=== PATIENT | female | born 1945 | race Caucasian/White ===

== ENCOUNTER 2017-01-18 19:49 | Emergency (ER) | payer MEDICARE ==
[2017-01-18] MEDS ORDERED: HYDROcodone/ACETAMIN 5-325 MG* 1 TAB PO ONE ×3 (21:11→22:13)
[2017-01-18] MEDS ORDERED: Cyclobenzaprine TAB* 10 MG PO ONE ×2 (21:11→22:14)
--- NOTE | 2017-01-18 21:44 | RAD ---
INDICATION: "Unable to walk x2 weeks" due to back pain COMPARISON: Lumbar radiograph November 19, 2015 TECHNIQUE: Contiguous axial sections were obtained beginning lower thoracic vertebra and continuing through the sacrum. Images were reconstructed in the sagittal and coronal planes. FINDINGS: Relative to the November 19, 2015 radiograph there has been interval compression deformity of the L3 vertebral body. The remaining vertebral bodies are cortically intact and properly aligned. Incidentally noted is a hemangioma occupying the left lateral aspect of the L5 vertebral body extending into the left pedicle. There is broad-based disc protrusion at L3/L4 combining with facet arthropathy and thickening of the ligamentum flavum to cause a mild degree of central canal stenosis. The visualized solid organs are grossly normal. There is coarse atherosclerotic calcification of the lower abdominal aorta. IMPRESSION: Compression deformity of the L3 vertebral body new since the November 19, 2015 radiograph of the lumbar spine with degenerative changes at L3/L4. Superior characterization of the neural and surrounding soft tissues as well as determination of acuity of the L3 vertebral body compression deformity, can be made with MRI of the lumbar spine.
--- NOTE | 2017-01-18 22:28 | ED ---
Back Pain - HPI Summary HPI Summary: Patient presents to ED with low back pain x 2 weeks. She normally ambulates at home, but has been in a wheelchair x 2 weeks d/t pain. Her son has been helping her. She states she can only go to the restroom if someone helps her and she has pain medications. She was seen at [facility] yesterday and given Tramadol but states it hasn't helped her symptoms. She was seen by her chiropractor 2 weeks ago and states the pain started at that time. She feels stiffness and pain which radiates down bilateral legs but worse through the right leg. Denies other symptoms. Denies bladder or bowel dysfunction. - History of Current Complaint Chief Complaint: EDBackInjuryPain Stated Complaint: BACK PAIN Time Seen by Provider: 01/18/17 20:41 Hx Obtained From: Patient Onset/Duration: Sudden Onset Onset/Duration: Started Weeks Ago Timing: Constant Back Pain Location: Is Discrete @ - low back Severity Initially: Moderate Severity Currently: Moderate Pain Intensity: 3 Pain Scale Used: 0-10 Numeric Character: Aching Aggravating Symptom(s): Movement Alleviating Symptom(s): Rest, Position Associated Signs And Symptoms: Positive: Weakness, Numbness, Tingling - Risk Factors AAA Risk Factors: Negative TAD Risk Factors: Negative Cauda Equina Risk Factors: Negative Epidural Abscess Risk Factors: Negative - Allergies/Home Medications Allergies/Adverse Reactions: Allergies Allergy/AdvReac Type Severity Reaction Status Date / Time No Known Allergies Allergy Verified 01/18/17 20:30 PMH/Surg Hx/FS Hx/Imm Hx Previously Healthy: No - see below Endocrine/Hematology History: Reports: Hx Thyroid Disease - hypothyroid Cardiovascular History: Reports: Hx Atrial Fibrillation, Hx Congestive Heart Failure, Hx Hypercholesterolemia, Hx Hypertension, Hx Pacemaker/ICD, Other Cardiovascular Problems/Disorders - Artificial valve, A Fib Sensory History: Reports: Hx Contacts or Glasses Opthamlomology History: Reports: Hx Contacts or Glasses - Surgical History Surgery Procedure, Year, and Place: CARDIAC VALVE REPLACEMENT, PACE MAKER, HERNIA REPAIR Infectious Disease History: No Infectious Disease History: Denies: Traveled Outside the [place] in Last 30 Days - Family History Known Family History: Positive: Unknown - Social History Occupation: Unemployed Lives: With Family Alcohol Use: Rare Hx Substance Use: No Substance Use Type: Reports: None Hx Tobacco Use: No Smoking Status (MU): Former Smoker Review of Systems Constitutional: Negative Eyes: Negative Cardiovascular: Negative Respiratory: Negative Positive: no symptoms reported, see HPI Positive: Arthralgia, Myalgia Skin: Negative Neurological: Negative All Other Systems Reviewed And Are Negative: Yes Physical Exam Triage Information Reviewed: Yes Vital Signs On Initial Exam: Initial Vitals Temp Pulse Resp BP Pulse Ox 96.8 F 110 16 140/91 92 01/18/17 20:30 01/18/17 20:30 01/18/17 20:30 01/18/17 20:30 01/18/17 20:30 Vital Signs Reviewed: Yes Appearance: Positive: Well-Appearing, Well-Nourished Skin: Positive: Warm, Skin Color Reflects Adequate Perfusion Head/Face: Positive: Normal Head/Face Inspection Eyes: Positive: EOMI, ANAIS, Conjunctiva Clear Neck: Positive: Supple, No Lymphadenopathy Respiratory/Lung Sounds: Positive: Clear to Auscultation, Breath Sounds Present Cardiovascular: Positive: Normal, RRR, Pulses are Symmetrical in both Upper and Lower Extremities Musculoskeletal: Positive: Pain @ - lower spine over L2-L5 Neurological: Positive: Sensory/Motor Intact, Alert, Oriented to Person Place, Time, Speech Normal Psychiatric: Positive: Normal AVPU Assessment: Alert - Cait[place] Coma Scale Best Eye Response: 4 - Spontaneous Best Motor Response: 6 - Obeys Commands Best Verbal Response: 5 - Oriented Diagnostics - Vital Signs Vital Signs Temp Pulse Resp BP Pulse Ox 01/18/17 20:50 98.7 F 51 17 136/85 90 01/18/17 20:30 96.8 F 110 16 140/91 92 - Laboratory Lab Statement: Any lab studies that have been ordered have been reviewed, and results considered in the medical decision making process. Back Pain Course/Dx - Course Course Of Treatment: IMPRESSION: Compression deformity of the L3 vertebral body new since the November 19, 2015. radiograph of the lumbar spine with degenerative changes at L3/L4. Superior. characterization of the neural and surrounding soft tissues as well as determination of. acuity of the L3 vertebral body compression deformity, can be made with MRI of the lumbar. spine. Physical exam limited d/t pain. Patient is given Dr. Mon's referral. Educated patient regarding back injuries and healing time and the possible need for further imaging. Given pain management and muscle relaxers for relief of pain. Patient OK with discharge and will follow up as directed. - Diagnoses Differential Diagnosis/HQI/PQRI: Positive: Herniated Disc, Strain, Sprain Provider Diagnoses: Compression fracture Discharge - Discharge Plan Condition: Stable Disposition: HOME Prescriptions: Cyclobenzaprine TAB* [Flexeril 10 MG TAB*] 10 mg PO TID PRN #30 tab MDD 3 PRN Reason: Pain Lidocaine PATCH 5%* [Lidoderm 5% Patch*] 1 patch TRANSDERM DAILY #15 patch oxyCODONE/Acetamin 5/325 MG* [Percocet 5/325 TAB*] 1 tab PO Q4H PRN #60 tab MDD 6 PRN Reason: Pain Patient Education Materials: Vertebral Compression Fracture (ED) Referrals: Gerardo Mon MD [Medical Doctor] - Dimitrios Lim MD [Primary Care Provider] - Additional Instructions: Dx. Compression Fracture Oxycodone-Acetaminophen - This medication may make you drowsy and do not drive or operate machinery with this medication. Only take this medication for breakthrough pain which is not well controlled with over the counter ibuprofen or tylenol. Lidocaine patch 5% - Place over the lower back for 12 hours per day. Do not place moist heat over the patch. Flexeril: This medication is a muscle relaxant and can help relieve muscle spasms, muscle strain, or pain sensations. Flexeril can cause side effects that may impair your thinking or reactions. Be careful if you drive or do anything that requires you to be awake and alert. Avoid drinking alcohol, which can increase some of the side effects of Flexeril. Ibuprofen 600mg three times daily with meals for discomfort. Return to ED if symptoms worsen or fail to improve, notice worsening swelling, warmth or redness around the joint, develop fever, or pain is uncontrolled with OTC medications. Moist heat to the area for comfort. Warm showers or baths may improve symptoms. It is important to remain mobile as tolerated to prevent stiffening of the joints and delay healing. Follow up with your PCP. If symptoms remain for > 6 weeks, please seek special medical attention from an orthopedic physician.
[2017-01-18 23:11] VITALS: BP 133/88
== END 2017-01-18 22:50 | disposition home or self-care (01) ==
LOC: ED 19:49
DX: S32.030A Wedge compression fracture of third lumbar vertebra, initial encounter for closed fracture (principal); S32.040A Wedge compression fracture of fourth lumbar vertebra, initial encounter for closed fracture; X58.XXXA Exposure to other specified factors, initial encounter; Y93.9 Activity, unspecified; Y92.9 Unspecified place or not applicable; R53.1 Weakness; E03.9 Hypothyroidism, unspecified; I48.91 Unspecified atrial fibrillation; I50.9 Heart failure, unspecified; E78.00 Pure hypercholesterolemia, unspecified; I10 Essential (primary) hypertension; Z95.0 Presence of cardiac pacemaker; Z95.2 Presence of prosthetic heart valve
CPT/HCPCS: 72131; 99283; A9270-GY

== ENCOUNTER → 2017-04-21 17:05 | Emergency (ER) | payer MEDICARE ==
--- NOTE | 2017-04-21 20:00 | ED ---
Back Pain - HPI Summary HPI Summary: Patient presents to the ED with CC of acute on chronic back pain since 2 days ago. She states the pain has been worsening and has been unable to sleep d/t pain. She has had extra Tramdol at home for pain control and is now out. She was here 3 months ago and was found to have a compression fracture. She followed up with Dr. Mon and was given oxycodone. However, not a surgical candidate. She states the back pain improved but recently worsened again. Notes to 1010 pain from home, but currently is having no pain. She walks with a walker at baseline. Lives alone. Son is at bedside. Denies urinary symptoms including B/B dysfunction. Denies any other symptoms including fevers, sweats and chills. She is willing to try the tramadol again, but does not want to have oxycodone at this time. She continues to use heat for pain control. Is unable to take ibuprofen. - History of Current Complaint Hx Obtained From: Patient Onset/Duration: Gradual Onset Onset/Duration: Started Days Ago Timing: Intermittent Back Pain Location: Is Discrete @ - L4-S1 Severity Initially: Severe Severity Currently: Moderate Pain Intensity: 7 Pain Scale Used: 0-10 Numeric Character: Aching Aggravating Symptom(s): Movement, Walking Alleviating Symptom(s): Rest, Position Associated Signs And Symptoms: Negative: Weakness, Numbness, Bladder Incontinence, Bowel Incontinence, Weight Loss, Pain with Weight Bearing - Risk Factors AAA Risk Factors: Negative TAD Risk Factors: Negative Epidural Abscess Risk Factors: Negative <Gabrielle Spangler - Last Filed: 04/21/17 19:55> <Marisa Lance - Last Filed: 04/23/17 00:48> - History of Current Complaint Chief Complaint: EDBackInjuryPain Stated Complaint: BACK PAIN Time Seen by Provider: 04/21/17 19:28 - Allergies/Home Medications Allergies/Adverse Reactions: Allergies Allergy/AdvReac Type Severity Reaction Status Date / Time No Known Allergies Allergy Verified 04/21/17 18:42 PMH/Surg Hx/FS Hx/Imm Hx Previously Healthy: Yes Endocrine/Hematology History: Reports: Hx Thyroid Disease - hypothyroid Cardiovascular History: Reports: Hx Atrial Fibrillation, Hx Congestive Heart Failure, Hx Hypercholesterolemia, Hx Hypertension, Hx Pacemaker/ICD, Other Cardiovascular Problems/Disorders - Artificial valve, A Fib Sensory History: Reports: Hx Contacts or Glasses Opthamlomology History: Reports: Hx Contacts or Glasses - Surgical History Surgery Procedure, Year, and Place: CARDIAC VALVE REPLACEMENT, PACE MAKER, HERNIA REPAIR - Immunization History Hx Pertussis Vaccination: No Immunizations Up to Date: Unable to Obtain/Confirm Infectious Disease History: No Infectious Disease History: Denies: Traveled Outside the [place] in Last 30 Days - Family History Known Family History: Positive: Unknown - Social History Occupation: Retired Lives: Alone Alcohol Use: Rare Hx Substance Use: No Substance Use Type: Reports: None Hx Tobacco Use: No Smoking Status (MU): Former Smoker <AníbalGabrielle Flynn - Last Filed: 04/21/17 19:55> Review of Systems Constitutional: Negative Eyes: Negative Cardiovascular: Negative Respiratory: Negative Genitourinary: Negative Positive: no symptoms reported, see HPI Positive: Arthralgia - low back pain Skin: Negative Neurological: Negative Psychological: Normal All Other Systems Reviewed And Are Negative: Yes <Gabrielle Spangler - Last Filed: 04/21/17 19:55> Physical Exam Triage Information Reviewed: Yes Vital Signs On Initial Exam: Initial Vitals Temp Pulse Resp BP Pulse Ox 96.6 F 83 16 107/70 95 04/21/17 17:17 04/21/17 17:17 04/21/17 17:17 04/21/17 17:17 04/21/17 17:17 Vital Signs Reviewed: Yes Appearance: Positive: Well-Appearing, Well-Nourished, Pain Distress Skin: Positive: Warm, Skin Color Reflects Adequate Perfusion Head/Face: Positive: Normal Head/Face Inspection Eyes: Positive: EOMI, ANAIS, Conjunctiva Clear Neck: Positive: Supple, No Lymphadenopathy Respiratory/Lung Sounds: Positive: Clear to Auscultation, Breath Sounds Present Cardiovascular: Positive: Normal, RRR Musculoskeletal: Positive: Pain @ - L4-S1 - acute on chronic back pain Neurological: Positive: Speech Normal Psychiatric: Positive: Normal - [place] Coma Scale Coma Scale Total: 15 <Aníbal,Gabrielle Flynn - Last Filed: 04/21/17 19:55> Vital Signs On Initial Exam: Initial Vitals Temp Pulse Resp BP Pulse Ox 96.6 F 83 16 107/70 95 04/21/17 17:17 04/21/17 17:17 04/21/17 17:17 04/21/17 17:17 04/21/17 17:17 <Marisa Lance - Last Filed: 04/23/17 00:48> Diagnostics - Vital Signs Vital Signs Temp Pulse Resp BP Pulse Ox 04/21/17 19:00 100 98/55 90 04/21/17 18:46 103 93 04/21/17 18:45 167/113 04/21/17 17:17 96.6 F 83 16 107/70 95 <Gabrielle Spangler - Last Filed: 04/21/17 19:55> - Vital Signs Vital Signs Temp Pulse Resp BP Pulse Ox 04/21/17 20:30 101 105/58 90 04/21/17 20:00 101 114/72 91 04/21/17 19:30 103 99/62 89 04/21/17 19:00 100 98/55 90 04/21/17 18:46 103 93 04/21/17 18:45 167/113 04/21/17 17:17 96.6 F 83 16 107/70 95 <Marisa Lance - Last Filed: 04/23/17 00:48> Back Pain Course/Dx - Course Course Of Treatment: Patient evaluated for acute low back pain which is acute on chronic. Found to have a compression fracture and is followed by Dr. Mon. Thorough physical exam was performed, focusing on thoracic and lumbar special tests and ROM. Due to patient pain around injury, physical exam was limited. Limited ROM. Flip Test negative. Straight leg raise positive. Kernig test positive. Negative Babinksi. Hip flexion and extension, knee extension, dorsiflexion, great toe extension and plantar flexion intact. Rotating at hips limited d/t pain. Nerve roots L4-S2 reflexes intact. L1-S2 nerve root sensory intact. No saddle anesthesia. Gait normal. Agreed to provide Tramadol 50mg TID only as needed for breakthrough pain and will follow up with her PCP early next week. - Diagnoses Differential Diagnosis/HQI/PQRI: Positive: Herniated Disc, Strain, Sprain <Gabrielle Spangler - Last Filed: 04/21/17 19:55> <Marisa Lance - Last Filed: 04/23/17 00:48> - Diagnoses Provider Diagnoses: Compression fracture Discharge <Gabrielle Spangler - Last Filed: 04/21/17 19:55> <Marcelo Lancea - Last Filed: 04/23/17 00:48> - Discharge Plan Condition: Stable Disposition: HOME Prescriptions: traMADol TAB* [Ultram*] 50 mg PO Q8H PRN #15 tab MDD 3 PRN Reason: Pain Patient Education Materials: Chronic Back Pain (ED) Referrals: Dimitrios Lim MD [Primary Care Provider] - Additional Instructions: Moist heat to the area for comfort. Warm showers or baths may improve symptoms. It is important to remain mobile as tolerated to prevent stiffening of the joints and delay healing. Follow up with your PCP. If symptoms remain for > 6 weeks, please seek special medical attention from an orthopedic physician. Tramadol - 3 x daily as needed for pain Follow up with your PCP next week
[2017-04-21 20:50] VITALS: BP 105/58
== END | disposition home or self-care (01) ==
LOC: ED 17:05
DX: S32.9XXA Fracture of unspecified parts of lumbosacral spine and pelvis, initial encounter for closed fracture (principal); X58.XXXA Exposure to other specified factors, initial encounter; Y93.9 Activity, unspecified; Y92.9 Unspecified place or not applicable; E03.9 Hypothyroidism, unspecified; I48.91 Unspecified atrial fibrillation; I50.9 Heart failure, unspecified; I10 Essential (primary) hypertension; E78.00 Pure hypercholesterolemia, unspecified; Z95.0 Presence of cardiac pacemaker; Z95.2 Presence of prosthetic heart valve; Z87.891 Personal history of nicotine dependence
CPT/HCPCS: 99282

== ENCOUNTER 2017-04-23 18:52 | Inpatient (IN) | payer MEDICARE ==
[2017-04-23] MEDS ORDERED: NS 0.9% 1000 ML* 1,000 ML IV SCH ×2 (19:45→22:30)
--- NOTE | 2017-04-23 20:09 | RAD ---
INDICATION: Chest pain. COMPARISON: Comparison is made with a prior study from July 05, 2014. TECHNIQUE: A portable view of the chest was obtained. FINDINGS: The patient is status poststernotomy and cardiac valve surgery. The heart is mildly enlarged and unchanged from the prior exam. There is a dual-chamber transvenous pacemaker present. The lungs are underinflated. There are linear densities above the left lung base most consistent with atelectasis. The lungs are otherwise clear. IMPRESSION: LOW LUNG VOLUMES, LINEAR INFILTRATES AT THE LEFT LUNG BASE MOST CONSISTENT WITH ATELECTASIS.
[2017-04-23] MEDS ORDERED: Sotalol TAB* 80 MG PO ONE (20:17)
[2017-04-23] MEDS ORDERED: Metoprolol Tartrate IV* 1 MG/ML 5 ML VIAL IV ONE (20:20)
[2017-04-23 20:44] LABS: Hematocrit 50 % (35-47); Hemoglobin 16.4 g/dl (12.0-16.0); Mean Corpuscular HGB Conc 33 g/dl (31-36); Mean Corpuscular Hemoglobin 32 pg (27-31); Mean Corpuscular Volume 97 fL (80-97); Mean Platelet Volume 9 um3 (7.4-10.4); Red Blood Count 5.17 10^6/ul (4.0-5.4); Red Cell Distribution Width 15 % (10.5-15); White Blood Count 14.4 10^3/ul (3.5-10.8)
[2017-04-23 20:47] LABS: Add Diff/Slide Review? Slide Review Added; Comments Flag Yes
[2017-04-23 21:01] LABS: ALT 13 U/L (7-52); AST 17 U/L (13-39); Albumin 3.6 g/dL (3.2-5.2); Alkaline Phosphatase 78 U/L (34-104); Anion Gap 9 mmol/L (2-11); BUN/Creatinine Ratio 19.1 (8-20); Blood Urea Nitrogen 27 mg/dL (6-24); C Reactive Protein 394.82 mg/L (< 5.00); CO2 Carbon Dioxide 29 mmol/L (22-32); Calcium 10.2 mg/dL (8.6-10.3); Chloride 102 mmol/L (101-111); Creatine Kinase 93 U/L (10-223); EGFR Non-African American 36.6 (>60); Globulin 3.6 g/dL (2-4); Glucose 169 mg/dL (70-100); Lipase < 10 U/L (11.0-82.0); Magnesium 2.6 mg/dL (1.9-2.7); Potassium 4.5 mmol/L (3.5-5.0); Sodium 140 mmol/L (133-145); Total Protein 7.2 g/dL (6.4-8.9)
[2017-04-23 21:03] LABS: Troponin I 0.15 ng/mL (<0.04)
[2017-04-23 21:15] LABS: TSH (Thyroid Stimulating Horm) 2.51 mcIU/mL (0.34-5.60)
[2017-04-23] MEDS ORDERED: Digoxin IV* 0.5 MG/2 ML AMP (0.25 MG/ML) IV SLOW PU ONE (22:14)
[2017-04-23] MEDS ORDERED: Morphine INJ* 2 MG/ML 1 ML SYRINGE (TWO MG - NEW SYRINGE VERSION) IV PRN (22:28)
[2017-04-23] MEDS ORDERED: Cyclobenzaprine TAB* 10 MG PO PRN (22:31)
[2017-04-23] MEDS ORDERED: oxyCODONE/Acetamin 5/325 MG* TAB PO PRN (22:31)
[2017-04-23 22:36] LABS: Urine Bacteria 3+ (Absent); Urine Bilirubin 1+ (Negative); Urine Glucose 1+(50 mg/dL) (Negative); Urine Nitrite Negative (Negative)
[2017-04-23] MEDS ORDERED: Vancomycin per Pharmacy* NOTE FOLLOW UP PRN (22:47)
[2017-04-23] MEDS ORDERED: cefTRIAXone VIAL(*) 1,000 MG in NS 0.9% 50 ML* 50 ML IVPB ONE (23:00)
[2017-04-23] MEDS: Diltiazem DRIP* 100 MG/100 ML ADDV.BAG IVPB SCH (23:26)
[2017-04-23] MEDS: cefTRIAXone VIAL(*) 1,000 MG in NS 0.9% 50 ML* 50 ML IVPB SCH (23:41)
[2017-04-24] MEDS ORDERED: Vancomycin(*) 1,250 MG in NS 0.9% 250 ML* 250 ML IVPB ONE ×2
--- NOTE | 2017-04-24 01:54 | HP ---
CC: Dr. Newman; Dr. Huber * HISTORY AND PHYSICAL: DATE OF ADMISSION: 04/23/17 PRIMARY CARE PROVIDER: Dr. Newman. CHIEF COMPLAINT: Chest pain. HISTORY OF PRESENT ILLNESS: Cira Adams is a 72-year-old female with history of status post aortic valve replacement with mechanical valve as well as paroxysmal atrial fibrillation and pacemaker placement who is on Coumadin and sotalol. The patient presented to the hospital in atrial fibrillation with rapid ventricular response complaining of chest pain. The patient does not know specific about her chest pain. She stated that it is a sharp ache and whenever she has it, it occurs for seconds and then she has to have a bowel movement. She stated that had been going on for several days now. The patient has had problems with vertebral compression fracture for past several months. In fact, a CT in January 2017 showed compression deformity of the L3 vertebral body. I believe that was diagnosed at that point. The patient had followed with [facility] at that point and had worn brace occasionally. She states that for the past 4 days the pain had gotten worse. She also had problems with some bowel incontinence in the past, but now it has gotten more severe. She stated that whenever she would have the sharp chest pain, then she would have to have a bowel movement. She complains of loose bowel movements up to 5 times a day for the past 4 days. She was on antibiotics approximately 2 weeks ago for UTI. Apart from the bowel incontinence that had gotten worse since the patient stated that she did have bowel incontinence in the past and had been "spotting" for the past 5 years. The patient denies any other issues with focal weakness. Currently, she is chest pain free and her heart rate is in the 130s despite administration of additional dose of 80 mg of sotalol in the emergency department and metoprolol 5 mg. The patient received 0.5 mg of digoxin intravenously and her heart rate during this dictation went down to one teens. She is going to be placed on Cardizem drip in the intensive care unit for further titration. She missed SIRS criteria and it appears that her urine sample is cloudy and tea colored. I suspect she also has a UTI. I also suspect that she may be furthermore septic and she is going to be placed at this point on broad spectrum antibiotics with ceftriaxone and vancomycin. PAST MEDICAL HISTORY: 1. History of atrial fibrillation, paroxysmal, on Coumadin. 2. History of tachy-robby syndrome, status post pacemaker in 2005. 3. History of nonsustained V-tach in the past. 4. History of aortic stenosis, status post aortic valve replacement with mechanical valve in 2000 at [facility]. 5. Hypertension. 6. Hyperlipidemia. 7. Obesity. 8. Hypothyroidism. 9. History of congestive heart failure. 10. Depression. 11. History of hernia repair. 12. History of appendectomy. 13. Status post ORIF of the right ankle in August 2015. 14. Diabetes type 2. MEDICATIONS: Currently include: 1. Tramadol 50 mg every 8 hours p.r.n. 2. Oxycodone/acetaminophen 5/325 mg 1 to 2 tablets every 4 hours p.r.n. 3. Metformin 500 mg daily. 4. Clonidine 1 tablet b.i.d. at 0.1 mg. 5. Amlodipine 2.5 mg daily. 6. Coumadin 4 mg daily. 7. Aldactone 25 mg b.i.d. 8. Sotalol 120 mg daily. 9. Probiotic 1 tablet daily. 10. Osteo Bi-Flex 1 tablet daily. 11. Magnesium 400 mg daily. 12. Lisinopril hydrochlorothiazide 20/12.5, 1 tablet daily. 13. Lidocaine patch 5% 1 transdermally daily. 14. Levothyroxine 112 mcg daily. 15. Glucosamine and chondroitin 1 tablet daily. 16. Fish oil 1 capsule daily. 17. Cyclobenzaprine 10 mg t.i.d. p.r.n. 18. Acetaminophen on a p.r.n. basis. ALLERGIES: No known drug allergies. FAMILY HISTORY: The patient has a history of heart disease in mother and maternal uncle. SOCIAL HISTORY: The patient is originally from [place] and has lived in the [facility] for over 40 years. She is and lives alone. Her son lives in [place] and he will be the surrogate. She denies any alcohol, tobacco, or drug use. 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 She walks with a roller walker. REVIEW OF SYSTEMS: Please see history of present illness. The patient's son noted that she has been experiencing episodes of confusion and they thought it was due to the Ultram that she started taking in the past week. The patient complained of shortness of breath on arrival and she was found to be hypoxic with oxygen saturation of 89% on room air. The patient denies any cough. She denies any fevers. She states that she has loose bowel movements up to 5 times a day for the past 4 days and she has mild abdominal pain. She has had no major problems with ambulation for the past several days, although her back pain had been more severe. Currently, she denies any back pain. All of the other 12 systems reviewed with the patient and were otherwise negative. PHYSICAL EXAMINATION GENERAL: Patient is a pleasant 72-year-old female who is mildly obese, in no acute distress. Alert and awake and oriented x3, although a rather poor historian and sometimes forgetful. VITAL SIGNS: Blood pressure of 106/109, heart rate of 118 and irregular, respiratory rate 18, oxygen saturation 92% on 3 L of oxygen nasal cannula, temperature of 96.6. HEENT: Head: Atraumatic, normocephalic. Eyes: Pupils are equal, reactive to light and accommodation. Oropharynx clear. Mucosa moist. NECK: Supple. No JVD. No bruits bilaterally. RESPIRATORY: Faint crackles at bilateral bases. CARDIOVASCULAR: Irregular rate and rhythm. No tachycardia. No murmur. ABDOMEN: Obese, mildly diffusely tender with no rebound, no guarding. Bowel sounds present in all 4 quadrants. EXTREMITIES: There is +1 nonpitting pedal edema bilaterally. Pulses +2 bilaterally. There is no clubbing or cyanosis. SKIN: On evaluation of the skin, the patient has mottled skin in her lower extremities, especially around her knees. Her skin is cool and clammy. She has erythema on her right lower extremity that appears to be related to old scarring. There is no evidence of cellulitis. BACK: On evaluation of patient's back, on palpation of her entire vertebral column, there was no tenderness on evaluation. NEURO: Speech clear. Cranial nerves II through XII grossly intact. Motor strength is 5/5 bilaterally. DIAGNOSTIC STUDIES/LAB DATA: White blood cell count 14.4, hemoglobin 16.4, hematocrit of 50, platelets of 146,000. INR of 2.19, D-dimer of 371. Sodium is 140, potassium 4.5, chloride 102, carbon dioxide 29, BUN 27, creatinine 1.41. Glucose of 169, lactic acid of 3.4. Troponin of 0.15. Total bilirubin 1.2, magnesium of 2.6. Liver function is otherwise unremarkable. C- reactive protein of 394. Brain natriuretic peptide was 2483. Lipase below 10, TSH of 2.5. Urinalysis is pending at the time of dictation. Portable chest x-ray is read by the radiologist as low lung volumes and lingular infiltrates in the left lung base most consistent with atelectasis. The patient's EKG showed atrial fibrillation with rapid ventricular response with heart rate of [address] depressions in lateral leads and inferior leads that was different from previous EKGs when usually patient has paced rhythm. ASSESSMENT AND PLAN: 1. The patient meets systemic inflammatory response syndrome criteria, so far I do not have a source of infection, but the differential includes upper respiratory infection and subsequent sepsis. Possibility of vertebral infection or paravertebral abscess has to be also considered in this patient with a recent compression fracture and worsening of back pain in the past 4 days. At this point, the patient is going to be treated with broad spectrum antibiotics with ceftriaxone and vancomycin. The patient's blood cultures were already obtained and urinalysis is pending. Due to her elevated brain natriuretic peptide and crackles at bilateral bases and history of congestive heart failure, I am not going to resuscitate her with a lot of volume and I will place her on normal saline at 75 mL an hour. 2. Her acute renal failure is most likely due to sepsis but also exacerbated by atrial fibrillation with rapid ventricular response. At this point, patient is going to be placed on gentle fluids. I will also rule out hydronephrosis by obtaining a CT of the abdomen and pelvis. 3. The patient's diarrhea appears very mild. The patient complains of loose stools 5 times a day. Nevertheless, he has a history of being on antibiotics 2 weeks ago and I will obtain stool C. diff. I will also check CT of the abdomen and pelvis without contrast to evaluate bowels further. 3. For her atrial fibrillation with rapid ventricular response, the patient received 1 dose of digoxin 0.5 mg daily. We will continue sotalol and place the patient on Cardizem. I will obtain transthoracic echocardiogram in the morning. 4. The patient's elevated troponin is most likely due to demand ischemia and atrial fibrillation with rapid ventricular response. Nevertheless, the patient has had a complaint of chest pain in the past 5 days and was sharp, substernal and lasted seconds and she had a bowel movement. It appears to be GI related. Nevertheless, we will continue trending patient's troponins. The patient is fully anticoagulated on Coumadin and will not require heparin drip if she were to have more troponin elevation. 5. For DVT prophylaxis, the patient's Coumadin is going to be continued. 6. In regards to patient's hypertension, all her diuretics are going to be held due to acute renal failure. 7. The patient's code status is full and her surrogate is her son. TIME SPENT: Approximately 75 minutes was spent in the care of the patient in the emergency department, about half of the time was spent [id number] with the patient. [id number]/[facility] #: [id number] ALISE
[2017-04-24 02:28] LABS: Urine Bacteria Absent (Absent); Urine Bilirubin Negative (Negative); Urine Glucose 1+(50 mg/dL) (Negative); Urine Nitrite Negative (Negative)
[2017-04-24] MEDS: Levothyroxine TAB* 112 MCG TAB PO SCH (05:15)
[2017-04-24] MEDS: Diltiazem DRIP* 100 MG/100 ML ADDV.BAG IVPB SCH ×3 (05:33→18:28)
[2017-04-24 05:52] LABS: Hematocrit 47 % (35-47); Hemoglobin 15.4 g/dl (12.0-16.0); Mean Corpuscular HGB Conc 33 g/dl (31-36); Mean Corpuscular Hemoglobin 32 pg (27-31); Mean Corpuscular Volume 97 fL (80-97); Mean Platelet Volume 9 um3 (7.4-10.4); Red Blood Count 4.83 10^6/ul (4.0-5.4); Red Cell Distribution Width 15 % (10.5-15); White Blood Count 11.5 10^3/ul (3.5-10.8)
[2017-04-24 05:55] LABS: Comments Flag Yes
[2017-04-24 06:04] LABS: BUN/Creatinine Ratio 21.5 (8-20); Calcium 9.5 mg/dL (8.6-10.3); EGFR African American 56.1 (>60); EGFR Non-African American 43.6 (>60); Potassium 4.5 mmol/L (3.5-5.0)
--- NOTE | 2017-04-24 06:04 | ED ---
Lynn Velez Rebecca, scribed for Mazin De Leon MD on 04/23/17 at 1951 . HPI Chest Pain - HPI Summary HPI Summary: Pt is a 72 y/o F who presents to ED c/o CP. Pain began last night and has been intermittent since onset, with an episode of pain last night and another this morning upon waking up at 0530. Sx lasted approximately 5-10 minutes and resolved spontaneously. When present, pain was midsternal and severe, ranked 9/ 10. Sx aggravated by nothing, alleviated by spontaneous resolution. When CP was present, she additionally experienced diaphoresis, N/V/D, and SOB. Son states that she has been experiencing N/V and SOB for the last 3 days. Denies abdominal pain, fever, chills, palpitations, blood in stool and melena. PSHx CABG in 2000 with her last stress test being prior to surgery. Family reports that the pt experienced N/V/D last time she took Tramadol a few months ago and she was started on Tramadol a few days ago for chronic back pain. PMHx A Fib - is on blood thinners. - History of Current Complaint Chief Complaint: EDAbdPain Time Seen by Provider: 04/23/17 19:14 Hx Obtained From: Patient, Family/[employer] Helper Onset/Duration: Resolved Timing: Intermittent, Lasting Minutes - 5-10 minutes Initial Severity: Severe - 9/10 Current Severity: None Pain Intensity: 0 Pain Scale Used: 0-10 Numeric Chest Pain Location: Mid Sternal Aggravating Factor(s): Nothing Alleviating Factor(s): Spontaneous Resolution Associated Signs and Symptoms: Positive: Shortness of Breath, Diaphoresis, Nausea, Vomiting. Negative: Fever, Chills, Palpitations, Abdominal Pain - Additional Pertinent History Primary Care Physician: MORIS - Allergy/Home Medications Allergies/Adverse Reactions: Allergies Allergy/AdvReac Type Severity Reaction Status Date / Time No Known Allergies Allergy Verified 04/23/17 21:42 PMH/Surg Hx/FS Hx/Imm Hx Endocrine/Hematology History: Reports: Hx Thyroid Disease - hypothyroid Cardiovascular History: Reports: Hx Atrial Fibrillation, Hx Congestive Heart Failure, Hx Hypercholesterolemia, Hx Hypertension, Hx Pacemaker/ICD, Other Cardiovascular Problems/Disorders - Artificial valve, A Fib Sensory History: Reports: Hx Contacts or Glasses Opthamlomology History: Reports: Hx Contacts or Glasses - Surgical History Surgery Procedure, Year, and Place: CARDIAC VALVE REPLACEMENT, PACE MAKER, HERNIA REPAIR - Family History Known Family History: Positive: Cardiac Disease - with MIs, Other - CVAs Negative: Diabetes - Social History Alcohol Use: Rare Hx Substance Use: No Substance Use Type: Reports: None Hx Tobacco Use: No Smoking Status (MU): Former Smoker Review of Systems Positive: Skin Diaphoresis. Negative: Fever, Chills Positive: Chest Pain - resolved. Negative: Palpitations Positive: Shortness Of Breath Positive: Vomiting, Diarrhea, Nausea. Negative: Abdominal Pain Positive: other - NEGATIVE: Blood in stool and melena All Other Systems Reviewed And Are Negative: Yes Physical Exam - Summary Physical Exam Summary: General: well-appearing, no pain distress Skin: warm, color reflects adequate perfusion, dry Head: normal Eyes: EOMI, ANAIS ENT: normal Neck: supple, nontender Respiratory: CTA, breath sounds present Cardiovascular: Tachycardic, IRR Abdomen: soft, nontender Bowel: present Musculoskeletal: strength/ROM intact, mild bilateral pedal edema, back was tender along the lumbar spine Neurological: normal, sensory/motor intact, A&O x3, no neurological deficits Psychological: affect/mood appropriate Triage Information Reviewed: Yes Vital Signs On Initial Exam: Initial Vitals BP 170/140 04/23/17 19:18 Vital Signs Reviewed: Yes - [place] Coma Scale Coma Scale Total: 15 Diagnostics - Vital Signs Vital Signs Pulse Resp BP Pulse Ox 04/23/17 22:00 69/24 04/23/17 21:40 125 20 149/102 92 04/23/17 21:30 125 149/102 92 04/23/17 21:00 129 182/123 93 04/23/17 20:30 134 180/134 91 04/23/17 20:00 130 93 04/23/17 19:30 118 160/123 88 04/23/17 19:25 122 144/119 85 04/23/17 19:20 145 90 04/23/17 19:18 170/140 - Laboratory Lab Results: Lab Results 04/23/17 04/23/17 04/23/17 Range/Units 20:00 20:00 20:00 WBC (3.5-10.8) 10^3/ul RBC (4.0-5.4) 10^6/ul Hgb (12.0-16.0) g/dl Hct (35-47) % MCV (80-97) fL MCH (27-31) pg MCHC (31-36) g/dl RDW (10.5-15) % Plt Count (150-450) 10^3/ul MPV (7.4-10.4) um3 Neut % (Auto) (38-83) % Lymph % (Auto) (25-47) % [place] % (Auto) (1-9) % Eos % (Auto) (0-6) % Baso % (Auto) (0-2) % Absolute Neuts (auto) (1.5-7.7) 10^3/ul Absolute Lymphs (auto) (1.0-4.8) 10^3/ul Absolute Monos (auto) (0-0.8) 10^3/ul Absolute Eos (auto) (0-0.6) 10^3/ul Absolute Basos (auto) (0-0.2) 10^3/ul Absolute Nucleated RBC 10^3/ul Nucleated RBC % INR (Anticoag Therapy) 2.19 H (0.89-1.11) APTT 34.3 (26.0-36.3) seconds D-Dimer, Quantitative 371 H (Less Than 230) ng/mL Sodium 140 (133-145) mmol/L Potassium 4.5 (3.5-5.0) mmol/L Chloride 102 (101-111) mmol/L Carbon Dioxide 29 (22-32) mmol/L Anion Gap 9 (2-11) mmol/L BUN 27 H (6-24) mg/dL Creatinine 1.41 H (0.51-0.95) mg/dL Est GFR ( Amer) 47.0 (>60) Est GFR (Non-Af Amer) 36.6 (>60) BUN/Creatinine Ratio 19.1 (8-20) Glucose 169 H (70-100) mg/dL Lactic Acid (0.5-2.0) mmol/L Calcium 10.2 (8.6-10.3) mg/dL Magnesium 2.6 (1.9-2.7) mg/dL Total Bilirubin 1.20 H (0.2-1.0) mg/dL AST 17 (13-39) U/L ALT 13 (7-52) U/L Alkaline Phosphatase 78 (34-104) U/L Total Creatine Kinase 93 (10-223) U/L CK-MB (CK-2) 6.0 (0.6-6.3) ng/mL Troponin I 0.15 H* (<0.04) ng/mL C-Reactive Protein 394.82 H (< 5.00) mg/L B-Natriuretic Peptide 2483 H ( - 100) pg/mL Total Protein 7.2 (6.4-8.9) g/dL Albumin 3.6 (3.2-5.2) g/dL Globulin 3.6 (2-4) g/dL Albumin/Globulin Ratio 1.0 (1-3) Lipase < 10 L (11.0-82.0) U/L TSH 2.51 (0.34-5.60) mcIU/mL 04/23/17 04/23/17 Range/Units 20:00 20:00 WBC 14.4 H (3.5-10.8) 10^3/ul RBC 5.17 (4.0-5.4) 10^6/ul Hgb 16.4 H (12.0-16.0) g/dl Hct 50 H (35-47) % MCV 97 (80-97) fL MCH 32 H (27-31) pg MCHC 33 (31-36) g/dl RDW 15 (10.5-15) % Plt Count 146 L (150-450) 10^3/ul MPV 9 (7.4-10.4) um3 Neut % (Auto) 77.8 (38-83) % Lymph % (Auto) 4.7 L (25-47) % [place] % (Auto) 17.4 H (1-9) % Eos % (Auto) 0 (0-6) % Baso % (Auto) 0.1 (0-2) % Absolute Neuts (auto) 11.2 H (1.5-7.7) 10^3/ul Absolute Lymphs (auto) 0.7 L (1.0-4.8) 10^3/ul Absolute Monos (auto) 2.5 H (0-0.8) 10^3/ul Absolute Eos (auto) 0 (0-0.6) 10^3/ul Absolute Basos (auto) 0 (0-0.2) 10^3/ul Absolute Nucleated RBC 0.02 10^3/ul Nucleated RBC % 0.1 INR (Anticoag Therapy) (0.89-1.11) APTT (26.0-36.3) seconds D-Dimer, Quantitative (Less Than 230) ng/mL Sodium (133-145) mmol/L Potassium (3.5-5.0) mmol/L Chloride (101-111) mmol/L Carbon Dioxide (22-32) mmol/L Anion Gap (2-11) mmol/L BUN (6-24) mg/dL Creatinine (0.51-0.95) mg/dL Est GFR ( Amer) (>60) Est GFR (Non-Af Amer) (>60) BUN/Creatinine Ratio (8-20) Glucose (70-100) mg/dL Lactic Acid 3.4 H* (0.5-2.0) mmol/L Calcium (8.6-10.3) mg/dL Magnesium (1.9-2.7) mg/dL Total Bilirubin (0.2-1.0) mg/dL AST (13-39) U/L ALT (7-52) U/L Alkaline Phosphatase (34-104) U/L Total Creatine Kinase (10-223) U/L CK-MB (CK-2) (0.6-6.3) ng/mL Troponin I (<0.04) ng/mL C-Reactive Protein (< 5.00) mg/L B-Natriuretic Peptide ( - 100) pg/mL Total Protein (6.4-8.9) g/dL Albumin (3.2-5.2) g/dL Globulin (2-4) g/dL Albumin/Globulin Ratio (1-3) Lipase (11.0-82.0) U/L TSH (0.34-5.60) mcIU/mL Result Diagrams: 04/24/17 04:09 04/23/17 20:00 Lab Statement: Any lab studies that have been ordered have been reviewed, and results considered in the medical decision making process. - Radiology CXR Xray Interpretation: Positive (See Comments) - LOW LUNG VOLUMES, LINEAR INFILTRATES AT THE LEFT LUNG BASE MOST CONSISTENT WITH ATELECTASIS. ED physician reviewed radiology report and agrees. Radiology Interpretation Completed By: Radiologist - EKG 1956 Cardiac Rate: Tachycardia - 154 bpm EKG Rhythm: Atrial Fibrillation - Rapid A Fib EKG Interpretation: ST depressions, probably rate related Re-Evaluation - Re-Evaluation First Eval Re-Evaluation Time: 20:15 Comment: Discussed the EKG with the pt and that the hospitalist had been consulted for admission. Chest Pain Course/Dx - Course Assessment/Plan: Pt is a 72 y/o F who presents to ED c/o CP. Pain began last night and has been intermittent since onset, with an episode of pain last night and another this morning upon waking up at 0530. Sx lasted approximately 5-10 minutes and resolved spontaneously. When present, pain was midsternal and severe , ranked 9/10. When CP was present, she additionally experienced diaphoresis, N/ V/D, and SOB. Son states that she has been experiencing N/V and SOB for the last 3 days. Denies abdominal pain, fever, chills, palpitations, blood in stool and melena. PSHx CABG in 2000 with her last stress test being prior to surgery. Family reports that the pt experienced N/V/D last time she took Tramadol a few months ago and she was started on Tramadol a few days ago for chronic back pain. PMHx A Fib - is on blood thinners. CXR reveals " LOW LUNG VOLUMES, LINEAR INFILTRATES AT THE LEFT LUNG BASE MOST CONSISTENT WITH ATELECTASIS." EKG is sinus tachycardia with rapid A Fib. Troponin of 0.15 and lactic acid of 3.4. In the ED course, pt was given Lopressor, Betapace and fluids. Discussed care of pt with Dr. Proctor who accepts pt for admission. Pt will be admitted to hospitalist services. Pt understands and agrees. Medications reviewed. - Diagnoses Provider Diagnoses: Chest pain, Rapid atrial fibrillation, CHF (congestive heart failure), Diarrhea - Provider Notifications Discussed Care Of Patient With: Nguyen Proctor Time Discussed With Above Provider: 20:02 Instructed by Provider To: Other - Accepts pt for admission. - Critical Care Time Critical Care Time: 30-74 min Discharge - Discharge Plan Condition: Stable Disposition: ADMITTED TO [facility] documentation as recorded by the Lynn lowe Rebecca accurately reflects the service I personally performed and the decisions made by me, Mazin De Leon MD.
--- NOTE | 2017-04-24 07:14 | RAD ---
INDICATION: Abdominal pain and back pain. COMPARISON: Comparison is made with a prior CT of the lumbar spine from January 18, 2017. TECHNIQUE: A CT scan of the abdomen and pelvis was performed without intravenous or oral contrast. Contiguous axial sections were obtained from the lung bases through the symphysis pubis. Images were reconstructed in the coronal and sagittal planes. FINDINGS: There is a small left basilar infiltrate and pleural effusion. There are coronary artery calcifications. The heart is mildly enlarged. The liver and spleen are within normal limits in size without significant focal abnormality on this noncontrast study. The gallbladder slightly distended. There are calcified gallstones. No gallbladder wall thickening or pericholecystic fluid is seen. The pancreas appears to be within normal limits. There are bilateral soft tissue density adrenal nodules measuring 2.3 x 2.01 right side in 1.8 x 1.6 cm on the left side. There is a punctate 2 mm nonobstructing right renal calculus. No hydronephrosis is present. The kidneys are slightly small in size. The aorta is normal in caliber with moderate calcific plaque present. No significant enlarged retroperitoneal lymph nodes are seen. The stomach, small and large bowel appear nondistended. The appendix is not well visualized. There is no evidence for diverticulitis or colitis. There is a periumbilical hernia containing fat. The uterus is retroverted. There is a small calcified leiomyoma. No free intraperitoneal air or fluid is seen. There is a severe compression fracture of the L3 vertebral body which is progressed slightly from the prior exam. There is a new mild to moderate compression fracture of the superior endplate of the L4 vertebral body there is mild retropulsion of fracture fragments causing moderate spinal canal narrowing. IMPRESSION: 1. SMALL LEFT PLEURAL EFFUSION AND BASILAR INFILTRATE. 2. CHOLELITHIASIS WITHOUT EVIDENCE FOR ACUTE CHOLECYSTITIS. 3. SMALL NONOBSTRUCTING RIGHT RENAL CALCULUS. 4. BILATERAL ADRENAL NODULES CONSIDER MR IMAGING WITHOUT CONTRAST FOR FURTHER EVALUATION. 5. SEVERE COMPRESSION FRACTURE OF THE L3 VERTEBRAL BODY PROGRESSED FROM THE PRIOR STUDY. THERE IS ALSO A NEW MILD TO MODERATE COMPRESSION FRACTURE OF THE SUPERIOR ENDPLATE OF THE L4 VERTEBRAL BODY. THERE IS MODERATE SPINAL CANAL NARROWING SECONDARY TO RETROPULSION OF FRACTURE FRAGMENTS.
--- NOTE | 2017-04-24 07:44 | PN ---
Subjective Date of Service: 04/24/17 Interval History: Some low ida pain, does not want any analgesics. No more nausea or emesis since admission. No new c/o. Chronic urinary incontinence. Objective Active Medications: Acetaminophen (Tylenol Tab*) 650 mg PO Q4H PRN PRN Reason: FEVER/PAIN Cyclobenzaprine HCl (Flexeril Tab*) 10 mg PO TID PRN PRN Reason: PAIN Diltiazem HCl (Cardizem Iv Advan*) 100 mg in 100 mls @ 5 mls/hr IVPB .PER PARAMETERS [facility] PRN Reason: 5 MG/HR Last Admin: 04/24/17 05:33 Dose: 5 mls/hr Sodium Chloride (Ns 0.9% 1000 Ml*) 1,000 mls @ 75 mls/hr IV PER RATE [facility] Last Admin: 04/24/17 06:22 Dose: 75 mls/hr Ceftriaxone Sodium 1,000 mg/ (Sodium Chloride) 50 mls @ 200 mls/hr IVPB Q24H [facility] Last Admin: 04/23/17 23:41 Dose: 200 mls/hr Levothyroxine Sodium (Synthroid Tab*) 112 mcg PO DAILY@0600 [facility] Last Admin: 04/24/17 05:15 Dose: 112 mcg Lidocaine (Lidoderm 5% Patch*) 1 patch TRANSDERM DAILY [facility] Morphine Sulfate (Morphine Inj (Syringe)*) 1 mg IV Q4H PRN PRN Reason: PAIN Oxycodone/Acetaminophen (Percocet 5/325 Tab*) 1 tab PO Q4H PRN PRN Reason: PAIN Pharmacy Profile Note (Lidocaine Patch Remove*) 1 note PATCH OFF 2100 [facility] Sotalol HCl (Betapace Tab*) 120 mg PO DAILY [facility] Warfarin Sodium (Coumadin Tab(*)) 4 mg PO DAILY@1700 [facility] PRN Reason: Protocol Vital Signs 04/23/17 04/23/17 04/23/17 22:07 22:10 22:22 Temperature Pulse Rate 119 118 110 Respiratory 18 Rate Blood Pressure 97/70 156/109 156/109 (mmHg) O2 Sat by Pulse 92 92 93 Oximetry 04/23/17 04/23/17 04/23/17 22:28 22:30 22:37 Temperature 97.6 F 97.6 F Pulse Rate 121 119 Respiratory 20 Rate Blood Pressure 171/132 194/117 (mmHg) O2 Sat by Pulse 92 95 Oximetry 04/23/17 04/23/17 04/23/17 22:40 22:53 23:19 Temperature Pulse Rate 116 120 125 Respiratory 20 Rate Blood Pressure 190/149 (mmHg) O2 Sat by Pulse 93 93 92 Oximetry 04/23/17 04/23/17 04/24/17 23:37 23:45 00:00 Temperature 97.9 F Pulse Rate 130 124 124 Respiratory 20 16 23 Rate Blood Pressure 163/137 156/112 158/121 (mmHg) O2 Sat by Pulse 91 92 93 Oximetry 04/24/17 04/24/17 04/24/17 00:04 00:15 00:33 Temperature 98.4 F 99.7 F 100.2 F Pulse Rate 116 117 116 Respiratory 28 16 17 Rate Blood Pressure 153/118 155/116 158/130 (mmHg) O2 Sat by Pulse 92 93 92 Oximetry 04/24/17 04/24/17 04/24/17 00:45 01:00 01:15 Temperature 100.2 F 100.0 F 99.9 F Pulse Rate 119 107 116 Respiratory 18 16 19 Rate Blood Pressure 151/115 141/99 (mmHg) O2 Sat by Pulse 93 91 93 Oximetry 04/24/17 04/24/17 04/24/17 01:30 01:38 01:46 Temperature 99.9 F 99.9 F 99.7 F Pulse Rate 113 105 118 Respiratory 22 27 19 Rate Blood Pressure 169/103 141/95 (mmHg) O2 Sat by Pulse 92 92 91 Oximetry 04/24/17 04/24/17 04/24/17 02:00 02:16 02:20 Temperature 99.7 F 99.7 F 99.5 F Pulse Rate 114 115 118 Respiratory 24 23 26 Rate Blood Pressure 145/106 187/115 166/110 (mmHg) O2 Sat by Pulse 92 90 92 Oximetry 04/24/17 04/24/17 04/24/17 03:00 04:00 04:13 Temperature 99.3 F 98.6 F 99.1 F Pulse Rate 113 114 111 Respiratory 20 18 27 Rate Blood Pressure 136/101 (mmHg) O2 Sat by Pulse 92 91 91 Oximetry 04/24/17 04/24/17 04/24/17 04:15 04:22 04:30 Temperature 99.1 F 99.3 F 99.5 F Pulse Rate 114 110 113 Respiratory 12 20 25 Rate Blood Pressure 131/105 116/95 (mmHg) O2 Sat by Pulse 75 96 94 Oximetry 04/24/17 04/24/17 04/24/17 04:45 05:00 05:15 Temperature 99.5 F 99.5 F 99.3 F Pulse Rate 93 125 106 Respiratory 28 30 19 Rate Blood Pressure 139/103 135/101 137/95 (mmHg) O2 Sat by Pulse 91 90 91 Oximetry 04/24/17 04/24/17 04/24/17 05:30 05:44 05:45 Temperature 99.3 F 99.3 F 99.3 F Pulse Rate 103 98 110 Respiratory 18 23 15 Rate Blood Pressure 122/93 131/78 (mmHg) O2 Sat by Pulse 93 92 92 Oximetry 04/24/17 04/24/17 04/24/17 06:00 06:15 06:30 Temperature 98.8 F 98.6 F 98.6 F Pulse Rate 100 89 96 Respiratory 16 19 19 Rate Blood Pressure 138/72 124/102 125/99 (mmHg) O2 Sat by Pulse 93 93 94 Oximetry 04/24/17 04/24/17 04/24/17 06:45 07:00 07:01 Temperature 98.6 F 98.6 F 98.6 F Pulse Rate 94 102 94 Respiratory 24 16 24 Rate Blood Pressure 132/86 126/90 (mmHg) O2 Sat by Pulse 94 94 94 Oximetry 04/24/17 07:10 Temperature 99.0 F Pulse Rate 103 Respiratory 15 Rate Blood Pressure (mmHg) O2 Sat by Pulse 91 Oximetry Oxygen Devices in Use Now: Nasal Cannula Appearance: Alert, supine in ICU bed. In fair spirits, a little anxious. Otherwise looks comfortable. Eyes: No Scleral Icterus Neck: NL Appearance and Movements; NL JVP, No Thyroid Enlargement, Masses Respiratory: Symmetrical Chest Expansion and Respiratory Effort, Clear to Auscultation, Clear to Percussion Cardiovascular: NL Sounds; No Murmurs; No JVD, No Edema, - - irreg Abdominal: NL Sounds; No Tenderness; No Distention, No Hepatosplenomegaly, - Extremities: No Edema, No Clubbing, Cyanosis, - Skin: No Rash or Ulcers, No Nodules or Sclerosis, - Neurological: Alert and Oriented x 3, NL Sensation Result Diagrams: 04/24/17 04:09 04/24/17 04:09 Additional Lab and Data: Lab Results 04/23/17 04/23/17 04/23/17 Range/Units 20:00 20:00 20:00 WBC (3.5-10.8) 10^3/ul RBC (4.0-5.4) 10^6/ul Hgb (12.0-16.0) g/dl Hct (35-47) % MCV (80-97) fL MCH (27-31) pg MCHC (31-36) g/dl RDW (10.5-15) % Plt Count (150-450) 10^3/ul MPV (7.4-10.4) um3 Neut % (Auto) (38-83) % Lymph % (Auto) (25-47) % [place] % (Auto) (1-9) % Eos % (Auto) (0-6) % Baso % (Auto) (0-2) % Absolute Neuts (auto) (1.5-7.7) 10^3/ul Absolute Lymphs (auto) (1.0-4.8) 10^3/ul Absolute Monos (auto) (0-0.8) 10^3/ul Absolute Eos (auto) (0-0.6) 10^3/ul Absolute Basos (auto) (0-0.2) 10^3/ul Absolute Nucleated RBC 10^3/ul Nucleated RBC % INR (Anticoag Therapy) 2.19 H (0.89-1.11) APTT 34.3 (26.0-36.3) seconds D-Dimer, Quantitative 371 H (Less Than 230) ng/mL Sodium 140 (133-145) mmol/L Potassium 4.5 (3.5-5.0) mmol/L Chloride 102 (101-111) mmol/L Carbon Dioxide 29 (22-32) mmol/L Anion Gap 9 (2-11) mmol/L BUN 27 H (6-24) mg/dL Creatinine 1.41 H (0.51-0.95) mg/dL Est GFR ( Amer) 47.0 (>60) Est GFR (Non-Af Amer) 36.6 (>60) BUN/Creatinine Ratio 19.1 (8-20) Glucose 169 H (70-100) mg/dL Lactic Acid (0.5-2.0) mmol/L Calcium 10.2 (8.6-10.3) mg/dL Magnesium 2.6 (1.9-2.7) mg/dL Total Bilirubin 1.20 H (0.2-1.0) mg/dL AST 17 (13-39) U/L ALT 13 (7-52) U/L Alkaline Phosphatase 78 (34-104) U/L Total Creatine Kinase 93 (10-223) U/L CK-MB (CK-2) 6.0 (0.6-6.3) ng/mL Troponin I 0.15 H* (<0.04) ng/mL C-Reactive Protein 394.82 H (< 5.00) mg/L B-Natriuretic Peptide 2483 H ( - 100) pg/mL Total Protein 7.2 (6.4-8.9) g/dL Albumin 3.6 (3.2-5.2) g/dL Globulin 3.6 (2-4) g/dL Albumin/Globulin Ratio 1.0 (1-3) Lipase < 10 L (11.0-82.0) U/L TSH 2.51 (0.34-5.60) mcIU/mL 04/23/17 04/23/17 Range/Units 20:00 20:00 WBC 14.4 H (3.5-10.8) 10^3/ul RBC 5.17 (4.0-5.4) 10^6/ul Hgb 16.4 H (12.0-16.0) g/dl Hct 50 H (35-47) % MCV 97 (80-97) fL MCH 32 H (27-31) pg MCHC 33 (31-36) g/dl RDW 15 (10.5-15) % Plt Count 146 L (150-450) 10^3/ul MPV 9 (7.4-10.4) um3 Neut % (Auto) 77.8 (38-83) % Lymph % (Auto) 4.7 L (25-47) % [place] % (Auto) 17.4 H (1-9) % Eos % (Auto) 0 (0-6) % Baso % (Auto) 0.1 (0-2) % Absolute Neuts (auto) 11.2 H (1.5-7.7) 10^3/ul Absolute Lymphs (auto) 0.7 L (1.0-4.8) 10^3/ul Absolute Monos (auto) 2.5 H (0-0.8) 10^3/ul Absolute Eos (auto) 0 (0-0.6) 10^3/ul Absolute Basos (auto) 0 (0-0.2) 10^3/ul Absolute Nucleated RBC 0.02 10^3/ul Nucleated RBC % 0.1 INR (Anticoag Therapy) (0.89-1.11) APTT (26.0-36.3) seconds D-Dimer, Quantitative (Less Than 230) ng/mL Sodium (133-145) mmol/L Potassium (3.5-5.0) mmol/L Chloride (101-111) mmol/L Carbon Dioxide (22-32) mmol/L Anion Gap (2-11) mmol/L BUN (6-24) mg/dL Creatinine (0.51-0.95) mg/dL Est GFR ( Amer) (>60) Est GFR (Non-Af Amer) (>60) BUN/Creatinine Ratio (8-20) Glucose (70-100) mg/dL Lactic Acid 3.4 H* (0.5-2.0) mmol/L Calcium (8.6-10.3) mg/dL Magnesium (1.9-2.7) mg/dL Total Bilirubin (0.2-1.0) mg/dL AST (13-39) U/L ALT (7-52) U/L Alkaline Phosphatase (34-104) U/L Total Creatine Kinase (10-223) U/L CK-MB (CK-2) (0.6-6.3) ng/mL Troponin I (<0.04) ng/mL C-Reactive Protein (< 5.00) mg/L B-Natriuretic Peptide ( - 100) pg/mL Total Protein (6.4-8.9) g/dL Albumin (3.2-5.2) g/dL Globulin (2-4) g/dL Albumin/Globulin Ratio (1-3) Lipase (11.0-82.0) U/L TSH (0.34-5.60) mcIU/mL Microbiology and Other Data: Microbiology 04/24/17 00:18 Nasal Screen MRSA (PCR)(TIO) - Final Nasal Mrsa Negative Assess/Plan/Problems-Billing Assessment: - Patient Problems (1) Atrial fibrillation Current Visit: No Status: Chronic Code(s): I48.91 - UNSPECIFIED ATRIAL FIBRILLATION SNOMED Code(s): 67840572 Comment: Discussed with Dr. Garrido. Increase sotalol to 80 mg bid. Extra warfarin 4 mg now, does not seem to have gotten any 04/23 (takes it at bedtime at home). Has mechanical aortic valve, INR goal 2.5-3.5. Cardioversion if still in atrial fib 04/25. (2) Hypothyroid Current Visit: No Status: Chronic Priority: Medium Code(s): E03.9 - HYPOTHYROIDISM, UNSPECIFIED SNOMED Code(s): 05485337 Comment: TSH 2.51 04/23/17. Continue current dose of synthroid. (3) Vertebral fracture Current Visit: Yes Status: Acute Code(s): NIS0888 - SNOMED Code(s): 65700219 Comment: New L4 fx, old L5 fx has progressed. Start vitamin D 2000 U daily. (4) Diabetes Current Visit: No Status: Acute Code(s): E11.9 - TYPE 2 DIABETES MELLITUS WITHOUT COMPLICATIONS SNOMED Code(s): 03689611 Comment: Holding metformin. On Lispro by SS. Cons carb diet. (5) H/O mechanical aortic valve replacement Current Visit: No Status: Acute Code(s): Z95.2 - PRESENCE OF PROSTHETIC HEART VALVE SNOMED Code(s): 888638908 Comment: Warfarin as above. Daily INR x 3 ordered. Antibiotic might raise INR. (6) HTN (hypertension) Current Visit: No Status: Acute Code(s): I10 - ESSENTIAL (PRIMARY) HYPERTENSION SNOMED Code(s): 92179841 Comment: Continue hydralazine.
[2017-04-24] MEDS ORDERED: Warfarin TAB(*) 4 MG PO ONE (07:50)
[2017-04-24] MEDS ORDERED: Dextrose 50% Syringe 50 ML* 25 GM/50 ML SYRINGE IV PUSH PRN (08:03)
--- NOTE | 2017-04-24 08:14 | RAD ---
INDICATION: Pleural effusion. COMPARISON: Comparison is made with a prior chest x-ray study from April 23, 2017. Correlation is also made with a prior CT of the abdomen and pelvis from April 23, 2017. TECHNIQUE: A portable view of the chest was obtained. FINDINGS: The patient is status post sternotomy and cardiac valve surgery. The heart is mildly enlarged and unchanged. There is a dual-chamber transvenous pacemaker present. The lungs are underinflated. There is a small left basilar infiltrate and pleural effusion which appears unchanged. IMPRESSION: SMALL LEFT BASILAR INFILTRATE AND PLEURAL EFFUSION, UNCHANGED.
[2017-04-24] MEDS: Cholecalciferol TAB* 1000 UNITS PO SCH (08:21)
[2017-04-24] MEDS ORDERED: Sotalol TAB* 80 MG PO SCH (09:00)
[2017-04-24] MEDS: Lidocaine PATCH 5%* 1 PATCH TRANSDERM SCH (10:22)
--- NOTE | 2017-04-24 11:46 | ECHO ---
Patient: LAST LAMBERT [facility] Rec#: [id number] : 1945 Date: 04/24/2017 Age: 72y Height: 167.64 cm / 66.0 in Weight: 113.4 kg / 249.9 lbs Sex: F BSA: 2.2 Room#: ICU 6 Admit Date#: 04/23/2017 Type: Inpatient Referring: Nguyen Proctor MD Reading: Maria Isabel Garrido MD Transitional Care Liaison: Christine Thomason,RDCS,RDMS CC: Dimitrios Lim MD Transthoracic Echocardiogram Indication: CHF, AFIB BP: 126/90 HR: 93 Rhythm: A-Fib Findings History: AFIB, VTACH, AVR (mechanical), HTN, HLD, CHF, pacemaker Technical Comments: The study quality is fair. Completed 914 Left Ventricle: The left ventricular chamber size is decreased. Moderate concentric left ventricular hypertrophy is observed. The estimated ejection fraction is 45-50%. The assessment of diastolic function is non-diagnostic. Left Atrium: The left atrium is mildly dilated. Right Ventricle: The right ventricle wall thickness is moderately increased. The right ventricular cavity size is normal. The right ventricular global systolic function is mildly reduced. Right Atrium: The right atrium is mildly dilated. Aortic Valve: The aortic valve structure is not well visualized. There is no evidence of aortic regurgitation. The mean gradient of the aortic valve is 19 mmHg. The aortic valve area, by peak velocities, is calculated at 1.3 cm2. A mechanical prosthetic aortic valve is present. Mitral Valve: There is mitral annular calcification. The mitral valve leaflets are mildly thickened. There is a trace of mitral regurgitation. There is no evidence of mitral stenosis. Tricuspid Valve: The tricuspid valve leaflets are normal. There is mild to moderate tricuspid regurgitation. No pulmonary hypertension is noted. Pulmonic Valve: There is no evidence of pulmonic valve thickening. There is a trace pulmonic regurgitation. Pericardium: There is no significant pericardial effusion. Aorta: The aorta is not well visualized. The aortic arch is not well visualized. Pulmonary Artery: The main pulmonary artery is not well visualized. Venous: The inferior vena cava appears normal in size. There is a greater than 50% respiratory change in the inferior vena cava dimension. Summary: There are changes noted when compared to the previous study done on 08/30/2015, LV EF is now 45-50% instead of 60-65% then Conclusions The left ventricular chamber size is decreased. Moderate concentric left ventricular hypertrophy is observed. The estimated ejection fraction is 45-50%. The assessment of diastolic function is non-diagnostic. The left atrium is mildly dilated. The right atrium is mildly dilated. The aortic valve area, by peak velocities, is calculated at 1.3 cm2. with moderate aortic stenosis. A mechanical prosthetic aortic valve is present. There is a trace of mitral regurgitation. There is mild to moderate tricuspid regurgitation. No pulmonary hypertension is noted. There is a trace pulmonic regurgitation. There are changes noted when compared to the previous study done on 08/30/2015, LV EF is now 45-50% instead of 60-65% then Measurements Name Value Normal Range RVIDd (AP) 2D 1.8 cm (0.9 - 2.6) RVDdMajor (2D) 2.5 cm (2.2 - 4.4) RAd ISD 4CH 5.3 cm (3.4 - 4.9) RA (A4C)W 4.6 cm (2.9 - 4.6) IVSd (2D) 1.4 cm (0.6 - 1) LVPWd (2D) 1.6 cm (0.6 - 1) LVIDd (2D) 3.5 cm (3.6 - 5.4) LVIDs (2D) 3 cm - LV FS (2D) 15 % (25 - 45) Aortic Annulus 1.8 cm (1.4 - 2.6) LA dimension (AP) 2D 3.2 cm (2.3 - 3.8) LAd ISD 4CH 5.9 cm (2.9 - 5.3) LA ISD 4CH W 4.7 cm (2.5 - 4.5) Name Value Normal Range LA ESV SP 4CH (A/L) 81.67 ml - LA ESV SP 2CH (A/L) 64.52 ml - LA ESV BP (A/L) 73.54 ml - LA ESV BP (A/L) index 33.4 ml/m2 - LA ESV SP 4CH (MOD) 70.98 ml - LA ESV SP 2CH (MOD) 61.39 ml - Name Value Normal Range MV E-wave Vmax 1 m/sec - MV deceleration time 104 msec - LV lateral e' Vmax 0.05 m/sec - LV E:e' lateral ratio 20 ratio - Name Value Normal Range AV Vmax 2.9 m/sec - AV VTI 40 cm - AV peak gradient 34 mmHg - AV mean gradient 19 mmHg - LVOT diameter 2 cm - LVOT Vmax 1.2 m/sec - LVOT VTI 17 cm - LVOT peak gradient 6 mmHg - LVOT mean gradient 3 mmHg - DOI (VTI) 0.4 ratio - PERCY (continuity Vmax) 1.3 cm2 - PERCY (continuity VTI) 1.3 cm2 - Name Value Normal Range MV Vmax 1 m/sec - MV VTI 16.5 cm - MV peak gradient 4 mmHg - MV mean gradient 1.9 mmHg - MV PHT 49 msec - MVA (PHT) 4.5 cm2 - MVA (continuity VTI) 3 cm2 - Name Value Normal Range TR Vmax 2.2 m/sec - TR peak gradient 19 mmHg - RAP 3 mmHg - RVSP 22 mmHg - IVC diameter 2 cm - Name Value Normal Range PV Vmax 1 m/sec - PV peak gradient 4 mmHg -
[2017-04-24] MEDS ORDERED: Vancomycin(*) 1,250 MG IV IVPB SCH ×2 (13:00)
[2017-04-24] MEDS: Insulin LISPRO* 1 UNITS UNIT SUBCUT SCH ×3 (13:13→22:06)
[2017-04-24] MEDS ORDERED: Furosemide IV* 10 MG/ML 2 ML VIAL (20 MG) IV ONE (13:51)
--- NOTE | 2017-04-24 14:21 | PN ---
Progress Note - Progress Note Date of Service: 04/24/17 Note: At 1 PM, patientexamined again. Both feet very cool, L worse than right. Very sluggish capillary return. Feet pale. Entire body diaphoretic. Resp sl increased. Pt enjoying her lunch, in no distress. She is on 7 L O2 with a Anderson nasal cannula. Dr. Call also examined the patient and interviewed her. Her feet, especially the left foot, have been cold for over a month. No pain. Furosemide 20 mg IV ordered. Arterial study both LE's ordered.
[2017-04-24] MEDS ORDERED: Furosemide IV* 10 MG/ML VIAL (40 MG) IV ONE (14:56)
--- NOTE | 2017-04-24 16:43 | RAD ---
INDICATION: Both feet cool left greater than right. COMPARISON: There are no prior studies available for comparison. TECHNIQUE: Bilateral ankle brachial indices were measured and Doppler tracings were obtained at the ankle of the dorsalis pedis and posterior tibial arteries. FINDINGS: The ankle brachial index on the right was 1.16 and on the left was 1.16. There is triphasic flow within the right posterior tibial artery and triphasic flow within the right dorsalis pedis artery. There is triphasic flow within the left posterior tibial artery and triphasic flow within the left dorsalis pedis artery. IMPRESSION: ANKLE BRACHIAL INDICES WITHIN NORMAL LIMITS.
[2017-04-24] MEDS ORDERED: Warfarin TAB(*) 4 MG PO SCH (17:00)
[2017-04-24] MEDS: Lidocaine Patch REMOVE* 1 NOTE MISC PATCH OFF SCH (22:07)
[2017-04-24] MEDS: Sotalol TAB* 80 MG PO SCH (22:16)
[2017-04-24] MEDS: cefTRIAXone VIAL(*) 1,000 MG in NS 0.9% 50 ML* 50 ML IVPB SCH (23:37)
[2017-04-25] MEDS: Diltiazem DRIP* 100 MG/100 ML ADDV.BAG IVPB SCH ×2 (01:34→07:55)
[2017-04-25] MEDS: Levothyroxine TAB* 112 MCG TAB PO SCH (05:56)
[2017-04-25 07:30] LABS: BUN/Creatinine Ratio 25.6 (8-20); Calcium 9.4 mg/dL (8.6-10.3); EGFR African American 52.1 (>60); EGFR Non-African American 40.5 (>60)
[2017-04-25] MEDS: Cholecalciferol TAB* 1000 UNITS PO SCH (07:56)
[2017-04-25] MEDS: Sotalol TAB* 80 MG PO SCH ×2 (07:56→20:39)
[2017-04-25] MEDS: Insulin LISPRO* 1 UNITS UNIT SUBCUT SCH ×4 (07:56→20:38)
[2017-04-25] MEDS: Lidocaine PATCH 5%* 1 PATCH TRANSDERM SCH (07:57)
[2017-04-25] MEDS ORDERED: Midazolam* 1 MG/ML 5 ML VIAL (5 MG) ONE (09:44)
[2017-04-25] MEDS ORDERED: Naloxone* 0.4 MG/ML 1 ML VIAL ONE (09:45)
[2017-04-25] MEDS ORDERED: fentaNYL* 50 MCG/ML 2 ML VIAL (100 MCG VIAL) ONE (09:45)
[2017-04-25] MEDS ORDERED: Flumazenil* 0.1 MG/ML 5 ML MDV ONE (09:45)
[2017-04-25] MEDS ORDERED: Lidocaine 2% VISCOUS* 15 ML UDC ONE (09:46)
[2017-04-25] MEDS ORDERED: Vancomycin Trough Check NOTE FOLLOW UP ONE (12:00)
--- NOTE | 2017-04-25 12:08 | TEE ---
Patient: LAST LAMBERT [facility] Rec#: [id number] : 1945 Date: 04/25/2017 Age: 72y Height: 167.64 cm / 66.0 in Weight: 112.04 kg / 246.9 lbs Sex: F BSA: 2.19 Room#: [facility] Admit Date#: 04/23/2017 Type: Inpatient Referring: Palomo Gordillo MD Performing: Roly Britton MD Reading: Roly Britton MD Steam Fitter: Kenisha Prado RDCS Nurse: Aidee Best RN CC: Dimitrios Lim MD Transesophageal Echocardiogram Indication: History of prosthetic aortic valve, A-fib BP: 135/77 HR: 82 Rhythm: A-Fib Findings History: A-fib, VT, mechanical AVR, HTN, HLD, CHF, and pacemaker. Technical Comments: The study quality is good. Left Ventricle: The left ventricular chamber size is normal. Mild global hypokinesis of the left ventricle is observed. There is mildly decreased left ventricular systolic function. The estimated ejection fraction is 45-50%. The assessment of diastolic function is non-diagnostic. Left Atrium: The left atrium is mildly dilated. Spontaneous echo contrast is present in the left atrium cavity and appendage. The left atrial appendage velocity is moderately reduced. No thrombus is visualized within the left atrium. A thrombus is visualized in the left atrial appendage. Right Ventricle: The right ventricular cavity size is normal. The right ventricular global systolic function is mildly reduced. A pacemaker wire is visualized in the right ventricle. Right Atrium: The right atrium is mildly dilated. A pacemaker wire is visualized in the right atrium. Interatrial septum appears intact without evidence of shunting. A patent foramen ovale is not demonstrated by color Doppler. Aortic Valve: A mechanical prosthetic aortic valve is present. The mechanical aortic valve appears well seated with normal function. No Masses Mitral Valve: There is mitral annular calcification. The mitral valve leaflets are mildly thickened. There is a trace of mitral regurgitation. There is no evidence of mitral stenosis. Tricuspid Valve: The tricuspid valve leaflets are normal. There is mild to moderate tricuspid regurgitation. The right ventricular systolic pressure is estimated at 33 mmHg. There is evidence that pulmonary hypertension may be underestimated. There is no tricuspid stenosis. Pulmonic Valve: The pulmonic valve appears normal. There is a trace pulmonic regurgitation. Pericardium: There is no significant pericardial effusion. Aorta: There is no dilatation of the ascending aorta. The aortic root is normal in size. There is plaque visualized in the ascending aorta. Pulmonary Artery: The main pulmonary artery appears normal. Venous: The bicaval view was obtained and appears normal. The pulmonary veins appear normal. 2 of 4 visualized. The pulmonary veins appear normal in size. KRANTHI Procedures: All standard views were attempted within the limitations of patient tolerance and safety. History and physical as well as labs were reviewed. The patient was in a fasting state. Risks and benefits of the procedure, including alternatives, were discussed and written informed consent was obtained. The patient and/or their health care access representative expressed understanding of the procedure, risks and benefits. Baseline and continuous monitoring of blood pressure, heart rate, pulse oximetry and heart rhythm was performed throughout the procedure. The appropriate time-out procedure was performed as per [facility] protocol. The patient was placed in the left lateral decubitus position. The patient's posterior pharynx was anesthetized with 20ml of 2% viscous lidocaine. The patient received IV Midazolam with a total dose of 2 mg. The patient received IV Fentanyl with a total dose of 25 mcg. An oral bite block was inserted for protection of oral dentition. The multiplane transesophageal echocardiogram probe was inserted through the posterior oropharynx and advanced into the esophagus without difficulty. Multiple 2D images were obtained of the heart and its related structures. Color flow Doppler was used for evaluation. Spectral Doppler was also used. The atrial septum was interrogated with color flow Doppler. At the conclusion of the procedure the probe was removed with continuous suction without complications. The patient tolerated the procedure with no apparent complications. Conclusions Mild global hypokinesis of the left ventricle is observed. There is mildly decreased left ventricular systolic function. The estimated ejection fraction is 45-50%. Spontaneous echo contrast is present in the left atrium cavity and appendage. A thrombus is visualized in the left atrial appendage. The right ventricular global systolic function is mildly reduced. A pacemaker wire is visualized in the right ventricle. A mechanical prosthetic aortic valve is present. The mechanical aortic valve appears well seated with normal function. No Masses The mitral valve leaflets are mildly thickened. There is a trace of mitral regurgitation. There is mild to moderate tricuspid regurgitation. The right ventricular systolic pressure is estimated at 33 mmHg. There is no significant pericardial effusion. There is no dilatation of the ascending aorta. No masses or vegetations Measurements Name Value Normal Range Aortic Annulus 1.7 cm (1.4 - 2.6) Ao root diameter (2D) 2.5 cm (2.1 - 3.5) Ascending Ao 2.3 cm (2.1 - 3.4) Name Value Normal Range AV Vmax 2.68 m/sec - AV VTI 36.71 cm - AV peak gradient 28.87 mmHg - AV mean gradient 15.92 mmHg - Name Value Normal Range TR Vmax 2.5 m/sec - TR peak gradient 25 mmHg - RVSP 33 mmHg -
--- NOTE | 2017-04-25 15:37 | PN ---
Subjective Date of Service: 04/25/17 Interval History: HOSPITALIST PROGRESS NOTE Patient seen and examined at bedside. She feels better today. Denies chest pain, palpitations. States for the first time during this admission she's hungry. Family History: Unchanged from Admission Social History: Unchanged from Admission Past Medical History: Unchanged from Admission Objective Active Medications: Acetaminophen (Tylenol Tab*) 650 mg PO Q4H PRN PRN Reason: FEVER/PAIN Cholecalciferol (Vitamin D Tab*) 2,000 units PO DAILY [facility] Last Admin: 04/25/17 07:56 Dose: 2,000 units Cyclobenzaprine HCl (Flexeril Tab*) 10 mg PO TID PRN PRN Reason: PAIN Dextrose (D50w Syringe 50 Ml*) 12.5 gm IV PUSH .FOR FS < 60 - SS PRN PRN Reason: FS < 60 Ceftriaxone Sodium 1,000 mg/ (Sodium Chloride) 50 mls @ 200 mls/hr IVPB Q24H [facility] Last Admin: 04/24/17 23:37 Dose: 200 mls/hr Insulin Human Lispro (Humalog*) 0 units SUBCUT ACHS [facility] PRN Reason: Protocol Last Admin: 04/25/17 11:12 Dose: Not Given Levothyroxine Sodium (Synthroid Tab*) 112 mcg PO DAILY@0600 [facility] Last Admin: 04/25/17 05:56 Dose: 112 mcg Lidocaine (Lidoderm 5% Patch*) 1 patch TRANSDERM DAILY [facility] Last Admin: 04/25/17 07:57 Dose: 1 patch Morphine Sulfate (Morphine Inj (Syringe)*) 1 mg IV Q4H PRN PRN Reason: PAIN Oxycodone/Acetaminophen (Percocet 5/325 Tab*) 1 tab PO Q4H PRN PRN Reason: PAIN Pharmacy Profile Note (Lidocaine Patch Remove*) 1 note PATCH OFF 2100 [facility] Last Admin: 04/24/17 22:07 Dose: 1 note Sotalol HCl (Betapace Tab*) 80 mg PO BID [facility] Last Admin: 04/25/17 07:56 Dose: 80 mg Warfarin Sodium (Coumadin Tab(*)) 4 mg PO DAILY@1700 [facility] PRN Reason: Protocol Last Admin: 04/24/17 17:45 Dose: 4 mg Vital Signs 04/25/17 04/25/17 04/25/17 12:18 12:22 12:39 Temperature 98.0 F Pulse Rate 94 82 Respiratory 18 Rate Blood Pressure 165/116 229/151 122/92 (mmHg) O2 Sat by Pulse 6 92 Oximetry Oxygen Devices in Use Now: Nasal Cannula Appearance: Elderly obese lady lying in bed in NAD. Eyes: No Scleral Icterus Ears/Nose/Mouth/Throat: Mucous Membranes Moist Neck: Trachea Midline Respiratory: Symmetrical Chest Expansion and Respiratory Effort, Clear to Auscultation Cardiovascular: - - Normal S1 and S2, +SM Abdominal: NL Sounds; No Tenderness; No Distention Skin: - - "Puffy" legs, ecchymosis to left gutierrez, but no cyanosis, capillary refill is good. Neurological: Alert and Oriented x 3, NL Muscle Strength and Tone Result Diagrams: 04/24/17 04:09 04/25/17 06:09 Assess/Plan/Problems-Billing Assessment: Mrs. Admas is a72yo F with PMH of PAF on Warfarin, tachy-robby syndrome s/p pacer, NSVtach, s/p mechanical AVR, HTN, HLD, obesity, hypothyroidism, diastolic CHF, depression, type 2 DM, who presented to ED with c/o chest pain, found to be in Afib RVR and to meet sepsis criteria. - Patient Problems (1) Sepsis Comment: - Patient met sepsis criteria on admission with leukocytosis and tachycardia. - Source is Gram positive septicemia. (2) Atrial fibrillation with RVR Comment: - Found to be in Afib RVR on admission - rate is now controlled off Cardizem drip. - Continue Sotalol and Warfarin. - KRANTHI shows spontaneous echo contrast in the left atrium cavity and appendage, as well as thrombus in the HERNANDEZ, but patient is already chronically anticoagulated with Warfarin. (3) Gram-positive bacteremia Comment: - Two blood cultures bottles growing Gram + cocci suggestive of staph, not MRSA. It may represent a contaminant, but with her presentation and h/o mechanical valve, will request ID consultation. - Continue Ceftriaxone. (4) Diabetes Comment: - Metformin on hold, continue Lispro SS. - Check Hb A1c. (5) H/O mechanical aortic valve replacement Comment: - Continue Warfarin - goal INR 2.5-3.5. (6) HTN (hypertension) Comment: - Trending up - resume amlodipine and clonidine. - Lisinopril, HCTZ, and aldactone still on hold. (7) DVT prophylaxis Comment: - Warfarin. (8) DNR (do not resuscitate)
[2017-04-25] MEDS ORDERED: Warfarin TAB(*) 2.5 MG PO ONE (17:00)
[2017-04-25] MEDS: amLODIPine TAB* 5 MG PO SCH (17:15)
[2017-04-25] MEDS: cloNIDine TAB* 0.1 MG PO SCH (20:39)
[2017-04-25] MEDS: Lidocaine Patch REMOVE* 1 NOTE MISC PATCH OFF SCH (20:39)
[2017-04-25] MEDS: cefTRIAXone VIAL(*) 1,000 MG in NS 0.9% 50 ML* 50 ML IVPB SCH (23:42)
--- NOTE | 2017-04-25 23:58 | CONS ---
CC: Dr. Giraldo; Dr. Huber [facility] * CARDIOLOGY CONSULTATION: DATE OF CONSULT: 04/25/17 INDICATION FOR CONSULTATION: Atrial fibrillation, aortic valve replacement, bacteremia. HISTORY OF PRESENT ILLNESS: The patient is a 72-year-old female with a history of aortic replacement in 2000, history of pacemaker implantation, paroxysmal atrial fibrillation, who was admitted to the hospital with back pain. The patient denies any chest pain; however, she has been experiencing back discomfort. The patient does have a history of a vertebral compression fracture diagnosed in January 2007. On patient's history and physical, it reports symptoms of chest pain associated with atrial fibrillation and rapid ventricular response. In speaking with the patient, she denies any episodes of chest pain. The patient was admitted to the hospital, ruled out for a myocardial infarction. She has noticed that her heart rate was going fast and was started on digoxin and a Cardizem drip. The patient did have 1 blood culture positive for staph epidermidis. It was 1 out of 2 bottles. I was asked to see the patient for a possible transesophageal echocardiogram and cardioversion for her atrial fibrillation. I did a pacemaker interrogation. The patient has a Medtronic pacemaker. It was noted to be functioning normally. The patient does have paroxysms of atrial fibrillation in the last 2 to 3 days at a time and then convert back to normal sinus rhythm. The patient started her episode of atrial fibrillation 3 days ago before she came into the hospital. The patient is on chronic anticoagulation, both because of her atrial fibrillation and because of her mechanical aortic valve. PAST MEDICAL HISTORY: Significant for paroxysmal atrial fibrillation, aortic valve replacement with a mechanical aortic valve in 2000, hypertension, pacemaker implantation secondary to tachy-robby syndrome, obesity, congestive heart failure, ankle fracture in 2015. OUTPATIENT MEDICATIONS: 1. Tramadol p.r.n. 2. Oxycodone p.r.n. 3. Metformin 500 mg a day. 4. Clonidine 0.1 mg b.i.d. 5. Amlodipine 2.5 mg a day. 6. Coumadin as directed. 7. Aldactone 25 mg b.i.d. 8. Sotalol 80 mg b.i.d. 9. Lisinopril/hydrochlorothiazide 20/12.5 mg a day. 10. Lidocaine patch. 11. Levothyroxine 112 mcg a day. 12. Cyclobenzaprine 10 mg t.i.d. p.r.n. ALLERGIES: No known drug allergies. FAMILY HISTORY: No family history of early coronary artery disease or valve disease. SOCIAL HISTORY: She is originally from [place]. She is . She lives alone. Her son does live in [place] and is her surrogate. She denies any tobacco or alcohol use. 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 REVIEW OF SYSTEMS: Per intake sheet. PHYSICAL EXAM: Height is 5 feet 6 inches, weight 202 pounds. Temperature 98, heart rate is 95 and irregular, blood pressure 165/116, respiratory rate is 18, oxygen saturation 92% on 2 L. Sclerae anicteric. Oropharynx is pink without erythema. Carotids are 2+ without bruits. JVD is normal. Thyroid is normal. Cardiac Exam: S1. Mechanical S2 with a 1/6 systolic ejection murmur. No diastolic murmur. PMI is normal. Lungs have decreased breath sounds throughout. There is no rhonchi or wheezes. Abdomen is obese, soft, nontender, nondistended with normoactive bowel sounds. Extremities show 2+ edema. She has 2+ pulses in the dorsalis pedis and popliteal. The patient is awake, alert , and oriented. She moves all 4 extremities equally. DIAGNOSTIC STUDIES/LAB DATA: CBC within normal limits. Chemistries within normal limits. BUN 33, creatinine 1.3. Troponin level 0.12, second troponin 0.14, third troponin 0.15. INR 2.19. Again, the patient had a pacemaker interrogation today which shows normal function of her dual-chamber Medtronic pacemaker. She does have paroxysms of atrial fibrillation. When she is in AFib, her heart rate is around 100 to 120 beats a minute. She is in AFib approximately 20% of the time. IMPRESSION: This is a 72-year-old female with a history of aortic valve replacement, paroxysmal atrial fibrillation and pacemaker who was admitted to the hospital. She was admitted to the hospital with back pain, although the history and physical does report that she had episodes of chest pain as well. The patient is in atrial fibrillation with rapid ventricular response which is treated with digoxin and Cardizem. Overall, I do not think that the patient needs to undergo cardioversion. She is in and out of atrial fibrillation as an outpatient without any obvious symptoms. The patient is on sotalol and Coumadin for her atrial fibrillation. I did discuss this with Dr. Ignacio. Dr. Ignacio requested a transesophageal echocardiogram to evaluate her mechanical aortic valve in light of her positive blood cultures and back pain. Her transesophageal echocardiogram showed no evidence of thrombus or masses on the mechanical valve itself. The other valves appeared to be without vegetation. Her left atrial appendage did have a clot, so I would not do a cardioversion on the patient in this setting. RECOMMENDATIONS: The patient will continue on maximum medical therapy. The patient should be on rate control with either beta-blockers or calcium channel blockers. The patient should follow up with Dr. Huber as an outpatient in regards to treatment of her atrial fibrillation. Her LV function is normal. [id number]/[facility] #: [id number] MTDD
[2017-04-26 05:30] LABS: Hematocrit 43 % (35-47); Hemoglobin 14.1 g/dl (12.0-16.0); Mean Corpuscular HGB Conc 33 g/dl (31-36); Mean Corpuscular Hemoglobin 32 pg (27-31); Mean Corpuscular Volume 97 fL (80-97); Mean Platelet Volume 9 um3 (7.4-10.4); Red Blood Count 4.45 10^6/ul (4.0-5.4); Red Cell Distribution Width 15 % (10.5-15); White Blood Count 10.7 10^3/ul (3.5-10.8)
[2017-04-26] MEDS: Levothyroxine TAB* 112 MCG TAB PO SCH (05:33)
[2017-04-26 05:34] LABS: Comments Flag Yes
[2017-04-26 05:42] LABS: BUN/Creatinine Ratio 26.7 (8-20); Calcium 9.1 mg/dL (8.6-10.3); EGFR African American 69.1 (>60); EGFR Non-African American 53.7 (>60); Potassium 3.8 mmol/L (3.5-5.0)
[2017-04-26] MEDS: amLODIPine TAB* 5 MG PO SCH (07:47)
[2017-04-26] MEDS: cloNIDine TAB* 0.1 MG PO SCH ×2 (07:47→21:12)
[2017-04-26] MEDS: Cholecalciferol TAB* 1000 UNITS PO SCH (07:47)
[2017-04-26] MEDS: Lidocaine PATCH 5%* 1 PATCH TRANSDERM SCH (07:50)
[2017-04-26] MEDS: Insulin LISPRO* 1 UNITS UNIT SUBCUT SCH ×4 (07:54→21:12)
[2017-04-26] MEDS: Sotalol TAB* 80 MG PO SCH ×2 (07:59→21:12)
--- NOTE | 2017-04-26 16:06 | PN ---
Subjective Date of Service: 04/26/17 Interval History: HOSPITALIST PROGRESS NOTE Patient seen and examined at bedside. She states her breathing is still short, but better than before. Denies CP or palpitations. Did not get out of bed. Family History: Unchanged from Admission Social History: Unchanged from Admission Past Medical History: Unchanged from Admission Objective Active Medications: Acetaminophen (Tylenol Tab*) 650 mg PO Q4H PRN PRN Reason: FEVER/PAIN Amlodipine Besylate (Norvasc Tab*) 2.5 mg PO DAILY [facility] Last Admin: 04/26/17 07:47 Dose: 2.5 mg Cholecalciferol (Vitamin D Tab*) 2,000 units PO DAILY [facility] Last Admin: 04/26/17 07:47 Dose: 2,000 units Clonidine HCl (Catapres Tab*) 0.1 mg PO BID [facility] Last Admin: 04/26/17 07:47 Dose: 0.1 mg Cyclobenzaprine HCl (Flexeril Tab*) 10 mg PO TID PRN PRN Reason: PAIN Dextrose (D50w Syringe 50 Ml*) 12.5 gm IV PUSH .FOR FS < 60 - SS PRN PRN Reason: FS < 60 Ceftriaxone Sodium 1,000 mg/ (Sodium Chloride) 50 mls @ 200 mls/hr IVPB Q24H [facility] Last Admin: 04/25/17 23:42 Dose: 200 mls/hr Insulin Human Lispro (Humalog*) 0 units SUBCUT ACHS [facility] PRN Reason: Protocol Last Admin: 04/26/17 11:31 Dose: 6 unit Levothyroxine Sodium (Synthroid Tab*) 112 mcg PO DAILY@0600 [facility] Last Admin: 04/26/17 05:33 Dose: 112 mcg Lidocaine (Lidoderm 5% Patch*) 1 patch TRANSDERM DAILY [facility] Last Admin: 04/26/17 07:50 Dose: 1 patch Morphine Sulfate (Morphine Inj (Syringe)*) 1 mg IV Q4H PRN PRN Reason: PAIN Oxycodone/Acetaminophen (Percocet 5/325 Tab*) 1 tab PO Q4H PRN PRN Reason: PAIN Pharmacy Profile Note (Lidocaine Patch Remove*) 1 note PATCH OFF 2100 [facility] Last Admin: 04/25/17 20:39 Dose: 1 note Pharmacy Profile Note (Coumadin Daily Reminder*) 1 note FOLLOW UP 1700 [facility] Last Admin: 04/25/17 17:15 Dose: 1 note Sotalol HCl (Betapace Tab*) 80 mg PO BID [facility] Last Admin: 04/26/17 07:59 Dose: 80 mg Vital Signs 04/26/17 04/26/17 04/26/17 08:00 08:01 11:29 Temperature 98.0 F Pulse Rate 76 59 Respiratory 24 18 Rate Blood Pressure 148/85 (mmHg) O2 Sat by Pulse 97 Oximetry Oxygen Devices in Use Now: Nasal Cannula - 3.5 liters Appearance: Pleasant elderly lady sitting up in bed in NAD. Eyes: No Scleral Icterus Ears/Nose/Mouth/Throat: Mucous Membranes Moist Neck: Trachea Midline Respiratory: Symmetrical Chest Expansion and Respiratory Effort, - - BS+ bilaterally decreased, no added sounds. Cardiovascular: RRR - Normal S1 and S2 Abdominal: NL Sounds; No Tenderness; No Distention Neurological: Alert and Oriented x 3, NL Muscle Strength and Tone Lines/Tubes/Other Access: Clean, Dry and Intact Peripheral IV Nutrition: Taking PO's Result Diagrams: 04/26/17 04:56 04/26/17 04:56 Assess/Plan/Problems-Billing Assessment: Mrs. Adams is a72yo F with PMH of PAF on Warfarin, tachy-robby syndrome s/p pacer, NSVtach, s/p mechanical AVR, HTN, HLD, obesity, hypothyroidism, diastolic CHF, depression, type 2 DM, who presented to ED with c/o chest pain, found to be in Afib RVR and to meet sepsis criteria. - Patient Problems (1) Sepsis Comment: - Patient met sepsis criteria on admission with leukocytosis and tachycardia. - Source is possible pneumonia. (2) Atrial fibrillation with RVR Comment: - Found to be in Afib RVR on admission - rate is now controlled off Cardizem drip. - Continue Sotalol and Warfarin. - KRANTHI shows spontaneous echo contrast in the left atrium cavity and appendage, as well as thrombus in the HERNANDEZ, but patient is already chronically anticoagulated with Warfarin. - She is back in NSR at this time. - D/c Telemetry. (3) Gram-positive bacteremia Comment: - ID consult appreciated - Dr. Maciel thinks this represents contamination. He feels the source could be pneumonia and recommended continuation of cephaloporins. (4) Diabetes Comment: - Metformin on hold, continue Lispro SS. - Hb A1c is 6.9. (5) H/O mechanical aortic valve replacement Comment: - Continue Warfarin - goal INR 2.5-3.5. (6) HTN (hypertension) Comment: - Continue amlodipine and clonidine. - Lisinopril, HCTZ, and aldactone still on hold. (7) DVT prophylaxis Comment: - Warfarin. (8) DNR (do not resuscitate) (9) Physical deconditioning Comment: - PT consult.
[2017-04-26] MEDS: Acetaminophen TAB* 325 MG PO PRN (16:14)
--- NOTE | 2017-04-26 22:19 | CONS ---
CONSULTATION REPORT: DATE OF CONSULT: 04/26/17 REQUESTING PHYSICIAN: Dr. Ignacio. CONSULTING SERVICE: Infectious Disease. REASON FOR CONSULT: Elevated C-reactive protein. IMPRESSION: 1. Admitted with atrial fibrillation with rapid ventricular response for which she has been cardioverted. 2. She has a pacemaker and a mechanical aortic valve. A transesophageal echocardiogram showed no pacer lead vegetations or valve vegetations. Blood cultures grew 2/4 bottles of coag negative staph, staph epidermidis, which given that that was not /, I think is a contaminant and not a true positive. She has been hypoxemic here and she has got a small left lower lobe infiltrate and pleural effusion on the CT of the abdomen and pelvis. Taken together, this is most consistent with a community-acquired pneumonia. 3. Atrial fibrillation, on Coumadin. 4. Diabetes. RECOMMENDATIONS: Changed her ceftriaxone to cefuroxime to finish 7 days of antibiotics. We will follow her C-reactive protein. 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 She was found to have atrial fibrillation with rapid ventricular response. She had a cardioversion and transesophageal echocardiogram showed no vegetations. She had a CRP of 390 on admission. Blood cultures were sent, 2/4 grew staph epidermidis. Urine culture was negative. CT abdomen and pelvis with findings as noted above. She required between 3 and 5 L of supplemental oxygen while she has been here, but she does not use at home. She had occasional cough, which has resolved and she has had 2 to 3 weeks of loose stools and occasional vomiting without abdominal pain. Her weight has been stable and her appetite is good. Since she has been here, the vomiting has resolved and she has had no bowel movement. She has no abdominal pain. PAST MEDICAL HISTORY: 1. Aortic stenosis, status post mechanical aortic valve replacement. 2. Atrial fibrillation. 3. Tachy-robby syndrome, status post pacemaker. 4. Hypertension. 5. Hyperlipidemia. 6. Obesity. 7. Hypothyroidism. 8. History of congestive heart failure. 9. Depression. 10. Status post hernia repair. 11. Status post appendectomy. 12. Status post open reduction internal fixation, right ankle. 13. Type 2 diabetes. 14. Compression fracture. ALLERGIES: No known drug allergies. MEDICATIONS: 1. Tylenol/cholecalciferol. 2. Cyclobenzaprine. 3. Levothyroxine. 4. Lidocaine patch. 5. Ceftriaxone 1 g a day. 6. Warfarin. 7. Amlodipine. 8. Clonidine. 9. Oxycodone. SOCIAL HISTORY: She lives in [place]. She has a daughter. She is originally from [place], been in the [place] for 40 years. FAMILY HISTORY: Noncontributory. REVIEW OF SYSTEMS: A 14-point review of systems was negative except as noted above. PHYSICAL EXAM: Vital Signs: Temperature 36.7, heart rate 60, respiratory rate 18, blood pressure 150/85, O2 sat 97% on room air. General: She is awake, not in distress. Neurological: She is oriented x3. Follows all commands. HEENT: There is no conjunctival hemorrhage. Oropharynx without lesions. Neck is supple without nuchal rigidity. Lymph Nodes: There is no inguinal, axillary, or epitrochlear lymphadenopathy. Heart: Regular rate and rhythm without murmurs, rubs or gallops. Lungs: Have decreased breath sounds at the left base without wheezes or rales. Abdomen: Soft, nontender, nondistended. There are bowel sounds present. Skin: There are no rashes or splinter hemorrhages. Musculoskeletal: There is thoracic spine tenderness to palpation. There is no joint synovitis. LABORATORY DATA: White blood cell count 10, hemoglobin of 14, and platelets of 180. Creatinine 1. Please see impressions and recommendations outlined above, which I have discussed with Dr. Ignacio. Thank you for asking me to see, Ms. Adams, in consultation. [id number]/[facility] #: [id number] MTDD
[2017-04-26] MEDS ORDERED: Iodixanol* (CONTRAST) 320 MG/ML 100 ML SDV IV ONE (22:39)
[2017-04-27] MEDS: cefTRIAXone VIAL(*) 1,000 MG in NS 0.9% 50 ML* 50 ML IVPB SCH (01:02)
[2017-04-27] MEDS: Lidocaine Patch REMOVE* 1 NOTE MISC PATCH OFF SCH ×2 (01:09→21:47)
--- NOTE | 2017-04-27 03:04 | PN ---
Progress Note - Progress Note Date of Service: 04/27/17 Note: I received a call from Dr. Chavez with the [facility] radiology service. The patient was found to have intramural blood in the descending thoracic aorta. This is an intramural hematoma and can be a precursor to an aortic dissection. The case will need to be reviewed with vascular surgery. BP is under fair control but not at goal. Will increase her amlodipine to 5mg daily to get better BP control.
[2017-04-27] MEDS ORDERED: amLODIPine TAB* 5 MG ONE (04:53)
[2017-04-27] MEDS: Levothyroxine TAB* 112 MCG TAB PO SCH (05:45)
--- NOTE | 2017-04-27 08:15 | RAD ---
INDICATION: Dyspnea and tachycardia. COMPARISON: None TECHNIQUE: Axial source images were acquired following the administration of 84 mL Visipaque [address] angiographic technique. Coronal and sagittal reconstructed images were constructed and reviewed. FINDINGS: There there are no filling defects in the pulmonary arteries to indicate acute pulmonary embolic disease. The intravenously injected contrast is seen refluxing as far as the hepatic veins and superior IVC which can be seen in the setting of right heart failure. There is a moderate size left pleural effusion. There is a very small right-sided pleural effusion. There is compressive atelectasis at the dependent lower lobes adjacent to the respective effusions. There is atelectasis of the medial aspect of the left upper lobe adjacent to the heart. Lungs exhibit mild groundglass opacification elsewhere. There is mild to moderate cardiomegaly. Iatrogenic findings include a 2-lead cardiac pacemaker and a prostatic aortic valve. There is no pathologic widening of the aortic ring or the aortic root. More superiorly there is aneurysmal dilatation at the aortic arch exhibiting a maximum diameter measurement of 4.4 cm on the sagittal plane images (image 59). Beyond the branch vessels there is a lesser degree of aneurysmal dilatation measuring up to 3.8 cm in diameter (sagittal image 70). There is atherosclerotic calcification in the wall of the aorta. The thoracic aorta is incompletely evaluated as the contrast bolus is in the venous vasculature, right heart and pulmonary arteries. There appears to be a small degree of aneurysmal thickening of the thoracic wall up to 5 mm in thickness (for example axial image 134). Which is partially depicted by the calcified atherosclerosis in the intimal and medial wall of the thoracic aorta. There is no definite extravasation outside the thoracic aorta. There is no mediastinal, hilar, or axillary lymphadenopathy. There is a chronic appearing compression deformity of the T8 vertebral body and to a lesser extent the T7 vertebral body. Loss of intervertebral disc height is seen at other levels. Compression deformity was not seen on the most recent appropriate imaging modality, a chest x-ray dated August 22, 2008. At least one hyperattenuating gallstone is seen in the gallbladder lumen. There is a punctate nonobstructing calculus in the upper pole of the right kidney. IMPRESSION: 1. No CT of evidence of pulmonary embolism. 2. The constellation of findings including reflux of intravenous contrast into the hepatic veins, bilateral pleural effusions, cardiomegaly and groundglass opacification are consistent with cardiogenic pulmonary edema and/or fluid overload. 3. There is aneurysmal dilatation of the thoracic aorta beginning at the proximal most portion of the arch and extending into the descending thoracic aorta. The maximum diameter measurement is at the proximal descending thoracic aorta measuring 4.4 cm in diameter. There appears to be thickening of the wall of the thoracic aorta. This could simply be circumferential atheroma or potentially intramural hematoma. There are no recent CTs of the chest for comparison to comment on chronicity and the absence of contrast within the thoracic aorta renders this study is nondiagnostic for potential thoracic aortic dissection. If prior CT imaging from another institution can be made available then a comparison can be made to comment on chronicity of this aneurysmal dilatation. If there is strong clinical concern for thoracic aortic dissection a CTA of the chest according to the aortic dissection protocol will better clarify these findings. 4. Chronic appearing compression deformity of the T8 vertebral body new since the last lateral thoracic imaging study, a chest x-ray dated August 22, 2008.
[2017-04-27] MEDS: Insulin LISPRO* 1 UNITS UNIT SUBCUT SCH ×4 (09:44→21:45)
[2017-04-27] MEDS: cloNIDine TAB* 0.1 MG PO SCH ×2 (09:44→21:44)
[2017-04-27] MEDS: Cholecalciferol TAB* 1000 UNITS PO SCH (09:44)
[2017-04-27] MEDS: Sotalol TAB* 80 MG PO SCH ×2 (09:45→21:44)
[2017-04-27] MEDS: Lidocaine PATCH 5%* 1 PATCH TRANSDERM SCH (09:45)
[2017-04-27] MEDS: amLODIPine TAB* 5 MG PO SCH (09:45)
[2017-04-27] MEDS ORDERED: Furosemide IV* 10 MG/ML VIAL (40 MG) IV SLOW PU ONE (16:59)
--- NOTE | 2017-04-27 17:00 | PN ---
Subjective Date of Service: 04/27/17 Interval History: HOSPITALIST PROGRESS NOTE Patient seen and examined at bedside. She offers no new complaints today. Still feels short breath, but less than on admission. Denies chest or back pain. Family History: Unchanged from Admission Social History: Unchanged from Admission Past Medical History: Unchanged from Admission Objective Active Medications: Acetaminophen (Tylenol Tab*) 650 mg PO Q4H PRN PRN Reason: FEVER/PAIN Last Admin: 04/26/17 16:14 Dose: 650 mg Amlodipine Besylate (Norvasc Tab*) 5 mg PO DAILY [facility] Last Admin: 04/27/17 09:45 Dose: 5 mg Cholecalciferol (Vitamin D Tab*) 2,000 units PO DAILY [facility] Last Admin: 04/27/17 09:44 Dose: 2,000 units Clonidine HCl (Catapres Tab*) 0.1 mg PO BID [facility] Last Admin: 04/27/17 09:44 Dose: 0.1 mg Cyclobenzaprine HCl (Flexeril Tab*) 10 mg PO TID PRN PRN Reason: PAIN Dextrose (D50w Syringe 50 Ml*) 12.5 gm IV PUSH .FOR FS < 60 - SS PRN PRN Reason: FS < 60 Ceftriaxone Sodium 1,000 mg/ (Sodium Chloride) 50 mls @ 200 mls/hr IVPB Q24H [facility] Last Admin: 04/27/17 01:02 Dose: 200 mls/hr Insulin Human Lispro (Humalog*) 0 units SUBCUT ACHS [facility] PRN Reason: Protocol Last Admin: 04/27/17 12:08 Dose: 12 unit Levothyroxine Sodium (Synthroid Tab*) 112 mcg PO DAILY@0600 [facility] Last Admin: 04/27/17 05:45 Dose: 112 mcg Lidocaine (Lidoderm 5% Patch*) 1 patch TRANSDERM DAILY [facility] Last Admin: 04/27/17 09:45 Dose: 1 patch Morphine Sulfate (Morphine Inj (Syringe)*) 1 mg IV Q4H PRN PRN Reason: PAIN Oxycodone/Acetaminophen (Percocet 5/325 Tab*) 1 tab PO Q4H PRN PRN Reason: PAIN Last Admin: 04/26/17 17:56 Dose: 1 tab Pharmacy Profile Note (Lidocaine Patch Remove*) 1 note PATCH OFF 2100 [facility] Last Admin: 04/27/17 01:09 Dose: 1 note Pharmacy Profile Note (Coumadin Daily Reminder*) 1 note FOLLOW UP 1700 [facility] Last Admin: 04/26/17 18:20 Dose: Not Given Sotalol HCl (Betapace Tab*) 80 mg PO BID [facility] Last Admin: 04/27/17 09:45 Dose: 80 mg Vital Signs 04/27/17 04/27/17 07:58 15:44 Temperature 97.2 F 98.0 F Pulse Rate 57 62 Respiratory 18 28 Rate Blood Pressure 159/78 158/87 (mmHg) O2 Sat by Pulse 96 97 Oximetry Oxygen Devices in Use Now: Nasal Cannula - 2 liters Appearance: Elderly lady lying in bed in NAD. Eyes: No Scleral Icterus Ears/Nose/Mouth/Throat: Mucous Membranes Moist Neck: Trachea Midline Respiratory: Symmetrical Chest Expansion and Respiratory Effort, - - BS+ bilaterally with bibasilar rales Cardiovascular: RRR - Normal S1 and S2 Abdominal: NL Sounds; No Tenderness; No Distention Extremities: - - Bilateral LE pitting edema Neurological: Alert and Oriented x 3, NL Muscle Strength and Tone Result Diagrams: 04/26/17 04:56 04/26/17 04:56 Assess/Plan/Problems-Billing Assessment: Mrs. Adams is a72yo F with PMH of PAF on Warfarin, tachy-robby syndrome s/p pacer, NSVtach, s/p mechanical AVR, HTN, HLD, obesity, hypothyroidism, diastolic CHF, depression, type 2 DM, who presented to ED with c/o chest pain, found to be in Afib RVR and to meet sepsis criteria. - Patient Problems (1) Sepsis Comment: - Patient met sepsis criteria on admission with leukocytosis and tachycardia. - Source is possible pneumonia. (2) Atrial fibrillation with RVR Comment: - Found to be in Afib RVR on admission - rate is now controlled off Cardizem drip. - Continue Sotalol and Warfarin. - KRANTHI shows spontaneous echo contrast in the left atrium cavity and appendage, as well as thrombus in the HERNANDEZ, but patient is already chronically anticoagulated with Warfarin. - She is back in NSR at this time. (3) Gram-positive bacteremia Comment: - ID consult appreciated - Dr. Maciel thinks this represents contamination. He feels the source could be pneumonia and recommended continuation of cephaloporins. (4) Aortic aneurysm Comment: - CTA chest was performed with concerns for PE, but showed incidental finding of thoracic aorta aneurysm measuring 4.4cm (maximum diameter). There is thickening of the wall that could represent atheroma or intramural hematoma. - Patient declined repeat CTA with dissection protocol, as she's concerned with her kidneys and "too much contrast". - Case was d/w Dr. Avila (Vascular surgery at [facility]) - as patient is asymptomatic and aneruysm measures 4.4 cm, there is no indication for procedure at this time, only outpatient follow up. He states hematomas are very common within aneurysms and anticoagulation is not contraindicated in this situation. (5) Diabetes Comment: - Metformin on hold, continue Lispro SS. - Hb A1c is 6.9. (6) H/O mechanical aortic valve replacement Comment: - Continue Warfarin - goal INR 2.5-3.5. (7) HTN (hypertension) Comment: - Continue amlodipine and clonidine. - Lisinopril, HCTZ, and aldactone still on hold. (8) DVT prophylaxis Comment: - Warfarin. (9) DNR (do not resuscitate) (10) Physical deconditioning Comment: - PT consult. Status and Disposition: Patient's son (Deon Adams) called and updated about patient's condition.
[2017-04-27] MEDS: Acetaminophen TAB* 325 MG PO PRN (22:00)
[2017-04-28] MEDS: cefTRIAXone VIAL(*) 1,000 MG in NS 0.9% 50 ML* 50 ML IVPB SCH (00:56)
[2017-04-28 05:45] LABS: Hematocrit 43 % (35-47); Hemoglobin 14.1 g/dl (12.0-16.0); Mean Corpuscular HGB Conc 33 g/dl (31-36); Mean Corpuscular Hemoglobin 31 pg (27-31); Mean Corpuscular Volume 96 fL (80-97); Mean Platelet Volume 8 um3 (7.4-10.4); Red Blood Count 4.54 10^6/ul (4.0-5.4); Red Cell Distribution Width 15 % (10.5-15); White Blood Count 12.6 10^3/ul (3.5-10.8)
[2017-04-28] MEDS: Levothyroxine TAB* 112 MCG TAB PO SCH (05:55)
[2017-04-28 05:58] LABS: BUN/Creatinine Ratio 24.7 (8-20); Calcium 8.6 mg/dL (8.6-10.3); EGFR African American 72.4 (>60); EGFR Non-African American 56.3 (>60); HDL Cholesterol 32.5 mg/dL; Potassium 3.6 mmol/L (3.5-5.0)
[2017-04-28] MEDS ORDERED: Metolazone TAB* 5 MG PO ONE (07:34)
[2017-04-28] MEDS ORDERED: Furosemide IV* 10 MG/ML VIAL (40 MG) IV ONE (08:00)
[2017-04-28] MEDS: Sotalol TAB* 80 MG PO SCH ×2 (08:55→21:10)
[2017-04-28] MEDS: Insulin LISPRO* 1 UNITS UNIT SUBCUT SCH ×4 (08:55→21:10)
[2017-04-28] MEDS: amLODIPine TAB* 5 MG PO SCH (08:56)
[2017-04-28] MEDS: Cholecalciferol TAB* 1000 UNITS PO SCH (08:56)
[2017-04-28] MEDS: cloNIDine TAB* 0.1 MG PO SCH ×2 (08:56→21:10)
[2017-04-28] MEDS: Lidocaine PATCH 5%* 1 PATCH TRANSDERM SCH (08:59)
--- NOTE | 2017-04-28 13:51 | PN ---
Subjective Date of Service: 04/28/17 Interval History: HOSPITALIST PROGRESS NOTE Patient seen and examined at bedside. She feels better today. Breathing is easier, but she still gets very dyspneic with minimal exertion. No chest or back pain. Family History: Unchanged from Admission Social History: Unchanged from Admission Past Medical History: Unchanged from Admission Objective Active Medications: Acetaminophen (Tylenol Tab*) 650 mg PO Q4H PRN PRN Reason: FEVER/PAIN Last Admin: 04/27/17 22:00 Dose: 650 mg Amlodipine Besylate (Norvasc Tab*) 5 mg PO DAILY [facility] Last Admin: 04/28/17 08:56 Dose: 5 mg Cholecalciferol (Vitamin D Tab*) 2,000 units PO DAILY [facility] Last Admin: 04/28/17 08:56 Dose: 2,000 units Clonidine HCl (Catapres Tab*) 0.1 mg PO BID [facility] Last Admin: 04/28/17 08:56 Dose: 0.1 mg Cyclobenzaprine HCl (Flexeril Tab*) 10 mg PO TID PRN PRN Reason: PAIN Dextrose (D50w Syringe 50 Ml*) 12.5 gm IV PUSH .FOR FS < 60 - SS PRN PRN Reason: FS < 60 Ceftriaxone Sodium 1,000 mg/ (Sodium Chloride) 50 mls @ 200 mls/hr IVPB Q24H [facility] Last Admin: 04/28/17 00:56 Dose: 200 mls/hr Insulin Glargine (Lantus(*)) 10 units SUBCUT Q24H [facility] Insulin Human Lispro (Humalog*) 0 units SUBCUT ACHS [facility] PRN Reason: Protocol Last Admin: 04/28/17 12:23 Dose: 12 unit Levothyroxine Sodium (Synthroid Tab*) 112 mcg PO DAILY@0600 [facility] Last Admin: 04/28/17 05:55 Dose: 112 mcg Lidocaine (Lidoderm 5% Patch*) 1 patch TRANSDERM DAILY [facility] Last Admin: 04/28/17 08:59 Dose: 1 patch Morphine Sulfate (Morphine Inj (Syringe)*) 1 mg IV Q4H PRN PRN Reason: PAIN Oxycodone/Acetaminophen (Percocet 5/325 Tab*) 1 tab PO Q4H PRN PRN Reason: PAIN Last Admin: 04/26/17 17:56 Dose: 1 tab Pharmacy Profile Note (Lidocaine Patch Remove*) 1 note PATCH OFF 2100 [facility] Last Admin: 04/27/17 21:47 Dose: 1 note Pharmacy Profile Note (Coumadin Per Pharmacy*) 1 note FOLLOW UP 1700 [facility] Sotalol HCl (Betapace Tab*) 80 mg PO BID [facility] Last Admin: 04/28/17 08:55 Dose: 80 mg Warfarin Sodium (Coumadin Tab(*)) 0.5 mg PO 1700 [facility] Stop: 04/28/17 17:01 Vital Signs 04/27/17 04/27/17 04/28/17 15:44 20:00 00:07 Temperature 98.0 F 98.2 F Pulse Rate 62 60 Respiratory 28 20 24 Rate Blood Pressure 158/87 146/88 (mmHg) O2 Sat by Pulse 97 99 Oximetry 04/28/17 04/28/17 04/28/17 03:55 07:31 08:11 Temperature 96.8 F 98.0 F Pulse Rate 59 58 Respiratory 20 20 Rate Blood Pressure 176/86 (mmHg) O2 Sat by Pulse 97 97 Oximetry Oxygen Devices in Use Now: Nasal Cannula - 2 liters Appearance: Pleasant elderly lady sitting up in a recliner in NAD. Eyes: No Scleral Icterus Ears/Nose/Mouth/Throat: Mucous Membranes Moist Neck: Trachea Midline Respiratory: Symmetrical Chest Expansion and Respiratory Effort, - - BS+ bilaterally with bibasilar crackles Cardiovascular: RRR - Normal S1 and S2 Abdominal: NL Sounds; No Tenderness; No Distention Extremities: - - Bilateral LE pitting edema Neurological: Alert and Oriented x 3, NL Muscle Strength and Tone Lines/Tubes/Other Access: Clean, Dry and Intact Peripheral IV Nutrition: Taking PO's Result Diagrams: 04/28/17 05:14 04/28/17 05:14 Assess/Plan/Problems-Billing Assessment: Mrs. Adams is a72yo F with PMH of PAF on Warfarin, tachy-robby syndrome s/p pacer, NSVtach, s/p mechanical AVR, HTN, HLD, obesity, hypothyroidism, diastolic CHF, depression, type 2 DM, who presented to ED with c/o chest pain, found to be in Afib RVR and to meet sepsis criteria. - Patient Problems (1) Sepsis Comment: - Patient met sepsis criteria on admission with leukocytosis and tachycardia. - Source is possible pneumonia. (2) Atrial fibrillation with RVR Comment: - Found to be in Afib RVR on admission - rate is now controlled off Cardizem drip. - Continue Sotalol and Warfarin. - KRANTHI shows spontaneous echo contrast in the left atrium cavity and appendage, as well as thrombus in the HERNANDEZ, but patient is already chronically anticoagulated with Warfarin. - She is back in NSR at this time. (3) Gram-positive bacteremia Comment: - ID consult appreciated - Dr. Maciel thinks this represents contamination. He feels the source could be pneumonia and recommended continuation of cephaloporins. (4) Aortic aneurysm Comment: - CTA chest was performed with concerns for PE, but showed incidental finding of thoracic aorta aneurysm measuring 4.4cm (maximum diameter). There is thickening of the wall that could represent atheroma or intramural hematoma. - Patient declined repeat CTA with dissection protocol, as she's concerned with her kidneys and "too much contrast". - Case was d/w Dr. Avila (Vascular surgery at [facility]) - as patient is asymptomatic and aneruysm measures 4.4 cm, there is no indication for procedure at this time, only outpatient follow up. He states hematomas are very common within aneurysms and anticoagulation is not contraindicated in this situation. (5) Diabetes Comment: - Metformin on hold, continue Lispro SS and add Lantus as her glucose continues to trend up. - Hb A1c is 6.9. (6) H/O mechanical aortic valve replacement Comment: - Continue Warfarin - goal INR 2.5-3.5. (7) HTN (hypertension) Comment: - Continue amlodipine and clonidine. - Will resume Lisinopril, and diurese with Furosemide. (8) DVT prophylaxis Comment: - Warfarin. (9) DNR (do not resuscitate) (10) Physical deconditioning Comment: - PT consult appreciated - will require SNF for rehab. Status and Disposition: Patient's son (Deon Adams) called and updated about patient's condition.
[2017-04-28] MEDS ORDERED: Insulin GLARGINE(*) 1 UNITS UNIT SUBCUT SCH (14:00)
[2017-04-28] MEDS: Lisinopril TAB* 5 MG PO SCH (14:21)
[2017-04-28] MEDS ORDERED: Potassium Chlor TAB* 20 MEQ TAB.ER PO SCH (15:00)
[2017-04-28] MEDS ORDERED: Warfarin TAB(*) 1 MG PO ONE (17:00)
[2017-04-28] MEDS: Acetaminophen TAB* 325 MG PO PRN (21:10)
[2017-04-28] MEDS: Lidocaine Patch REMOVE* 1 NOTE MISC PATCH OFF SCH (21:11)
[2017-04-29] MEDS: cefTRIAXone VIAL(*) 1,000 MG in NS 0.9% 50 ML* 50 ML IVPB SCH (00:02)
[2017-04-29 05:29] LABS: BUN/Creatinine Ratio 27.3 (8-20); Calcium 9.5 mg/dL (8.6-10.3); Magnesium 2.2 mg/dL (1.9-2.7); Potassium 3.2 mmol/L (3.5-5.0)
[2017-04-29] MEDS: Levothyroxine TAB* 112 MCG TAB PO SCH (06:25)
[2017-04-29] MEDS ORDERED: Metolazone TAB* 5 MG PO ONE (07:30)
[2017-04-29] MEDS ORDERED: Furosemide IV* 10 MG/ML VIAL (40 MG) IV SLOW PU ONE (08:00)
[2017-04-29] MEDS: Lidocaine PATCH 5%* 1 PATCH TRANSDERM SCH (08:04)
[2017-04-29] MEDS: Insulin LISPRO* 1 UNITS UNIT SUBCUT SCH ×4 (08:04→21:55)
[2017-04-29] MEDS: Potassium Chlor TAB* 20 MEQ TAB.ER PO SCH ×3 (08:05→21:12)
[2017-04-29] MEDS: Lisinopril TAB* 5 MG PO SCH (08:06)
[2017-04-29] MEDS: cloNIDine TAB* 0.1 MG PO SCH ×2 (08:06→21:12)
[2017-04-29] MEDS: Cholecalciferol TAB* 1000 UNITS PO SCH (08:06)
[2017-04-29] MEDS: amLODIPine TAB* 5 MG PO SCH (08:06)
[2017-04-29] MEDS: Sotalol TAB* 80 MG PO SCH ×2 (08:07→21:10)
[2017-04-29] MEDS: ceFUROXime TAB(*) 250 MG PO SCH ×2 (13:11→21:11)
[2017-04-29] MEDS ORDERED: Diltiazem CD CAP* 120 MG PO ONE (13:17)
[2017-04-29] MEDS ORDERED: Insulin GLARGINE(*) 1 UNITS UNIT SUBCUT SCH (14:00)
[2017-04-29] MEDS ORDERED: Magnesium Hydroxide LIQ* 30 ML UDC PO PRN (14:56)
[2017-04-29] MEDS: Insulin GLARGINE(*) 1 UNITS UNIT SUBCUT SCH (15:02)
--- NOTE | 2017-04-29 15:27 | PN ---
Subjective Date of Service: 04/29/17 Interval History: HOSPITALIST PROGRESS NOTE Patient seen and examined at bedside. She feels better today, breathing is easier. Denies CP or palpitations. Family History: Unchanged from Admission Social History: Unchanged from Admission Past Medical History: Unchanged from Admission Objective Active Medications: Acetaminophen (Tylenol Tab*) 650 mg PO Q4H PRN PRN Reason: FEVER/PAIN Last Admin: 04/28/17 21:10 Dose: 650 mg Amlodipine Besylate (Norvasc Tab*) 5 mg PO DAILY [facility] Last Admin: 04/29/17 08:06 Dose: 5 mg Cefuroxime Axetil (Ceftin Tab(*)) 250 mg PO BID [facility] Last Admin: 04/29/17 13:11 Dose: 250 mg Cholecalciferol (Vitamin D Tab*) 2,000 units PO DAILY [facility] Last Admin: 04/29/17 08:06 Dose: 2,000 units Clonidine HCl (Catapres Tab*) 0.1 mg PO BID [facility] Last Admin: 04/29/17 08:06 Dose: 0.1 mg Cyclobenzaprine HCl (Flexeril Tab*) 10 mg PO TID PRN PRN Reason: PAIN Dextrose (D50w Syringe 50 Ml*) 12.5 gm IV PUSH .FOR FS < 60 - SS PRN PRN Reason: FS < 60 Docusate Sodium (Colace Cap*) 100 mg PO BID [facility] Insulin Glargine (Lantus(*)) 12 units SUBCUT Q24H [facility] Last Admin: 04/29/17 15:02 Dose: 12 units Insulin Human Lispro (Humalog*) 0 units SUBCUT ACHS [facility] PRN Reason: Protocol Last Admin: 04/29/17 13:11 Dose: 15 unit Levothyroxine Sodium (Synthroid Tab*) 112 mcg PO DAILY@0600 [facility] Last Admin: 04/29/17 06:25 Dose: 112 mcg Lidocaine (Lidoderm 5% Patch*) 1 patch TRANSDERM DAILY [facility] Last Admin: 04/29/17 08:04 Dose: 1 patch Lisinopril (Prinivil Tab*) 5 mg PO DAILY [facility] Last Admin: 04/29/17 08:06 Dose: 5 mg Magnesium Hydroxide (Milk Of Magnesia Liq*) 30 ml PO BID PRN PRN Reason: CONSTIPATION Morphine Sulfate (Morphine Inj (Syringe)*) 1 mg IV Q4H PRN PRN Reason: PAIN Oxycodone/Acetaminophen (Percocet 5/325 Tab*) 1 tab PO Q4H PRN PRN Reason: PAIN Last Admin: 04/26/17 17:56 Dose: 1 tab Pharmacy Profile Note (Lidocaine Patch Remove*) 1 note PATCH OFF 2099 [facility] Last Admin: 04/28/17 21:11 Dose: Not Given Pharmacy Profile Note (Coumadin Per Pharmacy*) 1 note FOLLOW UP 1700 [facility] Last Admin: 04/28/17 18:11 Dose: 1 note Polyethylene Glycol/Electrolytes (Miralax*) 17 gm PO 0800,2099 [facility] Potassium Chloride (Klor Con Er Tab*) 40 meq PO TID [facility] Last Admin: 04/29/17 15:01 Dose: 40 meq Sotalol HCl (Betapace Tab*) 80 mg PO BID [facility] Last Admin: 04/29/17 08:07 Dose: 80 mg Vital Signs 04/29/17 04/29/17 04/29/17 11:24 12:00 12:45 Temperature 97.6 F Pulse Rate 121 Respiratory 24 Rate Blood Pressure 155/100 (mmHg) O2 Sat by Pulse 93 99 97 Oximetry Oxygen Devices in Use Now: Nasal Cannula - 2 liters Appearance: Pleasant elderly lady sitting up in bed in [facility]. Eyes: No Scleral Icterus Ears/Nose/Mouth/Throat: Mucous Membranes Moist Neck: Trachea Midline Respiratory: Symmetrical Chest Expansion and Respiratory Effort, - - BS+ bilaterally with no added sounds Cardiovascular: - - Normal S1 and S2, irregularly irregular Abdominal: NL Sounds; No Tenderness; No Distention Neurological: Alert and Oriented x 3, NL Muscle Strength and Tone Lines/Tubes/Other Access: Clean, Dry and Intact Peripheral IV Nutrition: Taking PO's Result Diagrams: 04/28/17 05:14 04/29/17 04:57 Assess/Plan/Problems-Billing Assessment: Mrs. Adams is a72yo F with PMH of PAF on Warfarin, tachy-robby syndrome s/p pacer, NSVtach, s/p mechanical AVR, HTN, HLD, obesity, hypothyroidism, diastolic CHF, depression, type 2 DM, who presented to ED with c/o chest pain, found to be in Afib RVR and to meet sepsis criteria. - Patient Problems (1) Sepsis Comment: - Patient met sepsis criteria on admission with leukocytosis and tachycardia. - Source is possible pneumonia. (2) Atrial fibrillation with RVR Comment: - Found to be in Afib RVR on admission - rate is now controlled off Cardizem drip. - Continue Sotalol and Warfarin. - KRANTHI shows spontaneous echo contrast in the left atrium cavity and appendage, as well as thrombus in the HERNANDEZ, but patient is already chronically anticoagulated with Warfarin. - She was back in NSR, but today back in Afib RVR - continue Sotalol and give one dose of Cardizem CD. - Replete potassium. (3) Gram-positive bacteremia Comment: - ID consult appreciated - Dr. Maciel thinks this represents contamination. He feels the source could be pneumonia and recommended continuation of cephaloporins. (4) Aortic aneurysm Comment: - CTA chest was performed with concerns for PE, but showed incidental finding of thoracic aorta aneurysm measuring 4.4cm (maximum diameter). There is thickening of the wall that could represent atheroma or intramural hematoma. - Patient declined repeat CTA with dissection protocol, as she's concerned with her kidneys and "too much contrast". - Case was d/w Dr. Avila (Vascular surgery at [facility]) - as patient is asymptomatic and aneruysm measures 4.4 cm, there is no indication for procedure at this time, only outpatient follow up. He states hematomas are very common within aneurysms and anticoagulation is not contraindicated in this situation. (5) Diabetes Comment: - Metformin on hold, continue Lispro SS and add Lantus as her glucose continues to trend up. - Hb A1c is 6.9. (6) H/O mechanical aortic valve replacement Comment: - Continue Warfarin - goal INR 2.5-3.5. (7) HTN (hypertension) Comment: - Continue amlodipine and clonidine. - Will resume Lisinopril, and diurese with Furosemide. (8) DVT prophylaxis Comment: - Warfarin. (9) DNR (do not resuscitate) (10) Physical deconditioning Comment: - PT consult appreciated - will require SNF for rehab. Status and Disposition: Inpatient.
[2017-04-29] MEDS: Polyethylene Glycol 3350* 17 GM PACKET PO SCH ×2 (16:36→21:13)
[2017-04-29] MEDS: Docusate CAP* 100 MG PO SCH ×2 (16:36→21:12)
[2017-04-29] MEDS ORDERED: Warfarin TAB(*) 3 MG PO ONE (17:30)
[2017-04-29] MEDS: Lidocaine Patch REMOVE* 1 NOTE MISC PATCH OFF SCH (23:11)
[2017-04-30] MEDS: Levothyroxine TAB* 112 MCG TAB PO SCH (06:11)
[2017-04-30 06:26] LABS: Hematocrit 46 % (35-47); Hemoglobin 15.1 g/dl (12.0-16.0)
[2017-04-30 06:43] LABS: BUN/Creatinine Ratio 35.3 (8-20); Blood Urea Nitrogen 41 mg/dL (6-24); CO2 Carbon Dioxide 32 mmol/L (22-32); Chloride 98 mmol/L (101-111); EGFR African American 58.9 (>60); EGFR Non-African American 45.8 (>60); Glucose 242 mg/dL (70-100); Sodium 137 mmol/L (133-145)
[2017-04-30 06:49] LABS: Anion Gap 7 mmol/L (2-11)
[2017-04-30] MEDS: Insulin LISPRO* 1 UNITS UNIT SUBCUT SCH ×4 (09:05→22:25)
[2017-04-30] MEDS: Polyethylene Glycol 3350* 17 GM PACKET PO SCH ×2 (09:39→22:26)
[2017-04-30] MEDS: Lidocaine PATCH 5%* 1 PATCH TRANSDERM SCH (09:40)
[2017-04-30] MEDS: cloNIDine TAB* 0.1 MG PO SCH ×2 (09:42→22:25)
[2017-04-30] MEDS: ceFUROXime TAB(*) 250 MG PO SCH ×2 (09:42→22:24)
[2017-04-30] MEDS: amLODIPine TAB* 5 MG PO SCH (09:42)
[2017-04-30] MEDS: Cholecalciferol TAB* 1000 UNITS PO SCH (09:42)
[2017-04-30] MEDS: Docusate CAP* 100 MG PO SCH ×2 (09:43→22:26)
[2017-04-30] MEDS: Lisinopril TAB* 5 MG PO SCH (09:44)
[2017-04-30] MEDS: Sotalol TAB* 80 MG PO SCH ×2 (09:46→22:24)
[2017-04-30] MEDS: Potassium Chlor TAB* 20 MEQ TAB.ER PO SCH (09:46)
[2017-04-30] MEDS: Hydrochlorothiazide TAB* 25 MG PO SCH (09:51)
[2017-04-30] MEDS: Spironolactone TAB* 25 MG PO SCH ×2 (09:53→22:25)
[2017-04-30] MEDS: Insulin GLARGINE(*) 1 UNITS UNIT SUBCUT SCH (12:54)
--- NOTE | 2017-04-30 14:15 | PN ---
Subjective Date of Service: 04/30/17 Interval History: HOSPITALIST PROGRESS NOTE Patient seen and examined at bedside. She feels better today. Breathing is easier, now on RA. Sawyer was removed, she' s been able to void spontaneously. Denies CP or palpitations. Slept well. Family History: Unchanged from Admission Social History: Unchanged from Admission Past Medical History: Unchanged from Admission Objective Active Medications: Acetaminophen (Tylenol Tab*) 650 mg PO Q4H PRN PRN Reason: FEVER/PAIN Last Admin: 04/28/17 21:10 Dose: 650 mg Amlodipine Besylate (Norvasc Tab*) 5 mg PO DAILY [facility] Last Admin: 04/30/17 09:42 Dose: 5 mg Cefuroxime Axetil (Ceftin Tab(*)) 250 mg PO BID [facility] Last Admin: 04/30/17 09:42 Dose: 250 mg Cholecalciferol (Vitamin D Tab*) 2,000 units PO DAILY [facility] Last Admin: 04/30/17 09:42 Dose: 2,000 units Clonidine HCl (Catapres Tab*) 0.1 mg PO BID [facility] Last Admin: 04/30/17 09:42 Dose: 0.1 mg Cyclobenzaprine HCl (Flexeril Tab*) 10 mg PO TID PRN PRN Reason: PAIN Dextrose (D50w Syringe 50 Ml*) 12.5 gm IV PUSH .FOR FS < 60 - SS PRN PRN Reason: FS < 60 Docusate Sodium (Colace Cap*) 100 mg PO BID [facility] Last Admin: 04/30/17 09:43 Dose: 100 mg Hydrochlorothiazide (Hydrodiuril Tab*) 12.5 mg PO DAILY [facility] Last Admin: 04/30/17 09:51 Dose: 12.5 mg Insulin Glargine (Lantus(*)) 12 units SUBCUT Q24H [facility] Last Admin: 04/30/17 12:54 Dose: 12 units Insulin Human Lispro (Humalog*) 0 units SUBCUT ACHS [facility] PRN Reason: Protocol Last Admin: 04/30/17 12:54 Dose: 9 unit Levothyroxine Sodium (Synthroid Tab*) 112 mcg PO DAILY@0600 [facility] Last Admin: 04/30/17 06:11 Dose: 112 mcg Lidocaine (Lidoderm 5% Patch*) 1 patch TRANSDERM DAILY [facility] Last Admin: 04/30/17 09:40 Dose: 1 patch Lisinopril (Prinivil Tab*) 5 mg PO DAILY [facility] Last Admin: 04/30/17 09:44 Dose: 5 mg Magnesium Hydroxide (Milk Of Magnmike Liq*) 30 ml PO BID PRN PRN Reason: CONSTIPATION Morphine Sulfate (Morphine Inj (Syringe)*) 1 mg IV Q4H PRN PRN Reason: PAIN Oxycodone/Acetaminophen (Percocet 5/325 Tab*) 1 tab PO Q4H PRN PRN Reason: PAIN Last Admin: 04/26/17 17:56 Dose: 1 tab Pharmacy Profile Note (Lidocaine Patch Remove*) 1 note PATCH OFF 2099 [facility] Last Admin: 04/29/17 23:11 Dose: Not Given Pharmacy Profile Note (Coumadin Per Pharmacy*) 1 note FOLLOW UP 1700 [facility] Last Admin: 04/29/17 18:17 Dose: 1 note Polyethylene Glycol/Electrolytes (Miralax*) 17 gm PO 0800,2100 [facility] Last Admin: 04/30/17 09:39 Dose: Not Given Potassium Chloride (Klor Con Er Tab*) 40 meq PO DAILY [facility] Last Admin: 04/30/17 09:46 Dose: 40 meq Sotalol HCl (Betapace Tab*) 80 mg PO BID [facility] Last Admin: 04/30/17 09:46 Dose: 80 mg Spironolactone (Aldactone Tab*) 25 mg PO BID [facility] Last Admin: 04/30/17 09:53 Dose: 25 mg Warfarin Sodium (Coumadin Tab(*)) 1 mg PO ONCE ONE Stop: 04/30/17 17:01 Vital Signs 04/30/17 11:06 Temperature 97.7 F Pulse Rate 120 Respiratory 21 Rate Blood Pressure 141/85 (mmHg) O2 Sat by Pulse 95 Oximetry Oxygen Devices in Use Now: None Appearance: Pleasant elderly lady sitting up in bed in [facility]. Eyes: No Scleral Icterus Ears/Nose/Mouth/Throat: Mucous Membranes Moist Neck: Trachea Midline Respiratory: Symmetrical Chest Expansion and Respiratory Effort, - - BS+ bilaterally coarse, but no added sounds Cardiovascular: - - Normal S1 and S2, irregularly irregular Abdominal: NL Sounds; No Tenderness; No Distention Neurological: Alert and Oriented x 3, NL Muscle Strength and Tone Lines/Tubes/Other Access: Clean, Dry and Intact Peripheral IV Nutrition: Taking PO's Result Diagrams: 04/30/17 06:00 04/30/17 09:18 Assess/Plan/Problems-Billing Assessment: Mrs. Adams is a72yo F with PMH of PAF on Warfarin, tachy-robby syndrome s/p pacer, NSVtach, s/p mechanical AVR, HTN, HLD, obesity, hypothyroidism, diastolic CHF, depression, type 2 DM, who presented to ED with c/o chest pain, found to be in Afib RVR and to meet sepsis criteria. - Patient Problems (1) Sepsis Comment: - Patient met sepsis criteria on admission with leukocytosis and tachycardia. - Source is pneumonia. (2) Atrial fibrillation with RVR Comment: - Found to be in Afib RVR on admission. - KRANTHI shows spontaneous echo contrast in the left atrium cavity and appendage, as well as thrombus in the HERNANDEZ, but patient is already chronically anticoagulated with Warfarin. - She was back in NSR, but now back in Afib and rate is not well controlled - continue Sotalol and add Cardizem CD. - Replete potassium. (3) Gram-positive bacteremia Comment: - ID consult appreciated - Dr. Maciel thinks this represents contamination. He feels the source could be pneumonia and recommended continuation of cephaloporins. (4) Aortic aneurysm Comment: - CTA chest was performed with concerns for PE, but showed incidental finding of thoracic aorta aneurysm measuring 4.4cm (maximum diameter). There is thickening of the wall that could represent atheroma or intramural hematoma. - Patient declined repeat CTA with dissection protocol, as she's concerned with her kidneys and "too much contrast". - Case was d/w Dr. Avila (Vascular surgery at [facility]) - as patient is asymptomatic and aneruysm measures 4.4 cm, there is no indication for procedure at this time, only outpatient follow up. He states hematomas are very common within aneurysms and anticoagulation is not contraindicated in this situation. (5) Diabetes Comment: - Metformin on hold, continue Lispro SS and Lantus. - Hb A1c is 6.9. (6) H/O mechanical aortic valve replacement Comment: - Continue Warfarin - goal INR 2.5-3.5. (7) HTN (hypertension) Comment: - Continue amlodipine and clonidine. - Will resume Lisinopril, and diurese with Furosemide. (8) DVT prophylaxis Comment: - Warfarin. (9) DNR (do not resuscitate) (10) Physical deconditioning Comment: - PT consult appreciated - will require SNF for rehab. Status and Disposition: Inpatient.
[2017-04-30] MEDS ORDERED: Warfarin TAB(*) 1 MG PO ONE (17:00)
[2017-04-30] MEDS: Diltiazem CD CAP* 180 MG PO SCH (17:27)
[2017-04-30] MEDS: Lidocaine Patch REMOVE* 1 NOTE MISC PATCH OFF SCH (22:28)
[2017-05-01] MEDS: Levothyroxine TAB* 112 MCG TAB PO SCH (05:17)
[2017-05-01] MEDS: Insulin LISPRO* 1 UNITS UNIT SUBCUT SCH ×4 (09:24→22:35)
[2017-05-01] MEDS: Lidocaine PATCH 5%* 1 PATCH TRANSDERM SCH (09:26)
[2017-05-01] MEDS: Polyethylene Glycol 3350* 17 GM PACKET PO SCH ×2 (09:26→22:34)
[2017-05-01] MEDS: Cholecalciferol TAB* 1000 UNITS PO SCH (09:30)
[2017-05-01] MEDS: ceFUROXime TAB(*) 250 MG PO SCH ×2 (09:30→22:35)
[2017-05-01] MEDS: Docusate CAP* 100 MG PO SCH ×2 (09:31→22:36)
[2017-05-01] MEDS: Potassium Chlor TAB* 20 MEQ TAB.ER PO SCH (09:31)
[2017-05-01] MEDS: cloNIDine TAB* 0.1 MG PO SCH ×2 (09:32→22:36)
[2017-05-01] MEDS: Hydrochlorothiazide TAB* 25 MG PO SCH (09:32)
[2017-05-01] MEDS: amLODIPine TAB* 5 MG PO SCH (09:33)
[2017-05-01] MEDS: Diltiazem CD CAP* 180 MG PO SCH (09:33)
[2017-05-01] MEDS: Spironolactone TAB* 25 MG PO SCH ×2 (09:33→22:36)
[2017-05-01] MEDS: Lisinopril TAB* 5 MG PO SCH (09:33)
[2017-05-01] MEDS: Sotalol TAB* 80 MG PO SCH ×2 (09:37→22:41)
[2017-05-01 10:24] LABS: BUN/Creatinine Ratio 37.5 (8-20); Calcium 9.9 mg/dL (8.6-10.3); EGFR African American 73.3 (>60); Potassium 4.7 mmol/L (3.5-5.0)
[2017-05-01] MEDS ORDERED: Insulin GLARGINE(*) 1 UNITS UNIT SUBCUT SCH (14:00)
--- NOTE | 2017-05-01 14:05 | PN ---
Subjective Date of Service: 05/01/17 Interval History: HOSPITALIST PROGRESS NOTE Patient seen and examined at bedside. She feels well today, offers no complaints. Family History: Unchanged from Admission Social History: Unchanged from Admission Past Medical History: Unchanged from Admission Objective Active Medications: Acetaminophen (Tylenol Tab*) 650 mg PO Q4H PRN PRN Reason: FEVER/PAIN Last Admin: 04/28/17 21:10 Dose: 650 mg Cefuroxime Axetil (Ceftin Tab(*)) 250 mg PO BID [facility] Last Admin: 05/01/17 09:30 Dose: 250 mg Cholecalciferol (Vitamin D Tab*) 2,000 units PO DAILY [facility] Last Admin: 05/01/17 09:30 Dose: 2,000 units Clonidine HCl (Catapres Tab*) 0.1 mg PO BID [facility] Last Admin: 05/01/17 09:32 Dose: 0.1 mg Cyclobenzaprine HCl (Flexeril Tab*) 10 mg PO TID PRN PRN Reason: PAIN Last Admin: 05/01/17 09:34 Dose: 10 mg Dextrose (D50w Syringe 50 Ml*) 12.5 gm IV PUSH .FOR FS < 60 - SS PRN PRN Reason: FS < 60 Diltiazem HCl (Cardizem Cd Cap*) 240 mg PO DAILY [facility] Docusate Sodium (Colace Cap*) 100 mg PO BID [facility] Last Admin: 05/01/17 09:31 Dose: 100 mg Hydrochlorothiazide (Hydrodiuril Tab*) 12.5 mg PO DAILY [facility] Last Admin: 05/01/17 09:32 Dose: 12.5 mg Insulin Glargine (Lantus(*)) 15 units SUBCUT Q24H [facility] Last Admin: 05/01/17 13:13 Dose: 15 units Insulin Human Lispro (Humalog*) 0 units SUBCUT ACHS [facility] PRN Reason: Protocol Last Admin: 05/01/17 12:42 Dose: 12 unit Levothyroxine Sodium (Synthroid Tab*) 112 mcg PO DAILY@0600 [facility] Last Admin: 05/01/17 05:17 Dose: 112 mcg Lidocaine (Lidoderm 5% Patch*) 1 patch TRANSDERM DAILY [facility] Last Admin: 05/01/17 09:26 Dose: 1 patch Lisinopril (Prinivil Tab*) 5 mg PO DAILY [facility] Last Admin: 05/01/17 09:33 Dose: 5 mg Magnesium Hydroxide (Milk Of Magnesia Liq*) 30 ml PO BID PRN PRN Reason: CONSTIPATION Morphine Sulfate (Morphine Inj (Syringe)*) 1 mg IV Q4H PRN PRN Reason: PAIN Oxycodone/Acetaminophen (Percocet 5/325 Tab*) 1 tab PO Q4H PRN PRN Reason: PAIN Last Admin: 04/26/17 17:56 Dose: 1 tab Pharmacy Profile Note (Lidocaine Patch Remove*) 1 note PATCH OFF 2099 [facility] Last Admin: 04/30/17 22:28 Dose: Not Given Pharmacy Profile Note (Coumadin Per Pharmacy*) 1 note FOLLOW UP 170 [facility] Last Admin: 04/30/17 17:31 Dose: 1 note Polyethylene Glycol/Electrolytes (Miralax*) 17 gm PO 0800,2099 [facility] Last Admin: 05/01/17 09:26 Dose: 17 gm Potassium Chloride (Klor Con Er Tab*) 20 meq PO DAILY [facility] Sotalol HCl (Betapace Tab*) 80 mg PO BID [facility] Last Admin: 05/01/17 09:37 Dose: 80 mg Spironolactone (Aldactone Tab*) 25 mg PO BID [facility] Last Admin: 05/01/17 09:33 Dose: 25 mg Warfarin Sodium (Coumadin Tab(*)) 2 mg PO 1700 ONE Stop: 05/01/17 17:01 Vital Signs 05/01/17 05/01/17 05/01/17 07:27 08:00 09:34 Temperature 97.6 F Pulse Rate 103 Respiratory 21 21 16 Rate Blood Pressure 129/90 (mmHg) O2 Sat by Pulse 91 Oximetry Oxygen Devices in Use Now: None Appearance: Pleasant elderly lady sitting up in bed in [facility]. Eyes: No Scleral Icterus Ears/Nose/Mouth/Throat: Mucous Membranes Moist Neck: Trachea Midline Respiratory: Symmetrical Chest Expansion and Respiratory Effort, Clear to Auscultation Cardiovascular: - - Normal S1 and S2, irregularly irregular Abdominal: NL Sounds; No Tenderness; No Distention Neurological: Alert and Oriented x 3, NL Muscle Strength and Tone Lines/Tubes/Other Access: Clean, Dry and Intact Peripheral IV Nutrition: Taking PO's Result Diagrams: 04/30/17 06:00 05/01/17 09:49 Assess/Plan/Problems-Billing Assessment: Mrs. Adams is a72yo F with PMH of PAF on Warfarin, tachy-robby syndrome s/p pacer, NSVtach, s/p mechanical AVR, HTN, HLD, obesity, hypothyroidism, diastolic CHF, depression, type 2 DM, who presented to ED with c/o chest pain, found to be in Afib RVR and to meet sepsis criteria. - Patient Problems (1) Sepsis Comment: - Patient met sepsis criteria on admission with leukocytosis and tachycardia. - Source is pneumonia. (2) Atrial fibrillation with RVR Comment: - Found to be in Afib RVR on admission. - KRANTHI shows spontaneous echo contrast in the left atrium cavity and appendage, as well as thrombus in the HERNANDEZ, but patient is already chronically anticoagulated with Warfarin. - She was back in NSR, but now back in Afib and rate is better controlled - continue Sotalol and Cardizem CD. - Potassium is now normal. (3) Gram-positive bacteremia Comment: - ID consult appreciated - Dr. Maciel thinks this represents contamination. He feels the source could be pneumonia and recommended continuation of cephaloporins. (4) Aortic aneurysm Comment: - CTA chest was performed with concerns for PE, but showed incidental finding of thoracic aorta aneurysm measuring 4.4cm (maximum diameter). There is thickening of the wall that could represent atheroma or intramural hematoma. - Patient declined repeat CTA with dissection protocol, as she's concerned with her kidneys and "too much contrast". - Case was d/w Dr. Avila (Vascular surgery at [facility]) - as patient is asymptomatic and aneruysm measures 4.4 cm, there is no indication for procedure at this time, only outpatient follow up. He states hematomas are very common within aneurysms and anticoagulation is not contraindicated in this situation. (5) Diabetes Comment: - Metformin on hold, continue Lispro SS and Lantus. - Hb A1c is 6.9. (6) H/O mechanical aortic valve replacement Comment: - Continue Warfarin - goal INR 2.5-3.5. (7) HTN (hypertension) Comment: - Continue Clonidine, Lisinopril, and diuresis with HCTZ and Spironolactone. (8) DVT prophylaxis Comment: - Warfarin. (9) DNR (do not resuscitate) (10) Physical deconditioning Comment: - PT consult appreciated - will require SNF for rehab. Status and Disposition: Inpatient. Anticipate d/c in AM to [facility].
[2017-05-01] MEDS ORDERED: Warfarin TAB(*) 2 MG PO ONE (17:00)
[2017-05-01] MEDS: Lidocaine Patch REMOVE* 1 NOTE MISC PATCH OFF SCH (22:42)
[2017-05-02] MEDS: Levothyroxine TAB* 112 MCG TAB PO SCH (06:07)
[2017-05-02] MEDS ORDERED: Diltiazem CD CAP* 240 MG PO SCH (09:00)
[2017-05-02] MEDS ORDERED: Potassium Chlor TAB* 20 MEQ TAB.ER PO SCH (09:00)
[2017-05-02] MEDS: Polyethylene Glycol 3350* 17 GM PACKET PO SCH (09:37)
[2017-05-02] MEDS: Insulin LISPRO* 1 UNITS UNIT SUBCUT SCH (09:38)
[2017-05-02] MEDS: Cholecalciferol TAB* 1000 UNITS PO SCH (09:38)
[2017-05-02] MEDS: Docusate CAP* 100 MG PO SCH (09:39)
[2017-05-02] MEDS: ceFUROXime TAB(*) 250 MG PO SCH (09:39)
[2017-05-02] MEDS: Sotalol TAB* 80 MG PO SCH (09:39)
[2017-05-02] MEDS: Lisinopril TAB* 5 MG PO SCH (09:39)
[2017-05-02] MEDS: Hydrochlorothiazide TAB* 25 MG PO SCH (09:39)
[2017-05-02] MEDS: cloNIDine TAB* 0.1 MG PO SCH (09:39)
[2017-05-02] MEDS: Spironolactone TAB* 25 MG PO SCH (09:39)
[2017-05-02] MEDS: Lidocaine PATCH 5%* 1 PATCH TRANSDERM SCH (09:40)
[2017-05-02 10:24] VITALS: BP 130/93
--- NOTE | 2017-05-02 11:10 | DS ---
CC: Dr. Lim; Dr. Proctor; Dr. Barnett; Dr. Britton; Dr. Huber* DISCHARGE SUMMARY: DATE OF ADMISSION: 04/23/17 DATE OF DISCHARGE: 05/02/17 PRIMARY CARE PROVIDER: Dr. Lim. ACCEPTING PHYSICIAN AT [facility]: Dr. Proctor. CONSULTING INFECTIOUS DISEASE SPECIALIST: Dr. Barnett. WATCH CRYSTAL CUTTER: Dr. Britton. DISCHARGE DIAGNOSES: 1. Severe sepsis present on admission. 2. Acute kidney injury. 3. Pneumonia. 4. Staphylococcus epidermidis bacteremia, thought to be secondary to contamination. 5. Atrial fibrillation with rapid ventricular rate. 6. Aortic aneurysm with intramural hematoma. 7. Leukocytosis. SECONDARY DIAGNOSES: 1. Paroxysmal atrial fibrillation. 2. Tachybrady syndrome, status post pacemaker. 3. Nonsustained ventricular tachycardia. 4. Aortic stenosis, status post mechanical aortic valve replacement. 5. Hypertension. 6. Hyperlipidemia. 7. Obesity with BMI of 32. 8. Hypothyroidism. 9. Diastolic congestive heart failure. 10. Depression. 11. Type 2 diabetes. MEDICATIONS AT THE TIME OF TRANSFER: 1. Clonidine 0.1 mg p.o. b.i.d. 2. Warfarin 4 mg p.o. daily. 3. Spironolactone 25 mg p.o. b.i.d. 4. Probiotic 1 tablet p.o. daily. 5. Osteo Bi-Flex one tablet p.o. daily. 6. Magnesium 400 mg p.o. daily. 7. Fish oil, lutein, vitamin D one capsule p.o. daily. 8. Oxycodone/acetaminophen 5/325 one to two tablets p.o. q.4 hours p.r.n. pain , MDD 12 tablets. 9. Metformin 500 mg p.o. daily. 10. Sotalol 80 mg p.o. b.i.d. 11. Lidoderm patch 5% topical daily. 12. Levothyroxine 112 mcg p.o. daily. 13. Cyclobenzaprine 10 mg p.o. t.i.d. as needed for muscle spasm. 14. Acetaminophen 650 mg p.o. q.6 hours p.r.n. pain. New Medications: 1. MiraLAX 17 g p.o. b.i.d., hold for loose stools. 2. Lantus 15 units subcutaneously daily. 3. Lispro sliding scale as follows - fingersticks 131 to 150 - 2 units, 151 to 200 - 3 units, 201 to 250 - 6 units, 251 to 300 - 9 units, 301 to 350 - 12 units , 351 to 400 - 15 units, greater than 400 - call MD. 4. Diltiazem CD 240 mg p.o. daily. 5. Cholecalciferol 2000 units p.o. daily. 6. Lisinopril was changed to 5 mg p.o. daily. 7. The patient was continued on hydrochlorothiazide 12.5 mg p.o. daily. HOSPITAL COURSE: Ms. Adams is a 72-year-old lady with a past medical history as stated above that presented to the emergency room with complaints of chest pain. She did not have complaints of palpitations, but she was found to be in atrial fibrillation with rapid ventricular rate. For more details about her presentation, I refer you to her history and physical. She met SIRS criteria on admission and initially there was no clear source of infection. She was admitted for further evaluation. She was also found to have acute kidney injury , felt to be secondary to sepsis but also exacerbated by poor perfusion in the setting of atrial fibrillation with rapid ventricular rate. Initially, she had some complaints of mild diarrhea that rapidly resolved. She had minimal elevation of troponin and this was felt to be secondary to her AFib RVR. Her initial chest x-ray showed low lung volumes, linear infiltrates to the left lung base that were most consistent with atelectasis. CT of the abdomen and pelvis showed small left pleural effusion and basilar infiltrate, cholelithiasis without evidence for acute cholecystitis, bilateral adrenal nodules. Consider MRI without contrast for further evaluation as outpatient. Compression fracture of L3 vertebral body and mild to moderate compression fracture of the superior endplate of the L4 vertebral body. There is moderate spinal canal narrowing secondary to retropulsion of fracture fragments. These findings were discussed with Neurosurgery: as patient has no pain, no neurodeficits, there's no indication for procedure or TLSO at this time. Transthoracic echocardiogram showed ejection fraction 45% to 50% with a mechanical prosthetic valve in place with aortic valve area of 1.3 cm compatible with moderate aortic stenosis. The patient's blood cultures were growing gram-positive cocci and there was concern for endocarditis. She underwent a transesophageal echocardiogram that showed mild global hypokinesis at the left ventricle, ejection fraction 45% to 50%, spontaneous echo contrast in the left atrial cavity and appendage, with a thrombus visualized in the left atrial appendage. There were no masses or vegetations. The patient was seen in consultation by Cardiology (Dr. Britton) and he did not think the patient required cardioversion as interrogation of her pacemaker shows that she is in and out of atrial fibrillation as an outpatient without any obvious symptoms. His recommendation was to continue sotalol and warfarin and to follow up with Dr. Huber as outpatient. Due to her bacteremia, Infectious Disease was consulted. Dr. Barnett felt that 2 out of 4 bottles grew coagulase-negative Staph and he felt that was a contaminant and not a true positive. He felt that with her presentation with chest pain, hypoxemia, and the CT showed a small left lower lobe with pleural effusion, the cause of her sepsis was likely community-acquired pneumonia. He recommended to complete treatment with ceftriaxone/cefuroxime p.o. The patient was also found to have signs of fluid overload and she was diuresed with significant improvement of her symptoms. Of note is the fact that even though the patient was found to have vertebral fractures, she did not have complaints of back pain and she did not have any neurological deficits. As she still had complaints of shortness of breath, a CTA of the chest was performed and it was negative for pulmonary embolism. It did show signs of vascular congestion and also incidental finding of aneurysmal dilatation of the thoracic aorta beginning at the proximal-most portion of the arch and extending into the descending thoracic aorta. The maximum diameter is at the proximal descending. Thoracic aorta measuring 4.4 cm. There appears to be thickening of the wall that could represent circumferential atheroma or potentially intramural hematoma. The recommendation was for CTA of the chest according to the aortic dissection protocol to better quantify these findings. I had a long conversation with the patient and also with her son at bedside regarding this diagnosis. The patient declined a repeat CTA of the chest as she was concerned with the possibility of renal failure due to her kidney function and repeated exposure to contrast. I did call the vascular surgeon irrigation technician at [facility] (Dr. Avila) and his opinion was that the patient was asymptomatic and the aneurysm measures 4.4 cm. So, there is no indication for surgical procedure at this time, only for outpatient followup. He also stated that hematoma is very common within aneurysms and anticoagulation is not contraindicated in this situation. After the patient completes her rehab, she will need to follow up with Vascular Surgery at [facility] as outpatient. With antibiotics, diuretics and rate control, the patient had significant improvement of her symptoms. She initially required 7 L of supplemental oxygen and she is now back on room air. Her atrial fibrillation rate is still difficult to control and Cardizem was added with better control at this point and has also helped to control her blood pressure. Repeat blood cultures were negative. The patient remained afebrile with significant improvement of her symptoms, but she was found to be deconditioned and to have PT and OT needs. A bed was offered at [facility] to continue her rehabilitation process and she is medically stable for discharge today. Of note is the fact that the patient's INR is 2.04 on the day of discharge and her warfarin is being increased to 4 mg. She should have an INR repeated on as her INR goal is 2.5 to 3.5. With diuresis, the patient's weight went down from 206 on admission to 186 on the day of discharge. Regarding her diabetes as outpatient, the patient was only on metformin, but while in the hospital, she required Lantus and lispro sliding scale and her fingersticks should be followed as outpatient, at least for the first week. PHYSICAL EXAMINATION: Vital Signs: Temperature 98.7, heart rate is 84, respiratory rate is 14, oxygen saturation 92% on room air, blood pressure is 143 /78. General: The patient is a pleasant, elderly lady lying in bed in no acute distress. CVS: Normal S1, S2. Irregular irregular. Chest: Breath sounds present bilaterally with no added sounds. Abdomen: Obese, soft. Bowel sounds are present. Extremities: Trace edema. Neuro: She is alert and oriented x3. Able to move all 4 extremities. DIET: Consistent carb, heart healthy diet. ACTIVITIES: Continue PT-OT as tolerated. DISPOSITION: To [facility]. STATUS WHILE IN THE HOSPITAL: Inpatient. Please keep in mind this is a summarized version of this patient's complex and prolonged hospital stay. If you need more information, please feel free to call me at [phone] or please obtain the full medical records. TIME SPENT: Approximately 50 minutes was spent to complete this discharge. [id number]/[facility] #: [id number] [facility]PITALRenaldo
== END 2017-05-02 11:05 | DRG 871 ==
LOC: ED 18:52 → ICU 22:03 → MEDTELE 04-24 07:57 → MED 04-28 23:27
PROVIDERS: ADMIT Internal Medicine; ATTEND Internal Medicine
PROC: B24BZZ4 Ultrasonography of Heart with Aorta, Transesophageal (ICD-10-PCS; principal; 2017-04-25 12:00)
PROC: 4B02XSZ Measurement of Cardiac Pacemaker, External Approach (ICD-10-PCS; 2017-04-26)
DX: A41.1 Sepsis due to other specified staphylococcus (principal); J18.9 Pneumonia, unspecified organism; I71.01 Dissection of thoracic aorta; I11.0 Hypertensive heart disease with heart failure; N17.9 Acute kidney failure, unspecified; I48.0 Paroxysmal atrial fibrillation; I50.9 Heart failure, unspecified; I50.32 Chronic diastolic (congestive) heart failure; T82.857A Stenosis of other cardiac prosthetic devices, implants and grafts, initial encounter; M48.56XA Collapsed vertebra, not elsewhere classified, lumbar region, initial encounter for fracture; E11.9 Type 2 diabetes mellitus without complications; E66.9 Obesity, unspecified; F32.9 Major depressive disorder, single episode, unspecified; E03.9 Hypothyroidism, unspecified; R65.20 Severe sepsis without septic shock; K80.20 Calculus of gallbladder without cholecystitis without obstruction; R22.9 Localized swelling, mass and lump, unspecified; I51.3 Intracardiac thrombosis, not elsewhere classified; I35.0 Nonrheumatic aortic (valve) stenosis; Y71.2 Prosthetic and other implants, materials and accessory cardiovascular devices associated with adverse incidents; Z66 Do not resuscitate; E78.5 Hyperlipidemia, unspecified; Z95.0 Presence of cardiac pacemaker; Z95.2 Presence of prosthetic heart valve; Z82.49 Family history of ischemic heart disease and other diseases of the circulatory system; Z82.3 Family history of stroke; Z87.891 Personal history of nicotine dependence; Z68.32 Body mass index [BMI] 32.0-32.9, adult; Z79.01 Long term (current) use of anticoagulants; Z79.4 Long term (current) use of insulin; Y92.009 Unspecified place in unspecified non-institutional (private) residence as the place of occurrence of the external cause
CPT/HCPCS: 36415; 71010; 71275; 74176; 80048; 80053; 80061; 80202; 81003; 81015; 82550; 82553; 83036; 83605; 83690; 83735; 83880; 84443; 84484; 85014; 85018; 85025; 85379; 85610; 85730; 86140; 87040; 87077; 87086; 87150; 87205; 87641; 93005; 93306; 93312; 93325; 93922; 99156; 99157; A9270-GY; J0696; J1160; J1940; J2250; J2310; J3010; J3370; Q9967

== ENCOUNTER 2017-06-08 12:27 | Inpatient (IN) | payer MEDICARE ==
[2017-06-08] MEDS ORDERED: NS 0.9% 1000 ML* 1,000 ML IV ONE (13:30)
[2017-06-08 14:14] LABS: ALT 18 U/L (7-52); Albumin 3.8 g/dL (3.2-5.2); Alkaline Phosphatase 97 U/L (34-104); BUN/Creatinine Ratio 33.7 (8-20); Blood Urea Nitrogen 58 mg/dL (6-24); CO2 Carbon Dioxide 23 mmol/L (22-32); Calcium 10.6 mg/dL (8.6-10.3); Chloride 93 mmol/L (101-111); EGFR African American 37.4 (>60); EGFR Non-African American 29.1 (>60); Globulin 3.7 g/dL (2-4); Glucose 117 mg/dL (70-100); Sodium 125 mmol/L (133-145); Total Protein 7.5 g/dL (6.4-8.9)
[2017-06-08 14:15] LABS: Hematocrit 42 % (35-47); Hemoglobin 14.1 g/dl (12.0-16.0); Mean Corpuscular HGB Conc 33 g/dl (31-36); Mean Corpuscular Hemoglobin 31 pg (27-31); Mean Corpuscular Volume 94 fL (80-97); Mean Platelet Volume 8 um3 (7.4-10.4); Red Cell Distribution Width 15 % (10.5-15); White Blood Count 14.3 10^3/ul (3.5-10.8)
[2017-06-08 15:01] LABS: Anion Gap 9 mmol/L (2-11)
--- NOTE | 2017-06-08 16:51 | ED ---
Ankit Velez Benjamin, scribed for Aparna Mora MD on 06/08/17 at 1333 . Complex/Multi-Sys Presentation - HPI Summary HPI Summary: 72yo female brought into ED for having high potassium in her morning blood work at her long-term. Pt has hx of DM and CHF, and pt goes to wound care for her bilateral LE wounds. - History Of Current Complaint Chief Complaint: EDGeneral Time Seen by Provider: 06/08/17 13:17 Hx Obtained From: Patient Onset/Duration: Gradual Onset, Still Present Timing: Constant Severity Currently: None Location: Negative Associated Signs And Symptoms: Positive: Edema - chronic bilateral LE edema. Negative: Fever - Allergies/Home Medications Allergies/Adverse Reactions: Allergies Allergy/AdvReac Type Severity Reaction Status Date / Time No Known Allergies Allergy Verified 06/08/17 13:15 Home Medications: Home Medications Albuterol HFA INHALER* [Ventolin HFA Inhaler*] 1 puff INH Q4H PRN 06/08/17 [ History Confirmed 06/08/17] Diltiazem HCl Coated Beads [Cardizem LA] 240 mg PO DAILY 06/08/17 [History Confirmed 06/08/17] Insulin GLARGINE(*) [Lantus(*)] 18 units SUBCUT QAM 06/08/17 [History Confirmed 06/08/17] Magnesium 400 mg PO DAILY 06/08/17 [History Confirmed 06/08/17] Menthol (Topical Analgesic) [Pain Relieving Patch Ultr] 5 % TOPICAL BID PRN [History Confirmed 06/08/17] Spironolactone TAB* [Aldactone TAB*] 25 mg PO DAILY 06/08/17 [History Confirmed 06/08/17] PMH/Surg Hx/FS Hx/Imm Hx Endocrine/Hematology History: Reports: Hx Diabetes, Hx Thyroid Disease - hypothyroid Cardiovascular History: Reports: Hx Atrial Fibrillation, Hx Congestive Heart Failure, Hx Hypercholesterolemia, Hx Hypertension, Hx Pacemaker/ICD, Other Cardiovascular Problems/Disorders - Artificial valve, A Fib Musculoskeletal History: Reports: Hx Back Problems - L1 fracture, Other Musculoskeletal History - Left ankle osmar Sensory History: Reports: Hx Contacts or Glasses Denies: Hx Hearing Aid Opthamlomology History: Reports: Hx Contacts or Glasses - Surgical History Surgery Procedure, Year, and Place: CARDIAC VALVE REPLACEMENT, PACE MAKER, HERNIA REPAIR Infectious Disease History: No Infectious Disease History: Denies: Traveled Outside the [place] in Last 30 Days - Family History Known Family History: Positive: Cardiac Disease - with MIs, Other - CVAs Negative: Diabetes - Social History Occupation: Retired Lives: At [facility] Alcohol Use: Rare Hx Substance Use: No Substance Use Type: Reports: None Hx Tobacco Use: No Smoking Status (MU): Former Smoker Review of Systems Constitutional: Negative Negative: Fever Eyes: Negative ENT: Negative Cardiovascular: Negative Respiratory: Negative Gastrointestinal: Negative Genitourinary: Negative Positive: Edema - bilateral LE Skin: Negative Neurological: Negative Psychological: Normal All Other Systems Reviewed And Are Negative: Yes Physical Exam - Summary Physical Exam Summary: VITAL SIGNS: Reviewed. GENERAL: Patient is a well-developed and nourished FEMALE who is lying comfortable in the stretcher. Patient is not in any acute respiratory distress. HEAD AND FACE: No signs of trauma. No ecchymosis, hematomas or skull depressions. No sinus tenderness. EYES: PERRLA, EOMI x 2, No injected conjunctiva, no nystagmus. EARS: Hearing grossly intact. Ear canals and tympanic membranes are within normal limits. MOUTH: Oropharynx within normal limits. NECK: Supple, trachea is midline, no adenopathy, no JVD, no carotid bruit, no c- spine tenderness, neck with full ROM. CHEST: Symmetric, no tenderness at palpation LUNGS: Clear to auscultation bilaterally. No wheezing or crackles. CVS: Regular rate and rhythm, S1 and S2 present, no murmurs or gallops appreciated. Clicking noise at the base of the heart from mechanical valve. ABDOMEN: Soft, non-tender. No signs of distention. No rebound no guarding, and no masses palpated. Bowel sounds are normal. EXTREMITIES: FROM in all major joints, chronic bilateral LE edema with chronic skin changes. no cyanosis or clubbing. NEURO: Alert and oriented x 3. No acute neurological deficits. Speech is normal and follows commands. SKIN: Dry and warm. multiple ecchymotic areas that seem old. Triage Information Reviewed: Yes Vital Signs On Initial Exam: Initial Vitals Temp Pulse Resp BP Pulse Ox 98 F 80 20 104/66 95 06/08/17 13:00 06/08/17 13:00 06/08/17 13:00 06/08/17 13:00 06/08/17 13:00 Vital Signs Reviewed: Yes - Merna Coma Scale Coma Scale Total: 15 Diagnostics - Vital Signs Vital Signs Temp Pulse Resp BP Pulse Ox 06/08/17 13:00 98 F 80 20 104/66 95 - Laboratory Result Diagrams: 06/08/17 13:46 06/08/17 15:00 Lab Statement: Any lab studies that have been ordered have been reviewed, and results considered in the medical decision making process. - EKG 1338. Cardiac Rate: NL EKG Rhythm: Atrial Fibrillation - 82bpm ST Segment: Non-Specific EKG Interpretation: normal axis, non specific t waves changes Complex Multi-Symp Course/Dx Course Of Treatment: 72yo female brought into ED for having high potassium in her morning blood work at her long-term. Pt has hx of DM and CHF, and pt goes to wound care for her bilateral LE wounds. Pt will be admitted to [facility]. Spoke to Dr. Carl (Hospitalist) - Diagnoses Provider Diagnoses: Hyperkalemia, Renal insufficiency, Dehydration - Physician Notifications Instructed by Provider To: Admit As Inpatient Discharge - Discharge Plan Condition: Stable Disposition: ADMITTED TO [facility] Referrals: Dimitrios Lim MD [Primary Care Provider] - The documentation as recorded by the Ankit lowe Benjamin accurately reflects the service I personally performed and the decisions made by me, Aparna Mora MD.
[2017-06-08] MEDS ORDERED: Albuterol HFA INHALER* 8 gm MDI INH PRN (18:35)
[2017-06-08] MEDS ORDERED: Acetaminophen TAB* 325 MG PO PRN (18:35)
[2017-06-08] MEDS ORDERED: Polyethylene Glycol 3350* 17 GM PACKET PO PRN (18:35)
[2017-06-08] MEDS ORDERED: oxyCODONE/Acetamin 5/325 MG* TAB PO PRN (18:35)
[2017-06-08] MEDS ORDERED: Dextrose 50% Syringe 50 ML* 25 GM/50 ML SYRINGE IV PUSH PRN (18:38)
[2017-06-08] MEDS ORDERED: NS 0.9% 500 ML* 500 ML IV ONE (18:50)
[2017-06-08] MEDS: Warfarin TAB(*) 4 MG PO SCH (20:36)
[2017-06-08] MEDS: cloNIDine TAB* 0.1 MG PO SCH (20:36)
[2017-06-08] MEDS: Insulin LISPRO* 1 UNITS UNIT SUBCUT SCH (20:37)
--- NOTE | 2017-06-08 23:56 | HP ---
HISTORY AND PHYSICAL: DATE OF ADMISSION: 06/08/17 PCP: At [facility]. CHIEF COMPLAINT: "I was sent here because my potassium is high." HISTORY OF PRESENT ILLNESS: Ms. Adams is a 72-year-old female with a past medical history of hypertension; hyperlipidemia; AFib, on Coumadin; tachy-robby syndrome, status post pacemaker placement; mechanical aortic valve replacement; obesity; history of CHF; diabetes, who was sent in after abnormal labs that were done today. The patient states she has been in her usual state of health, although she did note for the last 2 days, she had a decreased appetite, was not eating or drinking very much. She states that because she has to depend on the nurses at [facility] to change her diaper, she is hesitant to drink very much, so she does not have to bother them. She reports she has had some dysuria ongoing for a few weeks. She states she was treated with an antibiotic , but it did not seem to help her symptoms very much. She has chronic shortness of breath that has been unchanged. States her lower extremity edema is about baseline. Denies any fever, chills, abdominal pain, nausea, vomiting, chest pain. The patient has routine labs drawn at [facility] this morning that showed a potassium of 6.3, sodium of 125, creatinine of 1.45, and she was taken to the hospital for further evaluation. PAST MEDICAL HISTORY: AFib, on Coumadin; tachy-robby syndrome, status post pacemaker placement; mechanical aortic valve replacement; hypertension; hyperlipidemia; obesity; chronic systolic CHF; diabetes mellitus. PAST SURGICAL HISTORY: Appendectomy, left ankle ORIF. ALLERGIES: The patient reports no known drug allergies. FAMILY HISTORY: Significant for mother with CAD, father with CAD. SOCIAL HISTORY: The patient is a former [id number] smoker, quit 15 years ago. No alcohol or illicit drug use. States her son and surrogate decision maker is Deon Adams, telephone number [phone]. REVIEW OF SYSTEMS: A 12-point review of systems negative except those noted in the HPI. PHYSICAL EXAMINATION GENERAL: The patient is a pleasant, elderly, German female, lying in bed, in no apparent distress. VITAL SIGNS: On admission, temperature 98.0, heart rate of 80, respiratory rate of 20, O2 saturation 95% on room air, blood pressure 104/66. HEENT: Head normocephalic, atraumatic. Eyes: Pupils are equal, round, and reactive to light and accommodation. Anicteric sclerae. ENT: Dry mucous membranes. No cervical lymphadenopathy. LUNGS: Clear to auscultation bilaterally. No wheezes, rales, or rhonchi. CARDIOVASCULAR: Irregularly irregular. Normal rate. No murmurs, gallops, or rubs. ABDOMEN: Soft, nontender, nondistended. Bowel sounds positive. EXTREMITIES: The patient with some mild bilateral lower extremity edema to the mid shins. Compression stockings in place. NEURO: The patient is alert and oriented x3. No focal neurological deficits. SKIN: The patient has a left lower extremity erythematous area that she reports that used to be a wound that has been healing. No open areas noted. No drainage. DIAGNOSTIC STUDIES/LAB DATA: White blood cell count of 14.3, hematocrit of 42 , platelets of 192. INR of 1.93. Sodium 125, potassium 5.4, chloride of 93, BUN , creatinine 1.72, glucose of 117. AST of 14, ALT of 18. EKG personally reviewed shows atrial fibrillation, T-wave inversions in I and aVL, which are chronic. No peak T waves noted. ASSESSMENT AND PLAN: Hyperkalemia, acute kidney injury in a 72-year-old female with a past medical history of hypertension; hyperlipidemia; atrial fibrillation , on Coumadin; tachy-robby, status post pacemaker placement; mechanical aortic valve replacement; obesity; chronic systolic congestive heart failure; diabetes mellitus. 1. Hyperkalemia. The patient received 1 L of IV fluids in the emergency department. Potassium has improved, down to 5.4. Again, no EKG changes noted. I suspect the hyperkalemia may be secondary to acute kidney injury and medication that the patient is on at [facility]. 2. Acute kidney injury. Per the patient's history, her p.o. intake has been decreased lately. She is also on lisinopril, spironolactone, and possibly Lasix. We will hold her medications for now. We will check a FENa and a urinalysis. The patient reports continued symptoms of dysuria. The patient received 1 L of IV fluids here. We will give another 500 cc over the next 5 hours. We will recheck a BMP in the morning. 3. Hypertension. Blood pressure is on the softer side. Hold lisinopril and spironolactone. We will continue the patient's diltiazem for now. 4. Atrial fibrillation. Continue diltiazem and Coumadin. INR is just slightly subtherapeutic. 5. Diabetes. Continue home Lantus as well as lispro sliding scale. We will hold the patient's home metformin for now with her renal dysfunction. 6. Chronic systolic congestive heart failure. The patient does not appear to be in exacerbation at this time. We will hold her diuretics and give a little bit more fluid as noted above for an additional 500 cc of normal saline. 7. DVT prophylaxis. Coumadin. 8. Code status. The patient is a full code. TIME SPENT: Total time spent on this admission was 45 minutes with over half the time spent in [id number] with the patient counseling and coordinating care. [id number]/[facility] #: [id number] ALISE
[2017-06-09 00:58] LABS: Urine Bilirubin Negative (Negative); Urine Glucose Negative (Negative); Urine Nitrite Negative (Negative)
[2017-06-09] MEDS: Levothyroxine TAB* 112 MCG TAB PO SCH (05:21)
[2017-06-09] MEDS: Insulin LISPRO* 1 UNITS UNIT SUBCUT SCH ×3 (07:57→17:40)
[2017-06-09] MEDS: cloNIDine TAB* 0.1 MG PO SCH ×2 (08:58→21:41)
[2017-06-09] MEDS: Insulin GLARGINE(*) 1 UNITS UNIT SUBCUT SCH (08:58)
[2017-06-09] MEDS: Diltiazem CD CAP* 240 MG PO SCH (08:58)
[2017-06-09] MEDS: Cholecalciferol TAB* 1000 UNITS PO SCH (08:58)
[2017-06-09 10:00] LABS: Hematocrit 36 % (35-47); Hemoglobin 11.9 g/dl (12.0-16.0); Mean Corpuscular HGB Conc 33 g/dl (31-36); Mean Corpuscular Hemoglobin 31 pg (27-31); Mean Corpuscular Volume 94 fL (80-97); Mean Platelet Volume 8 um3 (7.4-10.4); Red Blood Count 3.84 10^6/ul (4.0-5.4); Red Cell Distribution Width 15 % (10.5-15); White Blood Count 11.8 10^3/ul (3.5-10.8)
[2017-06-09 10:02] LABS: Comments Flag Yes
[2017-06-09 10:18] LABS: BUN/Creatinine Ratio 36.3 (8-20); EGFR African American 54.5 (>60); EGFR Non-African American 42.4 (>60)
[2017-06-09 10:32] LABS: Potassium 5.1 mmol/L (3.5-5.0)
[2017-06-09] MEDS ORDERED: Metoprolol Tartrate TAB* 25 MG PO SCH (13:00)
--- NOTE | 2017-06-09 13:46 | PN ---
Subjective Date of Service: 06/09/17 Interval History: Patient seen this afternoon. Says she is feeling well today, at baseline. Denies any worsening of her chronic SOB. No pain. Family History: Unchanged from Admission Social History: Unchanged from Admission Past Medical History: Unchanged from Admission Objective Active Medications: Acetaminophen (Tylenol Tab*) 650 mg PO Q6H PRN Albuterol (Ventolin Hfa Inhaler*) 1 puff INH Q4H PRN Cholecalciferol (Vitamin D Tab*) 2,000 units PO DAILY [facility] Clonidine HCl (Catapres Tab*) 0.1 mg PO BID [facility] Dextrose (D50w Syringe 50 Ml*) 12.5 gm IV PUSH .FOR FS < 60 - SS PRN Diltiazem HCl (Cardizem Cd Cap*) 240 mg PO DAILY [facility] Insulin Glargine (Lantus(*)) 18 units SUBCUT QAM [facility] Insulin Human Lispro (Humalog*) 0 - 15 units SUBCUT AC [facility] Levothyroxine Sodium (Synthroid Tab*) 112 mcg PO DAILY@0600 [facility] Metoprolol Tartrate (Lopressor Tab*) 6.25 mg PO Q8HR [facility] Oxycodone/Acetaminophen (Percocet 5/325 Tab*) 1 tab PO Q4H PRN Pharmacy Profile Note (Coumadin Daily Reminder*) 0 note FOLLOW UP 1700 [facility] Polyethylene Glycol/Electrolytes (Miralax*) 17 gm PO 0800,2100 PRN Warfarin Sodium (Coumadin Tab(*)) 4 mg PO 1700 [facility] Oxygen Devices in Use Now: Nasal Cannula Appearance: Elderly, F, laying in bed in NAD Eyes: No Scleral Icterus Ears/Nose/Mouth/Throat: Mucous Membranes Moist Neck: NL Appearance and Movements; NL JVP Respiratory: Symmetrical Chest Expansion and Respiratory Effort, Clear to Auscultation Cardiovascular: - - IRIR, tachycardic, metallic S2 Abdominal: NL Sounds; No Tenderness; No Distention Lymphatic: No Cervical Adenopathy Extremities: - - B/L LE edema to below knees, improved Skin: No Rash or Ulcers Neurological: Alert and Oriented x 3 Result Diagrams: 06/09/17 09:30 06/09/17 09:30 Assess/Plan/Problems-Billing Assessment: Hyperkalemia, ÁNGEL, AFib RVR in a 72 yo F with hx of HTN, HLD, AFib on coumadin, tachy-robby syndrome s/p PPM, mechanical AVR, chronic systolic CHF, DM - Patient Problems (1) Hyperkalemia Current Visit: Yes Comment: Improved, continue to hold nephrotoxic medications. Monitor. (2) ÁNGEL (acute kidney injury) Current Visit: Yes Comment: Improving, continue to hold Lisinopril, Spironolactone, Lasix. No additional IVF at this time. (3) Atrial fibrillation with RVR Current Visit: No Comment: HR increased overnight. Will get CXR. On review of records it seems that the patient was previously discharged on Sotalol but this was lost in the transition to [facility]. Will restart this for better HR control, continue Diltiazem, continue Coumadin. (4) HTN (hypertension) Current Visit: No Comment: Continue Clonidine and Diltiazem. Holding Lisinopril, Spironolactone, Lasix (5) Chronic systolic CHF (congestive heart failure) Current Visit: Yes Comment: Seems slightly fluid overloaded. Hold on diuretics for now. CXR pending although nursing states O2 was placed for comfort. Slow HR down. (6) Diabetes Current Visit: No Comment: Metformin on hold, continue Lispro SS and Lantus. (7) DVT prophylaxis Current Visit: No Comment: Warfarin. Status and Disposition: Will switch to inpatient as patient needs improved rate control
[2017-06-09] MEDS ORDERED: Metoprolol Tartrate TAB* 25 MG PO ONE (13:54)
--- NOTE | 2017-06-09 15:13 | RAD ---
INDICATION: Tachycardia and hypoxia. COMPARISON: Comparison is made with a prior study from April 24, 2017. TECHNIQUE: A portable view of the chest was obtained. FINDINGS: The patient is status poststernotomy. There is a dual-chamber transvenous pacemaker present. The heart appears mildly enlarged and unchanged from the prior study. The lungs are underinflated and clear. No pleural effusion is seen. IMPRESSION: POSTSURGICAL CHANGES, NO EVIDENCE FOR ACUTE FINDING.
[2017-06-09] MEDS: Warfarin TAB(*) 4 MG PO SCH (16:53)
[2017-06-09] MEDS: Sotalol TAB* 80 MG PO SCH (21:41)
[2017-06-10] MEDS: Levothyroxine TAB* 112 MCG TAB PO SCH (06:10)
[2017-06-10 07:16] LABS: BUN/Creatinine Ratio 34.9 (8-20); Calcium 9.5 mg/dL (8.6-10.3); EGFR African American 63.3 (>60); EGFR Non-African American 49.2 (>60)
[2017-06-10 07:39] LABS: Potassium 5.5 mmol/L (3.5-5.0)
[2017-06-10] MEDS ORDERED: Sodium Polystyrene ORAL.SOL* 15 GM/60 ML BTL PO ONE (08:13)
[2017-06-10] MEDS: Insulin LISPRO* 1 UNITS UNIT SUBCUT SCH ×3 (08:56→17:14)
[2017-06-10] MEDS: Insulin GLARGINE(*) 1 UNITS UNIT SUBCUT SCH (08:56)
[2017-06-10] MEDS: Cholecalciferol TAB* 1000 UNITS PO SCH (08:57)
[2017-06-10] MEDS: cloNIDine TAB* 0.1 MG PO SCH ×2 (08:57→20:46)
[2017-06-10] MEDS: Diltiazem CD CAP* 240 MG PO SCH (08:57)
[2017-06-10] MEDS: Sotalol TAB* 80 MG PO SCH ×2 (08:57→20:46)
--- NOTE | 2017-06-10 09:55 | PN ---
Subjective Date of Service: 06/10/17 Interval History: HOSPITALIST PROGRESS NOTE Patient seen and examined at bedside. She feels well today. Weakness and nausea are improved. Denies dyspnea. Family History: Unchanged from Admission Social History: Unchanged from Admission Past Medical History: Unchanged from Admission Objective Active Medications: Acetaminophen (Tylenol Tab*) 650 mg PO Q6H PRN PRN Reason: FEVER/PAIN Albuterol (Ventolin Hfa Inhaler*) 1 puff INH Q4H PRN PRN Reason: SHORTNESS OF BREATH Cholecalciferol (Vitamin D Tab*) 2,000 units PO DAILY [facility] Last Admin: 06/10/17 08:57 Dose: 2,000 units Clonidine HCl (Catapres Tab*) 0.1 mg PO BID [facility] Last Admin: 06/10/17 08:57 Dose: 0.1 mg Dextrose (D50w Syringe 50 Ml*) 12.5 gm IV PUSH .FOR FS < 60 - SS PRN PRN Reason: FS < 60 Diltiazem HCl (Cardizem Cd Cap*) 240 mg PO DAILY [facility] Last Admin: 06/10/17 08:57 Dose: 240 mg Insulin Glargine (Lantus(*)) 18 units SUBCUT QAM [facility] Last Admin: 06/10/17 08:56 Dose: 18 unit Insulin Human Lispro (Humalog*) 0 - 15 units SUBCUT AC [facility] PRN Reason: Protocol Last Admin: 06/10/17 08:56 Dose: 2 units Levothyroxine Sodium (Synthroid Tab*) 112 mcg PO DAILY@0600 [facility] Last Admin: 06/10/17 06:10 Dose: 112 mcg Oxycodone/Acetaminophen (Percocet 5/325 Tab*) 1 tab PO Q4H PRN PRN Reason: PAIN Pharmacy Profile Note (Coumadin Daily Reminder*) 0 note FOLLOW UP 1700 [facility] Last Admin: 06/09/17 17:24 Dose: Not Given Polyethylene Glycol/Electrolytes (Miralax*) 17 gm PO 0800,2100 PRN PRN Reason: CONSTIPATION Sotalol HCl (Betapace Tab*) 80 mg PO BID [facility] Last Admin: 06/10/17 08:57 Dose: 80 mg Warfarin Sodium (Coumadin Tab(*)) 4 mg PO 1700 [facility] PRN Reason: Protocol Last Admin: 06/09/17 16:53 Dose: 4 mg Vital Signs 06/10/17 06/10/17 06/10/17 01:53 04:15 08:15 Temperature 97.7 F 97.3 F Pulse Rate 71 90 Respiratory 20 16 16 Rate Blood Pressure 121/61 128/71 (mmHg) O2 Sat by Pulse 99 99 Oximetry Oxygen Devices in Use Now: Nasal Cannula - 2 liters Appearance: Pleasant elderly lady lying in bed in NAD. Eyes: No Scleral Icterus Ears/Nose/Mouth/Throat: Mucous Membranes Moist Neck: Trachea Midline Respiratory: Symmetrical Chest Expansion and Respiratory Effort, Clear to Auscultation Cardiovascular: RRR - Normal S1 and S2 Abdominal: NL Sounds; No Tenderness; No Distention Extremities: - - Mild bilateral LE edema Neurological: Alert and Oriented x 3, NL Muscle Strength and Tone Lines/Tubes/Other Access: Clean, Dry and Intact Peripheral IV Nutrition: Taking PO's Result Diagrams: 06/09/17 09:30 06/10/17 06:18 Assess/Plan/Problems-Billing Assessment: Mrs. Adams is a 72 yo F with PMH of HTN, HLD, AFib on coumadin, tachy-robby syndrome s/p PPM, mechanical AVR, chronic systolic CHF, DM, sent to ED from [facility] due to Hyperkalemia and ÁNGEL. - Patient Problems (1) Hyperkalemia Comment: - Likely secondary to medications (Lisinopril and Aldactone) and ÁNGEL. - Potassium 5.5 today - will give Kayexalate. (2) ÁNGEL (acute kidney injury) Comment: - Likely pre-renal in the setting of Lisinopril, Spironolactone, and Lasix use. - Improving. (3) Atrial fibrillation with RVR Comment: - She's sounds regular today, but it's not uncommon for her to alternate between Afib and NSR. - Continue Diltiazem and Sotalol. - Continue Warfarin. (4) Chronic systolic CHF (congestive heart failure) Comment: - No signs of exacerbation at this time, but needs close monitoring, as diuretics are on hold. (5) Diabetes Comment: - Continue Lantus and Lispro SS. (6) DVT prophylaxis Comment: - Warfarin. Status and Disposition: Inpatient.
[2017-06-10] MEDS: Warfarin TAB(*) 4 MG PO SCH (17:49)
[2017-06-11] MEDS: Levothyroxine TAB* 112 MCG TAB PO SCH (06:12)
[2017-06-11 07:17] LABS: BUN/Creatinine Ratio 38.2 (8-20); Calcium 8.5 mg/dL (8.6-10.3); EGFR Non-African American 62.2 (>60); Potassium 4.8 mmol/L (3.5-5.0)
[2017-06-11 07:22] VITALS: BP 112/84
[2017-06-11] MEDS: Insulin LISPRO* 1 UNITS UNIT SUBCUT SCH ×2 (08:19→11:35)
[2017-06-11] MEDS: Cholecalciferol TAB* 1000 UNITS PO SCH (08:54)
[2017-06-11] MEDS: Diltiazem CD CAP* 240 MG PO SCH (08:54)
[2017-06-11] MEDS: Sotalol TAB* 80 MG PO SCH (08:54)
[2017-06-11] MEDS: cloNIDine TAB* 0.1 MG PO SCH (08:54)
[2017-06-11] MEDS: Insulin GLARGINE(*) 1 UNITS UNIT SUBCUT SCH (08:54)
--- NOTE | 2017-06-11 11:57 | DS ---
CC: Dr. Proctor at [facility] DISCHARGE SUMMARY: DATE OF ADMISSION: 06/08/17 DATE OF DISCHARGE: 06/11/17 DISCHARGE DIAGNOSES: 1. Acute kidney injury and hyperkalemia, likely secondary to a combination of furosemide, spironolactone, and lisinopril use. 2. Urinary retention, likely secondary to neurogenic bladder associated with diabetes. SECONDARY DIAGNOSES: 1. Atrial fibrillation. 2. Mat Packer aortic valve, on warfarin. 3. Tachybrady syndrome, status post pacemaker. 4. Hypertension. 5. Hyperlipidemia. 6. Obesity. 7. Type 2 diabetes. 8. Chronic systolic/diastolic congestive heart failure. MEDICATION LIST: 1. Acetaminophen 650 mg p.o. q.6 hours p.r.n. pain or fever. 2. Albuterol HFA one puff inhaled q.4 hours as needed for shortness of breath. 3. Cholecalciferol 2000 units p.o. daily. 4. Clonidine 0.1 mg p.o. b.i.d. 5. Cardizem CD 240 mg p.o. daily. 6. Fish oil one capsule p.o. q.a.m. 7. Lantus 18 units subcutaneously q.a.m. 8. Lispro sliding scale 2 to 15 units subcutaneously a.c. and h.s. as before. 9. Levothyroxine 112 mcg p.o. daily. 10. Magnesium 400 mg p.o. daily. 11. Menthol topical analgesic 5% topical b.i.d. as needed for pain. 12. Metformin. 13. Osteo Bi-Flex one tablet p.o. q.a.m. 14. Percocet 5/325 mg 1 to 2 tablets p.o. q.4 hours as needed for pain. 15. MiraLax 17 g p.o. b.i.d. 16. Probiotic one tablet p.o. daily. 17. Warfarin 4 mg p.o. daily. Medication changes: 1. Furosemide was reduced from 40 mg p.o. b.i.d. to 40 mg daily. 2. Sotalol 80 mg p.o. b.i.d. was resumed. 3. Aldactone and lisinopril were discontinued. HOSPITAL COURSE: Ms. Adams is a 72 years old lady with a past medical history as stated above that was sent from [facility] due to high potassium. The patient denied any chest pain or dyspnea. She states that she was not drinking very much because she depends on the nurses at the group home to change her diaper. So, she is hesitant to drink more as she does not want to bother them. She had labs checked and she was found to have a creatinine of 1.45 and a potassium of 6.3. So, she was admitted for further management. The impression was that her ÁNGEL and hyperkalemia were likely secondary to dehydration associated with poor oral intake and also furosemide, Aldactone, and lisinopril use. The patient received IV hydration and had progressive improvement of her renal function (her creatinine is now 0.89) and resolution of her hyperkalemia ( potassium on the day of discharge is now 4.8). The patient has remained euvolemic, but there is concern for development of fluid overload. The patient walks a very fine line to keep an acceptable fluid balance as without diuretics she will most certainly develop fluid overload and if we resume everything she will probably develop ÁNGEL and hyperkalemia again. At this point, I believe the safest course of action is to resume her furosemide at a lower dose of 40 mg once a day and repeat her BNP on 06/13 or . If her renal function and electrolytes remain stable, I believe we then could add her Aldactone and she will need close monitoring. It is unclear to me at this time if we will be able to resume her lisinopril. The patient has a history of atrial fibrillation and her sotalol was resumed to help with control. She has been in and out of atrial fibrillation for a while and she is now aware of the changes in rhythm. She also was found to have urinary retention with more than 800ml of urine in her bladder and no symptoms. I suspect she likely has neurogenic bladder secondary to diabetes. She'll be discharged with Sawyer catheter and would benefit of Urology consultation as outpatient. The patient is medically stable to be discharged back to [facility] today. PHYSICAL EXAMINATION: Vital Signs: Temperature 97.5, heart rate is 94, respiratory rate is 19, oxygen saturation is 97% on room air, blood pressure is 112/84. General: The patient is a pleasant elderly lady lying in bed in no acute distress. CVS: Normal S1 and S2. Irregularly irregular. Chest: Breath sounds present bilaterally with no added sounds. Abdomen: Soft, nontender. Bowel sounds are present. Extremities: There is bilateral mild lower extremity edema. Neuro: She is alert, oriented x3. Able to move all 4 extremities. DIET: Heart healthy consistent carb diet. ACTIVITIES: As tolerated. DISPOSITION: To [facility]. STATUS WHILE IN THE HOSPITAL: Inpatient. Please keep in mind this is a summarized version of this patient's hospital stay. If you need more information, please feel free to call me at [phone] or please obtain the full medical records. TIME SPENT: Appropriately 45 minutes was spent to complete the discharge. [id number]/[facility] #: [id number] ALISE
== END 2017-06-11 13:15 | DRG 683 ==
LOC: ED 12:27 → MED 17:07 → OBSVTOIN 06-09 12:28
PROVIDERS: ADMIT Internal Medicine; ATTEND Internal Medicine
DX: N17.9 Acute kidney failure, unspecified (principal); I50.42 Chronic combined systolic (congestive) and diastolic (congestive) heart failure; E11.49 Type 2 diabetes mellitus with other diabetic neurological complication; I11.0 Hypertensive heart disease with heart failure; E87.5 Hyperkalemia; I48.91 Unspecified atrial fibrillation; E86.0 Dehydration; N31.9 Neuromuscular dysfunction of bladder, unspecified; E03.9 Hypothyroidism, unspecified; E66.9 Obesity, unspecified; E78.5 Hyperlipidemia, unspecified; R40.2412 Glasgow coma scale score 13-15, at arrival to emergency department; R33.9 Retention of urine, unspecified; T50.1X5A Adverse effect of loop [high-ceiling] diuretics, initial encounter; T50.0X5A Adverse effect of mineralocorticoids and their antagonists, initial encounter; T46.4X5A Adverse effect of angiotensin-converting-enzyme inhibitors, initial encounter; Y92.9 Unspecified place or not applicable; Z95.2 Presence of prosthetic heart valve; Z95.0 Presence of cardiac pacemaker; Z68.33 Body mass index [BMI] 33.0-33.9, adult; Z82.49 Family history of ischemic heart disease and other diseases of the circulatory system; Z87.891 Personal history of nicotine dependence; Z82.3 Family history of stroke; Z79.4 Long term (current) use of insulin; Z79.01 Long term (current) use of anticoagulants
CPT/HCPCS: 36415; 71010; 80048; 80053; 81003; 82570; 83880; 84300; 85025; 85610; 85730; 86140; 93005; A9270-GY; G0378

== ENCOUNTER 2017-07-15 14:19 | Inpatient (IN) | payer MEDICARE, OTHER ==
[2017-07-15 14:53] LABS: Hematocrit 40 % (35-47); Hemoglobin 12.8 g/dl (12.0-16.0); Mean Corpuscular HGB Conc 32 g/dl (31-36); Mean Corpuscular Hemoglobin 31 pg (27-31); Mean Corpuscular Volume 95 fL (80-97); Mean Platelet Volume 7 um3 (7.4-10.4); Platelet Count 281 10^3/ul (150-450); Red Blood Count 4.15 10^6/ul (4.0-5.4); Red Cell Distribution Width 15 % (10.5-15); White Blood Count 14.9 10^3/ul (3.5-10.8)
--- NOTE | 2017-07-15 15:02 | RAD ---
Indication: Tachycardia. Single frontal view of the chest performed at 1449 hours was reviewed. Comparison is made with previous exam dated June 09, 2017. Cardiomegaly is noted. Vascular congestion is noted. Pacemaker leads are in place. No pleural fluid is identified. Patient is status post changed sternal thoracotomy. IMPRESSION: CARDIOMEGALY WITH INTERSTITIAL EDEMA. PACEMAKER LEADS ARE IN PLACE.
[2017-07-15] MEDS ORDERED: Nitroglycerin TAB 0.4 MG* 0.4 MG TAB SL ONE (15:19)
[2017-07-15] MEDS ORDERED: Furosemide IV* 10 MG/ML VIAL (40 MG) IV SLOW PU ONE (15:19)
[2017-07-15 15:22] LABS: ABS Basophils 0 10^3/ul (0-0.2); ABS Eosinophils 0 10^3/ul (0-0.6); ABS Lymphocytes 1.6 10^3/ul (1.0-4.8); ABS Monocytes 1.6 10^3/ul (0-0.8); ABS Neutrophils 11.7 10^3/ul (1.5-7.7); ABS Nucleated RBC 0 10^3/ul; Eosinophil % 0.2 % (0-6); Lymphocyte % 10.8 % (25-47); Nucleated Red Blood Cells % 0
[2017-07-15 15:34] LABS: INR 2.13 (0.77-1.02)
[2017-07-15] MEDS ORDERED: Nitroglycerin 2% OINT* 1 GM PAK TOPICAL ONE (15:48)
[2017-07-15] MEDS ORDERED: Diltiazem IV* 5 MG/ML 5 ML VIAL (for loading dose/IV Push) (25 MG) IV SLOW PU ONE ×2 (16:23→17:11)
[2017-07-15] MEDS ORDERED: Morphine INJ* 2 MG/ML 1 ML CARPUJECT IV ONE (17:11)
[2017-07-15] MEDS ORDERED: Morphine INJ* 10 MG/ML 1 ML CARPUJECT ONE (17:20)
[2017-07-15] MEDS ORDERED: Diltiazem DRIP* 100 MG/100 ML ADDV.BAG IVPB ONE (17:33)
[2017-07-15] MEDS ORDERED: Acetaminophen TAB* 325 MG PO PRN (17:50)
[2017-07-15] MEDS ORDERED: Ondansetron INJ* 2 MG/ML VIAL IV PRN (17:50)
[2017-07-15] MEDS ORDERED: Cyclobenzaprine TAB* 10 MG PO PRN (17:54)
[2017-07-15] MEDS ORDERED: oxyCODONE/Acetamin 5/325 MG* TAB PO PRN (17:54)
[2017-07-15] MEDS ORDERED: Polyethylene Glycol 3350* 17 GM PACKET PO PRN (17:54)
[2017-07-15] MEDS ORDERED: Albuterol HFA INHALER* 8 gm MDI INH PRN (17:54)
[2017-07-15] MEDS ORDERED: Warfarin TAB(*) 4 MG PO SCH (18:00)
[2017-07-15] MEDS ORDERED: Heparin VIAL(*) 5000 UNITS/ML VIAL (FIVE THOUSAND) IV SCH (18:00)
[2017-07-15] MEDS ORDERED: Heparin DRIP 25,000 UNITS(*) 25,000 UNITS/500 ML BAG IV SCH ×2 (18:00→20:00)
[2017-07-15] MEDS: Diltiazem DRIP* 100 MG/100 ML ADDV.BAG IVPB SCH ×2 (18:05→18:50)
[2017-07-15] MEDS ORDERED: Warfarin TAB(*) 5 MG PO SCH (18:06)
[2017-07-15] MEDS ORDERED: Dextrose 50% Syringe 50 ML* 25 GM/50 ML SYRINGE IV PUSH PRN (18:26)
[2017-07-15 19:01] LABS: Urine Appearance Cloudy; Urine Blood Negative (Negative); Urine Color Straw; Urine Ketones Negative (Negative); Urine Protein Negative (Negative); Urine Specific Gravity 1.008 (1.010-1.030); Urine Urobilinogen Negative (Negative)
[2017-07-15] MEDS: cefTRIAXone(*) 1 GM in NS 0.9% 50 ML* 50 ML IVPB SCH (19:43)
[2017-07-15] MEDS: Warfarin TAB(*) 5 MG PO SCH (20:05)
[2017-07-15] MEDS: cloNIDine TAB* 0.1 MG PO SCH (20:05)
--- NOTE | 2017-07-15 21:35 | HP ---
CC: [facility] * HISTORY AND PHYSICAL: DATE OF ADMISSION: 07/15/17 PRIMARY CARE PROVIDER: Owen Valladares. ATTENDING PHYSICIAN WHILE IN THE HOSPITAL: Dr. Nguyen Proctor * (report dictated by Lloyd Esteban NP). CHIEF COMPLAINT: 1. Chest pain. 2. Subscapular pain. HISTORY OF PRESENT ILLNESS: Mrs. Adams is a 72-year-old female patient, she has a history of AFib, tachy-robby syndrome, hypertension, hyperlipidemia, CHF, history of diabetes and she is also being worked up for cushingoid disease. She comes into the ER today. According to the [facility] notes and the patient, she started complaining of having some right-sided shoulder pain that described as a sharp stabbing pain, worse with taking a deep breath, had been constant since last night. She finally told somebody about today and she developed chest discomfort again top of her chest, described as a sharp stabbing discomfort and pain that just was not getting any better, it was worse when she took a deep breath. There was a sharp stabbing pain and worse with coughing. She stated that she brought this to the attention of the [facility] providers. They were concerned because of her history obviously and they send her to the hospital. She denies having any fevers. Denies having any arthralgias or myalgias. Denies any nausea or vomiting. Denies any abdominal pain. She says that she has been coughing, but it has been nonproductive. She says that she appears to be swollen and she says she feels puffy. She feels like she is on a bed of water. She denies having any chills, fevers and says she has not had any changes in her weight according to her. She came in, she was evaluated at [facility] and noted to be in AFib with RVR. She was noted here to be in AFib with RVR and we were asked to evaluate for admission. PAST MEDICAL HISTORY: Significant for: 1. AFib. 2. Tachy-robby syndrome. 3. Hypertension. 4. Hyperlipidemia. 5. CHF. 6. Diabetes. 7. The patient also being worked up for [place]'s disease. PAST SURGICAL HISTORY: She has had a pacemaker placement and she has had a mechanical aortic valve placement. HOME MEDICATIONS: Include: 1. Tylenol 650 mg every 6 hours as needed. 2. Percocet 1 tablet every 4 hours as needed. 3. MiraLAX 17 g p.o. daily as needed. 4. Flexeril 10 mg p.o. t.i.d. 5. Albuterol two puffs inhaled every 4 hours as needed. 6. Clonidine 1 tab p.o. b.i.d. 7. Synthroid 112 mcg daily. 8. Vitamin D 2000 units p.o. daily. 9. Probiotic 1 tablet p.o. daily. 10. Lidoderm one patch transdermally daily. 11. Osteo Bi-Flex one tablet daily. 12. Metformin 500 mg daily. 13. Milk of mag 400 mg p.o. daily. 14. Lantus 18 units subcu q.a.m. 15. Lasix 40 mg daily. 16. Fish oil one capsule p.o. daily. 17. Warfarin 3 mg on Tuesday, Tuesday, and Tuesday and 2 mg on Tuesday , Tuesday, and Tuesday. 18. Diltiazem CD 240 mg p.o. daily. ALLERGIES TO MEDICATIONS: Include no known drug allergies. FAMILY HISTORY: Both her parents had a history of CAD. SOCIAL HISTORY: She is a former smoker. She does not drink alcohol. Surrogate decision maker is her son, Deon. REVIEW OF SYSTEMS: There is no documented fever. The patient denies having any significant weight change. There was no double vision. She denies having any ear discharge. There was no rhinorrhea, no sore throat, no thyroid enlargement. There was chest pain per my HPI. There is no orthopnea, no nocturnal dyspnea. There was no abdominal pain, no nausea, no vomiting, no dysuria. There was no frequency. No seizure, no loss of consciousness. No pruritus and no skin ulcerations. Review of 14 systems was completed, all others negative. PHYSICAL EXAMINATION GENERAL: At this time, Mrs. Adams is a 72-year-old female patient, she is chronically ill appearing. She is sitting in the ED stretcher. She does not appear to be in any acute distress. VITAL SIGNS: Blood pressure 135/99, pulse 150, respirations 23, O2 sat 97%, temperature 97.9. HEENT: Head: Atraumatic, normocephalic. Eyes: EOMs are intact. Sclerae anicteric. Throat: Oral mucosa appears to be dry. No oropharyngeal erythema. NECK: Supple. LUNGS: She did have some crackles bilaterally. Equal diaphragmatic expansion. HEART: Sounds S1, S2. Irregularly irregular rate. No murmurs, rubs, or gallops. She does have a clicking heard in the aortic listening area. ABDOMEN: Soft, flat, and nontender. Bowel sounds are present. EXTREMITIES: Pulses are 2+ throughout. She had +4 pitting edema bilaterally. NEUROLOGIC: The patient is awake, alert, oriented x3. Tongue midline. Grocery Checker are equal. No gross focal deficits. SKIN: Intact. DIAGNOSTIC STUDIES/LAB DATA: WBC of 14.9, RBC of 4.15, hemoglobin 12.8, hematocrit of 40, platelet count of 281. INR was 2.13, PTT of 29.9. The D- dimer was 201. Sodium 139, potassium 3.9, chloride of 103, bicarb 29, BUN 29, creatinine 0.99, which is right near her baseline. Her glucose was 206, lactate 3.2, calcium 8.8, total bili 0.4. AST 17, ALT 29, alk phos 81. Troponin 0.6. BNP at 267, albumin of 3.1. TSH was normal, free T4 was normal as well. Mag is pending. The patient did have a chest x-ray obtained today, impression: Cardiomegaly with interstitial edema, pacemaker leads in place. EKG obtained today, which did show atrial fibrillation with RVR, rate of 141. She had diffuse ST depression and inverted T-waves probably secondary to LVH. When we reviewed to her previous EKGs, she does have the similar morphology. There were no significant changes. She did have an echocardiogram just done on April of this year, which revealed EF of 45% to 50%. Old medical records were reviewed. ASSESSMENT AND PLAN: Mrs. Adams is a 72-year-old female patient coming into the ED today with complaints of chest discomfort and subscapular pain. We were asked to evaluate for admission. She will be admitted under inpatient status for: 1. Atrial fibrillation with rapid ventricular response. At this point, this is probably driving some heart failure. My plan will be to try to get her rate under control with Diltiazem drip. We will need to add on digoxin, possibly beta- blockers, but I would like to try to just continue with her current Diltiazem, which she normally takes and we will start her on drip of 5, titrate up to max of 20, see if we can get her down of the blood pressure at hold, which it is right now and we will diurese her which has already been started here in the ED and we will continue to follow. 2. Aortic valve replacement. It is mechanical. Her INR is 2.13. We are going to put her on heparin drip. No boluses. Increase the Coumadin and then we will bridge her. When her INR is above 2.5, we will stop the heparin. 3. Question of cushingoid disease. We will need to touch base with Dr. Velasquez and try to get his records if possible. At this point though she is not on chronic steroids, I did touch base with the sending facility and they are still in the midst of workup. 4. Hypertension. Continue meds as prescribed. 5. Hyperlipidemia. Continue statin therapy. 6. History of congestive heart failure. She does appear to be in mild amount of failure, probably being exacerbated by she was on dexamethasone for stim testing. It could have exacerbated her, so I am going to go ahead and just give her IV Lasix at 40 mg IV and follow. 7. Diabetes. She will be on lispro sliding scale and we will continue her meds as prescribed with the exception of her metformin. 8. Code status. She is a DNR. 9. Fluids, electrolytes, and nutrition. She can have a consistent carb diet. TIME SPENT: On admission was approximately 60 minutes, greater than half the time was spent [id number] with the patient obtaining my history and physical, other half time was spent going over the plan of care with the patient and implementing plan of care. I did discuss the plan of care with my attending, Dr. Proctor; she is in agreement. LLOYD ESTEBAN, ARTIE [id number]/[facility] #: [id number] MTDRenaldo
[2017-07-16] MEDS: Diltiazem IV VIAL* 125 MG in NS 0.9% 100 ML* 100 ML IV SCH ×3 (00:08→22:21)
[2017-07-16] MEDS ORDERED: Metoprolol Tartrate IV* 1 MG/ML 5 ML VIAL IV ONE (00:30)
[2017-07-16 05:25] LABS: ABS Basophils 0 10^3/ul (0-0.2); ABS Eosinophils 0.1 10^3/ul (0-0.6); ABS Lymphocytes 1.5 10^3/ul (1.0-4.8); ABS Monocytes 1.5 10^3/ul (0-0.8); ABS Neutrophils 12.8 10^3/ul (1.5-7.7); ABS Nucleated RBC 0 10^3/ul; Eosinophil % 0.5 % (0-6); Hematocrit 37 % (35-47); Hemoglobin 11.9 g/dl (12.0-16.0); Lymphocyte % 9.5 % (25-47); Mean Corpuscular HGB Conc 32 g/dl (31-36); Mean Corpuscular Hemoglobin 31 pg (27-31); Mean Corpuscular Volume 96 fL (80-97); Mean Platelet Volume 7 um3 (7.4-10.4); Nucleated Red Blood Cells % 0.1; Platelet Count 263 10^3/ul (150-450); Red Blood Count 3.89 10^6/ul (4.0-5.4); Red Cell Distribution Width 15 % (10.5-15); White Blood Count 15.9 10^3/ul (3.5-10.8)
[2017-07-16 05:35] LABS: INR 2.39 (0.77-1.02)
[2017-07-16 05:40] LABS: EGFR Non-African American 64.7 (>60)
[2017-07-16] MEDS: Levothyroxine TAB* 112 MCG TAB PO SCH (06:07)
[2017-07-16] MEDS: cloNIDine TAB* 0.1 MG PO SCH ×2 (08:53→20:58)
[2017-07-16] MEDS: Magnesium Oxide TAB* 400 MG PO SCH (08:53)
[2017-07-16] MEDS: Furosemide IV* 10 MG/ML VIAL (40 MG) IV SLOW PU SCH (08:54)
[2017-07-16] MEDS: Insulin LISPRO* 1 UNITS UNIT SUBCUT SCH ×3 (08:59→17:54)
[2017-07-16] MEDS: Insulin GLARGINE(*) 1 UNITS UNIT SUBCUT SCH (08:59)
[2017-07-16] MEDS ORDERED: Dexamethasone TAB* 4 MG PO SCH (09:00)
[2017-07-16] MEDS: Lidocaine PATCH 5%* 1 PATCH TRANSDERM SCH (10:14)
[2017-07-16] MEDS ORDERED: Digoxin IV* 0.5 MG/2 ML AMP (0.25 MG/ML) IV SLOW PU ONE (10:32)
[2017-07-16] MEDS: Diltiazem CD CAP* 240 MG PO SCH (10:54)
--- NOTE | 2017-07-16 12:07 | PN ---
Progress Note - Progress Note Date of Service: 07/16/17 Note: CRITICAL CARE MEDICINE Date: 07/16/2017 Time: 1050 SUBJECTIVE: Patient seen and examined. similar dynamics to her presentation in Oct PHYSICAL EXAM: Vital Signs: Reviewed. Neurologic: awake, communicating well HEENT: pupils equal. Sclera anicteric. Trachea midline. Cardiovascular: S1 S2 irr irr Respiratory: fine crackle on R. pleurtic pain on Right. Abdomen: Soft, nt, obese; sepcifically no RUQ pain Extremities: Warm. Access: piv LABS: Reviewed. IMAGING: Reviewed. MEDICATIONS: Reviewed. ASSESSMENT: 72 F Afib RVR on chronic pafib Mild component of acute on chronic systolic heart failure sepsis sec to UTI Bronchitis Rate related demand ischemia Post AVR on chronic anticoag PLAN: Neurologic: stable. Cardiovascular: perusing. needs better rate control of afib as on cardizem gtt. resume cardizem cd po. give 1 dose dig to see if that holds her better and can come off cardizem gtt. Respiratory: Needs to use IS. fine crackle and perhaps bronchitis with mild fluid sequestration. did well with lasix and needs to be able to cough and move about. Gastrointestinal: po diet. Renal/Metabolic: stable. f/u lytes and mobilize. Infectious Disease: on C3 for uti which should be adequate for lung coverage as well; legionella ag neg. Hematology: INR 2.4 and therapeutic now and can dc heparin gtt. f/u inr tomorrow with daily coumadin dose for goal INR 2.5-3.5. Endocrine: holding metformin. ssi for now. T4 chronic replacement Musculoskeletal: oob. Psych/Social: pt expressed understanding Supportive and preventative care as ordered. SUP: po VTE prophylaxis: coumadin Sawyer catheter given critical illness, monitoring needs for accurate assessment of ÁNGEL and KDIGO criteria for critically ill patients and to avoid potential harms of urinary retention, skin breakdown/ulcers. Restraints: Reviewed and required. Disposition: ICU Code Status: Full Critical Care Time: 45min Trent Nam DO
[2017-07-16] MEDS: Warfarin TAB(*) 5 MG PO SCH (17:54)
[2017-07-16] MEDS ORDERED: Warfarin TAB(*) 3 MG PO SCH (17:54)
[2017-07-16] MEDS: cefTRIAXone(*) 1 GM in NS 0.9% 50 ML* 50 ML IVPB SCH (19:34)
[2017-07-16] MEDS: Lidocaine Patch REMOVE* 1 NOTE MISC PATCH OFF SCH (20:59)
[2017-07-17 05:26] LABS: ABS Basophils 0 10^3/ul (0-0.2); ABS Eosinophils 0.1 10^3/ul (0-0.6); ABS Lymphocytes 1.3 10^3/ul (1.0-4.8); ABS Monocytes 1.1 10^3/ul (0-0.8); ABS Neutrophils 13.7 10^3/ul (1.5-7.7); ABS Nucleated RBC 0 10^3/ul; Eosinophil % 0.4 % (0-6); Hematocrit 38 % (35-47); Hemoglobin 12.5 g/dl (12.0-16.0); Mean Corpuscular HGB Conc 33 g/dl (31-36); Mean Corpuscular Hemoglobin 31 pg (27-31); Mean Corpuscular Volume 96 fL (80-97); Mean Platelet Volume 7 um3 (7.4-10.4); Nucleated Red Blood Cells % 0; Platelet Count 263 10^3/ul (150-450); Red Cell Distribution Width 15 % (10.5-15); White Blood Count 16.3 10^3/ul (3.5-10.8)
[2017-07-17 05:41] LABS: INR 2.77 (0.77-1.02)
[2017-07-17] MEDS: Levothyroxine TAB* 112 MCG TAB PO SCH (06:44)
[2017-07-17] MEDS: Insulin LISPRO* 1 UNITS UNIT SUBCUT SCH ×3 (08:00→16:57)
[2017-07-17] MEDS: Insulin GLARGINE(*) 1 UNITS UNIT SUBCUT SCH (08:00)
[2017-07-17] MEDS: Furosemide IV* 10 MG/ML VIAL (40 MG) IV SLOW PU SCH (08:08)
[2017-07-17] MEDS: Diltiazem CD CAP* 240 MG PO SCH (08:08)
[2017-07-17] MEDS: cloNIDine TAB* 0.1 MG PO SCH ×2 (08:08→20:59)
[2017-07-17] MEDS: Magnesium Oxide TAB* 400 MG PO SCH (08:08)
[2017-07-17] MEDS: Lidocaine PATCH 5%* 1 PATCH TRANSDERM SCH (08:09)
[2017-07-17] MEDS ORDERED: Magnesium Sulfate 2 GM IV* 2 GM/50 ML BAG IVPB ONE (08:31)
--- NOTE | 2017-07-17 09:49 | ECHO ---
Patient: [facility] Rec#: [id number] : 1945 Date: 07/17/2017 Age: 72y Height: 167.64 cm / 66.0 in Weight: 93.89 kg / 206.9 lbs Sex: F BSA: 2.03 Room#: ICU-2 Admit Date#: 07/15/2017 Type: Inpatient Referring: Lloyd Esteban NP Reading: Roly Britton MD Pr Internship: Kenisha Prado RDCS Transthoracic Echocardiogram Indication: A-fib RVR BP: 136/87 HR: 120 Rhythm: A-Fib Findings History: A-fib, Tachy-Kb syndrome, HTN, HLD, CHF, DM, s/p mechanincal AVR, s/p pacer. Technical Comments: The study quality is fair. The study is technically limited due to patient body habitus. Completed at 0940. Left Ventricle: The left ventricular chamber size is normal. There is no left ventricular hypertrophy. There is mild to moderately decreased left ventricular systolic function. The estimated ejection fraction is 40-45%. There is abnormal ventricular septal wall motion consistent with right ventricular pacemaker. The assessment of diastolic function is non-diagnostic. Left Atrium: The left atrium is mildly dilated. Right Ventricle: Moderator Band present. The right ventricle is moderately dilated. The right ventricular global systolic function is mildly reduced. A pacemaker wire is visualized in the right ventricle. Right Atrium: The right atrium is moderately dilated. A pacemaker wire is visualized in the right atrium. Aortic Valve: The aortic valve structure is not well visualized. There is a trace of aortic regurgitation. The mean gradient of the aortic valve is 22.62 mmHg. The peak instantaneous gradient of the aortic valve is 40.14 mmHg. The aortic valve area, by peak velocities, is calculated at 0.98 cm2. The aortic valve area, by VTI's, is calculated at 1.06 cm2. A mechanical prosthetic aortic valve is present. Mitral Valve: There is mitral annular calcification. The mitral valve leaflets are mildly thickened. There is a trace of mitral regurgitation. There is no evidence of mitral stenosis. Tricuspid Valve: The tricuspid valve leaflets are normal. There is mild to moderate tricuspid regurgitation. The right ventricular systolic pressure is estimated at 32 mmHg. There is evidence that pulmonary hypertension may be underestimated. There is no tricuspid stenosis. Pulmonic Valve: The pulmonic valve appears normal. There is a trace pulmonic regurgitation. There is no pulmonic stenosis. Pericardium: There is no significant pericardial effusion. A pericardial fat pad is visualized. Aorta: There is no dilatation of the ascending aorta. There is no dilatation of the aortic arch. The aortic root is normal in size. Pulmonary Artery: The main pulmonary artery appears normal. Venous: The inferior vena cava appears normal in size. There is a greater than 50% respiratory change in the inferior vena cava dimension. Summary: There are no significant changes when compared to the previous study done on 04/24/17 Conclusions There is mild to moderately decreased left ventricular systolic function. The estimated ejection fraction is 40-45%. There is abnormal ventricular septal wall motion consistent with right ventricular pacemaker. The assessment of diastolic function is non-diagnostic. The right ventricular global systolic function is mildly reduced. A pacemaker wire is visualized in the right ventricle. A mechanical prosthetic aortic valve is present. Normal function There is a trace of mitral regurgitation. There is mild to moderate tricuspid regurgitation. The right ventricular systolic pressure is estimated at 32 mmHg. There is no significant pericardial effusion. There are no significant changes when compared to the previous study done on 04/24/17 Measurements Name Value Normal Range RVIDd (AP) 2D 2.8 cm (0.9 - 2.6) RVDdMajor (2D) 5.3 cm (2.2 - 4.4) RVAW (2D) 1 cm (0.2 - 0.5) RAd ISD 4CH 6.4 cm (3.4 - 4.9) RA (A4C)W 5.5 cm (2.9 - 4.6) IVSd (2D) 1 cm (0.6 - 1) LVPWd (2D) 0.8 cm (0.6 - 1) LVIDd (2D) 4.5 cm (3.6 - 5.4) LVIDs (2D) 3.9 cm - LV FS (2D) 13 % (25 - 45) Aortic Annulus 1.9 cm (1.4 - 2.6) Ao root diameter (2D) 2.4 cm (2.1 - 3.5) Ascending Ao 2.3 cm (2.1 - 3.4) Aortic arch 2.8 cm (1.8 - 3.4) LA dimension (AP) 2D 4.6 cm (2.3 - 3.8) LAd ISD 4CH 6.2 cm (2.9 - 5.3) LA ISD 4CH W 4.1 cm (2.5 - 4.5) Name Value Normal Range LA ESV SP 4CH (A/L) 53 ml - LA ESV SP 2CH (A/L) 55 ml - LA ESV BP (A/L) 55 ml - LA ESV BP (A/L) index 27 ml/m2 - LA ESV SP 4CH (MOD) 48 ml - LA ESV SP 2CH (MOD) 55 ml - Name Value Normal Range MV E-wave Vmax 1.14 m/sec - MV deceleration time 147.87 msec - LV septal e' Vmax 0.05 m/sec - LV lateral e' Vmax 0.08 m/sec - LV E:e' septal ratio 22.8 ratio - LV E:e' lateral ratio 14.25 ratio - Name Value Normal Range AV Vmax 3.1 m/sec - AV VTI 41.04 cm - AV peak gradient 40.14 mmHg - AV mean gradient 22.62 mmHg - LVOT diameter 2 cm - LVOT Vmax 0.97 m/sec - LVOT VTI 13.85 cm - LVOT peak gradient 3.89 mmHg - LVOT mean gradient 1.9 mmHg - PERCY (continuity Vmax) 0.98 cm2 - PERCY (continuity VTI) 1.06 cm2 - ESHA Vmax 0.44 m/sec - Name Value Normal Range MV Vmax 1.2 m/sec - MV VTI 24.63 cm - MV peak gradient 5.84 mmHg - MV mean gradient 2.15 mmHg - MVA (continuity VTI) 1.84 cm2 - Name Value Normal Range TR Vmax 2.7 m/sec - TR peak gradient 29 mmHg - RAP 3 mmHg - RVSP 32 mmHg - IVC diameter 2 cm - Name Value Normal Range PV Vmax 1.18 m/sec - PV peak gradient 6.09 mmHg -
[2017-07-17] MEDS: Potassium Chlor TAB* 20 MEQ TAB.ER PO SCH ×2 (09:51→13:18)
[2017-07-17] MEDS ORDERED: Diltiazem CD CAP* 120 MG PO ONE (10:17)
[2017-07-17] MEDS ORDERED: Digoxin IV* 0.5 MG/2 ML AMP (0.25 MG/ML) IV SLOW PU ONE (12:13)
--- NOTE | 2017-07-17 12:19 | PN ---
Progress Note - Progress Note Date of Service: 07/17/17 Note: CRITICAL CARE MEDICINE Date: 07/17/2017 Time: 1000 SUBJECTIVE: Patient seen and examined. feels ok PHYSICAL EXAM: Vital Signs: Reviewed. Neurologic: awake, communicating well HEENT: pupils equal. Sclera anicteric. Trachea midline. Cardiovascular: S1 S2 irr irr Respiratory: fine crackle on R still and a little expanded. pleurtic pain much less Abdomen: Soft, nt, obese Extremities: Warm. Access: piv LABS: Reviewed. IMAGING: Reviewed. MEDICATIONS: Reviewed. ASSESSMENT: 72 F Afib RVR on chronic pafib Mild component of acute on chronic systolic heart failure sepsis sec to ecoli UTI Bronchitis Rate related demand ischemia Post AVR on chronic anticoag PLAN: Neurologic: stable. Cardiovascular: perusing. inc cardizem cd po today. consider dig if not holding better today. vs adding bb to regimen. Respiratory: Needs to use IS. pulm toliet as needed. Gastrointestinal: po diet. Renal/Metabolic: stable. f/u lytes and mobilize with daily lasix still. Infectious Disease: on C3 for uti and bronchitis ailment; down grade tomorrow. Hematology: INR therapeutic. daily coumadin. Endocrine: home dose lantus. ssi. T4 chronic replacement Musculoskeletal: oob. Psych/Social: pt expressed understanding Supportive and preventative care as ordered. SUP: po VTE prophylaxis: coumadin Sawyer catheter has been chronic Disposition: ICU until afib better rate controlled Code Status: Full Critical Care Time: 25min Trent Nam DO
[2017-07-17] MEDS ORDERED: Metoprolol Tartrate IV* 1 MG/ML 5 ML VIAL IV ONE (14:00)
[2017-07-17] MEDS ORDERED: Metoprolol Tartrate IV* 1 MG/ML 5 ML VIAL IV PRN (14:28)
[2017-07-17] MEDS ORDERED: Metoprolol Tartrate TAB* 25 MG PO ONE (16:00)
[2017-07-17] MEDS: Warfarin TAB(*) 2 MG PO SCH (16:57)
[2017-07-17] MEDS: cefTRIAXone(*) 1 GM in NS 0.9% 50 ML* 50 ML IVPB SCH (20:20)
[2017-07-17] MEDS: Lidocaine Patch REMOVE* 1 NOTE MISC PATCH OFF SCH (21:00)
[2017-07-18 04:36] LABS: EGFR Non-African American 61.4 (>60)
[2017-07-18 05:29] LABS: ABS Basophils 0 10^3/ul (0-0.2); ABS Eosinophils 0.1 10^3/ul (0-0.6); ABS Lymphocytes 1.4 10^3/ul (1.0-4.8); ABS Monocytes 0.8 10^3/ul (0-0.8); ABS Neutrophils 10.4 10^3/ul (1.5-7.7); ABS Nucleated RBC 0 10^3/ul; Hematocrit 37 % (35-47); Hemoglobin 11.9 g/dl (12.0-16.0); Lymphocyte % 11.1 % (25-47); Mean Corpuscular HGB Conc 32 g/dl (31-36); Mean Corpuscular Hemoglobin 31 pg (27-31); Mean Corpuscular Volume 95 fL (80-97); Mean Platelet Volume 7 um3 (7.4-10.4); Platelet Count 255 10^3/ul (150-450); Red Blood Count 3.86 10^6/ul (4.0-5.4); Red Cell Distribution Width 15 % (10.5-15); White Blood Count 12.8 10^3/ul (3.5-10.8)
[2017-07-18 05:30] LABS: Nucleated Red Blood Cells % 0
[2017-07-18] MEDS: Levothyroxine TAB* 112 MCG TAB PO SCH (06:10)
[2017-07-18] MEDS: Insulin LISPRO* 1 UNITS UNIT SUBCUT SCH ×3 (09:04→17:32)
[2017-07-18] MEDS: Insulin GLARGINE(*) 1 UNITS UNIT SUBCUT SCH (09:04)
[2017-07-18] MEDS: Diltiazem CD CAP* 180 MG PO SCH (09:14)
[2017-07-18] MEDS: Magnesium Oxide TAB* 400 MG PO SCH (09:15)
[2017-07-18] MEDS: Lidocaine PATCH 5%* 1 PATCH TRANSDERM SCH (09:15)
[2017-07-18] MEDS: cloNIDine TAB* 0.1 MG PO SCH ×2 (09:15→22:40)
[2017-07-18] MEDS: Furosemide IV* 10 MG/ML VIAL (40 MG) IV SLOW PU SCH (09:15)
--- NOTE | 2017-07-18 09:34 | ED ---
Mercedez Velez Julia, scribed for Bobby Li MD on 07/15/17 at 1516 . Shortness of Breath - HPI Summary HPI Summary: This patient is a 72 year old F presenting to [facility] accompanied by sons girlfriend with a chief complaint of SOB described as pulling since last evening. Patient reports R shoulder pain, diaphoresis, and bilateral LE edema. Patient denies any cardiac symptoms, change in diet, and orthopnea (1 pillow). Symptoms aggravated by breathing. Symptoms alleviated by nothing. Sons girlfriend reports a recent diagnosis of Cushions, recent PNA, and 3 recent high blood glucose readings. Patient denies history of blood clots or use of oxygen at baseline. - History of Current Complaint Chief Complaint: EDShortnessOfBreath Time Seen by Provider: 07/15/17 14:31 Hx Obtained From: Patient, Family/Trend Investigator Onset/Duration: Lasting Hours Aggrevating Factors: Deep Breaths Alleviating Factors: Nothing Associated Signs & Symptoms: Diaphoresis - bilateral LE, Edema - Allergy/Home Medications Allergies/Adverse Reactions: Allergies Allergy/AdvReac Type Severity Reaction Status Date / Time No Known Allergies Allergy Verified 06/08/17 13:15 Home Medications: Home Medications Cyclobenzaprine TAB* [Flexeril 10 MG TAB*] 10 mg PO TID 07/15/17 [History Confirmed 07/15/17] Levothyroxine TAB* [Synthorid 112 MCG TAB*] 112 mcg PO QAM 07/15/17 [History Confirmed 07/15/17] Lidocaine PATCH 5%* [Lidoderm 5% Patch*] 1 patch TRANSDERM DAILY 07/15/17 [ History Confirmed 07/15/17] Magnesium Oxide TAB* [MagOx 400 TAB*] 400 mg PO DAILY 07/15/17 [History Confirmed 07/15/17] Misc Natural Products [Osteo Bi-Flex Joint Shiel] 1 tab PO DAILY 07/15/17 [ History Confirmed 07/15/17] Polyethylene Glycol 3350* [Miralax*] 17 gm PO DAILY PRN 07/15/17 [History Confirmed 07/15/17] Warfarin TAB(*) [Coumadin TAB(*)] 3 mg PO MOTUTHSA 07/15/17 [History Confirmed 07/15/17] oxyCODONE/Acetamin 5/325 MG* [Percocet 5/325 TAB*] 1 tab PO Q4H PRN MDD 12 tab 07/15/17 [History Confirmed 07/15/17] PMH/Surg Hx/FS Hx/Imm Hx Endocrine/Hematology History: Reports: Hx Diabetes, Hx Thyroid Disease - hypothyroid Cardiovascular History: Reports: Hx Atrial Fibrillation, Hx Auto Implanted Cardiovert Defib, Hx Congestive Heart Failure, Hx Hypercholesterolemia, Hx Hypertension, Hx Pacemaker/ICD, Other Cardiovascular Problems/Disorders - Artificial valve, A Fib History: Reports: Hx Acute Renal Failure, Other Problems/Disorders - renal insufficiency Musculoskeletal History: Reports: Hx Back Problems - L1 fracture, Other Musculoskeletal History - Left ankle osamr Sensory History: Reports: Hx Contacts or Glasses Denies: Hx Hearing Aid Opthamlomology History: Reports: Hx Contacts or Glasses - Surgical History Surgery Procedure, Year, and Place: CARDIAC VALVE REPLACEMENT, PACE MAKER, HERNIA REPAIR Hx Anesthesia Reactions: No Infectious Disease History: Unable to Obtain/Confirm Infectious Disease History: Denies: Traveled Outside the [place] in Last 30 Days - Family History Known Family History: Positive: Cardiac Disease - with MIs, Other - CVAs Negative: Diabetes - Social History Alcohol Use: None Hx Substance Use: No Substance Use Type: Reports: None Hx Tobacco Use: No Smoking Status (MU): Former Smoker Amount Used/How Often: 1 ppd Length of Time of Smoking/Using Tobacco: 30 years Review of Systems Positive: Skin Diaphoresis. Negative: Fever, Chills Negative: Erythema Negative: Sore Throat Negative: Palpitations, Chest Pain Positive: Shortness Of Breath Negative: Abdominal Pain, Vomiting, Nausea Negative: dysuria, hematuria Positive: Edema - bilateral LE, Other - R shoulder pain Positive: Rash Neurological: Other - negative - dizziness All Other Systems Reviewed And Are Negative: Yes Physical Exam - Summary Physical Exam Summary: NORMAL PHYSICAL EXAM ADULT (6+ years) Constitutional: Well-developed, Well-nourished, Alert. (-) Distressed Skin: Warm, Dry HENT: Normocephalic; Atraumatic Eyes: Conjunctiva normal Neck: Musculoskeletal ROM normal neck. (-) JVD, (-) Stridor, (-) Tracheal deviation Cardio: Rhythm regular, rate normal, Heart sounds normal; Intact distal pulses; The pedal pulses are 2+ and symmetric. Radial pulses are 2+ and symmetric. (-) Murmur Pulmonary/Chest wall: Effort normal. (-) Respiratory distress, (-) Wheezes, Bilateral Rales Abd: Soft, (-) Tenderness, (-) Distension, (-) Guarding, (-) Rebound Musculoskeletal: 2+ pitting edema bilateral LE Lymph: (-) Cervical adenopathy Neuro: Alert, Oriented x3 Psych: Mood and affect Normal Triage Information Reviewed: Yes Vital Signs On Initial Exam: Initial Vitals BP 151/67 07/15/17 14:28 Vital Signs Reviewed: Yes - Caitie Coma Scale Coma Scale Total: 15 Diagnostics - Vital Signs Vital Signs Temp Pulse Resp BP Pulse Ox 07/15/17 14:30 77 23 138/82 97 07/15/17 14:29 97.7 F 150 24 138/82 97 07/15/17 14:28 151/67 - Laboratory Lab Results: Lab Results 07/15/17 07/15/17 Range/Units 14:41 14:41 WBC 14.9 H (3.5-10.8) 10^3/ul RBC 4.15 (4.0-5.4) 10^6/ul Hgb 12.8 (12.0-16.0) g/dl Hct 40 (35-47) % MCV 95 (80-97) fL MCH 31 (27-31) pg MCHC 32 (31-36) g/dl RDW 15 (10.5-15) % Plt Count 281 (150-450) 10^3/ul MPV 7 L (7.4-10.4) um3 Neut % (Auto) Pending Lymph % (Auto) Pending [place] % (Auto) Pending Eos % (Auto) Pending Baso % (Auto) Pending Absolute Neuts (auto) Pending Absolute Lymphs (auto) Pending Absolute Monos (auto) Pending Absolute Eos (auto) Pending Absolute Basos (auto) Pending Absolute Nucleated RBC Pending Nucleated RBC % Pending Sodium 139 (133-145) mmol/L Potassium 3.9 (3.5-5.0) mmol/L Chloride 103 (101-111) mmol/L Carbon Dioxide 29 (22-32) mmol/L Anion Gap 7 (2-11) mmol/L BUN 29 H (6-24) mg/dL Creatinine 0.99 H (0.51-0.95) mg/dL Est GFR ( Amer) 70.7 (>60) Est GFR (Non-Af Amer) 55.0 (>60) BUN/Creatinine Ratio 29.3 H (8-20) Glucose 206 H (70-100) mg/dL Calcium 8.8 (8.6-10.3) mg/dL Total Bilirubin 0.40 (0.2-1.0) mg/dL AST 17 (13-39) U/L ALT 29 (7-52) U/L Alkaline Phosphatase 81 (34-104) U/L Troponin I Pending Total Protein 5.9 L (6.4-8.9) g/dL Albumin 3.1 L (3.2-5.2) g/dL Globulin 2.8 (2-4) g/dL Albumin/Globulin Ratio 1.1 (1-3) TSH Pending Free T4 Pending Result Diagrams: 07/18/17 05:21 07/18/17 05:21 Lab Statement: Any lab studies that have been ordered have been reviewed, and results considered in the medical decision making process. - Radiology CXR Radiology Interpretation Completed By: Radiologist - CARDIOMEGALY WITH INTERSTITIAL EDEMA. PACEMAKER LEADS ARE IN PLACE. ED Physician has reviewed this report. - EKG 11:36 Cardiac Rate: Tachycardia EKG Rhythm: Atrial Fibrillation - at 145 BPM with rapid V-rate EKG Interpretation: reveals no present STEMI Re-Evaluation - Re-Evaluation 1st Re-Evaluation Time: 16:20 Change: Unchanged Comment: Heart rate is still 145 BPM 2nd Re-Evaluation Time: 17:11 Change: Unchanged Comment: Heart rate is still 138 BPM Course/Dx - Diagnoses Provider Diagnoses: Pulmonary edema, Atrial fibrillation with rapid ventricular response - Physician Notifications Discussed Care of Patient With: Palomo Gordillo Time Discussed With Above Provider: 16:18 Instructed by Provider To: Other - agrees to admit patient - Critical Care Time Critical Care Time: 30-74 min Discharge - Discharge Plan Condition: Critical Disposition: ADMITTED TO [facility] documentation as recorded by the Mercedez lowe Julia accurately reflects the service I personally performed and the decisions made by me, Bobby Li MD.
[2017-07-18] MEDS: Metoprolol Tartrate TAB* 25 MG PO SCH ×2 (10:22→22:41)
--- NOTE | 2017-07-18 10:46 | PN ---
Progress Note - Progress Note Date of Service: 07/18/17 Note: CRITICAL CARE MEDICINE Date: 07/18/2017 Time: 1000 SUBJECTIVE: Patient seen and examined. feels fine PHYSICAL EXAM: Vital Signs: Reviewed. HR sometimes to 120s still Neurologic: awake, communicating well HEENT: pupils equal. Sclera anicteric. Trachea midline. Cardiovascular: S1 S2 irr irr Respiratory: fine crackle on R better; ra Abdomen: Soft, nt, obese Extremities: Warm. UE with warmth and erthema bl at site of infiltrates; Left forearm is the more concerning Access: piv LABS: Reviewed. IMAGING: Reviewed. MEDICATIONS: Reviewed. ASSESSMENT: 72 F Afib RVR on chronic pafib Mild component of acute on chronic systolic heart failure sepsis sec to ecoli UTI Bronchitis Rate related demand ischemia Post AVR on chronic anticoag Thrombophlebitis DM PLAN: Neurologic: stable. Cardiovascular: perfusing. vol status ok but benefit still from fluid mobilization from IV lasix. cardizem cd po continued and added metoprolol as still some brealthrough rates towards 130s. asym. Respiratory: stable. IS. Gastrointestinal: po diet. Renal/Metabolic: stable. replete k with diuretics. chronic marie Infectious Disease: on C3 for ecoli uti, pansens and given her thrombophelbitis can de-escalte to ancef IV for now and then perhaps to po abx to complete her total week course post uti sepsis. Hematology: INR therapeutic. on less daily coumadin then outpt. Endocrine: home dose lantus. ssi. T4 chronic replacement Musculoskeletal: oob. Psych/Social: pt expressed understanding Supportive and preventative care as ordered. SUP: po VTE prophylaxis: coumadin Disposition: ok for tele Code Status: Full Critical Care Time: 25min Trent Nam DO
[2017-07-18] MEDS ORDERED: ceFAZolin 500 MG VIAL(*) 500 MG in NS 0.9% 50 ML* 50 ML IVPB SCH (11:00)
[2017-07-18] MEDS: ceFAZolin 500 MG VIAL(*) 500 MG in D5W 50 ML BAG* 50 ML IVPB SCH ×2 (11:22→22:41)
[2017-07-18] MEDS: Warfarin TAB(*) 2 MG PO SCH (17:15)
[2017-07-18] MEDS: Diltiazem CD CAP* 240 MG PO SCH (19:27)
[2017-07-18] MEDS ORDERED: cefTRIAXone(*) 1 GM in D5W 50 ML BAG* 50 ML IVPB SCH (20:00)
[2017-07-18] MEDS: Lidocaine Patch REMOVE* 1 NOTE MISC PATCH OFF SCH (22:42)
[2017-07-19] MEDS: ceFAZolin 500 MG VIAL(*) 500 MG in D5W 50 ML BAG* 50 ML IVPB SCH ×3 (03:22→20:11)
[2017-07-19] MEDS: Levothyroxine TAB* 112 MCG TAB PO SCH (06:07)
[2017-07-19 06:42] LABS: Hematocrit 37 % (35-47); Hemoglobin 12.2 g/dl (12.0-16.0); Mean Corpuscular HGB Conc 33 g/dl (31-36); Mean Corpuscular Hemoglobin 31 pg (27-31); Mean Corpuscular Volume 95 fL (80-97); Mean Platelet Volume 7 um3 (7.4-10.4); Platelet Count 296 10^3/ul (150-450); Red Blood Count 3.94 10^6/ul (4.0-5.4); Red Cell Distribution Width 15 % (10.5-15); White Blood Count 12.4 10^3/ul (3.5-10.8)
[2017-07-19 06:55] LABS: EGFR Non-African American 75.7 (>60)
[2017-07-19 06:58] LABS: INR 2.79 (0.77-1.02)
[2017-07-19] MEDS: Insulin LISPRO* 1 UNITS UNIT SUBCUT SCH ×3 (08:46→17:26)
[2017-07-19] MEDS: Furosemide IV* 10 MG/ML VIAL (40 MG) IV SLOW PU SCH (08:46)
[2017-07-19] MEDS: Magnesium Oxide TAB* 400 MG PO SCH (08:46)
[2017-07-19] MEDS: Insulin GLARGINE(*) 1 UNITS UNIT SUBCUT SCH (08:46)
[2017-07-19] MEDS: Metoprolol Tartrate TAB* 25 MG PO SCH ×2 (08:47→20:11)
[2017-07-19] MEDS: Lidocaine PATCH 5%* 1 PATCH TRANSDERM SCH (08:47)
[2017-07-19] MEDS: cloNIDine TAB* 0.1 MG PO SCH ×2 (08:47→20:11)
[2017-07-19] MEDS: Diltiazem CD CAP* 180 MG PO SCH (08:47)
--- NOTE | 2017-07-19 17:15 | PN ---
Subjective Date of Service: 07/19/17 Interval History: Feels improved Was reports walk to door and back but comparing to yesterdays PT note suspect thsi was with substantial assistance No other complaints Objective Active Medications: Acetaminophen (Tylenol Tab*) 650 mg PO Q4H PRN PRN Reason: FEVER/PAIN Albuterol (Ventolin Hfa Inhaler*) 2 puff INH Q4H PRN PRN Reason: SOB/WHEEZING Clonidine HCl (Catapres Tab*) 0.[address] [facility] Last Admin: 07/19/17 08:47 Dose: 0.1 mg Cyclobenzaprine HCl (Flexeril Tab*) 10 mg PO TID PRN PRN Reason: SPASMS Dextrose (D50w Syringe 50 Ml*) 12.5 gm IV PUSH .FOR FS < 60 - SS PRN PRN Reason: FS < 60 Diltiazem HCl (Cardizem Cd Cap*) [address] [facility] Last Admin: 07/19/17 08:47 Dose: 360 mg Furosemide (Lasix Iv*) 40 mg IV SLOW PU DAILY [facility] Last Admin: 07/19/17 08:46 Dose: 40 mg Cefazolin Sodium 500 mg/ (Dextrose) 50 mls @ 200 mls/hr IVPB Q8H [facility] Last Admin: 07/19/17 12:00 Dose: 200 mls/hr Insulin Glargine (Lantus(*)) [address] [facility] Last Admin: 07/19/17 08:46 Dose: 18 units Insulin Human Lispro (Humalog*) [address] [facility] PRN Reason: Protocol Last Admin: 07/19/17 12:00 Dose: 3 units Levothyroxine Sodium (Synthroid Tab*) 112 mcg PO DAILY@0600 [facility] Last Admin: 07/19/17 06:07 Dose: 112 mcg Lidocaine (Lidoderm 5% Patch*) [address] [facility] Last Admin: 07/19/17 08:47 Dose: 1 patch Magnesium Oxide (Magox 400 Tab*) [address] [facility] Last Admin: 07/19/17 08:46 Dose: 400 mg Metoprolol Tartrate (Lopressor Iv*) 5 mg IV Q6H PRN PRN Reason: HEART RATE/PULSE GREATER THAN: Metoprolol Tartrate (Lopressor Tab*) [address] [facility] Last Admin: 07/19/17 08:47 Dose: 25 mg Ondansetron HCl (Zofran Inj*) 4 mg IV Q6H PRN PRN Reason: NAUSEA Oxycodone/Acetaminophen (Percocet 5/325 Tab*) 1 tab PO Q4H PRN PRN Reason: PAIN - SEVERE Last Admin: 07/15/17 22:34 Dose: 1 tab Pharmacy Profile Note (Lidocaine Patch Remove*) 1 note PATCH OFF 2100 VANESSA Last Admin: 07/18/17 22:42 Dose: 1 note Polyethylene Glycol/Electrolytes (Miralax*) 17 gm PO DAILY PRN PRN Reason: CONSTIPATION Warfarin Sodium (Coumadin Tab(*)) 2 mg PO 1700 VANES[facility] PRN Reason: Protocol Last Admin: 07/18/17 17:15 Dose: 2 mg Vital Signs - 8 hr 07/19/17 07/19/17 11:24 15:21 Temperature 98.1 F 97.9 F Pulse Rate 89 88 Respiratory 22 22 Rate Blood Pressure 131/73 130/72 (mmHg) O2 Sat by Pulse 100 96 Oximetry Oxygen Devices in Use Now: None Appearance: sitting in chair. NAD Eyes: No Scleral Icterus, PERRLA Ears/Nose/Mouth/Throat: Clear Oropharnyx, Mucous Membranes Moist Neck: NL Appearance and Movements; NL JVP, Trachea Midline Respiratory: Symmetrical Chest Expansion and Respiratory Effort, Clear to Auscultation Cardiovascular: - - IRIR Abdominal: NL Sounds; No Tenderness; No Distention, No Hepatosplenomegaly Lymphatic: No Cervical Adenopathy Extremities: - - right forearm hematoma, edema in left arm Neurological: Alert and Oriented x 3 Result Diagrams: 07/19/17 06:11 07/19/17 06:11 Additional Lab and Data: Lab Results 07/15/17 07/15/17 Range/Units 14:41 14:41 WBC 14.9 H (3.5-10.8) 10^3/ul RBC 4.15 (4.0-5.4) 10^6/ul Hgb 12.8 (12.0-16.0) g/dl Hct 40 (35-47) % MCV 95 (80-97) fL MCH 31 (27-31) pg MCHC 32 (31-36) g/dl RDW 15 (10.5-15) % Plt Count 281 (150-450) 10^3/ul MPV 7 L (7.4-10.4) um3 Neut % (Auto) Pending Lymph % (Auto) Pending [place] % (Auto) Pending Eos % (Auto) Pending Baso % (Auto) Pending Absolute Neuts (auto) Pending Absolute Lymphs (auto) Pending Absolute Monos (auto) Pending Absolute Eos (auto) Pending Absolute Basos (auto) Pending Absolute Nucleated RBC Pending Nucleated RBC % Pending Sodium 139 (133-145) mmol/L Potassium 3.9 (3.5-5.0) mmol/L Chloride 103 (101-111) mmol/L Carbon Dioxide 29 (22-32) mmol/L Anion Gap 7 (2-11) mmol/L BUN 29 H (6-24) mg/dL Creatinine 0.99 H (0.51-0.95) mg/dL Est GFR ( Amer) 70.7 (>60) Est GFR (Non-Af Amer) 55.0 (>60) BUN/Creatinine Ratio 29.3 H (8-20) Glucose 206 H (70-100) mg/dL Calcium 8.8 (8.6-10.3) mg/dL Total Bilirubin 0.40 (0.2-1.0) mg/dL AST 17 (13-39) U/L ALT 29 (7-52) U/L Alkaline Phosphatase 81 (34-104) U/L Troponin I Pending Total Protein 5.9 L (6.4-8.9) g/dL Albumin 3.1 L (3.2-5.2) g/dL Globulin 2.8 (2-4) g/dL Albumin/Globulin Ratio 1.1 (1-3) TSH Pending Free T4 Pending Microbiology and Other Data: Microbiology 07/17/17 09:31 Blood Culture - Preliminary Blood Venous No Growth Day 2 07/15/17 19:24 Aerobic Blood Culture - Preliminary Blood Venous No Growth Day 3 Anaerobic Blood Culture - Preliminary No Growth Day 3 07/15/17 18:48 Urine Culture - Final Urine Escherichia Coli Legionella Urinary Antigen - Final Negative Legionella Streptococcus pneumoniae Ag Screen - Final Negative S. pneumo Antigen 07/15/17 18:42 Nasal Screen MRSA (PCR)(TIO) - Final Nasal Mrsa Negative 07/15/17 18:42 Influenza Types A,B Antigen (TIO) - Final Nasal Specimen received for Influenza A/B Molecular testing Assess/Plan/Problems-Billing Assessment: 72 yo F admitted with sepsis 2/2 UTI with stay complicated by infiltrated IV and thrombophlebitis - Patient Problems (1) Sepsis Comment: from urinary source on Cefazolin WBC slowly improving Can consider transition to PO and discharge in 1-2 days based on improvement (2) Thrombophlebitis Comment: improving no e/o overlying infection on cefazolin (3) Atrial fibrillation with RVR Comment: coumadin, diltiazem, metoprolol (4) Diabetes Current Visit: No Status: Acute Code(s): E11.9 - TYPE 2 DIABETES MELLITUS WITHOUT COMPLICATIONS SNOMED Code(s): 36607782 Comment: - Continue Lantus and Lispro SS. (5) Elevated troponin Current Visit: No Status: Acute Priority: Low Code(s): R79.89 - OTHER SPECIFIED ABNORMAL FINDINGS OF BLOOD CHEMISTRY SNOMED Code(s): 583048356 Comment: peak at 0.05-indeterminate Echo shows good EF, pt denies CP, no further investigations are warranted. (6) Hypothyroid Comment: Continue current dose of synthroid. (7) Diabetes Comment: basal bolus insulin (8) DVT prophylaxis Comment: - Warfarin.
[2017-07-19] MEDS: Warfarin TAB(*) 2 MG PO SCH (17:27)
[2017-07-19] MEDS: Lidocaine Patch REMOVE* 1 NOTE MISC PATCH OFF SCH (20:15)
[2017-07-20] MEDS: ceFAZolin 500 MG VIAL(*) 500 MG in D5W 50 ML BAG* 50 ML IVPB SCH ×3 (04:39→22:17)
[2017-07-20 06:21] LABS: EGFR Non-African American 79.4 (>60)
[2017-07-20 06:48] LABS: ABS Basophils 0.1 10^3/ul (0-0.2); ABS Eosinophils 0.2 10^3/ul (0-0.6); ABS Monocytes 1.3 10^3/ul (0-0.8); ABS Neutrophils 12.5 10^3/ul (1.5-7.7); ABS Nucleated RBC 0 10^3/ul; Eosinophil % 1.3 % (0-6); Hematocrit 38 % (35-47); Hemoglobin 12.1 g/dl (12.0-16.0); Lymphocyte % 12.5 % (25-47); Mean Corpuscular HGB Conc 32 g/dl (31-36); Mean Corpuscular Hemoglobin 30 pg (27-31); Mean Corpuscular Volume 95 fL (80-97); Mean Platelet Volume 8 um3 (7.4-10.4); Nucleated Red Blood Cells % 0.1; Platelet Count 298 10^3/ul (150-450); Red Blood Count 3.98 10^6/ul (4.0-5.4); Red Cell Distribution Width 15 % (10.5-15); White Blood Count 16.1 10^3/ul (3.5-10.8)
[2017-07-20] MEDS: Levothyroxine TAB* 112 MCG TAB PO SCH (07:13)
[2017-07-20] MEDS: Magnesium Oxide TAB* 400 MG PO SCH (09:31)
[2017-07-20] MEDS: Diltiazem CD CAP* 180 MG PO SCH (09:31)
[2017-07-20] MEDS: cloNIDine TAB* 0.1 MG PO SCH ×2 (09:32→22:17)
[2017-07-20] MEDS: Metoprolol Tartrate TAB* 25 MG PO SCH ×2 (09:32→22:16)
[2017-07-20] MEDS: Furosemide IV* 10 MG/ML VIAL (40 MG) IV SLOW PU SCH (09:33)
[2017-07-20] MEDS: Insulin GLARGINE(*) 1 UNITS UNIT SUBCUT SCH (09:34)
[2017-07-20] MEDS: Insulin LISPRO* 1 UNITS UNIT SUBCUT SCH ×3 (09:34→17:50)
[2017-07-20] MEDS: Lidocaine PATCH 5%* 1 PATCH TRANSDERM SCH (09:35)
--- NOTE | 2017-07-20 13:59 | RAD ---
Indication: Urosepsis. CT of the abdomen and pelvis was performed without oral or IV contrast administration. Coronal and sagittal reconstructed images were obtained. The lung bases demonstrate left basilar atelectasis. Small left pleural effusion is noted. Pacemaker leads are in place. Heart demonstrates no pericardial effusion. Liver is normal in size. No focal lesions or intrahepatic ductal dilatation is noted. The gallbladder demonstrates calcified gallstones. No pericholecystic fluid or wall thickening is identified. Pancreas demonstrates no mass or pancreatic duct dilatation. Common duct is not dilated. Bilateral adrenal masses are noted. Right adrenal mass measuring up to 2.2 cm in the left adrenal mass measuring up to 2.0 cm. No hydronephrosis is noted in either kidney. Atherosclerotic aorta is noted. No retroperitoneal lymphadenopathy is noted. No dilated loops of bowel are noted. Myomatous changes in the uterus are noted. There is a Sawyer catheter in the urinary bladder with collapsed. No pelvic adenopathy is noted. No free fluid is noted. IMPRESSION: No evidence of obstructive uropathy is noted. Sawyer catheter is in place. Myomatous changes of the uterus. Gallstones without evidence of biliary duct dilatation. Bilateral adrenal masses are noted which are nonspecific but may represent adenomas. Left pleural effusion with left basilar atelectasis is noted.
--- NOTE | 2017-07-20 14:10 | RAD ---
INDICATION: Very short of breath. Previous heart valve replacement. Persistent elevated white blood cell count. Question new pneumonia. COMPARISON: July 15, 2017 chest radiograph and April 26, 2017 CT. TECHNIQUE: Dual energy PA and routine lateral views of the chest were obtained. REPORT: Elevated lung volumes and both diffuse mild prominence of the interstitial markings and patchy rarefaction of the mid to upper lung zone interstitial markings. Small dependent LEFT pleural effusion without significant change with proportional basilar atelectasis. Bilateral epicardial fat pads. No focal pulmonary lesion. Negative for pneumothorax. Median sternotomy wires and RIGHT atrial and RIGHT ventricle pacemaker leads. Cardiomegaly. Unremarkable central pulmonary vasculature and mediastinal contours. Midthoracic anterior and middle column compression fracture is unchanged from the prior CT. IMPRESSION: Stigmata of obstructive lung disease. Unchanged small dependent LEFT pleural effusion with proportional basilar atelectasis. Inflammatory infiltrate at the LEFT lung base is not excluded.
--- NOTE | 2017-07-20 15:33 | PN ---
Subjective Date of Service: 07/20/17 Interval History: No SOB, CP, cough, N/V, LH, diarrhea Pain over left forearm thrombophlebitis No other complaints Objective Active Medications: Acetaminophen (Tylenol Tab*) 650 mg PO Q4H PRN PRN Reason: FEVER/PAIN Albuterol (Ventolin Hfa Inhaler*) 2 puff INH Q4H PRN PRN Reason: SOB/WHEEZING Clonidine HCl (Catapres Tab*) 0.1 mg PO BID [facility] Last Admin: 07/20/17 09:32 Dose: 0.1 mg Cyclobenzaprine HCl (Flexeril Tab*) 10 mg PO TID PRN PRN Reason: SPASMS Dextrose (D50w Syringe 50 Ml*) 12.5 gm IV PUSH .FOR FS < 60 - SS PRN PRN Reason: FS < 60 Diltiazem HCl (Cardizem Cd Cap*) 360 mg PO DAILY [facility] Last Admin: 07/20/17 09:31 Dose: 360 mg Furosemide (Lasix Iv*) 40 mg IV SLOW PU DAILY [facility] Last Admin: 07/20/17 09:33 Dose: 40 mg Cefazolin Sodium 500 mg/ (Dextrose) 50 mls @ 200 mls/hr IVPB Q8H [facility] Last Admin: 07/20/17 14:13 Dose: 200 mls/hr Insulin Glargine (Lantus(*)) 18 units SUBCUT QAM [facility] Last Admin: 07/20/17 09:34 Dose: 18 units Insulin Human Lispro (Humalog*) 0 units SUBCUT AC [facility] PRN Reason: Protocol Last Admin: 07/20/17 13:18 Dose: 3 units Levothyroxine Sodium (Synthroid Tab*) 112 mcg PO DAILY@0600 [facility] Last Admin: 07/20/17 07:13 Dose: 112 mcg Lidocaine (Lidoderm 5% Patch*) 1 patch TRANSDERM DAILY [facility] Last Admin: 07/20/17 09:35 Dose: 1 patch Magnesium Oxide (Magox 400 Tab*) 400 mg PO DAILY [facility] Last Admin: 07/20/17 09:31 Dose: 400 mg Metoprolol Tartrate (Lopressor Iv*) 5 mg IV Q6H PRN PRN Reason: HEART RATE/PULSE GREATER THAN: Metoprolol Tartrate (Lopressor Tab*) 25 mg PO BID [facility] Last Admin: 07/20/17 09:32 Dose: 25 mg Ondansetron HCl (Zofran Inj*) 4 mg IV Q6H PRN PRN Reason: NAUSEA Oxycodone/Acetaminophen (Percocet 5/325 Tab*) 1 tab PO Q4H PRN PRN Reason: PAIN - SEVERE Last Admin: 07/15/17 22:34 Dose: 1 tab Pharmacy Profile Note (Lidocaine Patch Remove*) 1 note PATCH OFF [facility] [facility] Last Admin: 07/19/17 20:15 Dose: 1 note Polyethylene Glycol/Electrolytes (Miralax*) 17 gm PO DAILY PRN PRN Reason: CONSTIPATION Warfarin Sodium (Coumadin Tab(*)) 2 mg PO 1700 [facility] PRN Reason: Protocol Last Admin: 07/19/17 17:27 Dose: 2 mg Vital Signs - 8 hr 07/20/17 07/20/17 07/20/17 07:33 08:00 08:36 Temperature 97.8 F Pulse Rate 107 Respiratory 22 20 Rate Blood Pressure 140/96 (mmHg) O2 Sat by Pulse 100 98 Oximetry 07/20/17 11:56 Temperature 98.6 F Pulse Rate 110 Respiratory 22 Rate Blood Pressure 138/89 (mmHg) O2 Sat by Pulse 96 Oximetry Oxygen Devices in Use Now: Nasal Cannula Appearance: NAD Eyes: No Scleral Icterus, PERRLA Ears/Nose/Mouth/Throat: Clear Oropharnyx, Mucous Membranes Moist Neck: NL Appearance and Movements; NL JVP, Trachea Midline, - Respiratory: Symmetrical Chest Expansion and Respiratory Effort, - - rales right base Cardiovascular: RRR Abdominal: NL Sounds; No Tenderness; No Distention, No Hepatosplenomegaly Extremities: - - 1-2+ edema Skin: - - large hematoma over right forearm, area of erythema over left ankle, palpable thrombophlebitis over left forearm Neurological: Alert and Oriented x 3 Lines/Tubes/Other Access: Clean, Dry and Intact Marie - place in April Result Diagrams: 07/20/17 05:36 07/20/17 05:36 Additional Lab and Data: Lab Results 07/15/17 07/15/17 Range/Units 14:41 14:41 WBC 14.9 H (3.5-10.8) 10^3/ul RBC 4.15 (4.0-5.4) 10^6/ul Hgb 12.8 (12.0-16.0) g/dl Hct 40 (35-47) % MCV 95 (80-97) fL MCH 31 (27-31) pg MCHC 32 (31-36) g/dl RDW 15 (10.5-15) % Plt Count 281 (150-450) 10^3/ul MPV 7 L (7.4-10.4) um3 Neut % (Auto) Pending Lymph % (Auto) Pending [place] % (Auto) Pending Eos % (Auto) Pending Baso % (Auto) Pending Absolute Neuts (auto) Pending Absolute Lymphs (auto) Pending Absolute Monos (auto) Pending Absolute Eos (auto) Pending Absolute Basos (auto) Pending Absolute Nucleated RBC Pending Nucleated RBC % Pending Sodium 139 (133-145) mmol/L Potassium 3.9 (3.5-5.0) mmol/L Chloride 103 (101-111) mmol/L Carbon Dioxide 29 (22-32) mmol/L Anion Gap 7 (2-11) mmol/L BUN 29 H (6-24) mg/dL Creatinine 0.99 H (0.51-0.95) mg/dL Est GFR ( Amer) 70.7 (>60) Est GFR (Non-Af Amer) 55.0 (>60) BUN/Creatinine Ratio 29.3 H (8-20) Glucose 206 H (70-100) mg/dL Calcium 8.8 (8.6-10.3) mg/dL Total Bilirubin 0.40 (0.2-1.0) mg/dL AST 17 (13-39) U/L ALT 29 (7-52) U/L Alkaline Phosphatase 81 (34-104) U/L Troponin I Pending Total Protein 5.9 L (6.4-8.9) g/dL Albumin 3.1 L (3.2-5.2) g/dL Globulin 2.8 (2-4) g/dL Albumin/Globulin Ratio 1.1 (1-3) TSH Pending Free T4 Pending Microbiology and Other Data: Microbiology 07/17/17 09:31 Blood Culture - Preliminary Blood Venous No Growth Day 2 07/15/17 19:24 Aerobic Blood Culture - Preliminary Blood Venous No Growth Day 3 Anaerobic Blood Culture - Preliminary No Growth Day 3 07/15/17 18:48 Urine Culture - Final Urine Escherichia Coli Legionella Urinary Antigen - Final Negative Legionella Streptococcus pneumoniae Ag Screen - Final Negative S. pneumo Antigen 07/15/17 18:42 Nasal Screen MRSA (PCR)(TIO) - Final Nasal Mrsa Negative 07/15/17 18:42 Influenza Types A,B Antigen (TIO) - Final Nasal Specimen received for Influenza A/B Molecular testing Assess/Plan/Problems-Billing Assessment: 72 yo F admitted with sepsis 2/2 UTI with stay complicated by infiltrated IV/ hematoma and thrombophlebitis of left forearm - Patient Problems (1) Sepsis Comment: suspected from urinary source but marie noted to be chronic at this time on Cefazolin with WBC increasing in absence of other symptoms CXR with possible LLL PNA but appears more atalectasis on CT abd/pelvis CT Abd/pelvis without obstructing stones or e/o abscess ESR and CRP elevated but improved since previous stays Sepsis resolved but unclear why WBC is lagging. May also be 2/2 thrombophlebitis or large hematoma (2) Thrombophlebitis Comment: improving no e/o overlying infection on cefazolin (3) Atrial fibrillation with RVR Comment: coumadin, diltiazem, metoprolol (4) Diabetes Current Visit: No Status: Acute Code(s): E11.9 - TYPE 2 DIABETES MELLITUS WITHOUT COMPLICATIONS SNOMED Code(s): 19606423 Comment: - Continue Lantus and Lispro SS. (5) Elevated troponin Current Visit: No Status: Acute Priority: Low Code(s): R79.89 - OTHER SPECIFIED ABNORMAL FINDINGS OF BLOOD CHEMISTRY SNOMED Code(s): 735530144 Comment: peak at 0.05-indeterminate Echo shows good EF, pt denies CP, no further investigations are warranted. (6) Hypothyroid Comment: Continue current dose of synthroid. (7) Diabetes Comment: basal bolus insulin (8) Chronic indwelling Marie catheter Comment: placed on previous admission for suspect neurogenic bladder 2/2 DM2 with recommendation for outpatient urology follow up. Pt has not seen urology and should be encouraged to do so on discharge. (9) Adrenal incidentaloma Comment: Noted and need continued follow up (10) DVT prophylaxis Comment: - Warfarin.
[2017-07-20] MEDS: Warfarin TAB(*) 2 MG PO SCH (17:50)
[2017-07-20] MEDS: Lidocaine Patch REMOVE* 1 NOTE MISC PATCH OFF SCH (22:17)
[2017-07-21] MEDS: ceFAZolin 500 MG VIAL(*) 500 MG in D5W 50 ML BAG* 50 ML IVPB SCH ×2 (05:01→12:15)
[2017-07-21] MEDS: Levothyroxine TAB* 112 MCG TAB PO SCH (05:01)
[2017-07-21 07:33] LABS: ABS Basophils 0.1 10^3/ul (0-0.2); ABS Eosinophils 0.2 10^3/ul (0-0.6); ABS Lymphocytes 1.4 10^3/ul (1.0-4.8); ABS Neutrophils 7.1 10^3/ul (1.5-7.7); ABS Nucleated RBC 0 10^3/ul; Eosinophil % 1.7 % (0-6); Hematocrit 37 % (35-47); Lymphocyte % 14.8 % (25-47); Mean Corpuscular HGB Conc 33 g/dl (31-36); Mean Corpuscular Hemoglobin 31 pg (27-31); Mean Corpuscular Volume 95 fL (80-97); Mean Platelet Volume 7 um3 (7.4-10.4); Nucleated Red Blood Cells % 0; Platelet Count 295 10^3/ul (150-450); Red Blood Count 3.88 10^6/ul (4.0-5.4); Red Cell Distribution Width 15 % (10.5-15); White Blood Count 9.7 10^3/ul (3.5-10.8)
[2017-07-21] MEDS: Diltiazem CD CAP* 180 MG PO SCH (08:26)
[2017-07-21] MEDS: Magnesium Oxide TAB* 400 MG PO SCH (08:27)
[2017-07-21] MEDS: cloNIDine TAB* 0.1 MG PO SCH ×2 (08:27→20:12)
[2017-07-21] MEDS: Furosemide IV* 10 MG/ML VIAL (40 MG) IV SLOW PU SCH (08:27)
[2017-07-21] MEDS: Insulin LISPRO* 1 UNITS UNIT SUBCUT SCH ×3 (08:27→17:32)
[2017-07-21] MEDS: Metoprolol Tartrate TAB* 25 MG PO SCH ×2 (08:27→20:12)
[2017-07-21] MEDS: Insulin GLARGINE(*) 1 UNITS UNIT SUBCUT SCH (08:27)
[2017-07-21] MEDS: Lidocaine PATCH 5%* 1 PATCH TRANSDERM SCH (08:28)
[2017-07-21] MEDS: Warfarin TAB(*) 2 MG PO SCH (17:32)
[2017-07-21] MEDS: Furosemide IV* 10 MG/ML VIAL (40 MG) IV SCH (18:07)
--- NOTE | 2017-07-21 18:55 | PN ---
Subjective Date of Service: 07/21/17 Interval History: Appears mildly tachypneic, but denies SOB, feels "swollen all over" Objective Active Medications: Acetaminophen (Tylenol Tab*) 650 mg PO Q4H PRN PRN Reason: FEVER/PAIN Albuterol (Ventolin Hfa Inhaler*) 2 puff INH Q4H PRN PRN Reason: SOB/WHEEZING Clonidine HCl (Catapres Tab*) 0.1 mg PO BID [facility] Last Admin: 07/21/17 08:27 Dose: 0.1 mg Cyclobenzaprine HCl (Flexeril Tab*) 10 mg PO TID PRN PRN Reason: SPASMS Dextrose (D50w Syringe 50 Ml*) 12.5 gm IV PUSH .FOR FS < 60 - SS PRN PRN Reason: FS < 60 Diltiazem HCl (Cardizem Cd Cap*) 360 mg PO DAILY [facility] Last Admin: 07/21/17 08:26 Dose: 360 mg Furosemide (Lasix Iv*) 40 mg IV DAILY [facility] Last Admin: 07/21/17 18:07 Dose: 40 mg Insulin Glargine (Lantus(*)) 18 units SUBCUT QAM [facility] Last Admin: 07/21/17 08:27 Dose: 18 units Insulin Human Lispro (Humalog*) 0 units SUBCUT AC [facility] PRN Reason: Protocol Last Admin: 07/21/17 17:32 Dose: 3 units Levothyroxine Sodium (Synthroid Tab*) 112 mcg PO DAILY@0600 [facility] Last Admin: 07/21/17 05:01 Dose: 112 mcg Lidocaine (Lidoderm 5% Patch*) 1 patch TRANSDERM DAILY [facility] Last Admin: 07/21/17 08:28 Dose: 1 patch Magnesium Oxide (Magox 400 Tab*) 400 mg PO DAILY [facility] Last Admin: 07/21/17 08:27 Dose: 400 mg Metoprolol Tartrate (Lopressor Iv*) 5 mg IV Q6H PRN PRN Reason: HEART RATE/PULSE GREATER THAN: Metoprolol Tartrate (Lopressor Tab*) 25 mg PO BID [facility] Last Admin: 07/21/17 08:27 Dose: 25 mg Ondansetron HCl (Zofran Inj*) 4 mg IV Q6H PRN PRN Reason: NAUSEA Oxycodone/Acetaminophen (Percocet 5/325 Tab*) 1 tab PO Q4H PRN PRN Reason: PAIN - SEVERE Last Admin: 07/15/17 22:34 Dose: 1 tab Pharmacy Profile Note (Lidocaine Patch Remove*) 1 note PATCH OFF [facility] [facility] Last Admin: 07/20/17 22:17 Dose: 1 note Polyethylene Glycol/Electrolytes (Miralax*) 17 gm PO DAILY PRN PRN Reason: CONSTIPATION Warfarin Sodium (Coumadin Tab(*)) 2 mg PO 1700 [facility] PRN Reason: Protocol Last Admin: 07/21/17 17:32 Dose: 2 mg Vital Signs - 8 hr 07/21/17 07/21/17 11:34 15:31 Temperature 98.1 F 97.6 F Pulse Rate 65 107 Respiratory 22 24 Rate Blood Pressure 127/69 145/91 (mmHg) O2 Sat by Pulse 96 94 Oximetry Oxygen Devices in Use Now: Nasal Cannula - at 2L Appearance: 72 yo F in nAD, aAOx3 Eyes: No Scleral Icterus, PERRLA Ears/Nose/Mouth/Throat: NL Teeth, Lips, Gums, Mucous Membranes Moist Neck: NL Appearance and Movements; NL JVP, Trachea Midline Respiratory: Symmetrical Chest Expansion and Respiratory Effort, - - crackles b/ lk bases Cardiovascular: - - irregular Abdominal: NL Sounds; No Tenderness; No Distention, No Hepatosplenomegaly Lymphatic: No Cervical Adenopathy Extremities: No Clubbing, Cyanosis, - - +2 pitting pedal edema Skin: - - b/l forearm ecchymosis Neurological: Alert and Oriented x 3, NL Muscle Strength and Tone Result Diagrams: 07/21/17 07:20 07/20/17 05:36 Additional Lab and Data: Lab Results 07/15/17 07/15/17 Range/Units 14:41 14:41 WBC 14.9 H (3.5-10.8) 10^3/ul RBC 4.15 (4.0-5.4) 10^6/ul Hgb 12.8 (12.0-16.0) g/dl Hct 40 (35-47) % MCV 95 (80-97) fL MCH 31 (27-31) pg MCHC 32 (31-36) g/dl RDW 15 (10.5-15) % Plt Count 281 (150-450) 10^3/ul MPV 7 L (7.4-10.4) um3 Neut % (Auto) Pending Lymph % (Auto) Pending [place] % (Auto) Pending Eos % (Auto) Pending Baso % (Auto) Pending Absolute Neuts (auto) Pending Absolute Lymphs (auto) Pending Absolute Monos (auto) Pending Absolute Eos (auto) Pending Absolute Basos (auto) Pending Absolute Nucleated RBC Pending Nucleated RBC % Pending Sodium 139 (133-145) mmol/L Potassium 3.9 (3.5-5.0) mmol/L Chloride 103 (101-111) mmol/L Carbon Dioxide 29 (22-32) mmol/L Anion Gap 7 (2-11) mmol/L BUN 29 H (6-24) mg/dL Creatinine 0.99 H (0.51-0.95) mg/dL Est GFR ( Amer) 70.7 (>60) Est GFR (Non-Af Amer) 55.0 (>60) BUN/Creatinine Ratio 29.3 H (8-20) Glucose 206 H (70-100) mg/dL Calcium 8.8 (8.6-10.3) mg/dL Total Bilirubin 0.40 (0.2-1.0) mg/dL AST 17 (13-39) U/L ALT 29 (7-52) U/L Alkaline Phosphatase 81 (34-104) U/L Troponin I Pending Total Protein 5.9 L (6.4-8.9) g/dL Albumin 3.1 L (3.2-5.2) g/dL Globulin 2.8 (2-4) g/dL Albumin/Globulin Ratio 1.1 (1-3) TSH Pending Free T4 Pending Microbiology and Other Data: Microbiology 07/17/17 09:31 Blood Culture - Preliminary Blood Venous No Growth Day 2 07/15/17 19:24 Aerobic Blood Culture - Preliminary Blood Venous No Growth Day 3 Anaerobic Blood Culture - Preliminary No Growth Day 3 07/15/17 18:48 Urine Culture - Final Urine Escherichia Coli Legionella Urinary Antigen - Final Negative Legionella Streptococcus pneumoniae Ag Screen - Final Negative S. pneumo Antigen 07/15/17 18:42 Nasal Screen MRSA (PCR)(TIO) - Final Nasal Mrsa Negative 07/15/17 18:42 Influenza Types A,B Antigen (TIO) - Final Nasal Specimen received for Influenza A/B Molecular testing Assess/Plan/Problems-Billing Assessment: 72 yo F admitted with sepsis 2/2 UTI with stay complicated by infiltrated IV/ hematoma and thrombophlebitis of left forearm - Patient Problems (1) Sepsis Comment: from E cli UTI-Sawyer associated Cefazolin tx completed today CT Abd/pelvis without obstructing stones or e/o abscess ESR and CRP elevated but improved since previous stays Sepsis resolved (2) Thrombophlebitis Comment: improving no e/o overlying infection (3) Atrial fibrillation with RVR Comment: HR controlled today, cont coumadin, diltiazem, metoprolol (4) Diabetes Comment: cont ISS, Lantus (5) Elevated troponin Comment: peak at 0.07-indeterminate suspect demand ischemia (6) Hypothyroid Comment: Continue current dose of synthroid. (7) Chronic indwelling Sawyer catheter Comment: placed on previous admission for suspect neurogenic bladder 2/2 DM2 with recommendation for outpatient urology follow up. Pt has not seen urology and should be encouraged to do so on discharge. (8) Adrenal incidentaloma Comment: Noted and need continued follow up with Dr. Velasquez as outpatient (9) Chronic systolic CHF (congestive heart failure) Comment: appears in acute exacerbation. will start IV Lasix (10) DVT prophylaxis Comment: - Warfarin. Status and Disposition: inpatient
[2017-07-21] MEDS: Lidocaine Patch REMOVE* 1 NOTE MISC PATCH OFF SCH (20:15)
[2017-07-22] MEDS: Levothyroxine TAB* 112 MCG TAB PO SCH (06:09)
[2017-07-22 06:38] LABS: ABS Basophils 0 10^3/ul (0-0.2); ABS Eosinophils 0.2 10^3/ul (0-0.6); ABS Lymphocytes 1.6 10^3/ul (1.0-4.8); ABS Neutrophils 7.2 10^3/ul (1.5-7.7); ABS Nucleated RBC 0 10^3/ul; Eosinophil % 1.5 % (0-6); Hematocrit 40 % (35-47); Hemoglobin 13.1 g/dl (12.0-16.0); Lymphocyte % 15.8 % (25-47); Mean Corpuscular HGB Conc 33 g/dl (31-36); Mean Corpuscular Hemoglobin 31 pg (27-31); Mean Corpuscular Volume 95 fL (80-97); Mean Platelet Volume 6 um3 (7.4-10.4); Nucleated Red Blood Cells % 0.1; Platelet Count 326 10^3/ul (150-450); Red Blood Count 4.22 10^6/ul (4.0-5.4); Red Cell Distribution Width 15 % (10.5-15)
[2017-07-22 06:43] LABS: INR 1.48 (0.77-1.02)
[2017-07-22 06:53] LABS: EGFR Non-African American 62.2 (>60)
[2017-07-22] MEDS: Magnesium Oxide TAB* 400 MG PO SCH (08:55)
[2017-07-22] MEDS: cloNIDine TAB* 0.1 MG PO SCH ×2 (08:56→21:40)
[2017-07-22] MEDS: Diltiazem CD CAP* 180 MG PO SCH (08:56)
[2017-07-22] MEDS: Metoprolol Tartrate TAB* 25 MG PO SCH ×2 (08:56→21:40)
[2017-07-22] MEDS: Insulin GLARGINE(*) 1 UNITS UNIT SUBCUT SCH (08:57)
[2017-07-22] MEDS: Furosemide IV* 10 MG/ML VIAL (40 MG) IV SCH (08:57)
[2017-07-22] MEDS: Insulin LISPRO* 1 UNITS UNIT SUBCUT SCH ×3 (09:00→18:07)
[2017-07-22] MEDS: Lidocaine PATCH 5%* 1 PATCH TRANSDERM SCH (09:02)
--- NOTE | 2017-07-22 11:49 | PN ---
Subjective Date of Service: 07/22/17 Interval History: Feels much better, diuresed nearly 2000 ml total. Objective Active Medications: Acetaminophen (Tylenol Tab*) 650 mg PO Q4H PRN PRN Reason: FEVER/PAIN Albuterol (Ventolin Hfa Inhaler*) 2 puff INH Q4H PRN PRN Reason: SOB/WHEEZING Clonidine HCl (Catapres Tab*) 0.1 mg PO BID [facility] Last Admin: 07/22/17 08:56 Dose: 0.1 mg Cyclobenzaprine HCl (Flexeril Tab*) 10 mg PO TID PRN PRN Reason: SPASMS Dextrose (D50w Syringe 50 Ml*) 12.5 gm IV PUSH .FOR FS < 60 - SS PRN PRN Reason: FS < 60 Diltiazem HCl (Cardizem Cd Cap*) 360 mg PO DAILY [facility] Last Admin: 07/22/17 08:56 Dose: 360 mg Furosemide (Lasix Iv*) 40 mg IV DAILY [facility] Last Admin: 07/22/17 08:57 Dose: 40 mg Insulin Glargine (Lantus(*)) 18 units SUBCUT QAM [facility] Last Admin: 07/22/17 08:57 Dose: 18 units Insulin Human Lispro (Humalog*) 0 units SUBCUT AC [facility] PRN Reason: Protocol Last Admin: 07/22/17 09:00 Dose: Not Given Levothyroxine Sodium (Synthroid Tab*) 112 mcg PO DAILY@0600 [facility] Last Admin: 07/22/17 06:09 Dose: 112 mcg Lidocaine (Lidoderm 5% Patch*) 1 patch TRANSDERM DAILY [facility] Last Admin: 07/22/17 09:02 Dose: 1 patch Magnesium Oxide (Magox 400 Tab*) 400 mg PO DAILY [facility] Last Admin: 07/22/17 08:55 Dose: 400 mg Metoprolol Tartrate (Lopressor Iv*) 5 mg IV Q6H PRN PRN Reason: HEART RATE/PULSE GREATER THAN: Metoprolol Tartrate (Lopressor Tab*) 25 mg PO BID [facility] Last Admin: 07/22/17 08:56 Dose: 25 mg Ondansetron HCl (Zofran Inj*) 4 mg IV Q6H PRN PRN Reason: NAUSEA Oxycodone/Acetaminophen (Percocet 5/325 Tab*) 1 tab PO Q4H PRN PRN Reason: PAIN - SEVERE Last Admin: 07/15/17 22:34 Dose: 1 tab Pharmacy Profile Note (Lidocaine Patch Remove*) 1 note PATCH OFF [facility] [facility] Last Admin: 07/21/17 20:15 Dose: 1 note Polyethylene Glycol/Electrolytes (Miralax*) 17 gm PO DAILY PRN PRN Reason: CONSTIPATION Warfarin Sodium (Coumadin Tab(*)) 2 mg PO 1700 [facility] PRN Reason: Protocol Last Admin: 07/21/17 17:32 Dose: 2 mg Vital Signs - 8 hr 07/22/17 07/22/17 07/22/17 03:53 07:16 08:00 Temperature 97.6 F 97.6 F Pulse Rate 101 107 Respiratory 16 20 20 Rate Blood Pressure 144/72 134/77 (mmHg) O2 Sat by Pulse 94 100 Oximetry Oxygen Devices in Use Now: Nasal Cannula - at 3L Appearance: 72 yo F in nAD, AAOx3 Eyes: No Scleral Icterus, PERRLA Ears/Nose/Mouth/Throat: NL Teeth, Lips, Gums Neck: NL Appearance and Movements; NL JVP, Trachea Midline Respiratory: Symmetrical Chest Expansion and Respiratory Effort, - - crackles at b/l bases Cardiovascular: - - irregular Abdominal: NL Sounds; No Tenderness; No Distention, No Hepatosplenomegaly Lymphatic: No Cervical Adenopathy Extremities: No Clubbing, Cyanosis, - - pedal edema b/l +1 improving Skin: - - b/l forearm ecchymoses Neurological: Alert and Oriented x 3, NL Muscle Strength and Tone Result Diagrams: 07/22/17 06:28 07/22/17 06:28 Additional Lab and Data: Lab Results 07/15/17 07/15/17 Range/Units 14:41 14:41 WBC 14.9 H (3.5-10.8) 10^3/ul RBC 4.15 (4.0-5.4) 10^6/ul Hgb 12.8 (12.0-16.0) g/dl Hct 40 (35-47) % MCV 95 (80-97) fL MCH 31 (27-31) pg MCHC 32 (31-36) g/dl RDW 15 (10.5-15) % Plt Count 281 (150-450) 10^3/ul MPV 7 L (7.4-10.4) um3 Neut % (Auto) Pending Lymph % (Auto) Pending [place] % (Auto) Pending Eos % (Auto) Pending Baso % (Auto) Pending Absolute Neuts (auto) Pending Absolute Lymphs (auto) Pending Absolute Monos (auto) Pending Absolute Eos (auto) Pending Absolute Basos (auto) Pending Absolute Nucleated RBC Pending Nucleated RBC % Pending Sodium 139 (133-145) mmol/L Potassium 3.9 (3.5-5.0) mmol/L Chloride 103 (101-111) mmol/L Carbon Dioxide 29 (22-32) mmol/L Anion Gap 7 (2-11) mmol/L BUN 29 H (6-24) mg/dL Creatinine 0.99 H (0.51-0.95) mg/dL Est GFR ( Amer) 70.7 (>60) Est GFR (Non-Af Amer) 55.0 (>60) BUN/Creatinine Ratio 29.3 H (8-20) Glucose 206 H (70-100) mg/dL Calcium 8.8 (8.6-10.3) mg/dL Total Bilirubin 0.40 (0.2-1.0) mg/dL AST 17 (13-39) U/L ALT 29 (7-52) U/L Alkaline Phosphatase 81 (34-104) U/L Troponin I Pending Total Protein 5.9 L (6.4-8.9) g/dL Albumin 3.1 L (3.2-5.2) g/dL Globulin 2.8 (2-4) g/dL Albumin/Globulin Ratio 1.1 (1-3) TSH Pending Free T4 Pending Microbiology and Other Data: Microbiology 07/17/17 09:31 Blood Culture - Preliminary Blood Venous No Growth Day 2 07/15/17 19:24 Aerobic Blood Culture - Preliminary Blood Venous No Growth Day 3 Anaerobic Blood Culture - Preliminary No Growth Day 3 07/15/17 18:48 Urine Culture - Final Urine Escherichia Coli Legionella Urinary Antigen - Final Negative Legionella Streptococcus pneumoniae Ag Screen - Final Negative S. pneumo Antigen 07/15/17 18:42 Nasal Screen MRSA (PCR)(TIO) - Final Nasal Mrsa Negative 07/15/17 18:42 Influenza Types A,B Antigen (TIO) - Final Nasal Specimen received for Influenza A/B Molecular testing Assess/Plan/Problems-Billing Assessment: 72 yo F admitted with sepsis 2/2 UTI with stay complicated by infiltrated IV/ hematoma and thrombophlebitis of left forearm - Patient Problems (1) Sepsis Comment: from E cli UTI-Sawyer associated Cefazolin tx completed on 07/21/17 CT Abd/pelvis without obstructing stones or abscess ESR and CRP elevated but improved since previous stays Sepsis resolved (2) Thrombophlebitis Comment: improving no e/o overlying infection (3) Atrial fibrillation with RVR Comment: HR controlled today, cont coumadin, diltiazem, metoprolol INR 1.4, coumadin dose increased from 2 to 4 mg today (4) Diabetes Comment: cont ISS, Lantus (5) Elevated troponin Comment: peak at 0.07-indeterminate suspect demand ischemia (6) Hypothyroid Comment: Continue current dose of synthroid. (7) Chronic indwelling Sawyer catheter Comment: placed on previous admission for suspect neurogenic bladder 2/2 DM2 with recommendation for outpatient urology follow up. Pt has not seen urology and should be encouraged to do so on discharge. (8) Adrenal incidentaloma Comment: Noted and need continued follow up with Dr. Velasquez as outpatient (9) Chronic systolic CHF (congestive heart failure) Comment: appears in acute exacerbation. cont IV Lasix x one more day, diuresing well (10) DVT prophylaxis Comment: - Warfarin. Status and Disposition: inpatient
[2017-07-22] MEDS: Warfarin TAB(*) 4 MG PO SCH (17:15)
[2017-07-22] MEDS: Lidocaine Patch REMOVE* 1 NOTE MISC PATCH OFF SCH (21:40)
[2017-07-23] MEDS: Levothyroxine TAB* 112 MCG TAB PO SCH (06:00)
[2017-07-23] MEDS: Insulin LISPRO* 1 UNITS UNIT SUBCUT SCH ×3 (08:14→17:58)
[2017-07-23] MEDS: Furosemide IV* 10 MG/ML VIAL (40 MG) IV SCH (08:17)
[2017-07-23] MEDS: Magnesium Oxide TAB* 400 MG PO SCH (08:18)
[2017-07-23] MEDS: Insulin GLARGINE(*) 1 UNITS UNIT SUBCUT SCH (08:18)
[2017-07-23] MEDS: Metoprolol Tartrate TAB* 25 MG PO SCH ×2 (08:18→21:02)
[2017-07-23] MEDS: Diltiazem CD CAP* 180 MG PO SCH (08:18)
[2017-07-23] MEDS: cloNIDine TAB* 0.1 MG PO SCH ×2 (08:18→21:02)
[2017-07-23] MEDS: Lidocaine PATCH 5%* 1 PATCH TRANSDERM SCH (08:19)
[2017-07-23 09:31] LABS: INR 1.38 (0.77-1.02)
[2017-07-23] MEDS ORDERED: Furosemide IV* 10 MG/ML VIAL (40 MG) IV ONE (13:20)
--- NOTE | 2017-07-23 13:24 | PN ---
Subjective Date of Service: 07/23/17 Interval History: Pt has no complaints, but appears dyspneic again Objective Active Medications: Acetaminophen (Tylenol Tab*) 650 mg PO Q4H PRN PRN Reason: FEVER/PAIN Albuterol (Ventolin Hfa Inhaler*) 2 puff INH Q4H PRN PRN Reason: SOB/WHEEZING Clonidine HCl (Catapres Tab*) 0.1 mg PO BID [facility] Last Admin: 07/23/17 08:18 Dose: 0.1 mg Cyclobenzaprine HCl (Flexeril Tab*) 10 mg PO TID PRN PRN Reason: SPASMS Dextrose (D50w Syringe 50 Ml*) 12.5 gm IV PUSH .FOR FS < 60 - SS PRN PRN Reason: FS < 60 Diltiazem HCl (Cardizem Cd Cap*) 360 mg PO DAILY [facility] Last Admin: 07/23/17 08:18 Dose: 360 mg Furosemide (Lasix Iv*) 40 mg IV DAILY [facility] Last Admin: 07/23/17 08:17 Dose: 40 mg Insulin Glargine (Lantus(*)) 18 units SUBCUT QAM [facility] Last Admin: 07/23/17 08:18 Dose: 18 units Insulin Human Lispro (Humalog*) 0 units SUBCUT AC [facility] PRN Reason: Protocol Last Admin: 07/23/17 08:14 Dose: Not Given Levothyroxine Sodium (Synthroid Tab*) 112 mcg PO DAILY@0600 [facility] Last Admin: 07/23/17 06:00 Dose: 112 mcg Lidocaine (Lidoderm 5% Patch*) 1 patch TRANSDERM DAILY [facility] Last Admin: 07/23/17 08:19 Dose: 1 patch Magnesium Oxide (Magox 400 Tab*) 400 mg PO DAILY [facility] Last Admin: 07/23/17 08:18 Dose: 400 mg Metoprolol Tartrate (Lopressor Iv*) 5 mg IV Q6H PRN PRN Reason: HEART RATE/PULSE GREATER THAN: Metoprolol Tartrate (Lopressor Tab*) 25 mg PO BID [facility] Last Admin: 07/23/17 08:18 Dose: 25 mg Ondansetron HCl (Zofran Inj*) 4 mg IV Q6H PRN PRN Reason: NAUSEA Pharmacy Profile Note (Lidocaine Patch Remove*) 1 note PATCH OFF 2100 [facility] Last Admin: 07/22/17 21:40 Dose: 1 note Polyethylene Glycol/Electrolytes (Miralax*) 17 gm PO DAILY PRN PRN Reason: CONSTIPATION Warfarin Sodium (Coumadin Tab(*)) 4 mg PO 1700 [facility] PRN Reason: Protocol Last Admin: 07/22/17 17:15 Dose: 4 mg Vital Signs - 8 hr 07/23/17 07/23/17 07:31 08:24 Temperature 97.4 F Pulse Rate 111 Respiratory 16 24 Rate Blood Pressure 138/91 (mmHg) O2 Sat by Pulse 99 Oximetry Oxygen Devices in Use Now: Nasal Cannula Appearance: 72 yo F in nAD, aAOx3 Eyes: No Scleral Icterus, PERRLA Ears/Nose/Mouth/Throat: NL Teeth, Lips, Gums, Mucous Membranes Moist Neck: NL Appearance and Movements; NL JVP, Trachea Midline Respiratory: Symmetrical Chest Expansion and Respiratory Effort, - - crackles at b/l bases Cardiovascular: NL Sounds; No Murmurs; No JVD, - - irregular Abdominal: NL Sounds; No Tenderness; No Distention, No Hepatosplenomegaly Lymphatic: No Cervical Adenopathy Extremities: No Clubbing, Cyanosis, - - +1 pitting pedal edema b/l Skin: - - b/l forearm ecchymosis Neurological: Alert and Oriented x 3, NL Muscle Strength and Tone Result Diagrams: 07/22/17 06:28 07/22/17 06:28 Additional Lab and Data: Lab Results 07/15/17 07/15/17 Range/Units 14:41 14:41 WBC 14.9 H (3.5-10.8) 10^3/ul RBC 4.15 (4.0-5.4) 10^6/ul Hgb 12.8 (12.0-16.0) g/dl Hct 40 (35-47) % MCV 95 (80-97) fL MCH 31 (27-31) pg MCHC 32 (31-36) g/dl RDW 15 (10.5-15) % Plt Count 281 (150-450) 10^3/ul MPV 7 L (7.4-10.4) um3 Neut % (Auto) Pending Lymph % (Auto) Pending [place] % (Auto) Pending Eos % (Auto) Pending Baso % (Auto) Pending Absolute Neuts (auto) Pending Absolute Lymphs (auto) Pending Absolute Monos (auto) Pending Absolute Eos (auto) Pending Absolute Basos (auto) Pending Absolute Nucleated RBC Pending Nucleated RBC % Pending Sodium 139 (133-145) mmol/L Potassium 3.9 (3.5-5.0) mmol/L Chloride 103 (101-111) mmol/L Carbon Dioxide 29 (22-32) mmol/L Anion Gap 7 (2-11) mmol/L BUN 29 H (6-24) mg/dL Creatinine 0.99 H (0.51-0.95) mg/dL Est GFR ( Amer) 70.7 (>60) Est GFR (Non-Af Amer) 55.0 (>60) BUN/Creatinine Ratio 29.3 H (8-20) Glucose 206 H (70-100) mg/dL Calcium 8.8 (8.6-10.3) mg/dL Total Bilirubin 0.40 (0.2-1.0) mg/dL AST 17 (13-39) U/L ALT 29 (7-52) U/L Alkaline Phosphatase 81 (34-104) U/L Troponin I Pending Total Protein 5.9 L (6.4-8.9) g/dL Albumin 3.1 L (3.2-5.2) g/dL Globulin 2.8 (2-4) g/dL Albumin/Globulin Ratio 1.1 (1-3) TSH Pending Free T4 Pending Microbiology and Other Data: Microbiology 07/17/17 09:31 Blood Culture - Preliminary Blood Venous No Growth Day 2 07/15/17 19:24 Aerobic Blood Culture - Preliminary Blood Venous No Growth Day 3 Anaerobic Blood Culture - Preliminary No Growth Day 3 07/15/17 18:48 Urine Culture - Final Urine Escherichia Coli Legionella Urinary Antigen - Final Negative Legionella Streptococcus pneumoniae Ag Screen - Final Negative S. pneumo Antigen 07/15/17 18:42 Nasal Screen MRSA (PCR)(TIO) - Final Nasal Mrsa Negative 07/15/17 18:42 Influenza Types A,B Antigen (TIO) - Final Nasal Specimen received for Influenza A/B Molecular testing Assess/Plan/Problems-Billing Assessment: 72 yo F admitted with sepsis 2/2 UTI with stay complicated by infiltrated IV/ hematoma and thrombophlebitis of left forearm - Patient Problems (1) Sepsis Comment: from E cli UTI-Sawyer associated Cefazolin tx completed on 1/11/18 CT Abd/pelvis without obstructing stones or abscess ESR and CRP elevated but improved since previous stays Sepsis resolved (2) Thrombophlebitis Comment: improving no e/o overlying infection (3) Atrial fibrillation with RVR Comment: HR controlled today, cont coumadin, diltiazem, metoprolol INR 1.3, coumadin dose increased from 2 to 4 mg on 07/22/16 (4) Diabetes Comment: cont ISS, Lantus (5) Elevated troponin Comment: peak at 0.07-indeterminate suspect demand ischemia (6) Hypothyroid Comment: Continue current dose of synthroid. (7) Chronic indwelling Sawyer catheter Comment: placed on previous admission for suspect neurogenic bladder 2/2 DM2 with recommendation for outpatient urology follow up. Pt has not seen urology and should be encouraged to do so on discharge. (8) Adrenal incidentaloma Comment: Noted and need continued follow up with Dr. Velasquez as outpatient (9) Chronic systolic CHF (congestive heart failure) Comment: appears in acute exacerbation still, will give an additional dose of IV Lasix today and cont treatment with IV diuretic daily (10) DVT prophylaxis Comment: - Warfarin. Status and Disposition: inpatient
[2017-07-23] MEDS: Warfarin TAB(*) 4 MG PO SCH (17:58)
[2017-07-23] MEDS: Lidocaine Patch REMOVE* 1 NOTE MISC PATCH OFF SCH (21:02)
[2017-07-24] MEDS: Levothyroxine TAB* 112 MCG TAB PO SCH (05:38)
[2017-07-24] MEDS: Insulin LISPRO* 1 UNITS UNIT SUBCUT SCH ×3 (08:09→17:25)
[2017-07-24] MEDS: Furosemide IV* 10 MG/ML VIAL (40 MG) IV SCH (08:28)
[2017-07-24] MEDS: Magnesium Oxide TAB* 400 MG PO SCH (08:28)
[2017-07-24] MEDS: Diltiazem CD CAP* 180 MG PO SCH (08:28)
[2017-07-24] MEDS: Metoprolol Tartrate TAB* 25 MG PO SCH ×2 (08:28→22:27)
[2017-07-24] MEDS: Insulin GLARGINE(*) 1 UNITS UNIT SUBCUT SCH (08:28)
[2017-07-24] MEDS: cloNIDine TAB* 0.1 MG PO SCH ×2 (08:28→22:27)
[2017-07-24] MEDS: Lidocaine PATCH 5%* 1 PATCH TRANSDERM SCH (08:29)
[2017-07-24 08:43] LABS: INR 1.53 (0.77-1.02)
[2017-07-24 09:03] LABS: ABS Basophils 0 10^3/ul (0-0.2); ABS Eosinophils 0.2 10^3/ul (0-0.6); ABS Lymphocytes 1.5 10^3/ul (1.0-4.8); ABS Monocytes 0.8 10^3/ul (0-0.8); ABS Neutrophils 8.2 10^3/ul (1.5-7.7); ABS Nucleated RBC 0 10^3/ul; Eosinophil % 2.2 % (0-6); Hematocrit 41 % (35-47); Hemoglobin 13.3 g/dl (12.0-16.0); Lymphocyte % 13.9 % (25-47); Mean Corpuscular HGB Conc 33 g/dl (31-36); Mean Corpuscular Hemoglobin 31 pg (27-31); Mean Corpuscular Volume 95 fL (80-97); Mean Platelet Volume 7 um3 (7.4-10.4); Nucleated Red Blood Cells % 0; Platelet Count 268 10^3/ul (150-450); Red Blood Count 4.29 10^6/ul (4.0-5.4); Red Cell Distribution Width 15 % (10.5-15); White Blood Count 10.8 10^3/ul (3.5-10.8)
--- NOTE | 2017-07-24 10:24 | PN ---
Subjective Date of Service: 07/24/17 Interval History: Pt feels "fine", no complaints Objective Active Medications: Acetaminophen (Tylenol Tab*) 650 mg PO Q4H PRN PRN Reason: FEVER/PAIN Albuterol (Ventolin Hfa Inhaler*) 2 puff INH Q4H PRN PRN Reason: SOB/WHEEZING Clonidine HCl (Catapres Tab*) 0.1 mg PO BID [facility] Last Admin: 07/24/17 08:28 Dose: 0.1 mg Cyclobenzaprine HCl (Flexeril Tab*) 10 mg PO TID PRN PRN Reason: SPASMS Dextrose (D50w Syringe 50 Ml*) 12.5 gm IV PUSH .FOR FS < 60 - SS PRN PRN Reason: FS < 60 Diltiazem HCl (Cardizem Cd Cap*) 360 mg PO DAILY [facility] Last Admin: 07/24/17 08:28 Dose: 360 mg Furosemide (Lasix Iv*) 40 mg IV DAILY [facility] Last Admin: 07/24/17 08:28 Dose: 40 mg Insulin Glargine (Lantus(*)) 18 units SUBCUT QAM [facility] Last Admin: 07/24/17 08:28 Dose: 18 units Insulin Human Lispro (Humalog*) 0 units SUBCUT AC [facility] PRN Reason: Protocol Last Admin: 07/24/17 08:09 Dose: Not Given Levothyroxine Sodium (Synthroid Tab*) 112 mcg PO DAILY@0600 [facility] Last Admin: 07/24/17 05:38 Dose: 112 mcg Lidocaine (Lidoderm 5% Patch*) 1 patch TRANSDERM DAILY [facility] Last Admin: 07/24/17 08:29 Dose: 1 patch Magnesium Oxide (Magox 400 Tab*) 400 mg PO DAILY [facility] Last Admin: 07/24/17 08:28 Dose: 400 mg Metoprolol Tartrate (Lopressor Iv*) 5 mg IV Q6H PRN PRN Reason: HEART RATE/PULSE GREATER THAN: Metoprolol Tartrate (Lopressor Tab*) 25 mg PO BID [facility] Last Admin: 07/24/17 08:28 Dose: 25 mg Ondansetron HCl (Zofran Inj*) 4 mg IV Q6H PRN PRN Reason: NAUSEA Pharmacy Profile Note (Lidocaine Patch Remove*) 1 note PATCH OFF 2100 [facility] Last Admin: 07/23/17 21:02 Dose: 1 note Polyethylene Glycol/Electrolytes (Miralax*) 17 gm PO DAILY PRN PRN Reason: CONSTIPATION Warfarin Sodium (Coumadin Tab(*)) 4 mg PO 1700 [facility] PRN Reason: Protocol Last Admin: 07/23/17 17:58 Dose: 4 mg Vital Signs - 8 hr 07/24/17 07/24/17 07/24/17 03:52 08:00 08:22 Temperature 97.8 F 97.2 F Pulse Rate 106 113 Respiratory 22 20 20 Rate Blood Pressure 130/90 122/84 (mmHg) O2 Sat by Pulse 99 100 Oximetry Oxygen Devices in Use Now: Nasal Cannula Appearance: 72 yo F in nAD, AAOx3 Eyes: No Scleral Icterus, PERRLA Ears/Nose/Mouth/Throat: NL Teeth, Lips, Gums, Mucous Membranes Moist Neck: NL Appearance and Movements; NL JVP, Trachea Midline Respiratory: Symmetrical Chest Expansion and Respiratory Effort, - - faint crackles at b/l bases Cardiovascular: - - irregular Abdominal: NL Sounds; No Tenderness; No Distention, No Hepatosplenomegaly Lymphatic: No Cervical Adenopathy Extremities: No Clubbing, Cyanosis, - - +1 pitting pedal edema b/l Skin: No Nodules or Sclerosis, - - b/l forearm ecchymosis-getting better Neurological: Alert and Oriented x 3, NL Muscle Strength and Tone Result Diagrams: 07/24/17 08:55 07/22/17 06:28 Additional Lab and Data: Lab Results 07/15/17 07/15/17 Range/Units 14:41 14:41 WBC 14.9 H (3.5-10.8) 10^3/ul RBC 4.15 (4.0-5.4) 10^6/ul Hgb 12.8 (12.0-16.0) g/dl Hct 40 (35-47) % MCV 95 (80-97) fL MCH 31 (27-31) pg MCHC 32 (31-36) g/dl RDW 15 (10.5-15) % Plt Count 281 (150-450) 10^3/ul MPV 7 L (7.4-10.4) um3 Neut % (Auto) Pending Lymph % (Auto) Pending [place] % (Auto) Pending Eos % (Auto) Pending Baso % (Auto) Pending Absolute Neuts (auto) Pending Absolute Lymphs (auto) Pending Absolute Monos (auto) Pending Absolute Eos (auto) Pending Absolute Basos (auto) Pending Absolute Nucleated RBC Pending Nucleated RBC % Pending Sodium 139 (133-145) mmol/L Potassium 3.9 (3.5-5.0) mmol/L Chloride 103 (101-111) mmol/L Carbon Dioxide 29 (22-32) mmol/L Anion Gap 7 (2-11) mmol/L BUN 29 H (6-24) mg/dL Creatinine 0.99 H (0.51-0.95) mg/dL Est GFR ( Amer) 70.7 (>60) Est GFR (Non-Af Amer) 55.0 (>60) BUN/Creatinine Ratio 29.3 H (8-20) Glucose 206 H (70-100) mg/dL Calcium 8.8 (8.6-10.3) mg/dL Total Bilirubin 0.40 (0.2-1.0) mg/dL AST 17 (13-39) U/L ALT 29 (7-52) U/L Alkaline Phosphatase 81 (34-104) U/L Troponin I Pending Total Protein 5.9 L (6.4-8.9) g/dL Albumin 3.1 L (3.2-5.2) g/dL Globulin 2.8 (2-4) g/dL Albumin/Globulin Ratio 1.1 (1-3) TSH Pending Free T4 Pending Microbiology and Other Data: Microbiology 07/17/17 09:31 Blood Culture - Preliminary Blood Venous No Growth Day 2 07/15/17 19:24 Aerobic Blood Culture - Preliminary Blood Venous No Growth Day 3 Anaerobic Blood Culture - Preliminary No Growth Day 3 07/15/17 18:48 Urine Culture - Final Urine Escherichia Coli Legionella Urinary Antigen - Final Negative Legionella Streptococcus pneumoniae Ag Screen - Final Negative S. pneumo Antigen 07/15/17 18:42 Nasal Screen MRSA (PCR)(TIO) - Final Nasal Mrsa Negative 07/15/17 18:42 Influenza Types A,B Antigen (TIO) - Final Nasal Specimen received for Influenza A/B Molecular testing Assess/Plan/Problems-Billing Assessment: 72 yo F admitted with sepsis 2/2 UTI with stay complicated by infiltrated IV/ hematoma and thrombophlebitis of left forearm - Patient Problems (1) Sepsis Comment: from E coli UTI-Sawyer associated Cefazolin tx completed on 07/21/17 CT Abd/pelvis without obstructing stones or abscess ESR and CRP elevated but improved since previous stays Sepsis resolved (2) Thrombophlebitis Comment: improving no e/o overlying infection (3) Atrial fibrillation with RVR Comment: HR controlled today, cont coumadin, diltiazem, metoprolol INR 1.3, coumadin dose increased from 2 to 4 mg on 07/22/16 (4) Diabetes Comment: cont ISS, Lantus (5) Elevated troponin Comment: peak at 0.07-indeterminate suspect demand ischemia (6) Hypothyroid Comment: Continue current dose of synthroid. (7) Chronic indwelling Sawyer catheter Comment: placed on previous admission for suspect neurogenic bladder 2/2 DM2 with recommendation for outpatient urology follow up. Pt has not seen urology and should be encouraged to do so on discharge. (8) Adrenal incidentaloma Comment: Noted and need continued follow up with Dr. Velasquez as outpatient. Pt is in the process of w/up for [place]'s (9) Chronic systolic CHF (congestive heart failure) Comment: appears in acute exacerbation still, will give an additional dose of IV Lasix today and cont treatment with IV diuretic daily (10) DVT prophylaxis Comment: - Warfarin. Status and Disposition: inpatient
[2017-07-24] MEDS ORDERED: Furosemide IV* 10 MG/ML 10 ML VIAL (100 MG) IV ONE (16:00)
[2017-07-24] MEDS: Warfarin TAB(*) 4 MG PO SCH (17:24)
[2017-07-24] MEDS: Lidocaine Patch REMOVE* 1 NOTE MISC PATCH OFF SCH (22:27)
[2017-07-25] MEDS: Levothyroxine TAB* 112 MCG TAB PO SCH (06:06)
[2017-07-25 06:42] LABS: EGFR Non-African American 62.2 (>60)
[2017-07-25 06:45] LABS: INR 1.79 (0.77-1.02)
[2017-07-25] MEDS: Insulin LISPRO* 1 UNITS UNIT SUBCUT SCH ×2 (09:00→12:20)
[2017-07-25] MEDS: Insulin GLARGINE(*) 1 UNITS UNIT SUBCUT SCH (09:12)
[2017-07-25] MEDS: Furosemide IV* 10 MG/ML VIAL (40 MG) IV SCH (09:12)
[2017-07-25] MEDS: Diltiazem CD CAP* 180 MG PO SCH (09:13)
[2017-07-25] MEDS: Metoprolol Tartrate TAB* 25 MG PO SCH (09:13)
[2017-07-25] MEDS: Magnesium Oxide TAB* 400 MG PO SCH (09:13)
[2017-07-25] MEDS: Lidocaine PATCH 5%* 1 PATCH TRANSDERM SCH (09:13)
[2017-07-25] MEDS: cloNIDine TAB* 0.1 MG PO SCH (09:19)
[2017-07-25 14:16] VITALS: BP 113/70
--- NOTE | 2017-07-25 15:33 | DS ---
ADDENDUM NOW INCLUDED ON THIS REPORT CC: [facility]; Dr. Velasquez; Urology, Dr. Loza and Dr. Nj; Dr. Garrido * DISCHARGE SUMMARY: DATE OF ADMISSION: 07/15/17 DATE OF DISCHARGE: 07/25/17 PRIMARY CARE PROVIDER: Physician from [facility]- Dr. Proctor. DISCHARGE DIAGNOSES: 1. Escherichia coli urinary tract infection and sepsis due to that. Urinary tract infection is Sawyer associated. 2. Acute on chronic diastolic congestive heart failure. 3. Left arm superficial thrombophlebitis associated with likely venipunctures. 4. Right forearm hematoma. SECONDARY DIAGNOSES: 1. History of chronic atrial fibrillation. 2. History of tachy-robby syndrome. 3. Hypertension. 4. Hyperlipidemia. 5. History of diastolic congestive heart failure. 6. Diabetes, type 2, insulin dependent. 7. History of adrenal nodules bilaterally with ongoing workup for [place]'s disease by Dr. Velasquez. 8. Status post pacemaker placement for tachy-robby syndrome. 9. Status post mechanical aortic valve replacement in the past. MEDICATIONS AT DISCHARGE: Include: 1. Lasix 40 mg twice a day. 2. Acetaminophen on a p.r.n. basis. 3. Albuterol inhaler 2 puffs every 4 hours p.r.n. 4. Vitamin D 2000 units daily. 5. Catapres 1 tablet b.i.d. at 0.1 mg. 6. Flexeril 10 mg 3 times a day. 7. Cardizem CD 240 mg daily. 8. Fish oil 1 capsule daily. 9. Furosemide 40 mg b.i.d. 10. Insulin Lantus 18 units daily. 11. Synthroid 112 mcg daily. 12. Lidocaine 5% patch, 1 patch transdermally to lower back. 13. Mag-Ox 400 mg daily. 14. Metformin 500 mg daily. 15. Osteo Bi-Flex 1 tablet daily. 16. Oxycodone with acetaminophen 5/325 mg 1 tablet every 4 hours p.r.n. 17. MiraLAX 17 g daily. 18. Probiotic 1 tablet daily. 19. Coumadin 4 mg daily. Changes to the medications were made and those include: 1. The patient's Lasix was increased from 40 mg daily to 40 b.i.d. 2. Coumadin was increased from 3 mg every other day alternating with 4 mg every other day to 4 mg daily. The patient's weight on the day of discharge was 225 pounds. The patient is to be evaluated by a physician or nurse practitioner if weight increases by over 3 pounds, and weights should be obtained weekly or as needed basis. FOLLOWUP APPOINTMENTS: Are as follows: 1. The patient will be evaluated by her primary care provider in the [facility] within approximately 3 to 7 days. 2. Her basic metabolic panel is to be checked in approximately a week. 3. Her weights are to be obtained every week. 4. The patient is on continuous oxygen at 3 L. 5. The patient has an indwelling Sawyer in place and she needs to see a urologist to possibly discontinue the Sawyer. She was noted to have high urine residual on admission at the beginning of June of 2017 when her Sawyer was placed originally. 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 Velasquez. The patient has a history of incidentally found bilateral adrenal nodules. The patient also has history of diastolic CHF as well as obesity, diabetes, metabolic syndrome. She was admitted to the hospital from the [facility] where she was in rehabilitation on 07/15/17 with atrial fibrillation with rapid ventricular response. She was noted to have sepsis due to E. coli UTI, which was Sawyer associated. Her transthoracic echocardiogram showed EF of 40% to 45% and no significant changes comparing with study from April 2017. The mechanical prosthetic valve had calculated valve area of 1.06 sq. cm. When the patient was diagnosed with urosepsis, she had an abdominal CT obtained , which showed non specific adenomas bilateral adrenal glands, left pleural effusion with atelectasis, and no evidence of obstructive uropathy. The patient was treated with cefazolin with good results for 7 days of her UTI. The urinary catheter was exchanged during her hospital stay. Post sepsis treatment, she was noted to be in fluid overload and suspicion of her chronic CHF. She was diuresed for several days during her hospital stay with daily negative balances beginning from 07/21/17. Despite that, she continued to be significantly fluid overloaded and when she goes to [facility], her Lasix is going to increased to 40 mg twice a day. She is also still using oxygen at 3 L and she has a Sawyer in place as above mentioned. She is being transferred back to [facility] for further rehabilitation. PHYSICAL EXAM AT THE TIME OF DISCHARGE: Blood pressure 129/78, heart rate of 102 and irregularly irregular, respiratory rate 22, oxygen saturation 99% on 3 L of oxygen nasal cannula, temperature 98.2. General: This is a very pleasant 72-year- old female, who is obese, in no acute distress, alert, awake, and oriented x3. HEENT: Head is atraumatic, normocephalic. Eyes: Pupils equal and reactive to light and accommodation. Oropharynx clear. Mucosa moist. Neck : Supple. No JVD. No bruits bilaterally. Cardiovascular: Irregularly irregular rhythm. No murmurs. Respiratory: Crackles at bilateral bases. Abdomen: Soft, nontender. Bowel sounds present in all 4 quadrants. Extremities: There is +1 pitting pedal edema bilaterally. Pulses +2 bilaterally. There is no clubbing or cyanosis. Neuro Evaluation: Speech clear. Cranial nerves II through XII grossly intact. Motor strength is 5/5 bilaterally. Please note that the patient has significantly appearing will face with facial erythema suggestive of possibility of Sharon's. DIAGNOSTIC STUDIES/LAB DATA DURING THE HOSPITAL STAY: Included: On 07/24/17, white blood cell count of 10.8, hemoglobin of 13.3, hematocrit of 41, and platelets of 268. Sodium was 141, potassium 3.7, chloride 103, carbon dioxide 35, BUN 24, creatinine 0.89. Influenza testing was negative. Chest x-ray obtained on 07/20/17, impression: "Stigmata of obstructive lung disease. Unchanged small dependent left pleural effusion with bilateral atelectasis. Inflammatory infiltrative left lung base could not be excluded." Please note that this is a short summary of the patient's hospitalization. Please refer to further medical records for details. TIME SPENT: Approximately 45 minutes was spent on preparation of the patient's discharge. ADDENDUM: The addendum to the discharge summary dictated on the same day, which is 07/25/17, is as follows: Please note that the patient's INR on the day of discharge was 1.7. Her Coumadin dose was increased from 3 mg every other day alternating with 4 mg to 4 mg daily a couple of days prior to today's blood draw. Next INR to be checked this coming Wednesday, in 2 days. Please also note that the patient was diagnosed with left superficial thrombophlebitis in the left upper extremity, likely related to venipuncture or IV access. That appeared to be not infected and was treated conservatively. Patient also was noted to have superficial hematoma in the right forearm after venipunctures. Due to the hematoma, patient was not bridged with Lovenox when her INR was subtherapeutic. [id number]/[facility] #: [id number] A- [id number]/[facility] #: [id number] [facility]
--- NOTE | 2017-07-26 11:51 | DS ---
DISCHARGE SUMMARY: ADDENDUM: The addendum to the discharge summary dictated on the same day, which is 07/25/17 is as follows: Please note that the patient's INR on the day of discharge was 1.7. Her Coumadin dose was increased from 3 mg every other day alternating with 4 mg to 4 mg daily a couple of days prior to today's blood draw. Next INR to be checked this coming Tuesday, in 2 days. Please also note that the patient was diagnosed with left superficial thrombophlebitis in the left upper extremity, likely related to venipuncture or IV access. That appeared to be not infected and was treated conservatively. Patient also was noted to have superficial hematoma in the right forearm after venipunctures. Due to the hematoma, patient was not bridged with Lovenox when her INR was subtherapeutic. [id number]/[facility] #: [id number] MTDD
== END 2017-07-25 16:45 | DRG 698 ==
LOC: ED 14:19 → ICU 17:46 → MEDTELE 07-18 18:04
PROVIDERS: ADMIT Internal Medicine; ATTEND Internal Medicine
PROC: 0T2BX0Z Change Drainage Device in Bladder, External Approach (ICD-10-PCS; principal; 2017-07-15)
DX: T83.511A Infection and inflammatory reaction due to indwelling urethral catheter, initial encounter (principal); A41.9 Sepsis, unspecified organism; I50.33 Acute on chronic diastolic (congestive) heart failure; I48.0 Paroxysmal atrial fibrillation; I24.8 Other forms of acute ischemic heart disease; E27.8 Other specified disorders of adrenal gland; I80.8 Phlebitis and thrombophlebitis of other sites; T80.1XXA Vascular complications following infusion, transfusion and therapeutic injection, initial encounter; T80.818A Extravasation of other vesicant agent, initial encounter; J98.11 Atelectasis; E11.9 Type 2 diabetes mellitus without complications; B96.20 Unspecified Escherichia coli [E. coli] as the cause of diseases classified elsewhere; N39.0 Urinary tract infection, site not specified; E03.9 Hypothyroidism, unspecified; I11.0 Hypertensive heart disease with heart failure; I48.91 Unspecified atrial fibrillation; E78.5 Hyperlipidemia, unspecified; Z66 Do not resuscitate; E78.00 Pure hypercholesterolemia, unspecified; R40.2412 Glasgow coma scale score 13-15, at arrival to emergency department; J40 Bronchitis, not specified as acute or chronic; R79.89 Other specified abnormal findings of blood chemistry; Y73.1 Therapeutic (nonsurgical) and rehabilitative gastroenterology and urology devices associated with adverse incidents; T80.89XA Other complications following infusion, transfusion and therapeutic injection, initial encounter; S50.11XA Contusion of right forearm, initial encounter; I48.2 Chronic atrial fibrillation; E66.9 Obesity, unspecified; Z95.0 Presence of cardiac pacemaker; Z95.2 Presence of prosthetic heart valve; Z82.49 Family history of ischemic heart disease and other diseases of the circulatory system; Z87.891 Personal history of nicotine dependence; Z87.01 Personal history of pneumonia (recurrent); Z82.3 Family history of stroke; Y92.9 Unspecified place or not applicable; Z79.4 Long term (current) use of insulin; Z79.01 Long term (current) use of anticoagulants; Z68.36 Body mass index [BMI] 36.0-36.9, adult
CPT/HCPCS: 36415; 71045; 71046; 74176; 80048; 80053; 81003; 81015; 83605; 83735; 83880; 84439; 84443; 84484; 84520; 85025; 85027; 85379; 85610; 85652; 85730; 86140; 87040; 87077; 87086; 87186; 87502; 87641; 87899; 93005; 93306; 94760; 99284; A9270-GY; J0690; J0696; J1160; J1940; J2270; J3475; J3490

== ENCOUNTER → 2017-09-22 10:34 | Day surgery (SDC) | payer MEDICARE ==
[2017-09-22 11:47] LABS: ABS Basophils 0 10^3/ul (0-0.2); ABS Eosinophils 0.1 10^3/ul (0-0.6); ABS Lymphocytes 1.6 10^3/ul (1.0-4.8); ABS Monocytes 1.2 10^3/ul (0-0.8); ABS Neutrophils 9.7 10^3/ul (1.5-7.7); ABS Nucleated RBC 0 10^3/ul; Eosinophil % 0.4 % (0-6); Hematocrit 45 % (35-47); Hemoglobin 14.2 g/dl (12.0-16.0); Lymphocyte % 12.7 % (25-47); Mean Corpuscular HGB Conc 32 g/dl (31-36); Mean Corpuscular Hemoglobin 30 pg (27-31); Mean Corpuscular Volume 93 fL (80-97); Mean Platelet Volume 7 um3 (7.4-10.4); Nucleated Red Blood Cells % 0; Platelet Count 339 10^3/ul (150-450); Red Blood Count 4.82 10^6/ul (4.0-5.4); Red Cell Distribution Width 16 % (10.5-15); White Blood Count 12.6 10^3/ul (3.5-10.8)
[2017-09-22 11:56] LABS: EGFR Non-African American 47.2 (>60)
[2017-09-22 11:58] LABS: INR 2.81 (0.77-1.02)
--- NOTE | 2017-09-22 13:36 | PN ---
Progress Note - Progress Note Date of Service: 09/22/17 SOAP: Subjective: No complaints. Patient's planned Adrenal Vein Sampling has to be cancelled today due to INR = 2.8 Objective: AAO x 3, NAD Assessment: Sharon Syndrome patient that had planned Adrenal Vein Sampling cancelled today because of INR = 2.8. Plan: 1. Will hold Coumadin tonight and check at [facility] tomorrow at 8am. If =/< 1.5 then potentially the patient can be transferred [place] [facility] [place]. 2. Otherwise patient will re-scheduled within the next 1-2 weeks and Coumadin will be held appropriately.
== END | disposition home or self-care (01) ==
LOC: CHICATH 10:34
PROVIDERS: ATTEND Radiology Diagnostic Radiology
DX: E27.8 Other specified disorders of adrenal gland (principal); E24.9 Cushing's syndrome, unspecified; Z53.09 Procedure and treatment not carried out because of other contraindication; D68.32 Hemorrhagic disorder due to extrinsic circulating anticoagulants; Z79.01 Long term (current) use of anticoagulants; I48.91 Unspecified atrial fibrillation; E03.9 Hypothyroidism, unspecified; Z95.2 Presence of prosthetic heart valve; N28.9 Disorder of kidney and ureter, unspecified
CPT/HCPCS: 36415; 80048; 85025; 85610; 85730

== ENCOUNTER → 2017-10-04 06:45 | Day surgery (SDC) | payer MEDICARE ==
[~2017-10-04 06:45] MED LIST: Diltiazem CD CAP* 240 MG PO SCH; Heparin 2 UNITS/ML IVPREMIX* 2,000 ML IV ONE; Iodixanol* (CONTRAST) 320 MG/ML 100 ML SDV ONE; Iohexol 350 (CONTRAST) 200 ML MDV IV ONE; LORazepam TAB(*) 1 MG ONE; Lidocaine 1% INJ* 10 MG/ML 30 ML SDV ONE; Midazolam* 1 MG/ML 5 ML VIAL (5 MG) ONE; fentaNYL* 50 MCG/ML 2 ML VIAL (100 MCG VIAL) ONE
--- NOTE | 2017-10-04 11:32 | PN ---
Progress Note - Progress Note Date of Service: 10/04/17 SOAP: Subjective: Patient without pain complaints at rest. No nausea. Wants to eat lunch. No headache or chest pain. Objective: 128, 109/83, resp 18, 94% (room air) NAD, AAO x 3 Tachy with RR, CTAB Minimal tenderness when palpating abdomen (patient states that is "normal") No significant pain is elicited when percussing the bilateral flanks Sawyer bag with clear yellow urine (no blood) Right groins is soft, nontender Dressing is CDI RLE is neuromuscular intact grossly Assessment: 72 year old woman status post cavogram, renal venogram and bilateral adrenal vein sampling. There was a small amount of hemorrhage at the left adrenal vein after catheter venogram, but the patient did not exhibit any imminent clinical symptoms (extreme hypertension, tachycardia beyond her baseline, chest pain, etc ) and now nearly 2 hours post procedure does not exhibit any signs or symptoms of retroperitoneal hemorrhage. Plan: 1. Return to [facility]. 2. Lab values will be followed. 3. Case and hemorrhage was discussed with Dr. Velasquez after the procedure.
--- NOTE | 2017-10-07 11:55 | RAD ---
CATHETER DIRECTED ADRENAL VEIN SAMPLING CPT II Codes: 6045F Procedures performed: 1. Diagnostic inferior vena cavogram. 2. Left renal venogram. 3. Bilateral adrenal venogram. 4. Direct sampling from the bilateral adrenal veins and simultaneously the IVC. 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 The goal of the procedure was to determine if there is a unilateral hyperactive adrenal gland nodule versus symmetrical hormone production from the adrenal glands. Comparison: CT abdomen pelvis July 20, 2017 Contrast: 55 mL Omnipaque 300 Fluoroscopy Time: 7.4 minutes Vessels Accessed: Percutaneous access was obtained with ultrasound guidance in the right common femoral vein in the retrograde direction. Catheter venography was performed in the Inferior Vena Cava, left renal vein and bilateral adrenal veins. Anesthesia: Conscious sedation with IV Fentanyl and Versed as well as local 1% lidocaine injected locally at the venotomy site. Conscious sedation time: Timeout: 840 hours Case end: 918 hours Total conscious sedation time: 38 minutes Additional medications: The patient received 1 mg of p.o. Ativan prior to the onset of the procedure. Procedure narration and imaging findings: In planning for the adrenal vein sampling procedure careful review of prior CT imaging was performed to best identify the branch points of the small bilateral adrenal veins. Prior to the procedure the risk, benefits and alternative therapies were carefully explained and informed consent was obtained from the patient. The patient was appropriately positioned on the table in the angiography suite. A formal time out was performed and all members of the team and the patient agreed to the patient, procedure and laterality. Preliminary ultrasound indicated a patent right common femoral vein. The skin overlying the right common femoral vein was prepped and draped in standard sterile fashion. Sterile precautions were employed including use of cap, mask, gown and sterile gloves. The skin overlying the femoral vein was anesthetized with 1% lidocaine. Real time ultrasound imaging shows the femoral vein is patent and determined to be adequate for sheath access. Utilizing real time ultrasound visualization the femoral vein was accessed with an 18 gauge needle. An image was recorded and saved confirming appropriate intraluminal position of the needle tip. Blood return further confirmed position. Under fluoroscopic control a 0.035" wire was advanced to the lower cavoatrial junction. The needle was removed, exchanged for a 6 [place]ian access sheath and a 5 [place] C2 catheter was advanced to the anticipated level of the left adrenal vein. Utilizing a combination of a 5-[place] C2 catheter and a 0.035 inch wire the left renal vein was cannulated. The wire was removed and contrast venography with the tip of the catheter in the left renal vein was performed to directly identify the branch point of the left adrenal vein. The adrenal vein was visualized along the superior margin of the left renal vein. Utilizing the prior venogram as a guide, the left adrenal gland was accessed utilizing a combination of a 4-[place] angled tip catheter and the hydrophilic 0.035" wire. A very gentle contrast venogram was performed depicting the left adrenal vein and left adrenal gland. Unfortunately a small amount of extravasation was seen at the left adrenal vein and within the left adrenal gland. Even closer monitoring of the patient's heart rate and blood pressure was undertaken and there was no serious increase in either heart rate or blood pressure to indicate adrenal gland crisis. Confident that the catheter tip was directly sampling the left adrenal vein, approximately 7 mL of venous blood was slowly aspirated through the catheter over the course of at least 1 minute to avoid collapse of the left adrenal vein. The catheter was immediately drawn back into the IVC, flushed with sterile saline and a blood sample was drawn from the IVC within 60 seconds of the left adrenal vein sampling. Both of these vein samplings were carefully labeled with location and exact time and delivered to the laboratory immediately after acquisition. The wire was reinserted and the 4-Zambian catheter was exchanged again for the 5-Zambian C2 catheter. Utilizing the C2 catheter the right adrenal vein was directly cannulated along the posterior IVC. A gentle contrast venogram with the tip of the catheter in the right adrenal vein depicted of the vein and the right adrenal gland. Over the course of at least 1 minute a 7 mL blood sample was slowly aspirated directly from the right adrenal vein. Immediately upon completion the catheter was drawn back into the IVC and a second central venous blood sample was drawn within 60 seconds of the right adrenal vein sample. Both of these vein samplings were carefully labeled with location and exact time and delivered to the laboratory immediately after acquisition. The small amount of extravasation seen at the left adrenal vein remains stable without significant change from the initial venogram that demonstrated extravasation. The patient's heart rate and blood pressure remained at her baseline and she did not report any new or worsening back or flank pain. The right common femoral vein sheath was then removed and direct pressure was held on the common femoral vein access site for 10 minutes. The site was dressed with sterile gauze and the patient left the angiography suite in stable condition. SUMMARY OF PROCEDURE, IMAGING FINDINGS AND INTERVENTIONS PERFORMED: 1. Diagnostic studies performed: * Venous access was obtained at the right common femoral vein in the antegrade direction (i.e. towards the heart) with ultrasound guidance. A sonographic image was recorded. * Diagnostic catheter inferior vena cavography, left renal venography and bilateral adrenal venography were performed with the catheter tips in the IVC, left renal vein and bilateral adrenal veins, respectively. Direct contrast venography was necessary to locate and sample the bilateral adrenal veins. 2. Interpretation of diagnostic studies performed: * The left and right adrenal veins were located branching from the superior left renal vein and posterior lateral IVC, respectively. 3. Surgical interventions performed: * Direct vein sampling was acquired from the left and then the right adrenal veins. * Within seconds after each adrenal vein sampling, central vein sampling was acquired from the IVC. * After each set of vein sampling, the blood samples were carefully labeled with location and exact time and immediately delivered to the laboratory. 4. Interpretation of interventions performed: * There is a small amount of extravasation at the left adrenal vein and gland. The amount of extravasation remains stable throughout the length of the procedure under fluoroscopic imaging. The patient was closely monitored throughout the procedure and for 2 hours after the procedure for any sharp increase in heart rate or blood pressure, neither of which occurred. The patient did not report any new or worsening back or flank pain. PLAN: 1. Follow-up laboratory values of aldosterone and cortisol in the bilateral adrenal veins and IVC. 2. The patient may restart her anticoagulation therapy immediately.
== END | disposition home or self-care (01) ==
LOC: CHICATH 06:45
PROVIDERS: ATTEND Radiology Diagnostic Radiology
DX: E27.8 Other specified disorders of adrenal gland (principal)
CPT/HCPCS: 36415; 75833; 76937; 82088; 82533; A9270-GY; C1887; J1644; J2250; J3010

== ENCOUNTER 2017-10-07 11:18 | Inpatient (IN) | payer MEDICARE, OTHER ==
[2017-10-07 12:41] LABS: ABS Basophils 0 10^3/ul (0-0.2); ABS Eosinophils 0 10^3/ul (0-0.6); ABS Lymphocytes 1.1 10^3/ul (1.0-4.8); ABS Monocytes 1.4 10^3/ul (0-0.8); ABS Neutrophils 13.2 10^3/ul (1.5-7.7); ABS Nucleated RBC 0 10^3/ul; Eosinophil % 0.2 % (0-6); Hematocrit 41 % (35-47); Hemoglobin 13.3 g/dl (12.0-16.0); Lymphocyte % 7.2 % (25-47); Mean Corpuscular HGB Conc 33 g/dl (31-36); Mean Corpuscular Hemoglobin 30 pg (27-31); Mean Corpuscular Volume 93 fL (80-97); Mean Platelet Volume 7.6 um3 (7.4-10.4); Nucleated Red Blood Cells % 0.1; Platelet Count 163 10^3/ul (150-450); Red Blood Count 4.39 10^6/ul (4.0-5.4); Red Cell Distribution Width 16 % (10.5-15); White Blood Count 15.8 10^3/ul (3.5-10.8)
[2017-10-07 12:50] LABS: INR 1.48 (0.77-1.02)
[2017-10-07 12:58] LABS: EGFR Non-African American 45.3 (>60)
[2017-10-07] MEDS ORDERED: Diltiazem DRIP* 100 MG/100 ML ADDV.BAG IVPB ONE (13:03)
[2017-10-07] MEDS ORDERED: NS 0.9% 500 ML* 500 ML IV ONE ×2 (13:05→19:24)
[2017-10-07] MEDS ORDERED: Iodixanol* (CONTRAST) 320 MG/ML 100 ML SDV IV ONE (13:19)
--- NOTE | 2017-10-07 13:31 | RAD ---
HISTORY: Left flank pain, chest discomfort COMPARISONS: March 20, 2018 VIEWS: 1: frontal portable view of the chest at 1:10 PM FINDINGS: LINES AND TUBES: A left-sided pacemaker is noted.. CARDIOMEDIASTINAL SILHOUETTE: The cardiomediastinal silhouette is stable. A prosthetic heart valve is noted. PLEURA: The costophrenic angles are sharp. No pleural abnormalities are noted. LUNG PARENCHYMA: The lungs are clear. ABDOMEN: The upper abdomen is clear. There is no subphrenic gas. BONES AND SOFT TISSUES: The patient is status post median sternotomy. IMPRESSION: LINES AND TUBES ABOVE. NO ACTIVE CARDIOPULMONARY DISEASE.
[2017-10-07] MEDS ORDERED: Diltiazem IV VIAL* 125 MG in NS 0.9% 100 ML* 100 ML IVPB ONE (14:00)
[2017-10-07] MEDS ORDERED: Docusate CAP* 100 MG PO PRN (14:34)
[2017-10-07] MEDS ORDERED: Albuterol HFA INHALER* 8 gm MDI INH PRN (14:34)
[2017-10-07] MEDS ORDERED: Acetaminophen TAB* 325 MG PO PRN (14:34)
[2017-10-07] MEDS ORDERED: Dextrose 50% Syringe 50 ML* 25 GM/50 ML SYRINGE IV PUSH PRN (14:38)
--- NOTE | 2017-10-07 14:39 | RAD ---
STUDY: CT angiography of the chest, abdomen and pelvis. INDICATION: Abdominal pain radiating to the back. COMPARISON: CTA chest dated April 26, [address] abdomen pelvis July 20, 2017 TECHNIQUE: Multidetector CT angiography of the chest, abdomen and pelvis were obtained from the lung apices to the ischial tuberosities after the intravenous injection of 100 mL Visipaque 320. Reformats were created in the coronal and sagittal planes. 3-D vascular imaging was created from the source images and reviewed as well. ANGIOGRAPHIC FINDINGS: There is near complete occlusive thrombus in the right lobar pulmonary artery (axial image 62). There is occlusive thrombus in segmental branches of the right lower lobe pulmonary artery. The right upper and middle lobar pulmonary arteries are adequately patent. There is occlusive thrombus and segmental branches of the left lower lobe (axial image 59) as well as nonocclusive thrombus in other segmental branches (image 58). Again seen is a prostatic aortic valve. The abigail ascending aorta measures up to 4.4 x 4.4 cm in the axial plane, previously 4.3 x 4.5 cm. There is a circumferential hypoattenuating line around the periphery of the ascending aorta with hyperattenuating material between that line and the pericardial fat. This appears to correspond to the hyperattenuating ring seen on the CTA dated April 26, 2017 when there was no contrast filling the lumen of the aorta. Essentially there is been no significant change since the previous CTA of the chest. There is no hyperattenuating material extending beyond the avendano of the aorta. There is no hyperattenuating pericardial effusion or signs of extravasation in the mediastinum. The proximal most portions of the coronary arteries appear to fill adequately with contrast. There is atherosclerotic calcification at the arch of the aorta but the major branch vessels are patent. There is scattered calcified atherosclerosis of the descending thoracic aorta and abdominal aorta but luminal patency is maintained and there is no pathologic aneurysmal dilatation or signs of dissection. Contrast is seen filling as far as the proximal superficial femoral arteries. The branch arteries from the abdominal aorta including the celiac trunk, superior mesenteric artery, inferior mesenteric artery and bilateral renal arteries appear to be adequately patent. There is reflux of the intravenously injected contrast inferiorly into the IVC and hepatic veins. This is a finding associated with cardiac deficiency and/or right heart failure. NON ANGIOGRAPHIC FINDINGS: Chest: There are small bibasilar pleural effusions. The pleural effusion on the left is reduced when compared to the previous CTA of the chest. There is linear based density along the medial aspect of the right lower lobe. There is a similar appearance at the dependent-most portion of the left lower lobe. The lungs are otherwise adequately aerated. There is no mediastinal or hilar lymphadenopathy. The heart is grossly normal in appearance. Abdomen & Pelvis: Again seen are bilateral adrenal nodules measuring up to 2.2 cm on the right and 2.1 cm on the left. These have not changed when compared to the previous CTA. There are no signs of extravasation or hematoma adjacent to the left adrenal gland. The liver, spleen and pancreas are grossly normal in appearance. 1.8 cm gallstone is noted in the otherwise normal-appearing gallbladder. The kidneys are normal in appearance without focal mass, calcification or signs of hydronephrosis. The renal cortices enhance minimally based on early arterial phase imaging. A Sawyer catheter is noted in the decompressed urinary bladder. Evaluation of the gastrointestinal tract is limited without oral contrast. The small and large bowel are not distended. The appendix is not discretely visualized but there are no acute inflammatory changes in the right lower quadrant characteristic of acute appendicitis. There is no gross retroperitoneal or mesenteric lymphadenopathy. At least one calcified fibroid is incidentally noted in the uterus. There are multilevel degenerative changes of the thoracic and lumbar spine. Stable compression deformities at L3, L4 and T8 are similar in appearance to prior CT imaging. IMPRESSION: 1. Interval appearance of near occlusive right lower lobe pulmonary arterial embolism and mixed occlusive and partially occlusive left lower lobe segmental branch pulmonary emboli. 2. Again seen is an ascending aortic aneurysm measuring 4.4 x 4.4 cm. There is unusual thickening of the ascending root similar in appearance to the April 26, 2017 CTA. This is suspected to be due to prior thoracic surgery as opposed to representing a dissection. Please correlate to details of the patient's prior thoracic surgery. 3. There are no signs of acute adrenal hemorrhage or hematoma adjacent to either adrenal gland. The adrenal gland nodules documented on prior CT imaging are unchanged. 4. Reflux of intravenously injected contrast into the IVC and hepatic veins can be seen in the setting of cardiac insufficiency and/or right heart failure. 5. Additional chronic, degenerative and iatrogenic findings described in the body the report. The acute segmental and lobar pulmonary emboli were reported to Dr. Garcia over the telephone at approximately 1415 hours on October 07, 2017.
[2017-10-07 14:58] LABS: Urine Appearance Cloudy; Urine Blood 2+ (Negative); Urine Color Yellow; Urine Ketones Negative (Negative); Urine Protein Negative (Negative); Urine Specific Gravity > 1.060 (1.010-1.030); Urine Urobilinogen Negative (Negative)
[2017-10-07] MEDS: Diltiazem TAB* 30 MG PO SCH ×2 (15:05→17:50)
[2017-10-07] MEDS: Heparin DRIP 25,000 UNITS(*) 25,000 UNITS/500 ML BAG IV SCH (15:37)
[2017-10-07] MEDS: Heparin VIAL(*) 5000 UNITS/ML VIAL (FIVE THOUSAND) IV PRN (15:43)
--- NOTE | 2017-10-07 16:10 | RAD ---
INDICATION: Pain and swelling. Pulmonary embolus COMPARISON: CTA chest same date TECHNIQUE: Duplex interrogation of the Lowerextremity was performed. This is a mildly limited examination due to body habitus and leg edema. FINDINGS: Deep veins: The common femoral, great saphenous, profunda femoris, proximal, mid, and distal deep femoral, popliteal, posterior tibial, and peroneal veins are patent. There is normal compressibility, augmentation, and phasic flow. Superficial veins: There are no findings of superficial thrombophlebitis. Popliteal fossa:There is no evidence of a popliteal cyst. Soft tissues:There are no soft tissue abnormalities. IMPRESSION: No evidence of deep venous thrombosis
[2017-10-07] MEDS ORDERED: Warfarin TAB(*) 6 MG PO SCH (17:00)
[2017-10-07] MEDS ORDERED: NS 0.9% 1000 ML* 1,000 ML IV SCH (17:45)
[2017-10-07] MEDS: Insulin LISPRO* 1 UNITS UNIT SUBCUT SCH (17:51)
[2017-10-07] MEDS: Atorvastatin* 20 MG TAB PO SCH (17:51)
--- NOTE | 2017-10-07 17:52 | ED ---
Wander Velez Jason, scribed for Jennifer Garcia MD on 10/07/17 at 1525 . HPI Chest Pain - HPI Summary HPI Summary: This patient is a 72 year old F presenting to [facility] with a chief complaint of chest pain since 1900 1 day ago. The patient states she woke up this morning with chest discomfort, SOB, and new bilateral flank pain. She includes the flank pain started on the right flank and spread to the right. She also has a history of Cushings syndrome. Dr. Garcia consulted Dr. Velasquez (Patients senior solutions architect), who reported the patient had an IR procedure done for Sharon s syndrome on the . She was observed for 2 hours after the IR procedure for possible adrenal hematoma, however, the patient was stabilized. The patient rates the pain 7/10 in severity. Symptoms aggravated by nothing. Symptoms alleviated by nothing. - History of Current Complaint Chief Complaint: EDAbdPain Time Seen by Provider: 10/07/17 12:39 Hx Obtained From: Patient Onset/Duration: Started Days Ago - since 1 day ago at 1900, Still Present Timing: Constant Current Severity: Mild Pain Intensity: 7 Pain Scale Used: 0-10 Numeric Aggravating Factor(s): Nothing Alleviating Factor(s): Nothing Associated Signs and Symptoms: Positive: Other: - bilateral flank pain, chest discomfort, SOB, - Additional Pertinent History Primary Care Physician: [id number] - Allergy/Home Medications Allergies/Adverse Reactions: Allergies Allergy/AdvReac Type Severity Reaction Status Date / Time No Known Allergies Allergy Verified 06/08/17 13:15 Home Medications: Home Medications Albuterol HFA INHALER* [Ventolin HFA Inhaler*] 2 puff INH Q4H PRN 10/07/17 [ History Confirmed 10/07/17] Atorvastatin* [Lipitor*] 20 mg PO QPM 10/07/17 [History Confirmed 10/07/17] Bisoprolol TAB* [Zebeta TAB*] 10 mg PO DAILY 10/07/17 [History Confirmed ] Cholecalciferol TAB* [Vitamin D TAB*] 2,000 units PO DAILY 10/07/17 [History Confirmed 10/07/17] Docusate CAP* [Colace Cap*] 100 mg PO Q12H PRN 10/07/17 [History Confirmed 10/07] Furosemide TAB* [Lasix TAB*] 40 mg PO DAILY 10/07/17 [History Confirmed 10/07/17 ] Glucosamine/D3/Boswellia Dottie [Osteo Bi-Flex Tablet] 1 tab PO DAILY 10/07/17 [ History Confirmed 10/07/17] Insulin LISPRO* [HumaLOG*] 0 - 15 units SUBCUT ACHS PRN 10/07/17 [History Confirmed 10/07/17] L.acidoph,Paracasei, B.lactis [Probiotic] 1 cap PO DAILY 10/07/17 [History Confirmed 10/07/17] Levofloxacin TAB* [Levaquin TAB*] 750 mg PO EVERY OTHER DAY 10/07/17 [History Confirmed 10/07/17] Levothyroxine TAB* [Synthroid TAB*] 112 mcg PO DAILY 10/07/17 [History Confirmed 10/07/17] Magnesium Oxide TAB* [MagOx 400 TAB*] 400 mg PO BID 10/07/17 [History Confirmed 10/07/17] [place]-3 Fatty Acids (Nf) [Fish Oil (NF)] 1,000 mg PO DAILY 10/07/17 [History Confirmed 10/07/17] Polyethylene Glycol 3350* [Miralax*] 17 gm PO DAILY 10/07/17 [History Confirmed 10/07/17] Potassium Chlor TAB* [Klor Con ER TAB*] 20 meq PO BID 10/07/17 [History Confirmed 10/07/17] Senna/Docusate (NF) [Sennokot-S] 2 tab PO BID 10/07/17 [History Confirmed ] Spironolactone TAB* [Aldactone TAB*] 25 mg PO QAM 10/07/17 [History Confirmed ] Warfarin TAB(*) [Coumadin TAB(*)] 5 mg PO QPM 10/07/17 [History Confirmed ] metFORMIN* [Glucophage 500 MG TAB *] 500 mg PO BID 10/07/17 [History Confirmed 10/07/17] PMH/Surg Hx/FS Hx/Imm Hx Previously Healthy: No Endocrine/Hematology History: Reports: Hx Diabetes, Hx Thyroid Disease - hypothyroid Cardiovascular History: Reports: Hx Atrial Fibrillation, Hx Auto Implanted Cardiovert Defib, Hx Congestive Heart Failure, Hx Hypercholesterolemia, Hx Hypertension, Hx Pacemaker/ICD, Other Cardiovascular Problems/Disorders - Artificial valve, A Fib History: Reports: Hx Acute Renal Failure, Other Problems/Disorders - renal insufficiency Musculoskeletal History: Reports: Hx Back Problems - L1 fracture, Other Musculoskeletal History - Left ankle osmar Sensory History: Reports: Hx Contacts or Glasses Denies: Hx Hearing Aid Opthamlomology History: Reports: Hx Contacts or Glasses - Surgical History Surgery Procedure, Year, and Place: CARDIAC VALVE REPLACEMENT, PACE MAKER, HERNIA REPAIR , LEFT ANKLE Hx Anesthesia Reactions: No Infectious Disease History: No Infectious Disease History: Denies: Traveled Outside the [place] in Last 30 Days - Family History Known Family History: Positive: Cardiac Disease - with MIs, Other - CVAs Negative: Diabetes - Social History Alcohol Use: None Hx Substance Use: No Substance Use Type: Reports: None Hx Tobacco Use: No Smoking Status (MU): Former Smoker Amount Used/How Often: 1 ppd Length of Time of Smoking/Using Tobacco: 30 years Review of Systems Positive: Chest Pain Positive: Shortness Of Breath Positive: Other - bilateral flank pain All Other Systems Reviewed And Are Negative: Yes Physical Exam - Summary Physical Exam Summary: Constitutional: Well-developed, Well-nourished, Alert. (-) Distressed Skin: Warm, Dry HENT: Normocephalic; Atraumatic Eyes: Conjunctiva normal Neck: Musculoskeletal ROM normal neck. (-) JVD, (-) Stridor, (-) Tracheal deviation Cardio: Rhythm regular, rate normal, Heart sounds normal; Intact distal pulses; The pedal pulses are 2+ and symmetric. Radial pulses are 2+ and symmetric. (-) Murmur Pulmonary/Chest wall: Effort normal. (-) Respiratory distress, (-) Wheezes, (-) Rales Abd: Soft, (-) Bilateral flanks are tender to palpation, (-) Distension, (-) Guarding, (-) Rebound Musculoskeletal: (-) Edema Lymph: (-) Cervical adenopathy Neuro: Alert, Oriented x3 Psych: Mood and affect Normal Triage Information Reviewed: Yes Vital Signs On Initial Exam: Initial Vitals Temp Pulse Resp BP Pulse Ox 97.2 F 115 20 111/78 99 10/07/17 11:28 10/07/17 11:28 10/07/17 11:28 10/07/17 11:28 03/30/18 11:28 Vital Signs Reviewed: Yes Diagnostics - Vital Signs Vital Signs Temp Pulse Resp BP Pulse Ox 10/07/17 14:35 103 18 114/70 95 10/07/17 14:30 102 23 114/78 99 10/07/17 14:25 106/72 10/07/17 14:20 112 25 100/72 97 10/07/17 14:15 115 20 114/77 89 10/07/17 14:10 42 20 121/81 92 10/07/17 14:05 115 23 112/82 99 10/07/17 14:00 99 20 122/81 99 10/07/17 13:55 59 22 121/73 98 10/07/17 13:00 107 21 120/82 97 10/07/17 12:30 100 21 118/86 97 10/07/17 12:00 119 20 116/75 98 10/07/17 11:36 83 21 99 10/07/17 11:28 97.2 F 115 20 111/78 99 - Laboratory Lab Results: Lab Results 10/07/17 10/07/17 10/07/17 Range/Units 12:18 12:18 12:18 WBC 15.8 H (3.5-10.8) 10^3/ul RBC 4.39 (4.0-5.4) 10^6/ul Hgb 13.3 (12.0-16.0) g/dl Hct 41 (35-47) % MCV 93 (80-97) fL MCH 30 (27-31) pg MCHC 33 (31-36) g/dl RDW 16 H (10.5-15) % Plt Count 163 (150-450) 10^3/ul MPV 7.6 (7.4-10.4) um3 Neut % (Auto) 83.4 H (38-83) % Lymph % (Auto) 7.2 L (25-47) % Mineral % (Auto) 8.9 H (0-7) % Eos % (Auto) 0.2 (0-6) % Baso % (Auto) 0.3 (0-2) % Absolute Neuts (auto) 13.2 H (1.5-7.7) 10^3/ul Absolute Lymphs (auto) 1.1 (1.0-4.8) 10^3/ul Absolute Monos (auto) 1.4 H (0-0.8) 10^3/ul Absolute Eos (auto) 0 (0-0.6) 10^3/ul Absolute Basos (auto) 0 (0-0.2) 10^3/ul Absolute Nucleated RBC 0 10^3/ul Nucleated RBC % 0.1 INR (Anticoag Therapy) (0.77-1.02) Sodium 139 (139-145) mmol/L Potassium 4.5 (3.5-5.0) mmol/L Chloride 101 (101-111) mmol/L Carbon Dioxide 31 (22-32) mmol/L Anion Gap 7 (2-11) mmol/L BUN 33 H (6-24) mg/dL Creatinine 1.17 H (0.51-0.95) mg/dL Est GFR ( Amer) 58.3 (>60) Est GFR (Non-Af Amer) 45.3 (>60) BUN/Creatinine Ratio 28.2 H (8-20) Glucose 255 H (70-100) mg/dL Lactic Acid 2.0 (0.5-2.0) mmol/L Calcium 9.6 (8.6-10.3) mg/dL Magnesium 2.3 (1.9-2.7) mg/dL Total Bilirubin 0.40 (0.2-1.0) mg/dL AST 11 L (13-39) U/L ALT 17 (7-52) U/L Alkaline Phosphatase 82 (34-104) U/L Total Creatine Kinase 20 (10-223) U/L Troponin I 0.05 H* (<0.04) ng/mL C-Reactive Protein 104.23 H (< 5.00) mg/L B-Natriuretic Peptide ( - 100) pg/mL Total Protein 6.8 (6.4-8.9) g/dL Albumin 3.6 (3.2-5.2) g/dL Globulin 3.2 (2-4) g/dL Albumin/Globulin Ratio 1.1 (1-3) Amylase 39 (29-103) U/L Lipase 13 (11.0-82.0) U/L 10/07/17 10/07/17 Range/Units 12:18 12:18 WBC (3.5-10.8) 10^3/ul RBC (4.0-5.4) 10^6/ul Hgb (12.0-16.0) g/dl Hct (35-47) % MCV (80-97) fL MCH (27-31) pg MCHC (31-36) g/dl RDW (10.5-15) % Plt Count (150-450) 10^3/ul MPV (7.4-10.4) um3 Neut % (Auto) (38-83) % Lymph % (Auto) (25-47) % Mineral % (Auto) (0-7) % Eos % (Auto) (0-6) % Baso % (Auto) (0-2) % Absolute Neuts (auto) (1.5-7.7) 10^3/ul Absolute Lymphs (auto) (1.0-4.8) 10^3/ul Absolute Monos (auto) (0-0.8) 10^3/ul Absolute Eos (auto) (0-0.6) 10^3/ul Absolute Basos (auto) (0-0.2) 10^3/ul Absolute Nucleated RBC 10^3/ul Nucleated RBC % INR (Anticoag Therapy) 1.48 H (0.77-1.02) Sodium (139-145) mmol/L Potassium (3.5-5.0) mmol/L Chloride (101-111) mmol/L Carbon Dioxide (22-32) mmol/L Anion Gap (2-11) mmol/L BUN (6-24) mg/dL Creatinine (0.51-0.95) mg/dL Est GFR ( Amer) (>60) Est GFR (Non-Af Amer) (>60) BUN/Creatinine Ratio (8-20) Glucose (70-100) mg/dL Lactic Acid (0.5-2.0) mmol/L Calcium (8.6-10.3) mg/dL Magnesium (1.9-2.7) mg/dL Total Bilirubin (0.2-1.0) mg/dL AST (13-39) U/L ALT (7-52) U/L Alkaline Phosphatase (34-104) U/L Total Creatine Kinase (10-223) U/L Troponin I (<0.04) ng/mL C-Reactive Protein (< 5.00) mg/L B-Natriuretic Peptide 295 H ( - 100) pg/mL Total Protein (6.4-8.9) g/dL Albumin (3.2-5.2) g/dL Globulin (2-4) g/dL Albumin/Globulin Ratio (1-3) Amylase (29-103) U/L Lipase (11.0-82.0) U/L Result Diagrams: 10/07/17 12:18 10/07/17 12:18 Lab Statement: Any lab studies that have been ordered have been reviewed, and results considered in the medical decision making process. - Radiology cxr Radiology Interpretation Completed By: Radiologist - CXR reveals, per radiologist, LINES AND TUBES ABOVE. NO ACTIVE CARDIOPULMONARY DISEASE. ED physician has reviewed this radiology report. - CT chest/abdomen/pelvis CTA CT Interpretation Completed By: Radiologist - Chest/abdomen/pelvis CTA, reveals , 1. Interval appearance of near occlusive right lower lobe pulmonary arterial embolism and mixed occlusive and partially occlusive left lower lobe segmental branch pulmonary emboli. 2. Again seen is an ascending aortic aneurysm measuring 4.4 x 4.4 cm. There is unusual thickening of the ascending root similar in appearance to the April 26, 2017 CTA. This is suspected to be due to prior thoracic surgery as opposed to representing a dissection. Please correlate to details of the patient's prior thoracic surgery. 3. There are no signs of acute adrenal hemorrhage or hematoma adjacent to either adrenal gland. The adrenal gland nodules documented on prior CT imaging are unchanged. 4. Reflux of intravenously injected contrast into the IVC and hepatic veins can be seen in the setting of cardiac insufficiency and/or right heart failure. 5. Additional chronic, degenerative and iatrogenic findings described in the body the report. The acute segmental and lobar pulmonary emboli were reported to Dr. Garcia over the telephone at approximately 1415 hours on October 07, 2017. ED physician has reviewed this radiology report. - EKG 1209 Cardiac Rate: Tachycardia EKG Rhythm: Atrial Fibrillation - 117 bpm EKG Interpretation: inverted T waves - Additional Comments Diagnostic Additional Comments: Deep venous Doppler study reveals, per radiologist, No evidence of deep venous thrombosis ED physician has reviewed this radiology report. Re-Evaluation - Re-Evaluation First Eval Re-Evaluation Time: 15:02 Change: Improved Comment: mildly tachycardic at 105bpm. otherwise hemodynamically stable. Pt was informed of the radiology result and diagnosis of PE. Chest Pain Course/Dx - Course Course Of Treatment: 72 year old female who presents to the ED with Chest and abdominal pain. CTA of the chest/abdomen/Pelvis was obtained to eval for aortic etiology and was positive for PE. Patient's INR is subtherapeutic. Patient started on heparin gtt. Patient stable on admission - Diagnoses Provider Diagnoses: Pulmonary embolism - Provider Notifications Discussed Care Of Patient With: Kobe Carl Time Discussed With Above Provider: 14:15 Instructed by Provider To: Admit As Inpatient Discharge - Sign-Out/Discharge Documenting (check all that apply): Discharge - Discharge Plan Condition: Good Disposition: ADMITTED TO [facility] - Billing Disposition and Condition Condition: GOOD Disposition: [facility] [place] The documentation as recorded by the Wander lowe Jason accurately reflects the service I personally performed and the decisions made by , Jennifer Gracia MD.
--- NOTE | 2017-10-07 19:35 | PN ---
Progress Note - Progress Note Date of Service: 10/07/17 Note: Called by primary RN regarding patient's elevated lactic acid. On arrival her lactic acid was 2.0 and it is now 5.0. IV fluids which were ordered are being hung now. I suspect that her lactic acidosis is multi-factorial related to her pulmonary embolism and rapid afib. I think that it is less likely but she may also have a component of a catheter associated UTI with leukocytosis and elevated CRP. Plan to continue IV fluid bolus now and then reassess heart rate which is currently approx 115 with rapid afib. If it remains elevated will add either additional diltiazem or metoprolol. Patient has also been switched from levaquin (which she was on outpatient for recent UTI) to cefepime as she did meet sepsis criteria. Her cap refill is < 3 seconds, her skin is pink and warm, her distal pulses are 2+, her mentation is appropriate. Her heart rate is rapid and irregular without murmur, rub or gallop. Lungs are clear bilaterally.
[2017-10-07] MEDS ORDERED: Metoprolol Tartrate IV* 1 MG/ML 5 ML VIAL IV ONE ×2 (20:31→23:07)
[2017-10-07] MEDS: Cyclobenzaprine TAB* 10 MG PO SCH (20:44)
[2017-10-07] MEDS: Magnesium Oxide TAB* 400 MG PO SCH (20:44)
[2017-10-07] MEDS: Potassium Chlor TAB* 20 MEQ TAB.ER PO SCH (20:45)
[2017-10-07] MEDS: oxyCODONE/Acetamin 5/325 MG* TAB PO PRN (20:45)
[2017-10-07] MEDS: Insulin GLARGINE(*) 1 UNITS UNIT SUBCUT SCH (20:48)
[2017-10-07] MEDS: Cefepime 1 GM in Dextrose(*) 1 GM/50 ML BAG IV SCH (20:49)
[2017-10-07] MEDS ORDERED: Morphine INJ* 4 MG/ML 1 ML SYRINGE (NEW SYRINGE VERSION) IV PRN (21:40)
--- NOTE | 2017-10-07 22:12 | HP ---
CC: Dr. Lim; Dr. Velasquez * HOSPITAL MEDICINE HISTORY AND PHYSICAL: DATE OF ADMISSION: 10/07/17 PRIMARY CARE PHYSICIAN: Dr. Lim. BAG SHOP WORKER: Dr. Velasquez. ATTENDING PHYSICIAN: Dr. Kobe Carl * (dictation provided by Lyndsey Richard NP) CHIEF COMPLAINT: Chest pain and abdominal pain radiating into the back. HISTORY OF PRESENT ILLNESS: Ms. Adams is a 72-year-old female, who has a past medical history of atrial fibrillation, on chronic warfarin therapy; diabetes, on insulin; new diagnosis of Sharon's, who presents today to the hospital with concern for chest pain radiating in to her back and in to her abdomen. Ms. Adams states she was in her normal state of health until yesterday. Last evening, she began to have some discomfort in her chest and abdomen mostly along the left side. She also had significant diaphoresis overnight and states that she soaked her bed. When she woke this morning, she continued to have pain , but now only along the left side of her chest radiating in to her back and not involving her abdomen. She denies shortness of breath. She denies cough. She denies nausea. She has some generalized abdominal pain on palpation in the ED, but abdomen is soft. She has normal formed bowel movements daily. She denies any new redness or swelling in her lower extremities, though she does have chronic lower extremity edema. In the emergency room, Ms. Adams had labs that showed concern for an elevated white blood cell count of 15.8. Her INR was subtherapeutic at 1.48. Her BUN and creatinine are very slightly elevated from baseline at 33 and 1.17 respectively. Most notably, a chest, abdomen, and pelvis CTA was obtained, which showed bilateral pulmonary emboli. The patient's heart rate is slightly tachycardic to about 110, respiratory rates in low 20s, blood pressure is stable. She is on 2 L nasal cannula with O2 saturation greater than 95%. PAST MEDICAL HISTORY: 1. Hyperlipidemia. 2. Atrial fibrillation. 3. Diabetes, on chronic insulin therapy. 4. Hypertension. 5. Aortic aneurysm. 6. History of recent diagnosis of Florence's, followed with Dr. Velasquez with recent adrenal vein sampling. 7. History of chronic Sawyer for urinary retention. 8. Tachy-robby syndrome with pacemaker. 9. History of diastolic congestive heart failure. 10. History of mechanical aortic valve replacement. 11. History of recent UTI, completing course of Levaquin, last dose planned for tomorrow. MEDICATIONS: 1. Diltiazem CD 240 mg p.o. daily. 2. Glucosamine 1 tab p.o. daily. 3. Lispro insulin 0 to 15 units subcutaneously a.c., h.s. with meals. 4. Probiotic 1 cap p.o. daily. 5. Metformin 500 mg p.o. b.i.d. 6. Clyde-3 fatty acid 1000 mg p.o. daily. 7. Senna 2 tabs p.o. b.i.d. 8. Warfarin 5 mg p.o. q.p.m. 9. Tylenol 500 mg p.o. q.6 hours p.r.n. 10. Albuterol inhaler 2 puffs inhaled q.4 hours p.r.n. 11. Atorvastatin 20 mg p.o. q.p.m. 12. Bisoprolol 10 mg p.o. daily. 13. Cholecalciferol 2000 units p.o. daily. 14. Cyclobenzaprine 10 mg p.o. t.i.d. 15. Docusate 100 mg p.o. q.12 hours p.r.n. 16. Furosemide 40 mg p.o. daily. 17. Lantus insulin 20 units subcutaneously at bedtime. 18. Levaquin 750 mg p.o. every other day. 19. Lisinopril 10 mg p.o. daily. 20. Magnesium oxide 400 mg p.o. b.i.d. 21. Oxycodone with acetaminophen 5/325 one tab p.o. q.4 hours p.r.n. 22. MiraLAX 17 g p.o. daily. 23. Potassium chloride 20 mEq p.o. b.i.d. 24. Spironolactone 25 mg p.o. q.a.m. ALLERGIES: No known drug allergies. FAMILY HISTORY: Parents both had coronary artery disease. SOCIAL HISTORY: No report of drug use in the past or alcohol use. The patient is a former smoker. She lives at [facility]. Her son, Deon, is her healthcare proxy. REVIEW OF SYSTEMS: A 14-point review of systems was completed with Ms. Adams and all those not mentioned above were negative. PHYSICAL EXAMINATION GENERAL: Ms. Adams is sitting in the bed with her son at the bedside. She is in no acute distress. VITAL SIGNS: Temperature 97.2, pulse rate 108, respiratory rate 18, O2 saturation 95% on 2 L nasal cannula, blood pressure 114/70. LUNGS: Clear to auscultation bilaterally with no accessory muscle use and good aeration. HEART: S1, S2. No murmur, rub, or gallop and regular. ABDOMEN: Soft. There is tenderness throughout. There is no rebound, no guarding. Bowel sounds are positive. EXTREMITIES: No cyanosis. Positive for edema. Both legs are wrapped with Woo bandages. NEURO: She is alert. She is oriented x3. She moves all extremities equally. There is no facial asymmetry or focal weakness. Extraocular movements are intact. SKIN: Intact. DIAGNOSTIC STUDIES/LAB DATA: WBC 15.8, hemoglobin 13.3, hematocrit 41, platelet count 163. INR 1.48. Sodium 139, potassium 4.5, chloride 101, serum bicarbonate 31, BUN 33, creatinine 1.17, glucose 255, lactic acid 2.0. Troponin 0.05. CRP 104.23. BNP 295. Urine shows 3+ leuk esterase and 1+ bacteria. She does have chronic Sawyer. ASSESSMENT AND PLAN: Ms. Adams is a 72-year-old female with a past medical history of mechanical aortic valve replacement; diastolic congestive heart failure; tachy- robby syndrome, with pacemaker; atrial fibrillation, on warfarin ; type 2 diabetes, insulin dependent; recent diagnosis of urinary tract infection on levaquin outpatient, and recent diagnosis of Cushings syndrome followed by Dr. Velasquez who presents today to the hospital with concern for left- sided chest discomfort radiating in to her back and abdomen. She has now been found to have a new pulmonary embolism. Our plans are for inpatient admission as expected length of stay would be greater than 2 days for the followin. Pulmonary embolism: I suspect this explains her discomfort overnight. She is only on 2 L nasal cannula in the emergency room. I suspect that she might not require that at this point. Her heart rate is slightly elevated to about 110. She has been on a diltiazem drip and I plan to switch over to oral diltiazem. I suspect this is in part due to her atrial fibrillation and also to the pulmonary embolism. She will have a transthoracic echocardiogram tomorrow. I have ordered ultrasounds of her bilateral lower extremities given that she has chronic edema. She will be on a heparin drip while we will await INR to become therapeutic. 2. Leukocytosis. Question whether or not this is a stress response. She said she intermittently had symptoms of urinary tract infection like dysuria or pain , but she has none today. Her UA is positive, but I am not sure how to interpret this given that she likely has chronic colonization due to her chronic indwelling Sawyer. At this point, I plan to just complete her course of Levaquin, which ends tomorrow and we will await repeat urinalysis and clinical course to decide whether antibiotic should be continued further or an alternate should be added. She has no evidence of infection otherwise. Her chest x-ray is clear. 3. Hyperlipidemia. Continue atorvastatin. 4. Atrial fibrillation. Continue warfarin. Continue diltiazem orally q6h in addition to the AM dose she took prior to arrival. Hopefully, that will control her heart rate and we can adjust the diltiazem dose tomorrow as indicated. 5. Type 2 diabetes. Plan for blood glucoses q.a.c. with lispro sliding scale and continue home Lantus. She will be holding metformin. 6. Hypertension. Continue lisinopril, bisoprolol, diltiazem at increased dose , and furosemide. 7. Chronic lower extremity edema. Again, checking for DVT today and also continuing furosemide. 8. Hypothyroidism. Continue Synthroid. 9. Chronic pain. Continue oxycodone. 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 I see that the patient had recent adrenal vein sampling to confirm Cushings. Patient should continue to follow closely with Dr. Velasquez to arrange for surgical intervention as needed. 11. DVT prophylaxis. With heparin drip. 12. Code status is DNR/DNI and MOLST form has been signed again today. TIME SPENT: Approximately 75 minutes was spent on admission of this patient, and more than half the time spent with the patient at the bedside reviewing the events leading up to this hospitalization, performing the physical examination, and reviewing the plan of care. LYNDSEY RICHARD NP [id number]/[facility] #: [id number]
[2017-10-08] MEDS: Diltiazem TAB* 30 MG PO SCH ×3 (01:02→12:11)
[2017-10-08] MEDS ORDERED: HYDROmorphone INJ* 1 MG/ML CARPUJECT SYRINGE IV ONE (01:18)
[2017-10-08] MEDS ORDERED: Morphine VIAL* 4 MG/ML VIAL (1 ml vial) IV PRN (04:00)
[2017-10-08 05:28] LABS: Hematocrit 37 % (35-47); Hemoglobin 12.5 g/dl (12.0-16.0); Mean Corpuscular HGB Conc 33 g/dl (31-36); Mean Corpuscular Hemoglobin 31 pg (27-31); Mean Corpuscular Volume 93 fL (80-97); Mean Platelet Volume 7.8 um3 (7.4-10.4); Platelet Count 167 10^3/ul (150-450); Red Blood Count 4.02 10^6/ul (4.0-5.4); Red Cell Distribution Width 17 % (10.5-15); White Blood Count 18.7 10^3/ul (3.5-10.8)
[2017-10-08 05:32] LABS: ABS Basophils 0.1 10^3/ul (0-0.2); ABS Eosinophils 0 10^3/ul (0-0.6); ABS Lymphocytes 1.1 10^3/ul (1.0-4.8); ABS Neutrophils 15.5 10^3/ul (1.5-7.7); ABS Nucleated RBC 0 10^3/ul; Eosinophil % 0.1 % (0-6); Lymphocyte % 6.1 % (25-47); Nucleated Red Blood Cells % 0
[2017-10-08 05:39] LABS: INR 1.99 (0.77-1.02)
[2017-10-08 05:45] LABS: EGFR Non-African American 53.1 (>60)
[2017-10-08] MEDS: Levothyroxine TAB* 112 MCG TAB PO SCH (05:57)
[2017-10-08] MEDS: Cefepime 1 GM in Dextrose(*) 1 GM/50 ML BAG IV SCH ×2 (05:58→17:59)
[2017-10-08] MEDS ORDERED: Diltiazem IV* 5 MG/ML 5 ML VIAL (for loading dose/IV Push) (25 MG) IV SLOW PU ONE (06:15)
[2017-10-08] MEDS: Polyethylene Glycol 3350* 17 GM PACKET PO SCH (07:59)
[2017-10-08] MEDS: Bisoprolol TAB* 5 MG PO SCH (07:59)
[2017-10-08] MEDS: Cholecalciferol TAB* 1000 UNITS PO SCH (07:59)
[2017-10-08] MEDS: Magnesium Oxide TAB* 400 MG PO SCH ×2 (07:59→21:09)
[2017-10-08] MEDS: Cyclobenzaprine TAB* 10 MG PO SCH ×3 (07:59→21:09)
[2017-10-08] MEDS: Spironolactone TAB* 25 MG PO SCH (08:00)
[2017-10-08] MEDS: Insulin LISPRO* 1 UNITS UNIT SUBCUT SCH ×3 (08:00→16:48)
[2017-10-08] MEDS: Potassium Chlor TAB* 20 MEQ TAB.ER PO SCH ×2 (08:00→21:09)
[2017-10-08] MEDS ORDERED: Lisinopril TAB* 10 MG PO SCH (09:00)
[2017-10-08] MEDS ORDERED: Furosemide TAB* 40 MG PO SCH (09:00)
--- NOTE | 2017-10-08 09:40 | PN ---
Subjective Date of Service: 10/08/17 Interval History: Ms. Adams states that she is feeling better this afternoon as she has less pain with deep breathing. She does not feel short of breath. She is tolerating oral intake well. Objective Active Medications: Acetaminophen (Tylenol Tab*) 500 mg PO Q6H PRN Albuterol (Ventolin Hfa Inhaler*) 2 puff INH Q4H PRN Atorvastatin Calcium (Lipitor*) 20 mg PO QPM VANESSA Bisoprolol Fumarate (Zebeta Tab*) 10 mg PO DAILY VANESSA Cholecalciferol (Vitamin D Tab*) 2,000 units PO DAILY VANESSA Cyclobenzaprine HCl (Flexeril Tab*) 10 mg PO TID VANESSA Dextrose (D50w Syringe 50 Ml*) 12.5 gm IV PUSH .FOR FS < 60 - SS PRN Diltiazem HCl (Cardizem Tab*) 30 mg PO Q6HR VANESSA Docusate Sodium (Colace Cap*) 100 mg PO Q12H PRN Heparin Sodium (Porcine) (Heparin Vial(*)) 0 units IV .BOLUS PRN PRN Heparin Sodium/Dextrose (Heparin Drip 25,000 Units(*)) 25,000 units in 500 mls @ 0 mls/hr IV PER RATE VANESSA; Per Protocol Cefepime HCl (Maxipime 1 Gm In Dextrose Duplex (*)) 1 gm in 50 mls @ 100 mls/ hr IV Q12H [facility]AN[facility] Insulin Glargine (Lantus(*)) 20 units SUBCUT BEDTIME [facility]ANESSA Insulin Human Lispro (Humalog*) 0 units SUBCUT AC [facility]ANESSA Levothyroxine Sodium (Synthroid Tab*) 112 mcg PO DAILY@0600 [facility]AN[facility] Magnesium Oxide (Magox 400 Tab*) 400 mg PO BID VANESSA Morphine Sulfate (Morphine Vial*) 4 mg IV Q4H PRN Oxycodone/Acetaminophen (Percocet 5/325 Tab*) 1 tab PO Q4H PRN Polyethylene Glycol/Electrolytes (Miralax*) 17 gm PO DAILY VANESSA Potassium Chloride (Klor Con Er Tab*) 20 meq PO BID VANESSA Spironolactone (Aldactone Tab*) 25 mg PO QAM VANESSA Warfarin Sodium (Coumadin Tab(*)) 6 mg PO DAILY@1700 [facility] Vital Signs: Temp Pulse Resp BP Pulse Ox 97.4 F 103 16 132/86 97 10/08/17 07:12 10/08/17 07:12 10/08/17 07:59 10/08/17 07:12 10/08/17 07:12 Oxygen Devices in Use Now: Nasal Cannula Appearance: Female lying in bed in NAD Eyes: No Scleral Icterus Ears/Nose/Mouth/Throat: Mucous Membranes Moist Neck: Trachea Midline Respiratory: Symmetrical Chest Expansion and Respiratory Effort, - - Diminished Cardiovascular: NL Sounds; No Murmurs; No JVD, No Edema Abdominal: NL Sounds; No Tenderness; No Distention Lymphatic: No Cervical Adenopathy Extremities: No Edema Skin: No Rash or Ulcers Neurological: Alert and Oriented x 3, NL Muscle Strength and Tone Nutrition: Taking PO's Result Diagrams: 10/08/17 05:16 10/08/17 05:16 Additional Lab and Data: . Assess/Plan/Problems-Billing Assessment: Ms. Adams is a 72 yo F with a PMH of afib, mechanical aortic valve on coumadin with subtherapeutic INR, and chance's who follows with Dr. Velasquez who was admitted on 10/07/17 with pulmonary embolism, rapid afib and possible catheter associated UTI. - Patient Problems (1) Pulmonary embolism Comment: - Continue heparin gtt while awaiting therapeutic INR. - INR 1.99 today. - Echo in AM. (2) Atrial fibrillation with RVR Comment: - HR remains uncontrolled despite increase in cardizem, metoprolol IV improved heart rate some. Secondary to pulmonary embolism. - Cardiology consult appreciated. Plan for transfer to ICU for esmolol. - Continue hep gtt while awaiting therapeutic INR. - Plan for echo tomorrow. - Follows with Dr. Ortega outpatient. (3) Chronic indwelling Sawyer catheter Comment: - Was treated for UTI outpatient with levaquin. - Switched to cefepime pending repeat urine cultures given symptoms that could be consistent with sepsis overnight, though more likely due to PE and afib. (4) Chronic systolic CHF (congestive heart failure) Comment: - Appears essentially euvolemic, has chronic lower extremity swelling. - Received IV fluids overnight for concern of elevated lactic acid. Continue spironolactone but hold furosemide for now. - Plan for echo tomorrow. - Cards consult pending. (5) HTN (hypertension) Comment: - Goal INR 2.5-3.5 - Echo pending for tomorrow. (6) H/O mechanical aortic valve replacement Comment: - Continue Warfarin - goal INR 2.5-3.5. (7) Diabetes Comment: - BGs 200-250s. - Cont lantus with SSI coverage for meals. (8) Hypothyroid Comment: - Continue current dose of synthroid. (9) Chance disease Comment: - Continues to follow with Dr. Velasquez outpatient. (10) DVT prophylaxis Comment: - Warfarin with heparin gtt. (11) DNR (do not resuscitate) Comment: Status and Disposition: Inpatient. Anticipate discharge to [facility] when medically stable.
[2017-10-08] MEDS ORDERED: Diltiazem TAB* 30 MG ONE (12:42)
[2017-10-08] MEDS ORDERED: Diltiazem TAB* 30 MG PO ONE (13:00)
[2017-10-08] MEDS ORDERED: Metoprolol Tartrate IV* 1 MG/ML 5 ML VIAL IV ONE (13:43)
[2017-10-08] MEDS ORDERED: Metoprolol Tartrate IV* 1 MG/ML 5 ML VIAL ONE (13:53)
[2017-10-08] MEDS ORDERED: Esmolol 10 MG/ML IVPREMIX* 2,500 MG/250 ML BAG IVPB SCH (15:00)
[2017-10-08] MEDS: Heparin DRIP 25,000 UNITS(*) 25,000 UNITS/500 ML BAG IV SCH (15:55)
[2017-10-08] MEDS: Warfarin TAB(*) 5 MG PO SCH (16:48)
[2017-10-08] MEDS: Atorvastatin* 20 MG TAB PO SCH (16:48)
[2017-10-08] MEDS ORDERED: Diltiazem TAB* 60 MG PO SCH (18:00)
[2017-10-08] MEDS ORDERED: Diltiazem DRIP* 100 MG/100 ML ADDV.BAG IVPB SCH ×2 (18:00→18:30)
[2017-10-08] MEDS: Diltiazem IV VIAL* 125 MG in NS 0.9% 100 ML* 100 ML IV SCH (19:05)
[2017-10-08] MEDS: Insulin GLARGINE(*) 1 UNITS UNIT SUBCUT SCH (21:09)
--- NOTE | 2017-10-08 21:32 | CONS ---
CARDIOLOGY CONSULTATION: DATE OF CONSULT: 10/08/17 REASON FOR CONSULTATION: Atrial fibrillation with rapid ventricular rate, refractory to rate lowering agents. CHIEF COMPLAINT: Shortness of breath. HISTORY OF PRESENT ILLNESS: Ms. Adams is a 72-year-old woman followed by Dr. Huber for paroxysmal atrial fibrillation and history of aortic valve replacement. The patient tells me that for several days she has been in bed, diaphoretic and short of breath. Yesterday, she told the nurses she was short of breath, and on evaluation in the emergency room, a CT angiogram revealed that she had a pulmonary embolus with near occlusive right lower lobe pulmonary artery embolism and mixed occlusive and partially occlusive left lower lobe segment branch pulmonary emboli. The patient has been treated with oxygen overnight. She has been in atrial fibrillation with rapid ventricular rates and received IV pushes of Lopressor and metoprolol, but has not been on a drip and as the day went on today, her ventricular rates have increased from the low 100s to 150s and I was consulted. There is some question about whether or not she should be on sotalol based on old records here; however, on [facility], her resident facility's notes do not have her on sotalol currently and the patient is unaware of why sotalol was stopped between April 2017 and now. The patient had had her coumodin held for adrenal vein sampling 10/04/17. PAST MEDICAL HISTORY: The patient has a past medical history: 1. Paroxysmal atrial fibrillation, on chronic anticoagulation. 2. Aortic valve replacement (mechanical aortic valve in 2000). 3. Pacemaker implantation for tachybrady syndrome. 4. Hypertension. 5. History of congestive heart failure. 6. Obesity. 7. Diabetes. 8. Thoracic aortic aneurysm. 9. [place] syndrome (Dr. Velasquez). Catheter directed adrenal vein sampling performed 10/04/17. 10. Urinary retention with chronic Sawyer. 11. History of urinary tract infection, as outpatient on Levaquin. Negative for coronary artery disease based on heart catheterization in 2005. MEDICATIONS: Outpatient medications listed in [facility] Richard' note that include: 1. Oral diltiazem 240 mg a day. 2. Coumadin 5 mg a day. 3. Atorvastatin 20 mg a day. 4. Lasix 40 mg a day. 5. Lisinopril 10 mg a day. 6. Spironolactone 25 mg a day. 7. Potassium 40 mEq a day. 8. Bisoprolol 10 mg a day. ALLERGIES: She has no known medication allergies. SOCIAL HISTORY: The patient is currently a resident of [facility]. She is , has a supportive son in the area. 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 Born in [place]. No history of tobacco or alcohol intake. FAMILY HISTORY: Positive for coronary artery disease with both families. REVIEW OF SYSTEMS: The patient is a bit vague. She states she has been on chronic anticoagulants. She states she is always unaware of her AFib now. No history of racing or palpitations. Today, she has pleuritic chest pain and she has been short of breath and diaphoretic for several days prior to admission. She states she is not able to be active because it hurts to stand, although she states she is able to walk. She denies dysuria currently and she denies diarrhea or constipation. PHYSICAL EXAMINATION: On exam, the patient is 5 feet 6 inches, weighs 218 pounds with a BMI of 35. Current vital signs: Blood pressure 114/78. She is in AFib with ventricular rates in the 130s, temperature 97.8, oxygen saturation on 2 L nasal cannula is 98%. General Appearance: Overweight, older woman, lying in bed about 45 degrees, obviously tachypneic with nasal cannula on and skin is very diaphoretic. Psychologically, pleasant, cooperative, amusing, making jokes. Neurologically, awake, alert, oriented to person and place. I did not evaluate for time. Skin: Again, very diaphoretic diffusely. No evidence of hypoxia. A well- healed old midline sternotomy scar. HEENT: Pupils are equal and round. Mucous membranes are moderately moist. Neck: Thick from obesity. I did not appreciate increased JVP or thyromegaly. Breath sounds mildly diminished in the bases, but no wheezing, rales, or rhonchi appreciated after coughing and no rubs. Coronary: S1, S2, irregularly regular and tachycardic. Bowel sounds heard, but not particularly crisp. Abdomen: Overweight. Active bowel sounds. Soft and nontender. Lower extremities were thick from obesity, but no pitting edema. DIAGNOSTIC STUDIES/LABORATORY DATA: White count on 10/07/17 was 15.8, white count today 18.7, hemoglobin 12.5, hematocrit 37, and platelets 167. INR on admission 1.48 on 10/07/17 and today INR 1.99 and PTT of 95.5. Sodium 139, potassium 4.7, chloride 104, bicarb 27, BUN 29, creatinine 1.02, glucose 215. Lactic acid 1.9. Troponin #1, 0.05; #2, 0.05; #3, 0.04 and C-reactive protein 104. ALT 17 and AST 11. Urinalysis, specific gravity greater than 1.060, 2+ blood, 3+ leukocyte esterase, 3+ white cells, 1+ bacteria, yeast noted. CT chest, abdomen, pelvis again showed: 1. Near occlusion of the right lower lobe pulmonary artery from arterial embolism. 2. Occlusive disease of the left lower lobe segmental branch. 3. Ascending aortic aneurysm 4.4 x 4.4. 4. Adrenal nodules unchanged. Chest x-ray from 10/07/17 showed no active pulmonary disease. Venous study was negative for DVT. ECG #1 shows atrial fibrillation with a rapid ventricular rate of 117 beats a minute, QRS axis of 0, normal intraventricular conduction times, nonspecific QRS widening, nonspecific ST changes. IMPRESSION AND PLAN: In summary, Cira Adams is a 72-year-old woman admitted with hypoxia, diaphoresis, and found to have a significant pulmonary embolism with subtheraputic Coumadin (recent procedure). The patient has been in AFib with a rapid ventricular rate and the rates have increased since admission and it appears that the approach of her atrial fibrillation has changed from rhythm control to rate control based on her medication list from [facility], which I did review personally. It is not surprising that her atrial fibrillation rates could increase in the setting of a large pulmonary embolism. I would recommend a drip, either diltiazem or esmolol, in discussions with [facility] Hodges, beta blockers appeared to have worked better, so we can start with esmolol. Also, she is quite tachypneic. I talked to her about a face mask for better oxygen delivery, but she thinks she will be claustrophobic. The patient is amenable to transfer to the unit for a drip. In the interim, we will try to get most recent notes from Dr. Huber, her regular principal mechanical engineer and her primary care. When Dr. Britton saw her in April, she was still on a rhythm control protocol. Further recommendations will be made pending her response to the above measures. [id number]/[facility] #: [id number] ALISE
[2017-10-09] MEDS: Levothyroxine TAB* 112 MCG TAB PO SCH (06:23)
[2017-10-09 06:56] LABS: ABS Basophils 0 10^3/ul (0-0.2); ABS Eosinophils 0 10^3/ul (0-0.6); ABS Monocytes 1.3 10^3/ul (0-0.8); ABS Neutrophils 13.7 10^3/ul (1.5-7.7); ABS Nucleated RBC 0 10^3/ul; Eosinophil % 0.1 % (0-6); Hematocrit 36 % (35-47); Hemoglobin 11.8 g/dl (12.0-16.0); Lymphocyte % 6.2 % (25-47); Mean Corpuscular HGB Conc 32 g/dl (31-36); Mean Corpuscular Hemoglobin 30 pg (27-31); Mean Corpuscular Volume 93 fL (80-97); Mean Platelet Volume 7.4 um3 (7.4-10.4); Nucleated Red Blood Cells % 0; Platelet Count 174 10^3/ul (150-450); Red Blood Count 3.93 10^6/ul (4.0-5.4); Red Cell Distribution Width 17 % (10.5-15)
[2017-10-09 07:14] LABS: EGFR Non-African American 49.7 (>60)
--- NOTE | 2017-10-09 08:13 | PN ---
Subjective Date of Service: 10/09/17 Interval History: Ms. Adams states that she is feeling better today. She has no pain with deep breathing this morning. She feels less short of breath. She denies other complaint including nausea or abdominal pain. Objective Active Medications: Acetaminophen (Tylenol Tab*) 500 mg PO Q6H PRN Albuterol (Ventolin Hfa Inhaler*) 2 puff INH Q4H PRN Atorvastatin Calcium (Lipitor*) 20 mg PO QPM VANESSA Bisoprolol Fumarate (Zebeta Tab*) 10 mg PO DAILY VANESSA Cholecalciferol (Vitamin D Tab*) 2,000 units PO DAILY VANESSA Cyclobenzaprine HCl (Flexeril Tab*) 10 mg PO TID [facility] Dextrose (D50w Syringe 50 Ml*) 12.5 gm IV PUSH .FOR FS < 60 - SS PRN Docusate Sodium (Colace Cap*) 100 mg PO Q12H PRN Heparin Sodium (Porcine) (Heparin Vial(*)) 0 units IV .BOLUS PRN PRN Heparin Sodium/Dextrose (Heparin Drip 25,000 Units(*)) 25,000 units in 500 mls @ 0 mls/hr IV PER RATE VANESSA; Per Protocol Cefepime HCl (Maxipime 1 Gm In Dextrose Duplex (*)) 1 gm in 50 mls @ 100 mls/ hr IV Q12H [facility] Diltiazem HCl 125 mg/ Sodium (Chloride) 125 mls @ 5 mls/hr IV Q20H [facility] Insulin Glargine (Lantus(*)) 20 units SUBCUT BEDTIME VANSESA Insulin Human Lispro (Humalog*) 0 units SUBCUT AC [facility] Levothyroxine Sodium (Synthroid Tab*) 112 mcg PO DAILY@0600 [facility] Magnesium Oxide (Magox 400 Tab*) 400 mg PO BID VANESSA Morphine Sulfate (Morphine Vial*) 4 mg IV Q4H PRN Oxycodone/Acetaminophen (Percocet 5/325 Tab*) 1 tab PO Q4H PRN Polyethylene Glycol/Electrolytes (Miralax*) 17 gm PO DAILY [facility] Potassium Chloride (Klor Con Er Tab*) 20 meq PO BID [facility] Spironolactone (Aldactone Tab*) 25 mg PO QAM [facility] Warfarin Sodium (Coumadin Tab(*)) 5 mg PO DAILY@1700 [facility] Vital Signs: Temp Pulse Resp BP Pulse Ox 97.9 F 92 27 139/92 93 10/09/17 04:00 10/09/17 06:50 10/09/17 06:50 10/09/17 06:50 10/09/17 06:50 Oxygen Devices in Use Now: Nasal Cannula Appearance: Female lying in bed in NAD Eyes: No Scleral Icterus Ears/Nose/Mouth/Throat: Mucous Membranes Moist Respiratory: Symmetrical Chest Expansion and Respiratory Effort, Clear to Auscultation Cardiovascular: NL Sounds; No Murmurs; No JVD, - - trace edema in LEs Abdominal: NL Sounds; No Tenderness; No Distention Lymphatic: No Cervical Adenopathy Skin: No Rash or Ulcers, - - Multiple bruises on upper extremities Neurological: Alert and Oriented x 3, NL Muscle Strength and Tone Nutrition: Taking PO's Result Diagrams: 10/09/17 06:49 10/09/17 06:49 Additional Lab and Data: . Assess/Plan/Problems-Billing Assessment: Ms. Adams is a 72 yo F with a PMH of afib, mechanical aortic valve on coumadin with subtherapeutic INR, and chance's who follows with Dr. Velasquez who was admitted on 10/07/17 with pulmonary embolism, rapid afib and possible catheter associated UTI. - Patient Problems (1) Pulmonary embolism Comment: - Patient reports decreased pain on inspiration and decreased SOB. - INR 2.53, will need to continue heparin gtt for 24 hours overlap with therapeutic INR. - Echo with EF 35-50%, moderate to severe tricuspid regurg, PA pressure not significantly elevated. (2) Atrial fibrillation with RVR Comment: - HR controlled on diltiazem gtt now. HR was very difficult to control secondary to pulmonary embolism, esmolol gtt was unsuccessful. Plan to continue diltiazem gtt for at least 24 hours. - Cardiology consult appreciated, patient has history of afib and is managed outpatient by . - Continue hep gtt for 24 hours. (3) Chronic indwelling Sawyer catheter Comment: - Was treated for UTI outpatient with levaquin. - Switched to cefepime pending repeat urine cultures given symptoms that could be consistent with sepsis, though more likely due to PE and afib. (4) Hyperkalemia Comment: - K 5.5 this AM, will repeat at noon - Hold potassium supplementation (5) Chronic systolic CHF (congestive heart failure) Comment: - Appears essentially euvolemic, has minimal chronic lower extremity swelling. - Continue spironolactone but hold furosemide for now. - Echo shows decreased EF to 35-40% from previous 04/2017. (6) HTN (hypertension) Comment: - SBP 130-140s - Continue diltiazem gtt and spironolactone. (7) H/O mechanical aortic valve replacement Comment: - Continue Warfarin - goal INR 2.5-3.5. (8) Diabetes Comment: - BGs 200-250s. - Increase lantus from 20 to 25 units due to morning hyperglycemia. Continue SSI coverage for meals. - HgbA1c 7.4 on 10/05/17. (9) Hypothyroid Comment: - Continue current dose of synthroid. (10) [place] disease Comment: - Continues to follow with Dr. Velasquez outpatient. - Had adrenal vein sampling on 10/04/17 confirming diagnosis. - Per Dr. Velasquez, patient will need a right adrenalectomy which could be performed by Dr. Palacios. Dr. Velasquez recommends inpatient consultation for planning of surgery once medically stable, Dr. Palacios not furnace combustion analyst today. Will follow up Tuesday. (11) DVT prophylaxis Comment: - Warfarin with heparin gtt. (12) DNR (do not resuscitate) Comment: Status and Disposition: Inpatient. [facility].
[2017-10-09] MEDS ORDERED: Levofloxacin TAB* 750 MG PO SCH (09:00)
[2017-10-09] MEDS: Insulin LISPRO* 1 UNITS UNIT SUBCUT SCH ×3 (09:30→18:09)
[2017-10-09] MEDS: Spironolactone TAB* 25 MG PO SCH (09:31)
[2017-10-09] MEDS: Cholecalciferol TAB* 1000 UNITS PO SCH (09:31)
[2017-10-09] MEDS: Magnesium Oxide TAB* 400 MG PO SCH ×2 (09:32→21:13)
[2017-10-09] MEDS: Cyclobenzaprine TAB* 10 MG PO SCH ×3 (09:32→21:12)
[2017-10-09] MEDS: Bisoprolol TAB* 5 MG PO SCH (09:34)
[2017-10-09] MEDS: Potassium Chlor TAB* 20 MEQ TAB.ER PO SCH (09:38)
[2017-10-09] MEDS: Polyethylene Glycol 3350* 17 GM PACKET PO SCH (10:00)
[2017-10-09 10:09] LABS: INR 2.53 (0.77-1.02)
[2017-10-09] MEDS: Heparin VIAL(*) 5000 UNITS/ML VIAL (FIVE THOUSAND) IV PRN (10:09)
--- NOTE | 2017-10-09 10:11 | ECHO ---
Patient: [facility] Rec#: [id number] : 1945 Date: 10/09/2017 Age: 72y Height: 167.64 cm / 66.0 in Weight: 93.89 kg / 206.9 lbs Sex: F BSA: 2.03 Room#: [facility] Admit Date#: 10/07/2017 Type: Inpatient Referring: Lyndsey Richard NP Reading: Farzana Wynne MD Cna Instructor: Kenisha Prado RDCS CC: Dimitrios Lim MD Transthoracic Echocardiogram Indication: Pulmonary Embolism BP: 166/108 HR: 92 Rhythm: A-Fib Findings History: A-Fib, Tachy-robby syndrome, s/p pacer, HTN. HLD, CHF, DM, mechanical AVR, recent interventional angiography for adrenal vein sampling. Technical Comments: The study quality is fair. The study is technically limited due to patient body habitus. Completed at 0900. Left Ventricle: The left ventricular chamber size is normal. Mild concentric left ventricular hypertrophy is observed.Septum is echo bright. There is global hypokinesis of the left ventricle with minor regional variation. There is moderately decreased left ventricular systolic function. The estimated ejection fraction is 35-40%. Post surgical hypokinesis of the interventricular septum is observed consistent with valve replacement. The assessment of diastolic function is non-diagnostic. Left Atrium: The left atrium is moderately dilated. Right Ventricle: Moderator Band present. The right ventricle is mild to moderately dilated. The right ventricle wall thickness is mildly increased. The right ventricular global systolic function is mildly reduced. A pacemaker wire is visualized in the right ventricle. Right Atrium: The right atrium is moderately dilated. A pacemaker wire is visualized in the right atrium. Aortic Valve: The aortic valve structure is not well visualized. There is trace to mild aortic regurgitation. The mean gradient of the aortic valve is 22.6 mmHg. The peak instantaneous gradient of the aortic valve is 38.36 mmHg. The aortic valve area, by peak velocities, is calculated at 0.75 cm2. The aortic valve area, by VTI's, is calculated at 0.76 cm2. A mechanical prosthetic aortic valve is present. Mitral Valve: There is mitral annular calcification. The mitral valve leaflets are mildly thickened. There is mild to moderate mitral regurgitation. There is no evidence of mitral stenosis. Tricuspid Valve: The tricuspid valve leaflets are mildly thickened. There is moderate to severe tricuspid regurgitation. The right ventricular systolic pressure is estimated at 39 mmHg. There is evidence of mild pulmonary hypertension. There is no tricuspid stenosis. Pulmonic Valve: The pulmonic valve structure is not well visualized. There is a trace pulmonic regurgitation. There is no pulmonic stenosis. Pericardium: There is no significant pericardial effusion. A pericardial fat pad is visualized. Aorta: There is no dilatation of the ascending aorta. The aortic arch is not well visualized. The aortic root is normal in size. Pulmonary Artery: The main pulmonary artery appears normal. Venous: The inferior vena cava is dilated. There is a greater than 50% respiratory change in the inferior vena cava dimension. Conclusions Mild concentric left ventricular hypertrophy is observed, the septum is echo bright. There is global hypokinesis of the left ventricle with post surgical hypokinesis of the interventricular septum is observed consistent with valve replacement. The estimated ejection fraction is 35-40%. The right ventricle is mild to moderately dilated. The right ventricle wall thickness is mildly increased. The right ventricular global systolic function is mildly reduced. Bi atrial enlargement. A mechanical prosthetic aortic valve is present. There is trace to mild aortic regurgitation. The mean gradient of the aortic valve is 22.6 mmHg. The aortic valve area, by VTI's, is calculated at 0.76 cm2. The mitral valve leaflets are mildly thickened. There is mild to moderate mitral regurgitation. There is moderate to severe tricuspid regurgitation. There is evidence of mild pulmonary hypertension: 39 mmHg. Compared with prior echo of 07/17/17, EF has decreased from 40/45%, afib is new, prosthetic aortic valve function is not significantly changed, prior mean gradient was 22.6 mmHg, prior PERCY estimated at 1 cm2. The degree of MR has increased from trace, the degree of TR has increased from mild/moderate, PA pressure previously 32 mmHg. RV dilatation is new, previously mildly depressed RV systolic function. Measurements Name Value Normal Range RVIDd (AP) 2D 3.5 cm (0.9 - 2.6) RVDdMajor (2D) 4.5 cm (2.2 - 4.4) RVAW (2D) 0.6 cm (0.2 - 0.5) RAd ISD 4CH 6.2 cm (3.4 - 4.9) RA (A4C)W 4.6 cm (2.9 - 4.6) IVSd (2D) 1.1 cm (0.6 - 1) LVPWd (2D) 1.1 cm (0.6 - 1) LVIDd (2D) 4.6 cm (3.6 - 5.4) LVIDs (2D) 3.4 cm - LV FS (2D) 25 % (25 - 45) Aortic Annulus 1.8 cm (1.4 - 2.6) Ao root diameter (2D) 2.9 cm (2.1 - 3.5) Ascending Ao 2.9 cm (2.1 - 3.4) LA dimension (AP) 2D 5 cm (2.3 - 3.8) LAd ISD 4CH 6.6 cm (2.9 - 5.3) LA ISD 4CH W 4.7 cm (2.5 - 4.5) Name Value Normal Range LA ESV SP 4CH (A/L) 76 ml - LA ESV SP 2CH (A/L) 80 ml - LA ESV BP (A/L) 78 ml - LA ESV BP (A/L) index 38 ml/m2 - LA ESV SP 4CH (MOD) 68 ml - LA ESV SP 2CH (MOD) 75 ml - Name Value Normal Range MV E-wave Vmax 1.18 m/sec - MV deceleration time 171.6 msec - LV septal e' Vmax 0.06 m/sec - LV lateral e' Vmax 0.09 m/sec - LV E:e' septal ratio 19.67 ratio - LV E:e' lateral ratio 13.11 ratio - Name Value Normal Range AV Vmax 3.1 m/sec - AV VTI 55.09 cm - AV peak gradient 38.36 mmHg - AV mean gradient 22.6 mmHg - LVOT diameter 2 cm - LVOT Vmax 0.75 m/sec - LVOT VTI 13.35 cm - LVOT peak gradient 2.28 mmHg - LVOT mean gradient 1.32 mmHg - DOI (VTI) 0.24 ratio - PERCY (continuity Vmax) 0.75 cm2 - PERCY (continuity VTI) 0.76 cm2 - Name Value Normal Range MR Vmax 5.2 m/sec - MR VTI 156 cm - MR flow (PISA) 34 ml/sec - MR ERO 0.06 cm2 - MR PISA radius 0.47 cm - MR alias Vmax 24.7 cm/sec - Name Value Normal Range TR Vmax 2.8 m/sec - TR peak gradient 31 mmHg - RAP 8 mmHg - RVSP 39 mmHg - IVC diameter 2.2 cm - Name Value Normal Range PV Vmax 1.09 m/sec - PV peak gradient 4.85 mmHg - VT end-diastolic Vmax 1.43 m/sec -
[2017-10-09] MEDS: Diltiazem IV VIAL* 125 MG in NS 0.9% 100 ML* 100 ML IV SCH ×2 (13:45→23:00)
--- NOTE | 2017-10-09 13:49 | PN ---
Subjective Date of Service: 10/09/17 - CC: SOB Interval History: The patient's breathing is better, she can take deeper breaths. No longer sweaty. IV infiltrate area is not painful. Medications Active Medications: Acetaminophen (Tylenol Tab*) 500 mg PO Q6H PRN PRN Reason: FEVER/PAIN Last Admin: 10/09/17 06:39 Dose: 500 mg Albuterol (Ventolin Hfa Inhaler*) 2 puff INH Q4H PRN PRN Reason: SOB/WHEEZING Atorvastatin Calcium (Lipitor*) 20 mg PO QPM [facility] Last Admin: 10/08/17 16:48 Dose: 20 mg Bisoprolol Fumarate (Zebeta Tab*) 10 mg PO DAILY [facility] Last Admin: 10/09/17 09:34 Dose: 10 mg Cholecalciferol (Vitamin D Tab*) 2,000 units PO DAILY [facility] Last Admin: 10/09/17 09:31 Dose: 2,000 units Cyclobenzaprine HCl (Flexeril Tab*) 10 mg PO TID [facility] Last Admin: 10/09/17 09:32 Dose: 10 mg Dextrose (D50w Syringe 50 Ml*) 12.5 gm IV PUSH .FOR FS < 60 - SS PRN PRN Reason: FS < 60 Docusate Sodium (Colace Cap*) 100 mg PO Q12H PRN PRN Reason: CONSTIPATION Heparin Sodium (Porcine) (Heparin Vial(*)) 0 units IV .BOLUS PRN PRN PRN Reason: BOLUS FOR HEPARIN DRIP Last Admin: 10/09/17 10:09 Dose: 5,500 units Heparin Sodium/Dextrose (Heparin Drip 25,000 Units(*)) 25,000 units in 500 mls @ 0 mls/hr IV PER RATE VANESSA; Per Protocol PRN Reason: Protocol Last Admin: 10/08/17 15:55 Dose: 19 mls/hr Cefepime HCl (Maxipime 1 Gm In Dextrose Duplex (*)) 1 gm in 50 mls @ 100 mls/ hr IV Q12H [facility] Last Admin: 10/08/17 17:59 Dose: 100 mls/hr Diltiazem HCl 125 mg/ Sodium (Chloride) 125 mls @ 5 mls/hr IV Q20H [facility] PRN Reason: Protocol Last Admin: 10/08/17 19:05 Dose: 5 mls/hr Insulin Glargine (Lantus(*)) 25 units SUBCUT BEDTIME [facility] Insulin Human Lispro (Humalog*) 0 units SUBCUT AC [facility] PRN Reason: Protocol Last Admin: 10/09/17 13:30 Dose: 12 units Levothyroxine Sodium (Synthroid Tab*) 112 mcg PO DAILY@0600 [facility] Last Admin: 10/09/17 06:23 Dose: 112 mcg Magnesium Oxide (Magox 400 Tab*) 400 mg PO BID [facility] Last Admin: 10/09/17 09:32 Dose: 400 mg Morphine Sulfate (Morphine Vial*) 4 mg IV Q4H PRN PRN Reason: PAIN Oxycodone/Acetaminophen (Percocet 5/325 Tab*) 1 tab PO Q4H PRN PRN Reason: PAIN - SEVERE Last Admin: 10/07/17 20:45 Dose: 1 tab Polyethylene Glycol/Electrolytes (Miralax*) 17 gm PO DAILY [facility] Last Admin: 10/08/17 07:59 Dose: 17 gm Spironolactone (Aldactone Tab*) 25 mg PO QAM [facility] Last Admin: 10/09/17 09:31 Dose: 25 mg Warfarin Sodium (Coumadin Tab(*)) 5 mg PO DAILY@1700 [facility] PRN Reason: Protocol Last Admin: 10/08/17 16:48 Dose: 5 mg Objective Vital Signs: Temp Pulse Resp BP Pulse Ox 97.9 F 92 27 139/92 93 10/09/17 04:00 10/09/17 06:50 10/09/17 06:50 10/09/17 06:50 10/09/17 06:50 Oxygen Devices in Use Now: Nasal Cannula Appearance: overweight, Cushingoid in appearance, lying at 30 degrees, eating, appears comfortable. Eyes: No Scleral Icterus, PERRLA Ears/Nose/Mouth/Throat: NL Teeth, Lips, Gums, Clear Oropharnyx, Mucous Membranes Moist Neck: Trachea Midline Respiratory: Symmetrical Chest Expansion and Respiratory Effort, Clear to Auscultation Cardiovascular: NL Sounds; No Murmurs; No JVD - irregularly irregular Abdominal: - - obese, active bowel sounds, non tender. Lymphatic: No Cervical Adenopathy Extremities: - - thick, obese, no pitting edema. RUE IV infiltrate sight w/o evidence of infection. Neurological: Alert and Oriented x 3 Lines/Tubes/Other Access: Clean, Dry and Intact Peripheral IV Laboratory Results: 10/09/17 06:49 10/09/17 06:49 INR (Anticoag Therapy) 2.53 (0.77-1.02) H 10/09/17 06:52 APTT 37.5 seconds (26.0-36.3) H 10/09/17 06:52 Total Bilirubin 0.40 mg/dL (0.2-1.0) 10/07/17 12:18 AST 11 U/L (13-39) L 10/07/17 12:18 ALT 17 U/L (7-52) 10/07/17 12:18 Alkaline Phosphatase 82 U/L (34-104) 10/07/17 12:18 B-Natriuretic Peptide 295 pg/mL (-100) H 10/07/17 12:18 Total Protein 6.8 g/dL (6.4-8.9) 10/07/17 12:18 Albumin 3.6 g/dL (3.2-5.2) 10/07/17 12:18 Globulin 3.2 g/dL (2-4) 10/07/17 12:18 Albumin/Globulin Ratio 1.1 (1-3) 10/07/17 12:18 10/07/17 10/07/17 18:17 21:43 Troponin I 0.05 H* 0.04 H* Diagnostic Imaging: ECHO 10/09/17: EF 35-40%, RV dilatation and mild HK, mild to mod MR, mod to severe TR PA pr. 39 mmHg, AVR, mechanical, mean gradient 22 mmHg. EKG Data: Monitor: afib, rates now down in the 80's. (On dilt gtt of 15 mg/hr) Assessment/Plan 72 yo female, mechanical AVR, now chronic afib on rate control, admitted with SOB due to PE (coumodin held for adrenal study done 10/05/17). Improving on heparin and INR is now theraputic for PE/AFib. Ventricular rate now controlled with IV diltiazem. Chronic afib: Try getting back on oral dilt. Prior was 240 LA/day. Recommend 120 LA dilt. BID and taper gtt to off keeping ventricular rate below 100 bpm and above 60 bpm. Continue coumodin. AVR: With mechanical valve at high risk for pannus formation, I think another day of heparin would be good for valve and PE. Cardiomyopathy: On beta charlene (zebeta) and aldactone. Defer to Dr Padgett for snf management. Diltiazem not ideal, but yesterday the patient did not respond to beta blockers for rate control. Cardiology will follow distantly, call PRN.
[2017-10-09 17:32] LABS: EGFR Non-African American 38.8 (>60)
[2017-10-09] MEDS: Warfarin TAB(*) 5 MG PO SCH (18:10)
[2017-10-09] MEDS: Atorvastatin* 20 MG TAB PO SCH (18:10)
[2017-10-09] MEDS: Heparin DRIP 25,000 UNITS(*) 25,000 UNITS/500 ML BAG IV SCH (19:22)
[2017-10-09] MEDS: Cefepime 1 GM in Dextrose(*) 1 GM/50 ML BAG IV SCH (20:08)
[2017-10-09] MEDS ORDERED: Insulin GLARGINE(*) 1 UNITS UNIT SUBCUT SCH (21:00)
[2017-10-09] MEDS: Diltiazem CD CAP* 120 MG PO SCH (21:12)
[2017-10-10 05:41] LABS: ABS Basophils 0 10^3/ul (0-0.2); ABS Eosinophils 0 10^3/ul (0-0.6); ABS Lymphocytes 0.9 10^3/ul (1.0-4.8); ABS Monocytes 1.1 10^3/ul (0-0.8); ABS Neutrophils 11.5 10^3/ul (1.5-7.7); ABS Nucleated RBC 0 10^3/ul; Eosinophil % 0.1 % (0-6); Hematocrit 34 % (35-47); Lymphocyte % 6.8 % (25-47); Mean Corpuscular HGB Conc 32 g/dl (31-36); Mean Corpuscular Hemoglobin 30 pg (27-31); Mean Corpuscular Volume 92 fL (80-97); Mean Platelet Volume 7.7 um3 (7.4-10.4); Nucleated Red Blood Cells % 0; Platelet Count 188 10^3/ul (150-450); Red Blood Count 3.69 10^6/ul (4.0-5.4); Red Cell Distribution Width 17 % (10.5-15); White Blood Count 13.5 10^3/ul (3.5-10.8)
[2017-10-10 05:47] LABS: INR 3.23 (0.77-1.02)
[2017-10-10 05:51] LABS: EGFR Non-African American 45.8 (>60)
[2017-10-10] MEDS: Levothyroxine TAB* 112 MCG TAB PO SCH (07:15)
--- NOTE | 2017-10-10 08:57 | RAD ---
HISTORY: Pulmonary embolism COMPARISONS: October 07, 2014 VIEWS: 1: frontal portable view of the chest at 8:40 AM FINDINGS: LINES AND TUBES: A left-sided pacemaker is noted. CARDIOMEDIASTINAL SILHOUETTE: The cardiac silhouette is enlarged. The cardiomediastinal silhouette is otherwise normal for portable technique. A prosthetic heart valve is noted. PLEURA: The costophrenic angles are sharp. No pleural abnormalities are noted. LUNG PARENCHYMA: There is linear opacification of the left lung base. ABDOMEN: The upper abdomen is clear. There is no subphrenic gas. BONES AND SOFT TISSUES: The patient is status post median sternotomy. IMPRESSION: 1. CARDIOMEGALY 2. LINEAR ATELECTASIS OF THE LEFT LUNG BASE.
[2017-10-10] MEDS ORDERED: Furosemide TAB* 40 MG PO SCH (09:00)
[2017-10-10] MEDS: Insulin LISPRO* 1 UNITS UNIT SUBCUT SCH ×3 (09:09→16:54)
[2017-10-10] MEDS: Polyethylene Glycol 3350* 17 GM PACKET PO SCH (09:11)
[2017-10-10] MEDS: Cholecalciferol TAB* 1000 UNITS PO SCH (09:11)
[2017-10-10] MEDS: Spironolactone TAB* 25 MG PO SCH (09:11)
[2017-10-10] MEDS: Magnesium Oxide TAB* 400 MG PO SCH ×2 (09:11→20:28)
[2017-10-10] MEDS: Cyclobenzaprine TAB* 10 MG PO SCH ×3 (09:11→20:28)
[2017-10-10] MEDS: Diltiazem CD CAP* 120 MG PO SCH ×2 (09:11→20:28)
[2017-10-10] MEDS: Bisoprolol TAB* 5 MG PO SCH (09:11)
[2017-10-10] MEDS ORDERED: Diltiazem CD CAP* 120 MG PO ONE (10:55)
[2017-10-10] MEDS ORDERED: Bisoprolol TAB* 5 MG PO ONE (13:30)
[2017-10-10] MEDS: Diltiazem IV VIAL* 125 MG in NS 0.9% 100 ML* 100 ML IVPB SCH (14:07)
[2017-10-10] MEDS ORDERED: Furosemide IV* 10 MG/ML 2 ML VIAL (20 MG) IV SLOW PU ONE (15:03)
--- NOTE | 2017-10-10 16:18 | PN ---
Subjective Date of Service: 10/10/17 Interval History: Patient continues to be significantly tachypnic but denies significant subjective SOB. Denies CP, palpitations dizziness, N/V, abdominal pain, diarrhea , constipation, F/C or other pain. Patient very tachycardic with any activity. Significant bruising with surrounding edema on arms with edema in arms and legs. Family History: Unchanged from Admission Social History: Unchanged from Admission Past Medical History: Unchanged from Admission Objective Active Medications: Acetaminophen (Tylenol Tab*) 500 mg PO Q6H PRN PRN Reason: FEVER/PAIN Last Admin: 10/09/17 06:39 Dose: 500 mg Albuterol (Ventolin Hfa Inhaler*) 2 puff INH Q4H PRN PRN Reason: SOB/WHEEZING Atorvastatin Calcium (Lipitor*) 20 mg PO QPM [facility] Last Admin: 10/09/17 18:10 Dose: 20 mg Bisoprolol Fumarate (Zebeta Tab*) 20 mg PO DAILY [facility] Cholecalciferol (Vitamin D Tab*) 2,000 units PO DAILY [facility] Last Admin: 10/10/17 09:11 Dose: 2,000 units Cyclobenzaprine HCl (Flexeril Tab*) 10 mg PO TID [facility] Last Admin: 10/10/17 13:26 Dose: 10 mg Dextrose (D50w Syringe 50 Ml*) 12.5 gm IV PUSH .FOR FS < 60 - SS PRN PRN Reason: FS < 60 Diltiazem HCl (Cardizem Cd Cap*) 120 mg PO BID [facility] Last Admin: 10/10/17 09:11 Dose: 120 mg Docusate Sodium (Colace Cap*) 100 mg PO Q12H PRN PRN Reason: CONSTIPATION Furosemide (Lasix Tab*) 40 mg PO DAILY [facility] Last Admin: 10/10/17 09:11 Dose: 40 mg Heparin Sodium (Porcine) (Heparin Flush Picc/Ml/Cvc(*)) 1 - 3 ml FLUSH 0600, 1800 [facility] PRN Reason: Protocol Last Admin: 10/10/17 07:16 Dose: 1 ml Diltiazem HCl 125 mg/ Sodium (Chloride) 125 mls @ 5 mls/hr IVPB .PER PARAMETERS VANESSA; 5 MG/HR PRN Reason: Protocol Last Admin: 10/10/17 14:07 Dose: 5 mls/hr Insulin Glargine (Lantus(*)) 35 units SUBCUT BEDTIME [facility] Insulin Human Lispro (Humalog*) 0 units SUBCUT AC [facility] PRN Reason: Protocol Last Admin: 10/10/17 12:40 Dose: 12 units Levothyroxine Sodium (Synthroid Tab*) 112 mcg PO DAILY@0600 [facility] Last Admin: 10/10/17 07:15 Dose: 112 mcg Magnesium Oxide (Magox 400 Tab*) 400 mg PO BID [facility] Last Admin: 10/10/17 09:11 Dose: 400 mg Morphine Sulfate (Morphine Vial*) 4 mg IV Q4H PRN PRN Reason: PAIN Oxycodone/Acetaminophen (Percocet 5/325 Tab*) 1 tab PO Q4H PRN PRN Reason: PAIN - SEVERE Last Admin: 10/07/17 20:45 Dose: 1 tab Polyethylene Glycol/Electrolytes (Miralax*) 17 gm PO DAILY [facility] Last Admin: 10/10/17 09:11 Dose: 17 gm Spironolactone (Aldactone Tab*) 25 mg PO QAM [facility] Last Admin: 10/10/17 09:11 Dose: 25 mg Warfarin Sodium (Coumadin Tab(*)) 4 mg PO DAILY@1700 [facility] PRN Reason: Protocol Vital Signs - 8 hr 10/10/17 10/10/17 10/10/17 09:00 09:01 10:00 Temperature Pulse Rate 116 121 110 Respiratory 27 24 34 Rate Blood Pressure 167/134 (mmHg) O2 Sat by Pulse 95 96 96 Oximetry 10/10/17 10/10/17 10/10/17 10:01 10:59 11:00 Temperature Pulse Rate 125 107 Respiratory 24 28 43 Rate Blood Pressure 145/100 (mmHg) O2 Sat by Pulse 96 97 Oximetry 10/10/17 10/10/17 10/10/17 11:01 11:19 11:53 Temperature 98.4 F Pulse Rate 117 Respiratory 21 Rate Blood Pressure 133/91 (mmHg) O2 Sat by Pulse 96 96 Oximetry 10/10/17 10/10/17 10/10/17 12:00 12:36 12:42 Temperature Pulse Rate 112 109 104 Respiratory 30 38 27 Rate Blood Pressure 124/79 (mmHg) O2 Sat by Pulse 96 96 96 Oximetry 10/10/17 10/10/17 10/10/17 13:00 13:58 14:00 Temperature Pulse Rate 85 107 Respiratory 35 33 27 Rate Blood Pressure 121/82 (mmHg) O2 Sat by Pulse 95 96 Oximetry 10/10/17 10/10/17 10/10/17 14:01 14:28 14:32 Temperature Pulse Rate 106 102 100 Respiratory 30 25 35 Rate Blood Pressure 71/61 155/100 (mmHg) O2 Sat by Pulse 96 96 96 Oximetry 10/10/17 10/10/17 15:00 15:01 Temperature Pulse Rate 110 105 Respiratory 23 36 Rate Blood Pressure 155/106 (mmHg) O2 Sat by Pulse 96 96 Oximetry Oxygen Devices in Use Now: Nasal Cannula Appearance: Patient is a 72yo female with a will face who appears stated age and is sitting in the bed with moderately increased WOB. Eyes: No Scleral Icterus, PERRLA Ears/Nose/Mouth/Throat: NL Teeth, Lips, Gums, Clear Oropharnyx, Mucous Membranes Moist Neck: NL Appearance and Movements; NL JVP, Trachea Midline Respiratory: Symmetrical Chest Expansion and Respiratory Effort, - - Diminished breath sounds in lower lobes. Slight Rales. Cardiovascular: NL Sounds; No Murmurs; No JVD, - - Irregularly irregular tachycardic rhythm. Grade 2/6 JANNETH heard best at RUSB. 1+ edema in B/L LE and upper extremity. Abdominal: NL Sounds; No Tenderness; No Distention, No Hepatosplenomegaly Lymphatic: No Cervical Adenopathy Extremities: - - Purpura on arms with surrounding edema. Skin: No Nodules or Sclerosis Neurological: Alert and Oriented x 3, NL Sensation, NL Muscle Strength and Tone , - - CN II-XII intact. Result Diagrams: 10/10/17 05:25 10/10/17 05:25 Additional Lab and Data: . Assess/Plan/Problems-Billing Assessment: Ms. Adams is a 72 yo F with a PMH of afib, mechanical aortic valve on coumadin with subtherapeutic INR, and chance's who follows with Dr. Velasquez who was admitted on 10/07/17 with pulmonary embolism, rapid afib and possible catheter associated UTI. - Patient Problems (1) Atrial fibrillation with RVR Current Visit: No Status: Acute Code(s): I48.91 - UNSPECIFIED ATRIAL FIBRILLATION SNOMED Code(s): 764674611400459 Comment: HR controlled on diltiazem gtt now. HR was very difficult to control secondary to pulmonary embolism, esmolol gtt was unsuccessful. Unable to wean off Dilitazem. Increased PO Cardizem and Bisoprolol Cardiology consult appreciated, patient has history of afib and is managed outpatient by . Was on rhythm control but is now D/C'd. Likely due to HFrEF. Therapeutic on Warfarin. (2) [place] disease Current Visit: Yes Status: Acute Comment: Continues to follow with Dr. Velasquez outpatient. Had adrenal vein sampling on 10/04/[address] Velasquez, patient will need a right adrenalectomy which could be performed by Dr. Palacios. Dr. Palacios contacted and will see tomorrow. (3) Hyperkalemia Current Visit: Yes Status: Acute Code(s): E87.5 - HYPERKALEMIA SNOMED Code (s): 98301271 Comment: Hold potassium supplementation Now WNL, will monitor, continue Spironolactone. (4) Pulmonary embolism Current Visit: Yes Status: Acute Code(s): I26.99 - OTHER PULMONARY EMBOLISM WITHOUT ACUTE COR PULMONALE SNOMED Code(s): 25043041 Comment: Decreased SOB but still tachypnea. INR 3.23. Heparin Drip discontinued. Echo with EF 35-40%, moderate to severe tricuspid regurg, PA pressure not significantly elevated. (5) Adrenal incidentaloma Current Visit: No Status: Acute Code(s): E27.8 - OTHER SPECIFIED DISORDERS OF ADRENAL GLAND SNOMED Code(s): 25079626233102 Comment: Plan for removal when medically stable. (6) Aortic aneurysm Current Visit: No Status: Acute Code(s): I71.9 - AORTIC ANEURYSM OF UNSPECIFIED SITE, WITHOUT RUPTURE SNOMED Code(s): 43388276 Comment: Stable on CTA. Thickening stable. No need for intervention at this time. (7) Chronic indwelling [place]yer catheter Current Visit: No Status: Acute Code(s): Z92.89 - PERSONAL HISTORY OF OTHER MEDICAL TREATMENT SNOMED Code(s): 596925190 Comment: Was treated for UTI outpatient with levaquin. Switched to cefepime pending repeat urine cultures given symptoms that could be consistent with sepsis, though more likely due to PE and afib. Culture grew likely contaminant Kailyn. Stop antibiotics. (8) Chronic systolic CHF (congestive heart failure) Current Visit: No Status: Acute Code(s): I50.22 - CHRONIC SYSTOLIC ( CONGESTIVE) HEART FAILURE SNOMED Code(s): 953246946 Comment: Anasarca. Increased vascular markings on CXR. Continue spironolactone and furosemide. Extra lasix 20mg x1 given today. Echo shows decreased EF to 35-40% from previous 04/2017. (9) DNR (do not resuscitate) Current Visit: No Status: Acute Comment: (10) Diabetes Current Visit: No Status: Acute Code(s): E11.9 - TYPE 2 DIABETES MELLITUS WITHOUT COMPLICATIONS SNOMED Code(s): 67098358 Comment: BGs 200-250s. Increase lantus from 25 to 35 units due to morning hyperglycemia. Continue SSI coverage for meals. HgbA1c 7.4 on 10/05/17. Likely driven by stress and cushings. (11) H/O mechanical aortic valve replacement Current Visit: No Status: Acute Code(s): Z95.2 - PRESENCE OF PROSTHETIC HEART VALVE SNOMED Code(s): 242488292 Comment: - Continue Warfarin - goal INR 2.5-3.5. (12) HTN (hypertension) Current Visit: No Status: Acute Code(s): I10 - ESSENTIAL (PRIMARY) HYPERTENSION SNOMED Code(s): 92214575 Comment: SBP WNL, has to take BPs on legs. Continue diltiazem gtt, lasix, and spironolactone. (13) Hypothyroid Current Visit: No Status: Chronic Priority: Medium Code(s): E03.9 - HYPOTHYROIDISM, UNSPECIFIED SNOMED Code(s): 07287966 Comment: Continue current dose of synthroid. TSH and T3 low, T4 WNL. Repeat outpatient. (14) DVT prophylaxis Current Visit: No Status: Acute Code(s): XVV8568 - SNOMED Code(s): 622735976 Comment: Therapeutic Warfarin. Status and Disposition: Inpatient. Anticipate discharge to [facility] when medically stable.
--- NOTE | 2017-10-10 16:21 | PN ---
Subjective Date of Service: 10/10/17 Interval History: f/u AFib Patient appears dyspneic and tachypneic but denies dyspnea no cp or palpitations Afib HR at rest 90-100 bpm goes above 140 bpm with minimal exertion Medications Active Medications: Acetaminophen (Tylenol Tab*) 500 mg PO Q6H PRN PRN Reason: FEVER/PAIN Last Admin: 10/09/17 06:39 Dose: 500 mg Albuterol (Ventolin Hfa Inhaler*) 2 puff INH Q4H PRN PRN Reason: SOB/WHEEZING Atorvastatin Calcium (Lipitor*) 20 mg PO QPM [facility] Last Admin: 10/09/17 18:10 Dose: 20 mg Bisoprolol Fumarate (Zebeta Tab*) 20 mg PO DAILY [facility] Cholecalciferol (Vitamin D Tab*) 2,000 units PO DAILY [facility] Last Admin: 10/10/17 09:11 Dose: 2,000 units Cyclobenzaprine HCl (Flexeril Tab*) 10 mg PO TID [facility] Last Admin: 10/10/17 13:26 Dose: 10 mg Dextrose (D50w Syringe 50 Ml*) 12.5 gm IV PUSH .FOR FS < 60 - SS PRN PRN Reason: FS < 60 Diltiazem HCl (Cardizem Cd Cap*) 120 mg PO BID [facility] Last Admin: 10/10/17 09:11 Dose: 120 mg Docusate Sodium (Colace Cap*) 100 mg PO Q12H PRN PRN Reason: CONSTIPATION Furosemide (Lasix Tab*) 40 mg PO DAILY [facility] Last Admin: 10/10/17 09:11 Dose: 40 mg Heparin Sodium (Porcine) (Heparin Flush Picc/Ml/Cvc(*)) 1 - 3 ml FLUSH 0600, 1800 [facility] PRN Reason: Protocol Last Admin: 10/10/17 07:16 Dose: 1 ml Diltiazem HCl 125 mg/ Sodium (Chloride) 125 mls @ 5 mls/hr IVPB .PER PARAMETERS VANESSA; 5 MG/HR PRN Reason: Protocol Last Admin: 10/10/17 14:07 Dose: 5 mls/hr Insulin Glargine (Lantus(*)) 35 units SUBCUT BEDTIME [facility] Insulin Human Lispro (Humalog*) 0 units SUBCUT AC [facility] PRN Reason: Protocol Last Admin: 10/10/17 12:40 Dose: 12 units Levothyroxine Sodium (Synthroid Tab*) 112 mcg PO DAILY@0600 [facility] Last Admin: 10/10/17 07:15 Dose: 112 mcg Magnesium Oxide (Magox 400 Tab*) 400 mg PO BID [facility] Last Admin: 10/10/17 09:11 Dose: 400 mg Morphine Sulfate (Morphine Vial*) 4 mg IV Q4H PRN PRN Reason: PAIN Oxycodone/Acetaminophen (Percocet 5/325 Tab*) 1 tab PO Q4H PRN PRN Reason: PAIN - SEVERE Last Admin: 10/07/17 20:45 Dose: 1 tab Polyethylene Glycol/Electrolytes (Miralax*) 17 gm PO DAILY [facility] Last Admin: 10/10/17 09:11 Dose: 17 gm Spironolactone (Aldactone Tab*) 25 mg PO QAM [facility] Last Admin: 10/10/17 09:11 Dose: 25 mg Warfarin Sodium (Coumadin Tab(*)) 4 mg PO DAILY@1700 [facility] PRN Reason: Protocol Objective Vital Signs: Temp Pulse Resp BP Pulse Ox 98.4 F 105 36 155/106 96 10/10/17 11:53 10/10/17 15:01 10/10/17 15:01 10/10/17 15:00 10/10/17 15:01 Oxygen Devices in Use Now: Nasal Cannula Appearance: patient appears tachypneic but not distressed, pleasant Eyes: No Scleral Icterus, PERRLA Ears/Nose/Mouth/Throat: NL Teeth, Lips, Gums, Clear Oropharnyx, Mucous Membranes Moist Neck: Trachea Midline Respiratory: Clear to Auscultation, - - mild tachypnea and increased work of breathing Cardiovascular: NL Sounds; No Murmurs; No JVD - irregularly irregular Abdominal: - - obese, active bowel sounds, non tender. Lymphatic: No Cervical Adenopathy Extremities: - - thick, obese, no pitting edema. RUE IV infiltrate sight w/o evidence of infection. Neurological: Alert and Oriented x 3 Lines/Tubes/Other Access: Clean, Dry and Intact Peripheral IV Laboratory Results: 10/10/17 05:25 10/10/17 05:25 INR (Anticoag Therapy) 3.23 (0.77-1.02) H 10/10/17 05:25 APTT 81.0 seconds (26.0-36.3) H 10/10/17 01:45 Total Bilirubin 0.40 mg/dL (0.2-1.0) 10/07/17 12:18 AST 11 U/L (13-39) L 10/07/17 12:18 ALT 17 U/L (7-52) 10/07/17 12:18 Alkaline Phosphatase 82 U/L (34-104) 10/07/17 12:18 B-Natriuretic Peptide 295 pg/mL (-100) H 10/07/17 12:18 Total Protein 6.8 g/dL (6.4-8.9) 10/07/17 12:18 Albumin 3.6 g/dL (3.2-5.2) 10/07/17 12:18 Globulin 3.2 g/dL (2-4) 10/07/17 12:18 Albumin/Globulin Ratio 1.1 (1-3) 10/07/17 12:18 TSH 0.25 mcIU/mL (0.34-5.60) L 10/10/17 05:25 10/07/17 10/07/17 10/07/17 12:18 18:17 21:43 Troponin I 0.05 H* 0.05 H* 0.04 H* Diagnostic Imaging: ECHO 10/09/17: EF 35-40%, RV dilatation and mild HK, mild to mod MR, mod to severe TR PA pr. 39 mmHg, AVR, mechanical, mean gradient 22 mmHg. Assessment/Plan 72 yo female, mechanical AVR, now chronic afib on rate control, admitted with SOB due to PE (coumodin held for adrenal study done 10/05/17). Improving on heparin and INR is now theraputic for PE/AFib. Followed for elevated AFib heart rate Patient currently on home diltiazem oral dosing (120 mg po bid in place or 240 mg qd) in addition to 5 mg gtt, CCB not optimal with cardiomyopathy but is helping control heart rates Patient currently on 20 mg of bisoprolol in place of home 10 mg Elevated Afib rate likely being driven but underlying pulmonary process, would not overtreat
[2017-10-10] MEDS ORDERED: Warfarin TAB(*) 5 MG PO SCH (17:00)
[2017-10-10] MEDS ORDERED: Warfarin TAB(*) 4 MG PO SCH (17:02)
--- NOTE | 2017-10-10 17:19 | RAD ---
INDICATION: Pain and swelling. History of pulmonary embolus. COMPARISON: None TECHNIQUE: Duplex interrogation of the Lowerextremity was performed. FINDINGS: Right upper extremity Deep veins: The visualized jugular, visualized subclavian, axillary, brachial, radial, and ulnar veins are patent. There is normal compressibility, augmentation, and phasic flow. Superficial veins: There are no findings of superficial thrombophlebitis. The basilic and cephalic veins are patent. Soft tissues:There are no soft tissue abnormalities. Left upper extremity: Deep veins: The visualized jugular, visualized subclavian, axial, brachial, radial, and ulnar veins are patent. There is normal compressibility, augmentation, and phasic flow. Superficial veins: There are no findings of superficial thrombophlebitis. The cephalic and basilic veins are patent. Evaluation of the cephalic vein is limited due to the presence of a PICC line and due to the depth of the vessel. Soft tissues:There are no soft tissue abnormalities IMPRESSION: NORMAL BILATERAL EXAMINATION. NO EVIDENCE OF DEEP VENOUS THROMBOSIS
[2017-10-10] MEDS: Atorvastatin* 20 MG TAB PO SCH (17:26)
[2017-10-10] MEDS: oxyCODONE/Acetamin 5/325 MG* TAB PO PRN (18:52)
--- NOTE | 2017-10-10 20:00 | PN ---
Progress Note - Progress Note Date of Service: 10/10/17 Note: Paged for crackles and IVFs ordered. Patient also with tachypnea. Will d/c IVFs. Assessed patient - tachypneic and rales heard. Will order Lasix 40 mg IV x 1.
[2017-10-10] MEDS ORDERED: Furosemide IV* 10 MG/ML VIAL (40 MG) IV ONE (20:18)
[2017-10-10] MEDS ORDERED: Insulin GLARGINE(*) 1 UNITS UNIT SUBCUT SCH (21:00)
[2017-10-11] MEDS: Diltiazem IV VIAL* 125 MG in NS 0.9% 100 ML* 100 ML IVPB SCH (03:15)
[2017-10-11] MEDS: Levothyroxine TAB* 112 MCG TAB PO SCH (05:17)
[2017-10-11] MEDS: Diltiazem CD CAP* 120 MG PO SCH ×3 (05:17→20:47)
[2017-10-11 05:57] LABS: ABS Basophils 0 10^3/ul (0-0.2); ABS Eosinophils 0 10^3/ul (0-0.6); ABS Neutrophils 11.3 10^3/ul (1.5-7.7); ABS Nucleated RBC 0 10^3/ul; Eosinophil % 0.1 % (0-6); Hematocrit 35 % (35-47); Hemoglobin 11.1 g/dl (12.0-16.0); Lymphocyte % 7.2 % (25-47); Mean Corpuscular HGB Conc 32 g/dl (31-36); Mean Corpuscular Hemoglobin 30 pg (27-31); Mean Corpuscular Volume 93 fL (80-97); Nucleated Red Blood Cells % 0; Platelet Count 222 10^3/ul (150-450); Red Blood Count 3.74 10^6/ul (4.0-5.4); Red Cell Distribution Width 17 % (10.5-15); White Blood Count 13.4 10^3/ul (3.5-10.8)
[2017-10-11 06:09] LABS: EGFR Non-African American 43.2 (>60)
[2017-10-11 06:11] LABS: INR 4.1 (0.77-1.02)
[2017-10-11] MEDS ORDERED: Furosemide IV* 10 MG/ML 2 ML VIAL (20 MG) IV SLOW PU ONE (08:46)
[2017-10-11] MEDS: Spironolactone TAB* 25 MG PO SCH (08:52)
[2017-10-11] MEDS: Magnesium Oxide TAB* 400 MG PO SCH ×2 (08:52→20:48)
[2017-10-11] MEDS: Cholecalciferol TAB* 1000 UNITS PO SCH (08:52)
[2017-10-11] MEDS: Insulin LISPRO* 1 UNITS UNIT SUBCUT SCH ×6 (08:53→17:14)
[2017-10-11] MEDS: Bisoprolol TAB* 5 MG PO SCH (08:53)
[2017-10-11] MEDS: Polyethylene Glycol 3350* 17 GM PACKET PO SCH (08:53)
[2017-10-11] MEDS: Cyclobenzaprine TAB* 10 MG PO SCH ×3 (08:53→20:47)
[2017-10-11 14:34] LABS: EGFR Non-African American 44.5 (>60)
--- NOTE | 2017-10-11 15:53 | PN ---
Subjective Date of Service: 10/11/17 Interval History: Patient feels well today. Maintains no complaints of CP or SOB. Tachypnea decreased today. Denies F/C, N/V, abdominal pain, palpitations, dizziness, pain in calves or arms, Denies other pain. Family History: Unchanged from Admission Social History: Unchanged from Admission Past Medical History: Unchanged from Admission Objective Active Medications: Acetaminophen (Tylenol Tab*) 500 mg PO Q6H PRN PRN Reason: FEVER/PAIN Last Admin: 10/09/17 06:39 Dose: 500 mg Albuterol (Ventolin Hfa Inhaler*) 2 puff INH Q4H PRN PRN Reason: SOB/WHEEZING Atorvastatin Calcium (Lipitor*) 20 mg PO QPM [facility] Last Admin: 10/10/17 17:26 Dose: 20 mg Bisoprolol Fumarate (Zebeta Tab*) 20 mg PO DAILY [facility] Last Admin: 10/11/17 08:53 Dose: 20 mg Cholecalciferol (Vitamin D Tab*) 2,000 units PO DAILY [facility] Last Admin: 10/11/17 08:52 Dose: 2,000 units Cyclobenzaprine HCl (Flexeril Tab*) 10 mg PO TID [facility] Last Admin: 10/11/17 12:34 Dose: 10 mg Dextrose (D50w Syringe 50 Ml*) 12.5 gm IV PUSH .FOR FS < 60 - SS PRN PRN Reason: FS < 60 Diltiazem HCl (Cardizem Cd Cap*) 120 mg PO Q8H [facility] Last Admin: 10/11/17 12:39 Dose: 120 mg Docusate Sodium (Colace Cap*) 100 mg PO Q12H PRN PRN Reason: CONSTIPATION Heparin Sodium (Porcine) (Heparin Flush Picc/Ml/Cvc(*)) 1 - 3 ml FLUSH 0600, 1800 [facility] PRN Reason: Protocol Last Admin: 10/11/17 05:17 Dose: 1 ml Insulin Glargine (Lantus(*)) 40 units SUBCUT BEDTIME [facility] Insulin Human Lispro (Humalog*) 0 units SUBCUT AC [facility] PRN Reason: Protocol Last Admin: 10/11/17 12:34 Dose: 6 units Insulin Human Lispro (Humalog*) 5 units SUBCUT AC [facility] Last Admin: 10/11/17 12:35 Dose: 5 units Levothyroxine Sodium (Synthroid Tab*) 112 mcg PO DAILY@0600 [facility] Last Admin: 10/11/17 05:17 Dose: 112 mcg Magnesium Oxide (Magox 400 Tab*) 400 mg PO BID [facility] Last Admin: 10/11/17 08:52 Dose: 400 mg Morphine Sulfate (Morphine Vial*) 4 mg IV Q4H PRN PRN Reason: PAIN Last Admin: 10/10/17 21:58 Dose: 4 mg Oxycodone/Acetaminophen (Percocet 5/325 Tab*) 1 tab PO Q4H PRN PRN Reason: PAIN - SEVERE Last Admin: 10/10/17 18:52 Dose: 1 tab Pharmacy Profile Note (Coumadin Daily Reminder*) 0 note FOLLOW UP 1700 [facility] Polyethylene Glycol/Electrolytes (Miralax*) 17 gm PO DAILY [facility] Last Admin: 10/11/17 08:53 Dose: 17 gm Spironolactone (Aldactone Tab*) 25 mg PO QAM [facility] Last Admin: 10/11/17 08:52 Dose: 25 mg Warfarin Sodium (Coumadin Tab(*)) 2 mg PO DAILY@1700 [facility] PRN Reason: Protocol Vital Signs - 8 hr 10/11/17 10/11/17 10/11/17 08:00 08:01 08:31 Temperature 97.9 F Pulse Rate 81 88 Respiratory 19 19 20 Rate Blood Pressure 126/88 128/79 (mmHg) O2 Sat by Pulse 91 96 Oximetry 10/11/17 10/11/17 10/11/17 09:00 09:01 09:11 Temperature Pulse Rate 87 81 Respiratory 39 31 Rate Blood Pressure 151/91 (mmHg) O2 Sat by Pulse 98 100 98 Oximetry 10/11/17 10/11/17 10/11/17 09:31 10:00 10:01 Temperature Pulse Rate 81 Respiratory 22 26 23 Rate Blood Pressure 131/98 147/62 (mmHg) O2 Sat by Pulse 97 Oximetry 10/11/17 10/11/17 10/11/17 10:31 11:00 11:02 Temperature Pulse Rate 72 76 Respiratory 17 25 26 Rate Blood Pressure 95/77 88/77 (mmHg) O2 Sat by Pulse 94 95 Oximetry 10/11/17 10/11/17 10/11/17 11:43 12:00 12:01 Temperature 98.1 F Pulse Rate 78 70 68 Respiratory 22 20 20 Rate Blood Pressure 147/90 128/80 (mmHg) O2 Sat by Pulse 97 97 97 Oximetry 10/11/17 10/11/17 10/11/17 12:31 13:00 13:01 Temperature Pulse Rate 73 81 79 Respiratory 17 25 30 Rate Blood Pressure 132/87 131/97 (mmHg) O2 Sat by Pulse 97 97 96 Oximetry 10/11/17 10/11/17 10/11/17 13:30 14:00 14:01 Temperature Pulse Rate 72 80 83 Respiratory 20 20 18 Rate Blood Pressure 132/73 134/85 (mmHg) O2 Sat by Pulse 97 97 97 Oximetry 10/11/17 10/11/17 10/11/17 14:31 15:00 15:01 Temperature Pulse Rate 85 73 73 Respiratory 27 19 19 Rate Blood Pressure 117/108 134/95 (mmHg) O2 Sat by Pulse 96 97 97 Oximetry Oxygen Devices in Use Now: Nasal Cannula Appearance: Patient is a 72yo female with Cushingoid features who appears stated age and is sitting in the bed with moderately increased work of breathing. Eyes: No Scleral Icterus, PERRLA Ears/Nose/Mouth/Throat: NL Teeth, Lips, Gums, Clear Oropharnyx, Mucous Membranes Moist Neck: NL Appearance and Movements; NL JVP, Trachea Midline Respiratory: Symmetrical Chest Expansion and Respiratory Effort, - - Increased crackles in B/L Lower lobes. Cardiovascular: NL Sounds; No Murmurs; No JVD, - - Tachycardia. Abdominal: NL Sounds; No Tenderness; No Distention, No Hepatosplenomegaly Lymphatic: No Cervical Adenopathy Extremities: - - 1+ edema in all extremities. Purpura on B/L UE worse on left arm. Skin: No Nodules or Sclerosis Neurological: Alert and Oriented x 3, NL Sensation, NL Muscle Strength and Tone , - - CN II-XII intact. Up with EZ-Stand. Result Diagrams: 10/11/17 05:30 10/11/17 13:53 Additional Lab and Data: . Assess/Plan/Problems-Billing Assessment: Ms. Adams is a 72 yo F with a PMH of afib, mechanical aortic valve on coumadin with subtherapeutic INR, and chance's who follows with Dr. Velasquez who was admitted on 10/07/17 with pulmonary embolism and rapid afib. - Patient Problems (1) Atrial fibrillation with RVR Current Visit: No Status: Acute Code(s): I48.91 - UNSPECIFIED ATRIAL FIBRILLATION SNOMED Code(s): 889274763365833 Comment: HR controlled on oral meds. HR was very difficult to control secondary to pulmonary embolism, esmolol gtt was unsuccessful. Increased PO Cardizem and Bisoprolol Cardiology consult appreciated, patient has history of afib and is managed outpatient by . Was on rhythm control but is now D/C'd. Likely due to HFrEF. Supratherapeutic on Warfarin. INR 4.01. Decrease warfarin today. (2) [place] disease Current Visit: Yes Status: Acute Comment: Continues to follow with Dr. Velasquez outpatient. Had adrenal vein sampling on 10/04/[address] Velasquez, patient will need a right adrenalectomy which could be performed by Dr. Palacios. Dr. Palacios contacted and saw this AM. (3) Hyperkalemia Current Visit: Yes Status: Acute Code(s): E87.5 - HYPERKALEMIA SNOMED Code (s): 31859753 Comment: Hold potassium supplementation Increased. Resolved after spironolactone administration. (4) Pulmonary embolism Current Visit: Yes Status: Acute Code(s): I26.99 - OTHER PULMONARY EMBOLISM WITHOUT ACUTE COR PULMONALE SNOMED Code(s): 70605486 Comment: Decreased SOB but still tachypnea. INR 4.1. Heparin Drip discontinued. Warfarin reduced to 2mg for today. Echo with EF 35-40%, moderate to severe tricuspid regurg, PA pressure not significantly elevated. (5) Adrenal incidentaloma Current Visit: No Status: Acute Code(s): E27.8 - OTHER SPECIFIED DISORDERS OF ADRENAL GLAND SNOMED Code(s): 22940868214230 Comment: Plan for removal when medically stable. (6) Aortic aneurysm Current Visit: No Status: Acute Code(s): I71.9 - AORTIC ANEURYSM OF UNSPECIFIED SITE, WITHOUT RUPTURE SNOMED Code(s): 29808909 Comment: Stable on CTA. Thickening stable. No need for intervention at this time. (7) Chronic indwelling [place] catheter Current Visit: No Status: Acute Code(s): Z92.89 - PERSONAL HISTORY OF OTHER MEDICAL TREATMENT SNOMED Code(s): 552639005 Comment: Was treated for UTI outpatient with levaquin. Switched to cefepime pending repeat urine cultures given symptoms that could be consistent with sepsis, though more likely due to PE and afib. Culture grew likely contaminant Kailyn. Stop antibiotics. (8) Chronic systolic CHF (congestive heart failure) Current Visit: No Status: Acute Code(s): I50.22 - CHRONIC SYSTOLIC ( CONGESTIVE) HEART FAILURE SNOMED Code(s): 856770150 Comment: Anasarca. Increased vascular markings on CXR. Continue spironolactone and furosemide. Extra lasix 100mg IV given over past 2 days. Echo shows decreased EF to 35-40% from previous 04/2017. (9) Diabetes Current Visit: No Status: Acute Code(s): E11.9 - TYPE 2 DIABETES MELLITUS WITHOUT COMPLICATIONS SNOMED Code(s): 85159823 Comment: BGs 200-250s. Increase lantus from 25 to 35 units due to morning hyperglycemia. Continue SSI coverage for meals. HgbA1c 7.4 on 10/05/17. Likely driven by stress and cushings. (10) H/O mechanical aortic valve replacement Current Visit: No Status: Acute Code(s): Z95.2 - PRESENCE OF PROSTHETIC HEART VALVE SNOMED Code(s): 901311439 Comment: Continue Warfarin - goal INR 2.5-3.5. (11) HTN (hypertension) Current Visit: No Status: Acute Code(s): I10 - ESSENTIAL (PRIMARY) HYPERTENSION SNOMED Code(s): 85703750 Comment: SBP well controlled. COntinue diltiazem, Bisoprolo, lasix, and spironolactone. (12) Hypothyroid Current Visit: No Status: Chronic Priority: Medium Code(s): E03.9 - HYPOTHYROIDISM, UNSPECIFIED SNOMED Code(s): 60954768 Comment: Continue current dose of synthroid. TSH and T3 low, T4 WNL. Repeat outpatient. (13) DVT prophylaxis Current Visit: No Status: Acute Code(s): UWE1930 - SNOMED Code(s): 055242463 Comment: Therapeutic Warfarin. (14) DNR (do not resuscitate) Current Visit: No Status: Acute Comment: Status and Disposition: Inpatient. Anticipate discharge to [facility] when medically stable.
[2017-10-11] MEDS: Atorvastatin* 20 MG TAB PO SCH (16:57)
[2017-10-11] MEDS ORDERED: Warfarin TAB(*) 2 MG PO SCH (17:00)
[2017-10-11] MEDS ORDERED: Insulin GLARGINE(*) 1 UNITS UNIT SUBCUT SCH (21:00)
[2017-10-12] MEDS: Levothyroxine TAB* 112 MCG TAB PO SCH (05:29)
[2017-10-12] MEDS: Diltiazem CD CAP* 120 MG PO SCH ×3 (05:29→20:43)
[2017-10-12 06:06] LABS: ABS Basophils 0 10^3/ul (0-0.2); ABS Eosinophils 0 10^3/ul (0-0.6); ABS Lymphocytes 1.2 10^3/ul (1.0-4.8); ABS Monocytes 0.9 10^3/ul (0-0.8); ABS Nucleated RBC 0 10^3/ul; Eosinophil % 0.2 % (0-6); Hematocrit 35 % (35-47); Hemoglobin 11.3 g/dl (12.0-16.0); Lymphocyte % 8.8 % (25-47); Mean Corpuscular HGB Conc 33 g/dl (31-36); Mean Corpuscular Hemoglobin 30 pg (27-31); Mean Corpuscular Volume 91 fL (80-97); Nucleated Red Blood Cells % 0.2; Platelet Count 240 10^3/ul (150-450); Red Blood Count 3.78 10^6/ul (4.0-5.4); Red Cell Distribution Width 17 % (10.5-15); White Blood Count 13.1 10^3/ul (3.5-10.8)
[2017-10-12 06:10] LABS: INR 4.49 (0.77-1.02)
[2017-10-12 06:15] LABS: EGFR Non-African American 51.9 (>60)
[2017-10-12] MEDS: oxyCODONE/Acetamin 5/325 MG* TAB PO PRN (08:29)
[2017-10-12] MEDS: Insulin LISPRO* 1 UNITS UNIT SUBCUT SCH ×6 (08:39→19:02)
[2017-10-12] MEDS: Cyclobenzaprine TAB* 10 MG PO SCH ×3 (08:41→20:42)
[2017-10-12] MEDS: Magnesium Oxide TAB* 400 MG PO SCH ×2 (08:43→20:43)
[2017-10-12] MEDS: Cholecalciferol TAB* 1000 UNITS PO SCH (08:43)
[2017-10-12] MEDS: Bisoprolol TAB* 5 MG PO SCH (08:43)
[2017-10-12] MEDS: Polyethylene Glycol 3350* 17 GM PACKET PO SCH (08:43)
[2017-10-12] MEDS: Spironolactone TAB* 25 MG PO SCH (08:44)
[2017-10-12] MEDS ORDERED: Furosemide IV* 10 MG/ML VIAL (40 MG) IV SLOW PU ONE (11:10)
[2017-10-12] MEDS: Oxybutynin TAB* 5 MG PO SCH ×2 (12:03→20:43)
--- NOTE | 2017-10-12 16:51 | PN ---
Subjective Date of Service: 10/12/17 Interval History: Patient not feeling as well today. 01/17 intermittent bladder spasms unresponsive to pain medications. Stable SOB. No CP, No F/C, N/V, abdominal pain , diarrhea, constipation, marie tolerated well aside from spasms. No other pain in legs, arms, or associated with lines. Family History: Unchanged from Admission Social History: Unchanged from Admission Past Medical History: Unchanged from Admission Objective Active Medications: Acetaminophen (Tylenol Tab*) 500 mg PO Q6H PRN PRN Reason: FEVER/PAIN Last Admin: 10/09/17 06:39 Dose: 500 mg Albuterol (Ventolin Hfa Inhaler*) 2 puff INH Q4H PRN PRN Reason: SOB/WHEEZING Atorvastatin Calcium (Lipitor*) 20 mg PO QPM [facility] Last Admin: 10/11/17 16:57 Dose: 20 mg Bisoprolol Fumarate (Zebeta Tab*) 20 mg PO DAILY [facility] Last Admin: 10/12/17 08:43 Dose: 20 mg Cholecalciferol (Vitamin D Tab*) 2,000 units PO DAILY [facility] Last Admin: 10/12/17 08:43 Dose: 2,000 units Cyclobenzaprine HCl (Flexeril Tab*) 10 mg PO TID [facility] Last Admin: 10/12/17 13:41 Dose: 10 mg Dextrose (D50w Syringe 50 Ml*) 12.5 gm IV PUSH .FOR FS < 60 - SS PRN PRN Reason: FS < 60 Diltiazem HCl (Cardizem Cd Cap*) 120 mg PO Q8H [facility] Last Admin: 10/12/17 13:41 Dose: 120 mg Docusate Sodium (Colace Cap*) 100 mg PO Q12H PRN PRN Reason: CONSTIPATION Heparin Sodium (Porcine) (Heparin Flush Picc/Ml/Cvc(*)) 1 - 3 ml FLUSH 0600, 1800 [facility] PRN Reason: Protocol Last Admin: 10/12/17 05:29 Dose: 2 ml Insulin Glargine (Lantus(*)) 45 units SUBCUT BEDTIME [facility] Insulin Human Lispro (Humalog*) 0 units SUBCUT AC [facility] PRN Reason: Protocol Last Admin: 10/12/17 13:40 Dose: 6 units Insulin Human Lispro (Humalog*) 5 units SUBCUT AC [facility] Last Admin: 10/12/17 13:40 Dose: 5 units Levothyroxine Sodium (Synthroid Tab*) 112 mcg PO DAILY@0600 [facility] Last Admin: 10/12/17 05:29 Dose: 112 mcg Magnesium Oxide (Magox 400 Tab*) 400 mg PO BID [facility] Last Admin: 10/12/17 08:43 Dose: 400 mg Morphine Sulfate (Morphine Vial*) 4 mg IV Q4H PRN PRN Reason: PAIN Last Admin: 10/10/17 21:58 Dose: 4 mg Oxybutynin Chloride (Ditropan Tab*) 5 mg PO BID [facility] Last Admin: 10/12/17 12:03 Dose: 5 mg Oxycodone/Acetaminophen (Percocet 5/325 Tab*) 1 tab PO Q4H PRN PRN Reason: PAIN - SEVERE Last Admin: 10/12/17 08:29 Dose: 1 tab Pharmacy Profile Note (Coumadin Daily Reminder*) 0 note FOLLOW UP 1700 [facility] Last Admin: 10/11/17 17:15 Dose: 2 note Polyethylene Glycol/Electrolytes (Miralax*) 17 gm PO DAILY [facility] Last Admin: 10/12/17 08:43 Dose: 17 gm Spironolactone (Aldactone Tab*) 25 mg PO QAM [facility] Last Admin: 10/12/17 08:44 Dose: 25 mg Vital Signs - 8 hr 10/12/17 10/12/17 10/12/17 10:02 12:54 13:41 Temperature 97.3 F Pulse Rate 102 Respiratory 17 22 20 Rate Blood Pressure 154/91 (mmHg) O2 Sat by Pulse 100 Oximetry 10/12/17 10/12/17 15:29 15:56 Temperature 97.9 F Pulse Rate 94 Respiratory 20 Rate Blood Pressure 158/107 147/95 (mmHg) O2 Sat by Pulse 98 Oximetry Oxygen Devices in Use Now: Nasal Cannula Appearance: Patient is a 72yo cushingoid female who appears stated age and is sitting in the bed in [facility]. Eyes: No Scleral Icterus, PERRLA Ears/Nose/Mouth/Throat: NL Teeth, Lips, Gums, Clear Oropharnyx, Mucous Membranes Moist Neck: NL Appearance and Movements; NL JVP, Trachea Midline Respiratory: Symmetrical Chest Expansion and Respiratory Effort, - - Crackles in B/L Lower lobes. Cardiovascular: NL Sounds; No Murmurs; No JVD, RRR, - - Anasarca, stable from yesterday. Abdominal: NL Sounds; No Tenderness; No Distention, No Hepatosplenomegaly Lymphatic: No Cervical Adenopathy Extremities: No Edema, No Clubbing, Cyanosis Skin: No Nodules or Sclerosis, - - Purpura with associated extravastion of fluid on B/L arms. Neurological: Alert and Oriented x 3, NL Sensation, NL Muscle Strength and Tone , - - CN II-XII intact. Result Diagrams: 10/12/17 05:48 10/12/17 05:48 Additional Lab and Data: . Assess/Plan/Problems-Billing Assessment: Ms. Adams is a 72 yo F with a PMH of afib, mechanical aortic valve on coumadin with subtherapeutic INR, and chance's who follows with Dr. Velasquez who was admitted on 10/07/17 with pulmonary embolism and rapid afib. - Patient Problems (1) Atrial fibrillation with RVR Current Visit: No Status: Acute Code(s): I48.91 - UNSPECIFIED ATRIAL FIBRILLATION SNOMED Code(s): 250945364599418 Comment: HR controlled on oral meds. HR was very difficult to control secondary to pulmonary embolism, esmolol gtt was unsuccessful. Increased PO Cardizem and Bisoprolol Cardiology consult appreciated, patient has history of afib and is managed outpatient by . Was on rhythm control but is now D/C'd. Likely due to HFrEF. Supratherapeutic on Warfarin. INR 4.39. Discontinue warfarin. (2) [place] disease Current Visit: Yes Status: Acute Comment: Continues to follow with Dr. Velasquez outpatient. Had adrenal vein sampling on 10/04/[address] Velasquez, patient will need a right adrenalectomy which could be performed by Dr. Palacios. Dr. Palacios contacted and saw this AM. Requested 24hr urine cortisol which has been ordered. (3) Hyperkalemia Current Visit: Yes Status: Acute Code(s): E87.5 - HYPERKALEMIA SNOMED Code (s): 98488299 Comment: Hold potassium supplementation WNL today. Continue to monitor. (4) Pulmonary embolism Current Visit: Yes Status: Acute Code(s): I26.99 - OTHER PULMONARY EMBOLISM WITHOUT ACUTE COR PULMONALE SNOMED Code(s): 67415961 Comment: Decreased SOB but still tachypnea. Weaning O2 today. INR 4.39. Heparin Drip discontinued. Warfarin reduced to 2mg for today. Echo with EF 35-40%, moderate to severe tricuspid regurg, PA pressure not significantly elevated. (5) Adrenal incidentaloma Current Visit: No Status: Acute Code(s): E27.8 - OTHER SPECIFIED DISORDERS OF ADRENAL GLAND SNOMED Code(s): 33639708926528 Comment: Plan for removal when medically stable. Within weeks per Dr. Palacios. Right sided more productive and will be removed first. (6) Aortic aneurysm Current Visit: No Status: Acute Code(s): I71.9 - AORTIC ANEURYSM OF UNSPECIFIED SITE, WITHOUT RUPTURE SNOMED Code(s): 95841321 Comment: Stable on CTA. Thickening stable. No need for intervention at this time. (7) Chronic indwelling Marie catheter Current Visit: No Status: Acute Code(s): Z92.89 - PERSONAL HISTORY OF OTHER MEDICAL TREATMENT SNOMED Code(s): 826032920 Comment: Was treated for UTI outpatient with levaquin. Switched to cefepime pending repeat urine cultures given symptoms that could be consistent with sepsis, though more likely due to PE and afib. Culture grew likely contaminant Kailyn. Stop antibiotics. (8) Chronic systolic CHF (congestive heart failure) Current Visit: No Status: Acute Code(s): I50.22 - CHRONIC SYSTOLIC ( CONGESTIVE) HEART FAILURE SNOMED Code(s): 416996982 Comment: Anasarca. Increased vascular markings on CXR. Continue spironolactone and furosemide. Diurese PRN. 40MG IV lasix today. Echo shows decreased EF to 35-40% from previous 04/2017. (9) Diabetes Current Visit: No Status: Acute Code(s): E11.9 - TYPE 2 DIABETES MELLITUS WITHOUT COMPLICATIONS SNOMED Code(s): 01414457 Comment: BGs still elevated.s. Increase lantus to 45 units due to morning hyperglycemia. Continue SSI coverage for meals. HgbA1c 7.4 on 10/05/17. Likely driven by stress and cushings. (10) H/O mechanical aortic valve replacement Current Visit: No Status: Acute Code(s): Z95.2 - PRESENCE OF PROSTHETIC HEART VALVE SNOMED Code(s): 989922047 Comment: Continue Warfarin - goal INR 2.5-3.5. (11) HTN (hypertension) Current Visit: No Status: Acute Code(s): I10 - ESSENTIAL (PRIMARY) HYPERTENSION SNOMED Code(s): 36771452 Comment: SBP well controlled. COntinue diltiazem, Bisoprolol, lasix, and spironolactone. (12) Hypothyroid Current Visit: No Status: Chronic Priority: Medium Code(s): E03.9 - HYPOTHYROIDISM, UNSPECIFIED SNOMED Code(s): 59495786 Comment: Continue current dose of synthroid. TSH and T3 low, T4 WNL. Repeat outpatient. (13) DVT prophylaxis Current Visit: No Status: Acute Code(s): PYL5627 - SNOMED Code(s): 953282183 Comment: Supratherapeutic Warfarin. (14) DNR (do not resuscitate) Current Visit: No Status: Acute Comment: Status and Disposition: Inpatient. Anticipate discharge to [facility] when medically stable.
[2017-10-12] MEDS: Atorvastatin* 20 MG TAB PO SCH (19:02)
[2017-10-12] MEDS: Insulin GLARGINE(*) 1 UNITS UNIT SUBCUT SCH (20:43)
[2017-10-13] MEDS: Diltiazem CD CAP* 120 MG PO SCH ×3 (05:30→20:41)
[2017-10-13] MEDS: Levothyroxine TAB* 112 MCG TAB PO SCH (05:30)
[2017-10-13 07:03] LABS: ABS Basophils 0 10^3/ul (0-0.2); ABS Eosinophils 0 10^3/ul (0-0.6); ABS Lymphocytes 1.1 10^3/ul (1.0-4.8); ABS Neutrophils 10.5 10^3/ul (1.5-7.7); ABS Nucleated RBC 0 10^3/ul; Eosinophil % 0.2 % (0-6); Hematocrit 35 % (35-47); Hemoglobin 11.4 g/dl (12.0-16.0); Lymphocyte % 8.6 % (25-47); Mean Corpuscular HGB Conc 33 g/dl (31-36); Mean Corpuscular Hemoglobin 30 pg (27-31); Mean Corpuscular Volume 92 fL (80-97); Mean Platelet Volume 6.8 um3 (7.4-10.4); Nucleated Red Blood Cells % 0.2; Platelet Count 253 10^3/ul (150-450); Red Blood Count 3.81 10^6/ul (4.0-5.4); Red Cell Distribution Width 17 % (10.5-15); White Blood Count 12.7 10^3/ul (3.5-10.8)
[2017-10-13 07:20] LABS: EGFR Non-African American 57.7 (>60)
[2017-10-13] MEDS: Insulin LISPRO* 1 UNITS UNIT SUBCUT SCH ×6 (08:35→18:03)
[2017-10-13] MEDS: Bisoprolol TAB* 5 MG PO SCH (08:44)
[2017-10-13] MEDS: Polyethylene Glycol 3350* 17 GM PACKET PO SCH (08:44)
[2017-10-13] MEDS: Cholecalciferol TAB* 1000 UNITS PO SCH (08:44)
[2017-10-13] MEDS: Spironolactone TAB* 25 MG PO SCH (08:45)
[2017-10-13] MEDS: Cyclobenzaprine TAB* 10 MG PO SCH ×3 (08:45→20:41)
[2017-10-13] MEDS: Magnesium Oxide TAB* 400 MG PO SCH ×2 (08:46→20:41)
[2017-10-13] MEDS: Oxybutynin TAB* 5 MG PO SCH ×2 (08:46→20:41)
[2017-10-13] MEDS ORDERED: Furosemide IV* 10 MG/ML 2 ML VIAL (20 MG) IV SLOW PU SCH (09:00)
--- NOTE | 2017-10-13 10:27 | PN ---
Subjective Date of Service: 10/13/17 Interval History: Patient seen and examined at bedside. Denies fever, chills, shortness of breath , chest discomfort, N/V/D. Tele: Aflutter, rate 80's. Family History: Unchanged from Admission Social History: Unchanged from Admission Past Medical History: Unchanged from Admission Objective Active Medications: Acetaminophen (Tylenol Tab*) 500 mg PO Q6H PRN Reason: FEVER/PAIN Albuterol (Ventolin Hfa Inhaler*) 2 puff INH Q4H PRN Reason: SOB/WHEEZING Atorvastatin Calcium (Lipitor*) 20 mg PO QPM [facility] Bisoprolol Fumarate (Zebeta Tab*) 20 mg PO DAILY [facility] Cholecalciferol (Vitamin D Tab*) 2,000 units PO DAILY [facility] Cyclobenzaprine HCl (Flexeril Tab*) 10 mg PO TID VAN[facility] Dextrose (D50w Syringe 50 Ml*) 12.5 gm IV PUSH .FOR FS < 60 - SS PRN Reason: FS < 60 Diltiazem HCl (Cardizem Cd Cap*) 120 mg PO Q8H [facility] Docusate Sodium (Colace Cap*) 100 mg PO Q12H PRN Reason: CONSTIPATION Furosemide (Lasix Iv*) 40 mg IV SLOW PU DAILY [facility] Insulin Glargine (Lantus(*)) 45 units SUBCUT BEDTIME [facility] Insulin Human Lispro (Humalog*) 0 units SUBCUT AC [facility] Insulin Human Lispro (Humalog*) 5 units SUBCUT AC [facility] Levothyroxine Sodium (Synthroid Tab*) 112 mcg PO DAILY@0600 [facility] Magnesium Oxide (Magox 400 Tab*) 400 mg PO BID [facility] Morphine Sulfate (Morphine Vial*) 4 mg IV Q4H PRN Reason: PAIN Oxybutynin Chloride (Ditropan Tab*) 5 mg PO BID [facility] Oxycodone/Acetaminophen (Percocet 5/325 Tab*) 1 tab PO Q4H PRN Reason: PAIN - SEVER Polyethylene Glycol/Electrolytes (Miralax*) 17 gm PO DAILY [facility] Spironolactone (Aldactone Tab*) 25 mg PO QAM [facility] Vital Signs - 8 hr 10/13/17 10/13/17 10/13/17 03:32 08:12 08:45 Pulse Rate 103 Respiratory 20 16 Rate Blood Pressure 123/85 (mmHg) O2 Sat by Pulse 93 93 Oximetry Oxygen Devices in Use Now: None Appearance: NAD, sitting up in a chair Ears/Nose/Mouth/Throat: Mucous Membranes Moist Respiratory: Symmetrical Chest Expansion and Respiratory Effort, Clear to Auscultation Cardiovascular: NL Sounds; No Murmurs; No JVD, - - Heart rate irregular Abdominal: NL Sounds; No Tenderness; No Distention Extremities: - - Bilateral 1-2+ LE edema Neurological: Alert and Oriented x 3, NL Muscle Strength and Tone Lines/Tubes/Other Access: Clean, Dry and Intact Peripheral IV - site benign Nutrition: Taking PO's Result Diagrams: 10/13/17 06:26 10/13/17 06:26 Additional Lab and Data: . Assess/Plan/Problems-Billing Assessment: Ms. Adams is a 72 yo F with a PMH of afib, mechanical aortic valve on coumadin with subtherapeutic INR, and chance's who follows with Dr. Velasquez who was admitted on 10/07/17 with pulmonary embolism and rapid afib. - Patient Problems (1) Atrial fibrillation with RVR Code(s): I48.91 - UNSPECIFIED ATRIAL FIBRILLATION SNOMED Code(s): 169373279528999 Comment: - HR controlled on oral meds. HR was very difficult to control secondary to pulmonary embolism, esmolol gtt was unsuccessful. - Cardiology consult appreciated, patient has history of afib and is managed outpatient by . Was on rhythm control but is now D/C'd. Likely due to HFrEF. - Supratherapeutic on Warfarin. INR 4.39. Hold warfarin. Today's INR pending. - Continue PO Cardizem and Bisoprolol (2) Pulmonary embolism Code(s): I26.99 - OTHER PULMONARY EMBOLISM WITHOUT ACUTE COR PULMONALE SNOMED Code(s): 61287542 Comment: - Decreased SOB. Tachypnea reolved, now on room air - INR 4.39 yesterday, will recheck this AM - Echo with EF 35-40%, moderate to severe tricuspid regurg, PA pressure not significantly elevated. (3) [place] disease Comment: - Had adrenal vein sampling on 10/04/17 confirming diagnosis. - Per Dr. Velasquez, patient will need a right adrenalectomy which could be performed by Dr. Palacios. Dr. Palacios contacted and saw Pt. Requested 24hr urine cortisol which has been ordered and started. - Continue to follow with Dr. Velasquez outpatient. (4) Hyperkalemia Code(s): E87.5 - HYPERKALEMIA SNOMED Code(s): 20386722 Comment: - Resolved - Hold potassium supplementation (5) Adrenal incidentaloma Code(s): E27.8 - OTHER SPECIFIED DISORDERS OF ADRENAL GLAND SNOMED Code(s): 28936724191036 Comment: - Plan for removal when medically stable. - Within weeks per Dr. Palacios. Right sided more productive and will be removed first. (6) Aortic aneurysm Code(s): I71.9 - AORTIC ANEURYSM OF UNSPECIFIED SITE, WITHOUT RUPTURE SNOMED Code(s): 11842051 Comment: - Stable on CTA. Thickening stable. - No need for intervention at this time. (7) Chronic indwelling Sawyer catheter Code(s): Z92.89 - PERSONAL HISTORY OF OTHER MEDICAL TREATMENT SNOMED Code(s): 954793321 Comment: - Was treated for UTI outpatient with levaquin. - Switched to cefepime, pending repeat urine cultures given symptoms that could be consistent with sepsis, though more likely due to PE and afib. - Culture grew likely contaminant Kailyn. Stop antibiotics. (8) Chronic systolic CHF (congestive heart failure) Code(s): I50.22 - CHRONIC SYSTOLIC (CONGESTIVE) HEART FAILURE SNOMED Code(s): 884238977 Comment: - Anasarca. Increased vascular markings on CXR. - Echo shows decreased EF to 35-40% from previous 04/2017. - Continue spironolactone and furosemide. Diurese PRN. 40MG IV lasix today, change to PO in the AM. (9) Diabetes Code(s): E11.9 - TYPE 2 DIABETES MELLITUS WITHOUT COMPLICATIONS SNOMED Code(s) : 60245101 Comment: - Glucose 160-310's - HgbA1c 7.4 on 10/05/17 - Likely driven by stress and cushings - Increase lantus to 45 units due to morning hyperglycemia. Continue SSI coverage for meals (10) H/O mechanical aortic valve replacement Code(s): Z95.2 - PRESENCE OF PROSTHETIC HEART VALVE SNOMED Code(s): 622245419 Comment: - Continue Warfarin, once able. - Goal INR 2.5-3.5. (11) HTN (hypertension) Code(s): I10 - ESSENTIAL (PRIMARY) HYPERTENSION SNOMED Code(s): 94689621 Comment: - SBP 120-140's, well controlled. - Continue diltiazem, Bisoprolol, lasix, and spironolactone. (12) Hypothyroid Code(s): E03.9 - HYPOTHYROIDISM, UNSPECIFIED SNOMED Code(s): 62807937 Comment: - TSH and T3 low, T4 WNL. Repeat outpatient. - Continue current dose of synthroid. (13) DVT prophylaxis Code(s): LNB9474 - SNOMED Code(s): 489571151 Comment: - Supratherapeutic INR. INR today, pending (14) DNR (do not resuscitate) Status and Disposition: Inpatient. Anticipate discharge to [facility] when medically stable.
[2017-10-13 11:20] LABS: INR 3.27 (0.77-1.02)
[2017-10-13] MEDS ORDERED: Warfarin TAB(*) 4 MG PO SCH (17:00)
[2017-10-13] MEDS: Atorvastatin* 20 MG TAB PO SCH (18:03)
[2017-10-13] MEDS ORDERED: Magnesium Hydroxide LIQ* 30 ML UDC PO PRN (18:50)
[2017-10-13] MEDS ORDERED: Magnesium CITRATE* 300 ML BTL PO PRN (18:51)
[2017-10-13] MEDS: Insulin GLARGINE(*) 1 UNITS UNIT SUBCUT SCH (20:41)
[2017-10-14] MEDS: Levothyroxine TAB* 112 MCG TAB PO SCH (05:38)
[2017-10-14] MEDS: Diltiazem CD CAP* 120 MG PO SCH (05:38)
[2017-10-14 06:19] LABS: INR 3.1 (0.77-1.02)
[2017-10-14] MEDS: Insulin LISPRO* 1 UNITS UNIT SUBCUT SCH ×2 (08:33→08:34)
[2017-10-14] MEDS: Spironolactone TAB* 25 MG PO SCH (08:34)
[2017-10-14] MEDS: Oxybutynin TAB* 5 MG PO SCH (08:34)
[2017-10-14] MEDS: Cholecalciferol TAB* 1000 UNITS PO SCH (08:34)
[2017-10-14] MEDS: Cyclobenzaprine TAB* 10 MG PO SCH (08:35)
[2017-10-14] MEDS: Magnesium Oxide TAB* 400 MG PO SCH (08:35)
[2017-10-14] MEDS: Polyethylene Glycol 3350* 17 GM PACKET PO SCH (08:35)
[2017-10-14] MEDS: Bisoprolol TAB* 5 MG PO SCH (08:39)
--- NOTE | 2017-10-14 08:39 | PN ---
Subjective Date of Service: 10/14/17 Interval History: Patient seen and examined at bedside. Denies fever, chills, shortness of breath , chest discomfort, N/V/D. Pt states that she is feeling well this morning. Tele: Afib/flutter, rate 70-100's Family History: Unchanged from Admission Social History: Unchanged from Admission Past Medical History: Unchanged from Admission Objective Active Medications: Acetaminophen (Tylenol Tab*) 500 mg PO Q6H PRN Reason: FEVER/PAIN Albuterol (Ventolin Hfa Inhaler*) 2 puff INH Q4H PRN Reason: SOB/WHEEZING Atorvastatin Calcium (Lipitor*) 20 mg PO QPM [facility] Bisoprolol Fumarate (Zebeta Tab*) 20 mg PO DAILY [facility] Cholecalciferol (Vitamin D Tab*) 2,000 units PO DAILY [facility] Cyclobenzaprine HCl (Flexeril Tab*) 10 mg PO TID [facility] Dextrose (D50w Syringe 50 Ml*) 12.5 gm IV PUSH .FOR FS < 60 - SS PRN Reason: FS < 60 Diltiazem HCl (Cardizem Cd Cap*) 120 mg PO Q8H [facility] Docusate Sodium (Colace Cap*) 100 mg PO Q12H PRN Reason: CONSTIPATION Furosemide (Lasix Tab*) 40 mg PO DAILY [facility] Insulin Glargine (Lantus(*)) 45 units SUBCUT BEDTIME [facility] Insulin Human Lispro (Humalog*) 0 units SUBCUT AC [facility] Insulin Human Lispro (Humalog*) 5 units SUBCUT AC [facility] Levothyroxine Sodium (Synthroid Tab*) 112 mcg PO DAILY@0600 [facility] Magnesium Citrate (Citrate Of Magnesia*) 150 ml PO DAILY PRN Reason: CONSTIPATION Magnesium Hydroxide (Milk Of Magnesia Liq*) 30 ml PO Q6H PRN Reason: CONSTIPATION Magnesium Oxide (Magox 400 Tab*) 400 mg PO BID [facility] Morphine Sulfate (Morphine Vial*) 4 mg IV Q4H PRN Reason: PAIN Oxybutynin Chloride (Ditropan Tab*) 5 mg PO BID [facility] Oxycodone/Acetaminophen (Percocet 5/325 Tab*) 1 tab PO Q4H PRN Reason: PAIN - SEVERE Polyethylene Glycol/Electrolytes (Miralax*) 17 gm PO DAILY [facility] Spironolactone (Aldactone Tab*) 25 mg PO QAM [facility] Warfarin Sodium (Coumadin Tab(*)) 4 mg PO DAILY@1700 [facility] Vital Signs - 8 hr 10/14/17 10/14/17 10/14/17 03:28 07:26 07:48 Temperature 97.9 F 96.5 F Pulse Rate 98 96 Respiratory 22 20 20 Rate Blood Pressure 130/76 122/69 (mmHg) O2 Sat by Pulse 92 95 Oximetry Oxygen Devices in Use Now: None Appearance: NAD, sitting up in bed Ears/Nose/Mouth/Throat: Mucous Membranes Moist Respiratory: Symmetrical Chest Expansion and Respiratory Effort, Clear to Auscultation Cardiovascular: NL Sounds; No Murmurs; No JVD, - - Heart rate irregular Abdominal: NL Sounds; No Tenderness; No Distention Extremities: - - 1-2+ bilateral LE edema Neurological: Alert and Oriented x 3, NL Muscle Strength and Tone Lines/Tubes/Other Access: Clean, Dry and Intact Peripheral IV - site benign Nutrition: Taking PO's Result Diagrams: 10/13/17 06:26 10/13/17 06:26 Additional Lab and Data: . Assess/Plan/Problems-Billing Assessment: Ms. Adams is a 72 yo F with a PMH of afib, mechanical aortic valve on coumadin with subtherapeutic INR, and chance's who follows with Dr. Velasquez who was admitted on 10/07/17 with pulmonary embolism and rapid afib. - Patient Problems (1) Atrial fibrillation with RVR Code(s): I48.91 - UNSPECIFIED ATRIAL FIBRILLATION SNOMED Code(s): 563513924058631 Comment: - HR controlled on oral meds. HR was very difficult to control secondary to pulmonary embolism, esmolol gtt was unsuccessful. - Cardiology consult appreciated, patient has history of afib and is managed outpatient by . Was on rhythm control but is now D/C'd. Likely due to HFrEF. - Therapeutic INR - Continue warfarin, PO Cardizem and Bisoprolol (2) Pulmonary embolism Code(s): I26.99 - OTHER PULMONARY EMBOLISM WITHOUT ACUTE COR PULMONALE SNOMED Code(s): 83246436 Comment: - Decreased SOB. Tachypnea reolved, now on room air - Echo with EF 35-40%, moderate to severe tricuspid regurg, PA pressure not significantly elevated. - Therapeutic INR, continue warfarin (3) [place] disease Comment: - Had adrenal vein sampling on 10/04/17 confirming diagnosis. - Per Dr. Velasquez, patient will need a right adrenalectomy which could be performed by Dr. Palacios. Dr. Palacios contacted and saw Pt. Requested 24hr urine cortisol which has been ordered and started. - Continue to follow with Dr. Velasquez outpatient. (4) Hyperkalemia Code(s): E87.5 - HYPERKALEMIA SNOMED Code(s): 45911114 Comment: - Resolved - Hold potassium supplementation (5) Adrenal incidentaloma Code(s): E27.8 - OTHER SPECIFIED DISORDERS OF ADRENAL GLAND SNOMED Code(s): 28007587714696 Comment: - Plan for removal when medically stable. - Within weeks per Dr. Palacios. Right sided more productive and will be removed first. (6) Aortic aneurysm Code(s): I71.9 - AORTIC ANEURYSM OF UNSPECIFIED SITE, WITHOUT RUPTURE SNOMED Code(s): 17810371 Comment: - Stable on CTA. Thickening stable. - No need for intervention at this time. (7) Chronic indwelling Sawyer catheter Code(s): Z92.89 - PERSONAL HISTORY OF OTHER MEDICAL TREATMENT SNOMED Code(s): 317517524 Comment: - Was treated for UTI outpatient with levaquin. - Switched to cefepime, pending repeat urine cultures given symptoms that could be consistent with sepsis, though more likely due to PE and afib. - Culture grew likely contaminant Kailyn. Stoped antibiotics. (8) Chronic systolic CHF (congestive heart failure) Code(s): I50.22 - CHRONIC SYSTOLIC (CONGESTIVE) HEART FAILURE SNOMED Code(s): 050261998 Comment: - Anasarca. Increased vascular markings on CXR. - Echo shows decreased EF to 35-40% from previous 04/2017. - Continue spironolactone and furosemide. (9) Diabetes Code(s): E11.9 - TYPE 2 DIABETES MELLITUS WITHOUT COMPLICATIONS SNOMED Code(s) : 77789005 Comment: - Glucose 160-310's - HgbA1c 7.4 on 10/05/17 - Likely driven by stress and cushings - Continue lantus (increased to 45 units). Continue SSI coverage for meals (10) H/O mechanical aortic valve replacement Code(s): Z95.2 - PRESENCE OF PROSTHETIC HEART VALVE SNOMED Code(s): 630200320 Comment: - Continue Warfarin. - Goal INR 2.5-3.5. (11) HTN (hypertension) Code(s): I10 - ESSENTIAL (PRIMARY) HYPERTENSION SNOMED Code(s): 03150489 Comment: - SBP 120-130's, well controlled. - Continue diltiazem, Bisoprolol, lasix, and spironolactone. (12) Hypothyroid Code(s): E03.9 - HYPOTHYROIDISM, UNSPECIFIED SNOMED Code(s): 80284139 Comment: - TSH and T3 low, T4 WNL. Repeat outpatient. - Continue current dose of synthroid. (13) DVT prophylaxis Code(s): CQZ0547 - SNOMED Code(s): 408129616 Comment: - Therapeutic INR. (14) Full code status Code(s): Z78.9 - OTHER SPECIFIED HEALTH STATUS SNOMED Code(s): 906984054 Status and Disposition: Inpatient. Stable for discharge to [facility].
[2017-10-14] MEDS ORDERED: Furosemide TAB* 40 MG PO SCH (09:00)
--- NOTE | 2017-10-14 11:35 | DS ---
CC: Dr. Dimitrios Lim; Dr. Velasquez; Dr. Rickey Palacios; Dr. Huber; [facility]* DATE OF ADMISSION: 10/07/2017. DATE OF DISCHARGE: 10/14/2017. AGE: 72. ATTENDING PHYSICIAN: Dr. Nguyen Proctor* (dictated by Kenisha Allen NP). PRIMARY CARE PHYSICIAN: Dr. Dimitrios Lim. PRIMARY DIAGNOSES: 1. Pulmonary embolus. 2. Leukocytosis, improving. 3. Atrial fibrillation with RVR, improved. SECONDARY DIAGNOSES: 1. Sharon's disease. 2. Adrenal incidentaloma. 3. Aortic aneurysm. 4. Chronic indwelling Sawyer catheter. 5. Chronic systolic heart failure. 6. Diabetes mellitus. 7. History of mechanical aortic valve replacement. 8. Hypertension. 9. Hypothyroidism. CONSULTATIONS WHILE IN THE HOSPITAL: Dr. Farzana Wynne and Dr. Rickey Ring with Cardiology. STUDIES WHILE IN THE HOSPITAL: 1. Chest x-ray, 10/07/2017: Radiologist's impression: Lines and tubes as above. No active cardiopulmonary disease. 2. Chest/abdomen/pelvis CTA, 10/07/2017: Radiologist's impression: Interval appearance of near occlusive right lower lobe pulmonary arterial embolism and mixed occlusive and partially occlusive left lower lobe segmental branch pulmonary emboli. Again seen is an ascending aortic aneurysm measuring 4.4 x 4.4 cm. There is unusual thickening of the ascending root similar in appearance to the 04/26/2017 CTA. This is suspected to be due to prior thoracic surgery as opposed to representing a dissection. There are no signs of acute adrenal hemorrhage or hematoma adjacent to either adrenal gland. The adrenal gland nodules documented on prior CT imaging are unchanged. Reflux of intravenously injected contrast into the IVC and hepatic veins can be seen in the setting of cardiac insufficiency and/or right heart failure. Additional chronic, degenerative, and iatrogenic findings described in the body the report. 3. Bilateral lower extremity venous Doppler study, 10/07/2017: Radiologist's impression: No evidence of deep vein thrombosis. 4. Transthoracic echocardiogram, 10/09/2017: Pharmaceutical Physician's conclusion: Mild concentric left ventricular hypertrophy is observed, the septum is echo bright. There is global hypokinesis of the left ventricle with post surgical hypokinesis of the interventricular septum is observed consistent with valve replacement. The estimated ejection fraction is 35 to 40 percent. The right ventricle is mild to moderately dilated. The right ventricle wall thickness is mildly increased. The right ventricular global systolic function is mildly reduced. Bilateral atrial enlargement. A mechanical prosthetic aortic valve is present. Trace to mild aortic regurgitation. Mean gradient of the aortic valve is 22.6 mmHg. The mitral valve leaflets are mildly thickened, mild to moderate mitral regurgitation, moderate to severe tricuspid regurgitation. There is evidence of mild pulmonary hypertension, 39 mmHg. Compared with prior echo of 07/17/2017, EF has decreased from 40 to 45 percent. A-fib is new. Prosthetic aortic valve function is not significantly changed. The degree of mitral regurgitation has increased from trace. The degree of tricuspid regurgitation has increased from mild to moderate. Right ventricular dilatation is new, previously mildly depressed RV systolic function. 5. Chest x-ray, 10/10/2017: Radiologist's impression: Cardiomegaly. Linear atelectasis of the left lung base. 6. Bilateral upper extremity venous Doppler's, 10/10/2017: Radiologist's impression: Normal bilateral examination. No evidence of deep venous thrombosis. DISCHARGE MEDICATIONS: New home medication: Oxybutynin 5 mg oral twice daily. Continued home medications: 1. Percocet 5/325 one tablet oral every 4 hours as needed for severe pain. 2. Flexeril 10 mg oral 3 times daily as needed for muscle spasm. 3. Acetaminophen 500 mg oral every 6 hours as needed for fever or pain. 4. Albuterol HFA inhaler two puffs inhalation every 4 hours as needed for shortness of breath or wheeze. 5. Levothyroxine 112 mcg oral daily. 6. Lactobacillus probiotic one capsule oral daily. 7. Magnesium Oxide 400 mg oral twice daily. 8. Humalog insulin 0 to 15 units subcutaneous sliding scale prior to meals and at bedtime as needed. 9. Senokot-S two tablets oral twice daily. 10. Colace 100 mg oral every 12 hours as needed for constipation. 11. Spironolactone 25 mg oral every morning. 12. Furosemide 40 mg oral every morning. 13. Osteo Bi-Flex one tablet oral daily. 14. MiraLax 17 gm oral daily. 15. Fish oil 1,000 mg oral daily. 16. Warfarin 5 mg oral daily. 17. Vitamin D 2,000 units oral daily. 18. Atorvastatin 20 mg oral every evening. 19. Metformin 500 mg oral twice daily. Changed home medications: 1. Bisoprolol increased from 10 mg daily to 20 mg oral daily. 2. Diltiazem CD increased from 240 daily to 120 mg oral every 8 hours. 3. Lantus insulin increased from 20 units to 45 units subcutaneous daily. Discontinued home medications: 1. Potassium Chloride. 2. Levaquin. HISTORY OF PRESENT ILLNESS/HOSPITAL COURSE: Ms. Adams is a 72-year-old female with a past medical history significant for atrial fibrillation, on chronic Warfarin therapy, diabetes mellitus, and George's disease who presented to the hospital with complaints of chest pain radiating to her back and abdomen. The patient reported being in her normal state of health until the day prior to her presentation. She began to develop chest and abdominal discomfort, mostly on her left side. She was noted to have significant diaphoresis over night, soaking the bed. When she awoke in the morning and continued to have the pain, she presented to the emergency room for further evaluation. While in the emergency room, she had labs showing an elevated white blood cell count of 15.8. Her INR was subtherapeutic at 1.48. Her BUN and creatinine were slightly elevated at 33 and 1.17 respectively. She had a chest, abdomen, and pelvis CTA showing a bilateral pulmonary emboli. She was noted to be slightly tachycardic and slightly tachypneic. She was requiring two liters of supplemental oxygen. The Hospitalists were asked to evaluate the patient for admission. While in the hospital, the patient was initially on a Heparin drip and bridged back onto her Warfarin. She was also initially started on a Diltiazem drip and transitioned to oral Diltiazem. She had a urinalysis that appeared to be positive on admission. She was continued on her Levaquin. Her urine culture grew gudelia. For a short period of time she received Cefepime. The patient had been meeting some sepsis criteria, it was felt that that was likely secondary to PE and atrial fibrillation. She had an echocardiogram showing a decrease in her EF from previously reported 40 to 45% to 35 to 40%. She had right ventricular dilation. She was seen in consultation by Dr. Farzana Wynne. It was felt that in the setting of the patient's heart failure, Cardizem may not be the best medication, but her heart rate was unable to be controlled with beta blockers. During her stay, her leukocytosis improved. Her INR became therapeutic. She had hyperglycemia. Her Lantus was titrated up. Her shortness of breath resolved and returned to her baseline. She was hyperkalemic and her potassium was held. The patient also was seen by Dr. Palacios in regards to adrenal incidentaloma and he plans to take her to surgery in the next few weeks. The patient received a few doses of IV Lasix and was transitioned back to her home oral Lasix. Her blood pressures have been well- controlled. She was also noted to have a low TSH and T3, and when she is not sick, she should have repeat follow-up thyroid function studies as an outpatient. Ms. Adams was stable for discharge to [facility] today. Vital signs are as follows: Temperature 96.5, heart rate 96, respiratory rate 20, O2 sat 95 percent on room air, blood pressure 122/69. DISCHARGE PLAN: Ms. Adams will be discharged to [facility]. Activity is as tolerated. She should be on a consistent carbohydrate diet. In regards to her pulmonary embolus, she should be continued on Warfarin with a goal INR of 2.5 to 3.5. I recommend rechecking an INR on Tuesday to ensure that she is still still in the therapeutic range. In regards to her atrial fibrillation, she should be seen in follow-up by her outpatient coconut boiler, Dr. Huber. She should be continued on Cardizem for now, although that should be considered to be changed outpatient by her coconut boiler. She should also be continued on her Bisoprolol. In regards to her Sharon's disease, she should continue to follow- up with Dr. Velasquez as an outpatient. She did have a 24 hour urine cortisol collected during her stay, the results are pending and should be followed up. Dr. Palacios's office should be contacted next week to see when he is arranging for a right adrenalectomy. Per Dr. Palacios, this will be performed in the next few weeks. The patient was hyperkalemic during her stay and her potassium supplementation should be held. The patient was having bladder spasms during her stay and she was started on Ditropan. For the patient's heart failure, I recommend continuing to monitor her weights and give her extra diuresis as needed. Further management should be deferred to Dr. McClintic. For her diabetes mellitus, her Lantus has been increased. I suspect when she recovers from her acute illness, her insulin requirements will be decreased. Please monitor her for hypoglycemia and adjust her Lantus accordingly. During the patient's stay, her TSH and T3 were low. When she is no longer in an acute illness, please recheck her thyroid function test and adjust her Levothyroxine accordingly. The patient should return to the emergency room for any chest pain or shortness of breath. This is a summarized report of a complex medical history and hospital stay. For further details, please see the entire medical record. Time for this discharge was approximately 50 minutes, greater than half of that was spent with the patient discussing discharge plans and instructions. CONDITION ON DISCHARGE: Stable. Reviewed by LUIS MIGUEL GARSIA 10/15/17 1722 [id number]/[facility] #: [id number] ALISE
[2017-10-14 12:17] VITALS: BP 131/90
== END 2017-10-14 13:07 | DRG 308 ==
LOC: ED 11:18 → MEDTELE 14:33 → ICU 10-08 15:32 → MEDTELE 10-11 13:49
PROVIDERS: ADMIT Internal Medicine; ATTEND Internal Medicine
DX: I48.0 Paroxysmal atrial fibrillation (principal); I26.99 Other pulmonary embolism without acute cor pulmonale; E24.9 Cushing's syndrome, unspecified; I50.42 Chronic combined systolic (congestive) and diastolic (congestive) heart failure; E11.9 Type 2 diabetes mellitus without complications; E03.9 Hypothyroidism, unspecified; I11.0 Hypertensive heart disease with heart failure; E78.00 Pure hypercholesterolemia, unspecified; I71.9 Aortic aneurysm of unspecified site, without rupture; R33.9 Retention of urine, unspecified; R60.0 Localized edema; E78.5 Hyperlipidemia, unspecified; G89.29 Other chronic pain; Z66 Do not resuscitate; Z95.0 Presence of cardiac pacemaker; Z95.2 Presence of prosthetic heart valve; Z82.49 Family history of ischemic heart disease and other diseases of the circulatory system; Z82.3 Family history of stroke; Z87.891 Personal history of nicotine dependence
CPT/HCPCS: 36415; 71045; 71275; 74174; 75833; 76937; 80048; 80053; 80061; 81003; 81015; 82088; 82150; 82530; 82533; 82550; 83036; 83605; 83690; 83735; 83880; 84244; 84436; 84443; 84479; 84484; 85025; 85610; 85730; 86140; 86703; 86803; 87086; 87106; 93005; 93306; 93970; 94760; 99285; A9270-GY; C1751; C1887; G8978-GP-CM; G8979-GP-CI; G8979-GP-CJ; J0692; J1644; J1940; J2250; J2270; J3010; J3490; Q9967

== ENCOUNTER 2017-11-02 08:26 | Inpatient (IN) | payer MEDICARE ==
[2017-11-02] MEDS ORDERED: NS 0.9% 1000 ML* 1,000 ML IV ONE (08:43)
--- NOTE | 2017-11-02 09:10 | RAD ---
Indication: GI bleed. Comparison: October 10, 2017 Technique: Upright AP 09 hours Report: Unchanged mild elevation of the LEFT hemidiaphragm with associated mild LEFT basilar atelectasis. The lungs and pleural spaces are otherwise clear. Negative for pneumothorax. Median sternotomy wires and RIGHT atrial and RIGHT ventricular level pacemaker leads. Cardiomegaly. Unremarkable central pulmonary vasculature and mediastinal contours. Negative for free air beneath the diaphragm. IMPRESSION: No acute cardiopulmonary process evident.
[2017-11-02] MEDS ORDERED: Pantoprazole IV* 40 MG IV ONE (09:11)
[2017-11-02 09:13] LABS: ABS Basophils 0.1 10^3/ul (0-0.2); ABS Eosinophils 0 10^3/ul (0-0.6); ABS Lymphocytes 1.7 10^3/ul (1.0-4.8); ABS Monocytes 1.3 10^3/ul (0-0.8); ABS Neutrophils 15.6 10^3/ul (1.5-7.7); ABS Nucleated RBC 0 10^3/ul; Eosinophil % 0.1 % (0-6); Hematocrit 32 % (35-47); Hemoglobin 10.5 g/dl (12.0-16.0); Mean Corpuscular HGB Conc 33 g/dl (31-36); Mean Corpuscular Hemoglobin 30 pg (27-31); Mean Corpuscular Volume 92 fL (80-97); Nucleated Red Blood Cells % 0.2; Platelet Count 267 10^3/ul (150-450); Red Blood Count 3.53 10^6/ul (4.0-5.4); Red Cell Distribution Width 17 % (10.5-15); White Blood Count 18.7 10^3/ul (3.5-10.8)
[2017-11-02 09:18] LABS: INR 2.58 (0.77-1.02)
[2017-11-02] MEDS ORDERED: Diltiazem IV* 5 MG/ML 5 ML VIAL (for loading dose/IV Push) (25 MG) IV SLOW PU ONE (09:24)
[2017-11-02 09:32] LABS: EGFR Non-African American 39.1 (>60)
[2017-11-02] MEDS ORDERED: Diltiazem IV VIAL* 125 MG/25 ML VIAL ONE (09:52)
[2017-11-02] MEDS ORDERED: Ondansetron INJ* 2 MG/ML VIAL IV PRN (12:10)
[2017-11-02] MEDS ORDERED: Acetaminophen TAB* 325 MG PO PRN (12:10)
[2017-11-02] MEDS ORDERED: oxyCODONE/Acetamin 5/325 MG* TAB PO PRN (12:15)
[2017-11-02] MEDS ORDERED: Cyclobenzaprine TAB* 10 MG PO PRN (12:15)
[2017-11-02] MEDS ORDERED: Docusate CAP* 100 MG PO PRN (12:15)
[2017-11-02] MEDS ORDERED: Albuterol HFA INHALER* 8 gm MDI INH PRN (12:15)
[2017-11-02] MEDS ORDERED: Dextrose 50% Syringe 50 ML* 25 GM/50 ML SYRINGE IV PUSH PRN (12:17)
--- NOTE | 2017-11-02 12:43 | ED ---
Barrett Velez Angela, scribed for Jason Ferrari MD on 11/02/17 at 0904 . GI/ HPI - HPI Summary HPI Summary: This pt is a 72 y/o female presenting to [facility] via EMS from [facility] for hematemesis since last night. Pt reports she had 3 episodes of coffee ground emesis last night and this morning she had 2 more episodes of hematemesis. She additionally notes mild abdominal pain. Denies bloody stools, chest pain, SOB. Pt has had decreased appetite for the last 3 days. Pt has a catheter that will be removed next week on Tuesday. She reports her last colonoscopy was 10 years ago. PMHx includes atrial fibrillation, currently has PE. Pt is currently on Coumadin. - History of Current Complaint Chief Complaint: EDGIBleed Time Seen by Provider: 11/02/17 08:43 Stated Complaint: POSS GI BLEED Hx Obtained From: Patient Onset/Duration: Started Hours Ago, Still Present Timing: Lasting Hours Current Severity: Moderate Pain Intensity: 1 Location of Pain: Diffuse Associated Signs and Symptoms: Positive: Hematemesis, Nausea, Vomiting, Abdominal Pain, Other: - NEG: SOB. Negative: Diarrhea, Fever, Chest Pain Aggravating Factor(s): Nothing Alleviating Factor(s): Nothing - Additional Pertinent History Primary Care Physician: [id number] - Allergy/Home Medications Allergies/Adverse Reactions: Allergies Allergy/AdvReac Type Severity Reaction Status Date / Time No Known Allergies Allergy Verified 06/08/17 13:15 Home Medications: Home Medications Enoxaparin(*) [Lovenox(*)] 100 mg SUBCUT Q12HR 11/02/17 [History Confirmed 11/02] Glucosamine/D3/Boswellia Dottie [Osteo Bi-Flex Tablet] 1 tab PO QPM 11/02/17 [ History Confirmed 11/02/17] Insulin GLARGINE(*) [Lantus(*)] 48 units SUBCUT QAM 11/02/17 [History Confirmed 11/02/17] Lactobacillus Acidophilus* [Culturelle*] 1 cap PO QPM 11/02/17 [History Confirmed 11/02/17] PMH/Surg Hx/FS Hx/Imm Hx Endocrine/Hematology History: Reports: Hx Diabetes, Hx Thyroid Disease - hypothyroid Cardiovascular History: Reports: Hx Atrial Fibrillation, Hx Auto Implanted Cardiovert Defib, Hx Congestive Heart Failure, Hx Hypercholesterolemia, Hx Hypertension, Hx Pacemaker/ICD, Other Cardiovascular Problems/Disorders - Artificial valve, A Fib History: Reports: Hx Acute Renal Failure, Other Problems/Disorders - renal insufficiency Musculoskeletal History: Reports: Hx Back Problems - L1 fracture, Other Musculoskeletal History - Left ankle osmar Sensory History: Reports: Hx Contacts or Glasses Denies: Hx Hearing Aid Opthamlomology History: Reports: Hx Contacts or Glasses - Surgical History Surgery Procedure, Year, and Place: CARDIAC VALVE REPLACEMENT, PACE MAKER, HERNIA REPAIR , LEFT ANKLE Hx Anesthesia Reactions: No Infectious Disease History: No Infectious Disease History: Denies: Traveled Outside the [place] in Last 30 Days - Family History Known Family History: Positive: Cardiac Disease - with MIs, Other - CVAs Negative: Diabetes - Social History Alcohol Use: None Hx Substance Use: No Substance Use Type: Reports: None Hx Tobacco Use: No Smoking Status (MU): Former Smoker Amount Used/How Often: 1 ppd Length of Time of Smoking/Using Tobacco: 30 years Review of Systems Negative: Fever Negative: Chest Pain Negative: Shortness Of Breath Positive: Abdominal Pain, Vomiting, Nausea. Negative: Other - bloody stools Musculoskeletal: Negative Neurological: Negative All Other Systems Reviewed And Are Negative: Yes Physical Exam - Summary Physical Exam Summary: VITAL SIGNS: Reviewed. GENERAL: Patient is an obese female who is lying comfortable in the stretcher. Patient is not in any acute respiratory distress. She is pale. HEAD AND FACE: No signs of trauma. No ecchymosis, hematomas or skull depressions. No sinus tenderness. EYES: PERRLA, EOMI x 2, No injected conjunctiva, no nystagmus. EARS: Hearing grossly intact. Ear canals and tympanic membranes are within normal limits. MOUTH: Oropharynx within normal limits. NECK: Supple, trachea is midline, no adenopathy, no JVD, no carotid bruit, no c- spine tenderness, neck with full ROM. CHEST: Symmetric, no tenderness at palpation LUNGS: Clear to auscultation bilaterally. No wheezing or crackles. CVS: Pt is tachycardic with irregular rate and rhythm, S1 and S2 present, no murmurs or gallops appreciated. ABDOMEN: Soft, non-tender. No signs of distention. No rebound no guarding, and no masses palpated. Bowel sounds are normal. 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 Good sphincter tone. No melena. No gross blood. EXTREMITIES: FROM in all major joints, no cyanosis or clubbing. 1+ pitting edema in bilateral lower extremity. NEURO: Alert and oriented x 3. No acute neurological deficits. Speech is normal and follows commands. SKIN: Dry and warm. She is pale. Triage Information Reviewed: Yes Vital Signs On Initial Exam: Initial Vitals Temp Pulse Resp BP Pulse Ox 97.2 F 133 15 115/62 95 11/02/17 08:35 11/02/17 08:35 11/02/17 08:35 11/02/17 08:35 11/02/17 08:35 Vital Signs Reviewed: Yes Diagnostics - Vital Signs Vital Signs Temp Pulse Resp BP Pulse Ox 11/02/17 08:35 97.2 F 133 15 115/62 95 - Laboratory Result Diagrams: 11/02/17 08:50 11/02/17 08:50 Lab Statement: Any lab studies that have been ordered have been reviewed, and results considered in the medical decision making process. - Radiology Chest XR Xray Interpretation: No Acute Changes - IMPRESSION: No acute cardiopulmonary process evident. Dr. Ferrari has reviewed this radiology report. Radiology Interpretation Completed By: Radiologist - EKG 09:00 Cardiac Rate: Tachycardia EKG Rhythm: Atrial Fibrillation - with RVR at 154 bpm EKG Interpretation: No ST elevations. GIGU Course/Dx - Course Assessment/Plan: This pt is a 72 y/o female presenting to [facility] via EMS from [facility] for hematemesis since last night. Pt reports she had 3 episodes of coffee ground emesis last night and this morning she had 2 more episodes of hematemesis. She additionally notes mild abdominal pain. Denies bloody stools, chest pain, SOB. Pt has had decreased appetite for the last 3 days. Pt has a catheter that will be removed next week on Tuesday. She reports her last colonoscopy was 10 years ago. PMHx includes atrial fibrillation, currently has PE. Pt is currently on Coumadin. Initially the pt was placed in a pvc monitor, we obtained 2 IV access and started IV fluids. The pt is slightly hypotensive but otherwise is stable. Lab results show WBC of 18.7, H and H has slightly decreased with hemoglobin of 10.5 and hematocrit of 32, sodium of 134, potassium of 5.2, BUN of 41, creatinine of 1.33 consistent with slight renal insufficiency possibly secondary to dehydration, glucose of 196, BNP of 163, CRP is 31.28. Chest XR: No acute cardiopulmonary process evident. Since the EKG shows atrial fibrillation with RVR, the pt was given 1 dose of Diltiazem and her heart rate is now between 100-110 bpm. Rectal exam is guaiac negative. However, the pt came in with 4 episodes of coffee ground emesis. She did not have any more episodes of coffee ground emesis while in the ED. The pt was given 80 mg Protonix IV. At this point I discussed the case with SALO Huddleston, who agrees with management at this point and will consult on the pt. I also discussed with Dr. Gordillo, hospitalist, who accepted the pt for admission. At this point the pt is more stable stable but Dr. Gordillo will admit the pt to the ICU services. Pt is hemodynamically stable, alert and oriented x3. - Diagnoses Provider Diagnoses: Atrial fibrillation with RVR, GI bleed, Renal insufficiency, Dehydration - Physician Notifications Discussed Care Of Patient With: Lyndsey Ferguson Time Discussed With Above Provider: 10:38 Instructed by Provider To: Other - I discussed pt care with SALO Huddleston, who will consult on the pt and is ok with 80 mg IV Protonix. [10:51] I spoke with Dr. Gordillo, hospitalist, who has agreed to admit the pt. - Critical Care Time Critical Care Time: 75-104 min Discharge - Sign-Out/Discharge Documenting (check all that apply): Discharge/Admit/Transfer - Admit to [facility] [place] [place] - Discharge Plan Condition: Stable Disposition: ADMITTED TO [facility] documentation as recorded by the Barrett lowe Angela accurately reflects the service I personally performed and the decisions made by me, Jason Ferrari MD.
[2017-11-02] MEDS: Pantoprazole IV* 80 MG in NS 0.9% 250 ML* 250 ML IVPB SCH ×2 (12:52→22:30)
[2017-11-02] MEDS: Diltiazem DRIP* 100 MG/100 ML ADDV.BAG IVPB SCH ×2 (12:52→18:23)
[2017-11-02 13:09] LABS: Hematocrit 28 % (35-47); Hemoglobin 9.2 g/dl (12.0-16.0)
--- NOTE | 2017-11-02 15:31 | HP ---
CC: Owen Blaine* HISTORY AND PHYSICAL: DATE OF ADMISSION: 11/02/17 PRIMARY CARE PROVIDER: Owen Valladares. ATTENDING PHYSICIAN WHILE IN THE HOSPITAL: Vasquez Gordillo MD* (report dictated by Lloyd Esteban NP) CHIEF COMPLAINT: 1. Vomiting. 2. Nausea. 3. Abdominal discomfort. 4. Vomiting bright red blood. HISTORY OF PRESENT ILLNESS: Mrs. Adams is a 72-year-old female patient with a complex medical history. 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 She comes in to the emergency department today stating that over the last 3 days she has not been feeling well and she just kind of been feeling nauseous. She been feeling states that her belly has been more distended, but she denies having any pain. She also states that she has not been her medications. She woke up this morning and she has 4 episodes of vomiting and she did notice in some of the vomit she did have red blood in the vomit. She denied any tarry stools and denied having any black coffee-ground looking type vomit. She said it was blood that she noticed. Owen Valladares was concerned and immediately sent her to the hospital. She denies any chest pain now. She denies any shortness of breath. She denies having any fevers or chills. She denies having any abdominal discomfort now. She does state that she feels a little bit more bloated. She does admit to feeling nausea for the last few days and now actually she is requesting something to drink; she is thirsty. She states that she has not taken the meds in the last 3 days because of the nausea not feeling well and she had a bowel movement 2 days ago. She presented to the ER. There was concern since her hemoglobin had dropped slightly and the fact that she did have some bright red blood from vomit, the white count being up 18,000 from her baseline of 12,000 to 14,000 and we were asked to evaluate for admission. PAST MEDICAL HISTORY: Significant for: 1. AFib. 2. Diabetes. 3. Davenport's disease. 4. Hyperlipidemia. 5. Hypertension. 6. Aortic aneurysm. 7. She has urinary retention with chronic Sawyer. 8. Tachybrady syndrome, status post pacemaker. 9. History of diastolic CHF. 10. History of UTIs. 11. PE, recently diagnosed. 12. History of leukocytosis. PAST SURGICAL HISTORY: 1. She has had pacemaker implantation. 2. Mechanical valve in the aortic valve. 3. Hernia repair. 4. Appendectomy. MEDICATIONS: The home medications include: 1. Percocet 1 tablet every 4 hours as needed. 2. Glucophage 500 mg p.o. b.i.d. 3. Warfarin 3 mg p.o. daily. 4. Spironolactone 25 mg daily. 5. Senna 2 tabs p.o. b.i.d. 6. MiraLAX 17 g p.o. daily. 7. Ditropan 5 mg p.o. b.i.d. 8. [place]-3 fatty acid 1000 mg p.o. daily. 9. Magnesium oxide 400 mg p.o. b.i.d. 10. Synthroid 112 mcg p.o. daily. 11. Culturelle 1 capsule p.o. daily. 12. Lispro sliding scale a.c., h.s. as needed. 13. Lantus 48 units subcu in the morning. 14. Osteo Bi-Flex 1 tablet p.o. daily. 15. Lasix 40 mg p.o. twice a day. 16. Lovenox 100 mg subcu every 12 hours as a bridge to her Coumadin. 17. Colace 100 mg p.o. every 12 hours as needed. 18. Diltiazem 120 mg p.o. every 8 hours. 19. Flexeril 10 mg p.o. every 8 hours as needed. 20. Vitamin D 2000 units p.o. daily. 21. Zebeta 20 mg p.o. daily. 22. Lipitor 20 mg p.o. q.p.m. 23. Ventolin 2 puffs inhaler every 4 hours as needed. 24. Tylenol 500 mg every 6 hours as needed. ALLERGIES TO MEDICATIONS: Include no known drug allergies. FAMILY HISTORY: Both her parents had a history of coronary artery disease. SOCIAL HISTORY: She does not smoke now; she used to smoke. She does not drink alcohol. Surrogate decision maker is her son, Deon. REVIEW OF SYSTEMS: There is no documented fever. She denies any significant weight change to me. There is no double vision. No ear discharge. She denies having any rhinorrhea. There is no sore throat. No thyroid enlargement. She denied any chest pain. There is no orthopnea. She denied having any nocturnal dyspnea. There was no abdominal pain reported. She did admit to nausea with vomiting and she said she felt more bloated. She denies any diarrhea. No dysuria, no frequency. No seizure, no loss of consciousness. No pruritus and no skin ulcerations. Review of 14 systems was completed, all others negative. PHYSICAL EXAMINATION GENERAL: At this time, Mrs. Adams is a 72-year-old female patient. She is chronically ill appearing. She is sitting in the ED stretcher. She does not appear to be in any acute distress. VITAL SIGNS: Blood pressure 134/77, pulse 120, respirations were documented at 26, but my counting them there are 22, her O2 saturations were 92%, temperature 97.2. HEENT: Head: Atraumatic and normocephalic. Eyes: EOMs are intact. Sclerae anicteric and not pale. Throat: Oral mucosa appears to be dry. No oropharyngeal erythema. NECK: Supple. LUNGS: Clear to auscultation bilaterally. They were diminished in the bases. There were no wheezes, rales, or rhonchi. HEART: Sounds S1, S2. Irregularly irregular rate. No murmurs, rubs, or gallops. ABDOMEN: Soft, flat. There was tenderness in the suprapubic and left lower quadrant area, but do not appear to be distended to me and bowel sounds were present at this point. EXTREMITIES: Pulses were 2+ throughout. She did have +3 pitting edema bilaterally. NEUROLOGIC: She is awake, alert, oriented x3. Tongue is midline. Tube Dispatcher are equal. No gross focal deficits. SKIN: Grossly intact. LABORATORY DATA/DIAGNOSTIC STUDIES: Labs reveal WBC of 18.7, RBC of 3.53, hemoglobin of 10.5, hematocrit 32, baseline hemoglobin runs right around between 11 and 12, platelet count was 267. The INR was 2.58. PTT of 36.6. Sodium was 134, potassium of 5.2, chloride of 96, her bicarb was 30, her BUN was 41, the creatinine was 1.33, her baseline creatinine does run 1.1 to 0.9, the glucose was 196. Calcium 9.7. Total bili 0.6, AST 18, ALT 25, alk phos 101. CRP of 31. BNP 163. Lipase is 33. Urine is pending. She did have a chest x-ray obtained today, which showed no acute cardiopulmonary process evident. She did have an EKG obtained today. When I reviewed, it does appear to be atrial fibrillation with T wave inversions in 1, 2, and aVL. She did have depression in leads V4, 5, and 6 with T wave inversions. Previous EKGs, these inversions are new in V4, 5, and 6. She has had the T wave inversions in 1, 3, and aVL. Old medical records were reviewed. ASSESSMENT AND PLAN: Mrs. Adams is a 72-year-old female patient with a complex medical history coming in to the hospital today with complaints of vomiting and vomiting up bright red blood. We were asked to evaluate for admission. She will be admitted under inpatient status for: 1. Gastrointestinal bleed. At this point, she has not had anymore active bleeding here. She is heme negative. I am not going to reverse her Coumadin because of the recent DVT and a history of mechanical valve. Should she start declaring herself with hematocrit dropping, she becoming unstable, then absolutely I will give her either PCC or FFP and I did touch base with Dr. Ferguson , she was in agreement. I am going to put her on a Protonix drip. I suspect she probably has Carolina-Horne tear and we will continue to follow. 2. Nausea, vomiting. Again, she did have some abdominal tenderness on exam. I am going to get a CT abdomen and pelvis just to make sure there is no underlying abdominal pathology. 3. Leukocytosis. This has been a chronic issue for the patient, thought secondary to be related to Sharon's and overproduction of her steroids. My plan would be to panculture her, check her urine, and if we find an obvious source, then I will treat her with antibiotics. At this point, it could be just leukemoid reaction to the vomiting. I am going to monitor. 4. Diabetes. She will be placed on a lispro sliding scale. 5. EKG changes. It is probably secondary to the AFib with RVR, which I am going to treat. She may have a little bit of demand ischemia going on from that. She is not having any chest pain. I would like to get her heart rate down, then repeat the EKG tomorrow and p.r.n. 6. Atrial fibrillation. She does not appear to be rate controlled. Currently , her INR fortunately is therapeutic. I will go ahead and get the heart rate better controlled with diltiazem drip and we will continue to monitor. 7. Hyperlipidemia. Continue her medications. 8. Hypertension. Again, I have continued her beta-charlene and her diltiazem drip. 9. History of aortic aneurysm. She can follow up with her primary. 10. History of urinary retention. The catheter is due to be changed, so I am going to go ahead and change that today. 11. History of congestive heart failure. I am holding her diuretics. She actually appears to be a little dry here today on exam. She did get a liter of fluids. She had a little bit of mildly elevated potassium. Her BUN and creatinine are both elevated. This is probably prerenal secondary to being overdiuresed, but I will again hold the diuretics and we will diurese her as needed. 12. Acute on chronic renal failure. Again, this is probably secondary to prerenal failure, but I will get a FENa for the patient and she is getting a CT abdomen and pelvis to look for any obstructive uropathy, which is a stone suspect that she has and I will go ahead and check the UA, hydrate her and follow this. I am repeating the BMP. 13. Mild hyperkalemia. Again, her EKG did have some subtle changes, but there are no signs of hyperkalemia on the EKG. I will go ahead and hydrate her and repeat this to make the potassium is coming down appropriately. 14. History of pulmonary embolism. Again, her INR is 2.5, it is therapeutic. We will repeat the INR tomorrow. Because of a concern of active bleeding, I am holding her warfarin tonight. If she falls below 2, then she is going to need to get Lovenox or heparin drip with a bridge for her INR. 15. DVT prophylaxis. Again, INR is therapeutic. I am just going to order SCDs. 16. Code status. Full code. 17. Fluids, electrolytes, and nutrition. She can have a clear liquid diet. TIME SPENT: On admission 60 minutes, greater than half the time spent face-to- face with the patient obtaining my history and physical; other half time spent going over the plan of care with the patient and implementing plan of care. I did discuss the plan of care with my attending, Dr. Gordillo; he is in agreement. LLOYD ESTEBAN, ARTIE [id number]/CPS #: [id number] ALISE
--- NOTE | 2017-11-02 16:04 | CONS ---
CC: Dimitrios Lim MD GASTROENTEROLOGY CONSULTATION: DATE OF CONSULT: 11/02/17. REFERRING PHYSICIAN: Dimitrios Lim MD HISTORY OF PRESENT ILLNESS: Thank you for asking me to see Ms. Adams. As you know, she is a 72-year -old female who has a history of mechanical valve placement back in 2000, on Coumadin therapy since hat time. She also has a history of atrial fibrillation and had a recent pulmonary embolism 6 weeks ago, currently residing at a group home for rehab. The patient presented to the emergency room thi s morning after several episodes of coffee-ground emesis last night and this morning. The patient de nies any abdominal pain. She states there was no precipitating nausea. She has had some mild loss o f appetite over the past few days. There has been no black stool or rectal bleeding. On admission t o the emergency room she was noted to be in atrial fibrillation with rapid ventricular rate around 15 0. She has been started on a Cardizem drip. Her hematocrit in the emergency room was 32 at 9 a.m. a nd 28 at 12:40 p.m. Her INR is 2.58. Her BUN and creatinine are slightly elevated at 37 and 1.2. T he patient denies any chest pain or significant shortness of breath; however, her O2 sats are in the 80s on room air. The patient is on baby aspirin in addition to the Coumadin. She denies any history of ulcer disease. Her stool guaiac in the ER apparently was negative. PAST MEDICAL HISTORY: Significant for: 1. Diabetes. 2. Hypothyroidism. 3. Pacemaker insertion. 4. Defibrillator insertion. 5. Congestive heart failure. 6. Artificial valve. 7. Hyperlipidemia. 8. Hypertension. 9. Chronic renal failure. 10. Hernia repair. HOME MEDICATIONS: Include: 1. Lovenox. 2. Insulin. ALLERGIES: No known drug allergies. FAMILY HISTORY: Is significant for cardiac disease. SOCIAL HISTORY: Former tobacco use. No alcohol abuse. Currently at rehab. REVIEW OF SYSTEMS: Review of systems is performed. A 10-point review of systems is performed and is otherwise negative. PHYSICAL EXAM: Ms. Adams is a 72-year-old female, she is currently lying comfortably in her bed in [facility] intensive care unit. She denies any respiratory distress or chest pain. Heart rate is 126, O2 sa t is 94%, blood pressure is 144/85. HEENT Exam: There is no scleral icterus. Heart is irregular ra te and rhythm. Lungs are clear. Abdomen is soft and obese. There is no tenderness. Bowel sounds ar e present. There is no distention. Skin is warm and dry with multiple ecchymotic areas. Neuro exam is grossly intact. Alert and oriented x3. LABORATORY DATA: Pertinent laboratory studies as described above. IMPRESSION: Ms. Adams is on Coumadin for mechanical valve as well as atrial fibrillation and recent pulmonary embolism. She presents with coffee-ground emesis and anemia. Her INR is at 2.6. Her stoo l was guaiac negative in the emergency room. Differential diagnosis includes Carolina-Horne tear vers us possible ulcer disease given the use of Coumadin and aspirin. RECOMMENDATIONS: I have discussed the case with the hospitalist and the emergency room physicians. The patient will be on IV pantoprazole drip 8 mg per hour as well as IV Cardizem for rate control to try and get her rate down to a reasonable level. Her INR should be kept somewhere in the range of 2 a nd we will hold her Coumadin this evening. If she will be on a clear liquid diet, we will plan on up per endoscopy tomorrow as long as her heart rate is controlled and her INR is around the level of 2. If she has evidence of significant acute bleeding, upper endoscopy may need to be performed earlier. This has been discussed with the patient. [id number]/[facility] #: [id number]
[2017-11-02 16:16] LABS: Hematocrit 29 % (35-47); Hemoglobin 9.5 g/dl (12.0-16.0)
--- NOTE | 2017-11-02 17:12 | RAD ---
Indication: Abdominal pain and distention. CT of the abdomen and pelvis was performed after oral contrast administration. No IV contrast was given. Coronal and sagittal reconstructed images were obtained. The lung bases demonstrate some atelectasis in the medial right lower lobe. Left lung field is clear. The heart demonstrates cardiomegaly. No pericardial effusion is noted. Liver is normal in size. No focal lesions or intrahepatic ductal dilatation is noted. The gallbladder demonstrates no calcified gallstones. No pericholecystic fluid or wall thickening is noted. The pancreas demonstrates no mass or pancreatic ductal dictation. The spleen is normal in size. There are bilateral adrenal nodules which are stable since July 20, 2017 and may represent adenomas. The kidneys demonstrate no hydronephrosis. No focal masses are noted in the kidneys. Contrast distended stomach is noted. Small bowel demonstrates no abnormal dilatation. Colon is filled with stool. CT of the pelvis demonstrates no retroperitoneal or pelvic lymphadenopathy. The urinary bladder is unremarkable. Aorta and inferior vena cava are unremarkable. The uterus appears atrophic. No definite adnexal masses are noted. IMPRESSION: NO ABNORMAL MASSES OR FLUID COLLECTIONS ALTHOUGH THERE IS A FLUID CONTRAST FILLED STOMACH NOTED. FOCAL WALL THICKENING OF THE GASTRIC ANTRUM IS NOTED. ANTRAL GASTRITIS OR POLYPOID LESION IS NOT EXCLUDED. BILATERAL ADRENAL LESIONS ARE NOTED WHICH ARE STABLE SINCE JULY 20, 2017.
[2017-11-02] MEDS: Atorvastatin* 20 MG TAB PO SCH (17:24)
[2017-11-02] MEDS: Insulin LISPRO* 1 UNITS UNIT SUBCUT SCH (17:24)
[2017-11-02 17:41] LABS: Urine Appearance Cloudy; Urine Blood 1+ (Negative); Urine Color Yellow; Urine Ketones Negative (Negative); Urine Protein Negative (Negative); Urine Specific Gravity 1.017 (1.010-1.030); Urine Urobilinogen Negative (Negative)
[2017-11-02] MEDS ORDERED: Senna/Docusate (NF) TAB PO SCH (21:00)
[2017-11-02] MEDS: Magnesium Oxide TAB* 400 MG PO SCH (21:25)
[2017-11-02] MEDS: Senna TAB PO SCH (21:25)
[2017-11-02] MEDS: Docusate CAP* 100 MG PO SCH (21:25)
[2017-11-02] MEDS: Oxybutynin TAB* 5 MG PO SCH (21:25)
[2017-11-03] MEDS: Diltiazem DRIP* 100 MG/100 ML ADDV.BAG IVPB SCH ×2 (00:54→07:21)
[2017-11-03 01:40] LABS: Hematocrit 26 % (35-47); Hemoglobin 8.4 g/dl (12.0-16.0)
[2017-11-03] MEDS: Levothyroxine TAB* 112 MCG TAB PO SCH (06:39)
[2017-11-03 07:00] LABS: Hematocrit 24 % (35-47); Mean Corpuscular HGB Conc 33 g/dl (31-36); Mean Corpuscular Hemoglobin 30 pg (27-31); Mean Corpuscular Volume 92 fL (80-97); Mean Platelet Volume 7.7 um3 (7.4-10.4); Platelet Count 233 10^3/ul (150-450); Red Blood Count 2.62 10^6/ul (4.0-5.4); Red Cell Distribution Width 17 % (10.5-15)
[2017-11-03 07:01] LABS: INR 2.51 (0.77-1.02)
[2017-11-03 07:11] LABS: EGFR Non-African American 52.5 (>60)
[2017-11-03 08:01] LABS: ABS Basophils 0.1 10^3/ul (0-0.2); ABS Eosinophils 0 10^3/ul (0-0.6); ABS Lymphocytes 1.8 10^3/ul (1.0-4.8); ABS Monocytes 1.5 10^3/ul (0-0.8); ABS Neutrophils 13.5 10^3/ul (1.5-7.7); ABS Nucleated RBC 0.1 10^3/ul; Nucleated Red Blood Cells % 0.5
[2017-11-03 08:03] LABS: Monocytes % 5 % (0-7)
[2017-11-03] MEDS: Pantoprazole IV* 80 MG in NS 0.9% 250 ML* 250 ML IVPB SCH ×2 (08:09→21:13)
[2017-11-03] MEDS: Bisoprolol TAB* 5 MG PO SCH (08:18)
[2017-11-03] MEDS: Senna TAB PO SCH ×2 (08:19→21:13)
[2017-11-03] MEDS: Oxybutynin TAB* 5 MG PO SCH ×2 (08:19→21:13)
[2017-11-03] MEDS: Magnesium Oxide TAB* 400 MG PO SCH ×2 (08:19→21:13)
[2017-11-03] MEDS: Docusate CAP* 100 MG PO SCH ×2 (08:19→21:13)
[2017-11-03] MEDS: Insulin LISPRO* 1 UNITS UNIT SUBCUT SCH ×3 (08:19→17:30)
[2017-11-03] MEDS: Polyethylene Glycol 3350* 17 GM PACKET PO SCH (08:20)
[2017-11-03] MEDS: Insulin GLARGINE(*) 1 UNITS UNIT SUBCUT SCH (08:20)
[2017-11-03] MEDS ORDERED: Midazolam* 1 MG/ML 10 ML VIAL (10 MG) ONE (11:39)
[2017-11-03] MEDS ORDERED: fentaNYL* 50 MCG/ML 2 ML VIAL (100 MCG VIAL) ONE (11:39)
--- NOTE | 2017-11-03 12:36 | PN ---
Subjective Date of Service: 11/03/17 Interval History: Pt feels "better", no further vomiting. Denies abd pain Objective Active Medications: Acetaminophen (Tylenol Tab*) 650 mg PO Q4H PRN PRN Reason: FEVER/PAIN Albuterol (Ventolin Hfa Inhaler*) 2 puff INH Q4H PRN PRN Reason: SOB/WHEEZING Atorvastatin Calcium (Lipitor*) 20 mg PO QPM [facility] Last Admin: 11/02/17 17:24 Dose: 20 mg Bisoprolol Fumarate (Zebeta Tab*) 20 mg PO DAILY [facility] Last Admin: 11/03/17 08:18 Dose: 20 mg Cyclobenzaprine HCl (Flexeril Tab*) 10 mg PO Q8H PRN PRN Reason: muscle spasms Dextrose (D50w Syringe 50 Ml*) 12.5 gm IV PUSH .FOR FS < 60 - SS PRN PRN Reason: FS < 60 Docusate Sodium (Colace Cap*) 100 mg PO Q12H PRN PRN Reason: CONSTIPATION Docusate Sodium (Colace Cap*) 100 mg PO BID [facility] Last Admin: 11/03/17 08:19 Dose: 100 mg Diltiazem HCl (Cardizem Iv Advan*) 100 mg in 100 mls @ 5 mls/hr IVPB .PER PARAMETERS VANESSA; 5 MG/HR PRN Reason: Protocol Last Admin: 11/03/17 07:21 Dose: 5 mls/hr Pantoprazole Sodium 80 mg/ (Sodium Chloride) 250 mls @ 25 mls/hr IVPB Q10H [facility] Last Admin: 11/03/17 08:09 Dose: 25 mls/hr Insulin Glargine (Lantus(*)) 48 units SUBCUT QAM [facility] Last Admin: 11/03/17 08:20 Dose: 48 units Insulin Human Lispro (Humalog*) 0 units SUBCUT AC [facility] PRN Reason: Protocol Last Admin: 11/03/17 08:19 Dose: 2 units Levothyroxine Sodium (Synthroid Tab*) 112 mcg PO DAILY@0600 [facility] Last Admin: 11/03/17 06:39 Dose: 112 mcg Magnesium Oxide (Magox 400 Tab*) 400 mg PO BID [facility] Last Admin: 11/03/17 08:19 Dose: 400 mg Ondansetron HCl (Zofran Inj*) 4 mg IV Q6H PRN PRN Reason: NAUSEA Oxybutynin Chloride (Ditropan Tab*) 5 mg PO BID [facility] Last Admin: 11/03/17 08:19 Dose: 5 mg Oxycodone/Acetaminophen (Percocet 5/325 Tab*) 1 tab PO Q4H PRN PRN Reason: PAIN - SEVERE Polyethylene Glycol/Electrolytes (Miralax*) 17 gm PO DAILY [facility] Last Admin: 11/03/17 08:20 Dose: 17 gm Senna (Senokot Tab*) 2 tab PO BID [facility] Last Admin: 11/03/17 08:19 Dose: 2 tab Vital Signs - 8 hr 11/03/17 11/03/17 11/03/17 04:45 05:00 05:15 Temperature 99.1 F 99.1 F 99.1 F Pulse Rate 93 109 103 Respiratory 31 21 27 Rate Blood Pressure 118/74 124/66 125/84 (mmHg) O2 Sat by Pulse 100 100 100 Oximetry 11/03/17 11/03/17 11/03/17 05:30 05:45 06:00 Temperature 99.1 F 99.0 F 99.0 F Pulse Rate 105 103 98 Respiratory 28 16 23 Rate Blood Pressure 115/68 103/55 116/54 (mmHg) O2 Sat by Pulse 100 100 100 Oximetry 11/03/17 11/03/17 11/03/17 06:30 06:45 07:00 Temperature 99.0 F 99.0 F 98.8 F Pulse Rate 97 97 97 Respiratory 19 17 20 Rate Blood Pressure 124/61 118/73 106/63 (mmHg) O2 Sat by Pulse 100 100 100 Oximetry 11/03/17 11/03/17 11/03/17 07:15 07:27 07:30 Temperature 98.8 F 98.8 F Pulse Rate 98 97 Respiratory 24 19 18 Rate Blood Pressure 124/60 135/66 (mmHg) O2 Sat by Pulse 95 100 Oximetry 11/03/17 11/03/17 11/03/17 07:45 08:00 08:16 Temperature 98.8 F 98.8 F 98.8 F Pulse Rate 100 101 102 Respiratory 19 25 18 Rate Blood Pressure 126/58 141/57 120/70 (mmHg) O2 Sat by Pulse 100 100 100 Oximetry 11/03/17 11/03/17 11/03/17 08:30 08:45 09:00 Temperature 99.0 F 99.0 F 99.0 F Pulse Rate 100 103 104 Respiratory 21 22 19 Rate Blood Pressure 131/82 128/67 (mmHg) O2 Sat by Pulse 100 100 100 Oximetry 11/03/17 11/03/17 11/03/17 09:01 09:15 09:30 Temperature 99.0 F 99.1 F 99.1 F Pulse Rate 93 99 99 Respiratory 31 23 20 Rate Blood Pressure 113/72 120/80 123/61 (mmHg) O2 Sat by Pulse 100 100 100 Oximetry 11/03/17 11/03/17 11/03/17 09:45 10:00 10:15 Temperature 99.1 F 99.1 F 99.1 F Pulse Rate 95 93 95 Respiratory 21 22 21 Rate Blood Pressure 102/66 99/69 116/72 (mmHg) O2 Sat by Pulse 99 100 100 Oximetry 11/03/17 11/03/17 11/03/17 10:30 10:45 11:00 Temperature 99.1 F 99.3 F 99.3 F Pulse Rate 95 98 93 Respiratory 20 23 21 Rate Blood Pressure 107/67 115/78 124/64 (mmHg) O2 Sat by Pulse 100 100 100 Oximetry 11/03/17 11/03/17 11/03/17 11:15 11:30 11:45 Temperature 99.3 F 99.3 F 99.3 F Pulse Rate 87 92 93 Respiratory 23 17 20 Rate Blood Pressure 120/67 117/65 104/77 (mmHg) O2 Sat by Pulse 100 100 100 Oximetry 11/03/17 11/03/17 11/03/17 12:00 12:01 12:16 Temperature 99.3 F 99.3 F 99.3 F Pulse Rate 94 92 95 Respiratory 16 28 23 Rate Blood Pressure 94/62 120/71 (mmHg) O2 Sat by Pulse 100 100 100 Oximetry 11/03/17 12:31 Temperature 99.5 F Pulse Rate 87 Respiratory 27 Rate Blood Pressure 86/71 (mmHg) O2 Sat by Pulse 100 Oximetry Oxygen Devices in Use Now: Nasal Cannula Appearance: 72 yo F in nAD, aAOx3 Eyes: No Scleral Icterus, PERRLA Ears/Nose/Mouth/Throat: NL Teeth, Lips, Gums, Mucous Membranes Moist Neck: NL Appearance and Movements; NL JVP, Trachea Midline Respiratory: Symmetrical Chest Expansion and Respiratory Effort, - - crackles at b/l bases Cardiovascular: - - irregular Abdominal: NL Sounds; No Tenderness; No Distention, No Hepatosplenomegaly Lymphatic: No Cervical Adenopathy Extremities: No Clubbing, Cyanosis, - - trace b/l ankle edema Skin: No Nodules or Sclerosis Neurological: Alert and Oriented x 3, NL Muscle Strength and Tone Result Diagrams: 11/03/17 06:35 11/03/17 07:42 Microbiology and Other Data: Microbiology 11/02/17 13:25 Nasal Screen MRSA (PCR)(TIO) - Final Nasal Mrsa Not Detected Assess/Plan/Problems-Billing Assessment: Ms. Adams is a 72 yo F with a PMH of afib, mechanical aortic valve on coumadin , and chance's who follows with Dr. Velasquez, [facility] in 09/2017 who came in with hematemesis - Patient Problems (1) GI bleed Comment: suspect due to gastritis or Carolina Horne tear. Vomiting resolved. diarrhea resolved, No abd pain-suspect the presentation was related to gastroenteritis Stool heme - Hb down to 8, but pt hemodyncamicaly stable For EGD today cont Protonix gtt for now (2) Atrial fibrillation with RVR Comment: Cardizem gtt will be tirtrated to off. HR fairly controlled. Restarting PO cardizem, cont bisoprolol (3) [place] disease Comment: Had adrenal vein sampling on 10/04/[address]. [address] Velasquez, patient will need a right adrenalectomy which could be performed by Dr. Palacios. - Continue to follow with Dr. Velasquez outpatient. (4) DVT prophylaxis Comment: INR 2.5, coumadin held due to GI bleed, (5) Pulmonary embolism Comment: Acute PE diaignosed on 10/07 with subtherapeutic INR (6) Chronic indwelling Sawyer catheter Comment: Noted (7) Chronic systolic CHF (congestive heart failure) Comment: euvolemic (8) Diabetes Comment: Continue lantus (increased to 45 units). Continue SSI coverage (9) H/O mechanical aortic valve replacement Comment: coumadin held for now. INR 2.5 today Status and Disposition: inpatient
[2017-11-03] MEDS: Diltiazem CD CAP* 120 MG PO SCH ×2 (14:32→21:13)
[2017-11-03] MEDS: Atorvastatin* 20 MG TAB PO SCH (17:30)
[2017-11-04 06:27] LABS: Hematocrit 21 % (35-47); Mean Corpuscular HGB Conc 33 g/dl (31-36); Mean Corpuscular Hemoglobin 31 pg (27-31); Mean Corpuscular Volume 93 fL (80-97); Mean Platelet Volume 7.3 um3 (7.4-10.4); Platelet Count 217 10^3/ul (150-450); Red Blood Count 2.26 10^6/ul (4.0-5.4); Red Cell Distribution Width 18 % (10.5-15); White Blood Count 13.4 10^3/ul (3.5-10.8)
[2017-11-04] MEDS: Pantoprazole IV* 80 MG in NS 0.9% 250 ML* 250 ML IVPB SCH ×2 (06:34→21:39)
[2017-11-04] MEDS: Diltiazem CD CAP* 120 MG PO SCH ×3 (06:35→21:19)
[2017-11-04] MEDS: Levothyroxine TAB* 112 MCG TAB PO SCH (06:35)
[2017-11-04 06:40] LABS: EGFR Non-African American 61.4 (>60)
[2017-11-04] MEDS: Insulin LISPRO* 1 UNITS UNIT SUBCUT SCH ×3 (09:09→17:44)
[2017-11-04 09:21] LABS: INR 2.02 (0.77-1.02)
--- NOTE | 2017-11-04 09:30 | PRO ---
CC: Dr. Dimitrios Lim* GASTROENTEROLOGY PROCEDURE NOTE: DATE OF PROCEDURE: 11/03/17 REFERRING PHYSICIAN: Dr. Dimitrios Lim. PROCEDURE: EGD. PREOPERATIVE DIAGNOSES: A 72-year-old female with suspected upper gastrointestinal bleed. She presented with hematemesis and coffee-ground emesis. Her admission hematocrit was 32 yesterday, this subsequently has dropped to 24. There has been no further signs of any active bleeding. She is on Coumadin therapy and her INR is 2.5. The patient was in a rapid atrial fibrillation which has been well controlled with Cardizem drip. The patient is currently on a pantoprazole drip at 8 mg per hour. POSTOPERATIVE DIAGNOSES: 1. 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 2. Severe gastritis of the proximal stomach with 2 healing ulcer, adjacent ulcerations noted in the fundus as well as a small erosion. There is no old or new blood present. There is no stigmata of recent bleeding. Photograph is obtained. 3. Normal distal stomach and duodenal bulb and descending duodenum. PROCEDURE MEDICATIONS: 1. Versed 1 mg IV. 2. Fentanyl 25 mcg IV. INSTRUMENT: GF-190 Olympus high-definition gastroscope. DESCRIPTION OF PROCEDURE: Informed consent was obtained prior to performing this procedure. The instrument was introduced into the mouth and passed through cervical esophagus under direct visualization. The instrument was then advanced down the esophagus. The esophagus in the mid and distal esophagus had a denuded appearance. No active inflammation was noted. Photographs were obtained. The scope was then passed though the gastric cardia, fundus, body, and antrum. Within the proximal stomach including the cardia and fundus, there was severe gastritis as well as two healing adjacent ulcers with overlying exudate and a small erosion. There was no active bleeding and no stigmata of recent bleeding. No old or new blood was present. The distal stomach was normal. The scope was passed through the pylorus and the duodenal bulb and descending duodenum both of which were normal without evidence of new or old blood. The instrument was withdrawn from the patient. The patient tolerated the procedure well and there were no complications. RECOMMENDATIONS: I will keep the patient's INR between 2 and 2.5. I would continue the IV pantoprazole drip 8 mg per hour in the hospital and discharge her on either omeprazole or pantoprazole 40 mg b.i.d. for at least 3 months and she should remain on 40 mg daily as long as she is on aspirin and Coumadin therapy. I will consider transfusion of 1 unit of packed red blood cells if her hematocrit drops any further which is likely due to re-equilibration from her recent bleed. [id number]/[facility] #: [id number] MTDD
[2017-11-04] MEDS: Polyethylene Glycol 3350* 17 GM PACKET PO SCH (09:59)
[2017-11-04] MEDS: Amoxicillin/Clavulanate TAB* 500 MG PO SCH ×2 (09:59→21:18)
[2017-11-04] MEDS: Oxybutynin TAB* 5 MG PO SCH ×2 (10:00→21:20)
[2017-11-04] MEDS: Magnesium Oxide TAB* 400 MG PO SCH ×2 (10:00→21:20)
[2017-11-04] MEDS: Senna TAB PO SCH ×2 (10:00→21:20)
[2017-11-04] MEDS: Docusate CAP* 100 MG PO SCH ×2 (10:00→21:20)
[2017-11-04] MEDS: Insulin GLARGINE(*) 1 UNITS UNIT SUBCUT SCH (10:00)
[2017-11-04] MEDS: Bisoprolol TAB* 5 MG PO SCH (10:33)
[2017-11-04] MEDS ORDERED: Furosemide IV* 10 MG/ML VIAL (40 MG) IV ONE (11:37)
--- NOTE | 2017-11-04 11:43 | PN ---
Subjective Date of Service: 11/04/17 Interval History: pt feels well. Tolerating soft diet with no abd discomfort noted. Objective Active Medications: Acetaminophen (Tylenol Tab*) 650 mg PO Q4H PRN PRN Reason: FEVER/PAIN Albuterol (Ventolin Hfa Inhaler*) 2 puff INH Q4H PRN PRN Reason: SOB/WHEEZING Amoxicillin/Clavulanate Potassium (Augmentin Tab*) 500 mg PO BID [facility] Last Admin: 11/04/17 09:59 Dose: 500 mg Atorvastatin Calcium (Lipitor*) 20 mg PO QPM [facility] Last Admin: 11/03/17 17:30 Dose: 20 mg Bisoprolol Fumarate (Zebeta Tab*) 20 mg PO DAILY [facility] Last Admin: 11/04/17 10:33 Dose: 20 mg Cyclobenzaprine HCl (Flexeril Tab*) 10 mg PO Q8H PRN PRN Reason: muscle spasms Dextrose (D50w Syringe 50 Ml*) 12.5 gm IV PUSH .FOR FS < 60 - SS PRN PRN Reason: FS < 60 Diltiazem HCl (Cardizem Cd Cap*) 120 mg PO Q8H [facility] Last Admin: 11/04/17 06:35 Dose: 120 mg Docusate Sodium (Colace Cap*) 100 mg PO Q12H PRN PRN Reason: CONSTIPATION Docusate Sodium (Colace Cap*) 100 mg PO BID [facility] Last Admin: 11/04/17 10:00 Dose: 100 mg Pantoprazole Sodium 80 mg/ (Sodium Chloride) 250 mls @ 25 mls/hr IVPB Q10H [facility] Last Admin: 11/04/17 06:34 Dose: 25 mls/hr Insulin Glargine (Lantus(*)) 48 units SUBCUT QAM [facility] Last Admin: 11/04/17 10:00 Dose: 48 units Insulin Human Lispro (Humalog*) 0 units SUBCUT AC [facility] PRN Reason: Protocol Last Admin: 11/04/17 09:09 Dose: Not Given Levothyroxine Sodium (Synthroid Tab*) 112 mcg PO DAILY@0600 [facility] Last Admin: 11/04/17 06:35 Dose: 112 mcg Magnesium Oxide (Magox 400 Tab*) 400 mg PO BID [facility] Last Admin: 11/04/17 10:00 Dose: 400 mg Ondansetron HCl (Zofran Inj*) 4 mg IV Q6H PRN PRN Reason: NAUSEA Oxybutynin Chloride (Ditropan Tab*) 5 mg PO BID [facility] Last Admin: 11/04/17 10:00 Dose: 5 mg Oxycodone/Acetaminophen (Percocet 5/325 Tab*) 1 tab PO Q4H PRN PRN Reason: PAIN - SEVERE Polyethylene Glycol/Electrolytes (Miralax*) 17 gm PO DAILY [facility] Last Admin: 11/04/17 09:59 Dose: 17 gm Senna (Senokot Tab*) 2 tab PO BID [facility] Last Admin: 11/04/17 10:00 Dose: 2 tab Vital Signs - 8 hr 11/04/17 11/04/17 11/04/17 04:28 05:42 07:38 Temperature 97.5 F 98.0 F Pulse Rate 99 104 Respiratory 18 20 Rate Blood Pressure 114/60 110/62 (mmHg) O2 Sat by Pulse 99 100 100 Oximetry 11/04/17 08:00 Temperature Pulse Rate Respiratory 20 Rate Blood Pressure (mmHg) O2 Sat by Pulse Oximetry Oxygen Devices in Use Now: Nasal Cannula Appearance: 72 yo F in nAD, aAOx3 Eyes: No Scleral Icterus, PERRLA Ears/Nose/Mouth/Throat: NL Teeth, Lips, Gums, Mucous Membranes Moist Neck: NL Appearance and Movements; NL JVP, Trachea Midline Respiratory: Symmetrical Chest Expansion and Respiratory Effort, - - crackles at b/l bases Cardiovascular: - - sharp metallic valve click noted, irregular HR Abdominal: NL Sounds; No Tenderness; No Distention, No Hepatosplenomegaly Lymphatic: No Cervical Adenopathy Extremities: No Clubbing, Cyanosis, - - +2 pitting pedal edema b/l Skin: No Nodules or Sclerosis Neurological: Alert and Oriented x 3, NL Muscle Strength and Tone Result Diagrams: 11/04/17 06:04 11/04/17 06:04 Microbiology and Other Data: Microbiology 11/02/17 13:25 Nasal Screen MRSA (PCR)(TIO) - Final Nasal Mrsa Not Detected Assess/Plan/Problems-Billing Assessment: Ms. Adams is a 72 yo F with a PMH of afib, mechanical aortic valve on coumadin , and chance's who follows with Dr. Velasquez PE in 09/2017 who came in with hematemesis - Patient Problems (1) GI bleed Comment: Vomiting resolved. diarrhea resolved, No abd pain-suspect the presentation was related to gastroenteritis Stool heme - EGD showed 2 healing gastric ulcers and erosions Hb down to 7, but pt hemodyncamicaly stable and would prefer not to have transfusion now. suspect the drop in hb is dilutional cont Protonix gtt when hospitalized as per GI recommendations (2) Atrial fibrillation with RVR Comment: Controlled with PO cardizem, cont bisoprolol (3) [place] disease Comment: Had adrenal vein sampling on 10/04/[address]. [address] Velasquez, patient will need a right adrenalectomy which could be performed by Dr. Palacios. - Continue to follow with Dr. Velasquez outpatient. (4) DVT prophylaxis Comment: INR 2.0, coumadin held due to GI bleed, (5) Pulmonary embolism Comment: Acute PE diagnosed on 10/07 with subtherapeutic INR (6) Chronic indwelling Sawyer catheter Comment: Noted, also Enterococcus UTI, Sawyer asociated. will start Augmentin. Sawyer exchanged on 11/02/17 (7) Chronic systolic CHF (congestive heart failure) Comment: in acute exacerbation, also her diuretics were held at admission will tx with a dose of IV Lasix now and restart PO Lasix tonight (8) Diabetes Comment: Continue lantus . Continue SSI coverage (9) H/O mechanical aortic valve replacement Comment: coumadin held for now. INR 2.0 today Plan to reatart Coumadin in AM if HB stable Status and Disposition: inpatient
[2017-11-04] MEDS: Lactobacillus Acidophilus* 1 TAB PO SCH (17:43)
[2017-11-04] MEDS: Atorvastatin* 20 MG TAB PO SCH (17:43)
[2017-11-04] MEDS: Furosemide TAB* 40 MG PO SCH (21:20)
[2017-11-05] MEDS: Diltiazem CD CAP* 120 MG PO SCH ×2 (04:27→12:07)
[2017-11-05] MEDS: Levothyroxine TAB* 112 MCG TAB PO SCH (05:00)
[2017-11-05 05:51] LABS: ABS Basophils 0 10^3/ul (0-0.2); ABS Eosinophils 0 10^3/ul (0-0.6); ABS Lymphocytes 1.7 10^3/ul (1.0-4.8); ABS Monocytes 1.1 10^3/ul (0-0.8); ABS Neutrophils 10.7 10^3/ul (1.5-7.7); ABS Nucleated RBC 0.2 10^3/ul; Eosinophil % 0.3 % (0-6); Hematocrit 20 % (35-47); Hemoglobin 6.5 g/dl (12.0-16.0); Lymphocyte % 12.6 % (25-47); Mean Corpuscular HGB Conc 33 g/dl (31-36); Mean Corpuscular Hemoglobin 30 pg (27-31); Mean Corpuscular Volume 93 fL (80-97); Nucleated Red Blood Cells % 1.5; Platelet Count 232 10^3/ul (150-450); Red Blood Count 2.15 10^6/ul (4.0-5.4); Red Cell Distribution Width 18 % (10.5-15); White Blood Count 13.5 10^3/ul (3.5-10.8)
[2017-11-05 06:13] LABS: INR 1.57 (0.77-1.02)
[2017-11-05] MEDS: Pantoprazole IV* 80 MG in NS 0.9% 250 ML* 250 ML IVPB SCH ×2 (08:26→10:20)
[2017-11-05] MEDS: Polyethylene Glycol 3350* 17 GM PACKET PO SCH (08:27)
[2017-11-05] MEDS: Oxybutynin TAB* 5 MG PO SCH (08:28)
[2017-11-05] MEDS: Docusate CAP* 100 MG PO SCH (08:28)
[2017-11-05] MEDS: Amoxicillin/Clavulanate TAB* 500 MG PO SCH (08:28)
[2017-11-05] MEDS: Furosemide TAB* 40 MG PO SCH (08:28)
[2017-11-05] MEDS: Bisoprolol TAB* 5 MG PO SCH (08:28)
[2017-11-05] MEDS: Senna TAB PO SCH (08:28)
[2017-11-05] MEDS: Magnesium Oxide TAB* 400 MG PO SCH (08:28)
[2017-11-05] MEDS: Insulin GLARGINE(*) 1 UNITS UNIT SUBCUT SCH (08:29)
[2017-11-05] MEDS: Insulin LISPRO* 1 UNITS UNIT SUBCUT SCH ×3 (08:29→17:07)
--- NOTE | 2017-11-05 14:48 | CONS ---
CC: Hospitalist service; Dr. Garrido; Dr. Lim; Dr. Cecile Castano Cardiology. CARDIOLOGY CONSULT REPORT: DATE OF CONSULT: 11/05/17 HISTORY OF PRESENT ILLNESS: The patient is a 72-year-old female patient with complex medical and car diac history and comorbidities including history of atrial fibrillation, mechanical aortic valve pros thesis secondary to severe aortic insufficiency that was placed in 2000. I was asked for cardiology consult because of a recent admission with gastroenteritis and apparently GI bleed, Coumadin is on ho ld, INR subtherapeutic, patient is dropping her hemoglobin and with her complex mechanical aortic lisa ve prosthesis and GI bleed, cardiology consult was further requested. She does have also history of atrial fibrillation. She does have significant comorbidities including history of paroxysmal atrial fibrillation, history of permanent pacemaker implantation secondary to high-grade AV block in 2005 an d generator change in 2012, history of recent echo that documented the patient to have cardiomyopathy with EF 35 to 40%, severe prosthetic aortic valve stenosis, trace to mild aortic insufficiency, mild to moderate mitral insufficiency, moderate to severe tricuspid insufficiency, mild pulmonary hyperte nsion, which is concerning. She does have history of systemic arterial hypertension, cardiomyopathy, history of smoke in the left atrium from before, hyperlipidemia, obesity, history of nonsustained V- tach, history of syncope. The last time we saw the patient in our system was back in 2014; however, she has been followed up since then with [facility] and Dr. Huber. She came in with gastroen teritis and now there is concern of GI bleed. She gives no active chest pain, she had nausea, vomite d blood and diarrhea. She gives no active abdominal pain, no significant shortness of breath, no ort hopnea, no current syncope, no fever, no chills, no skin rash, no tremors, no hematochezia, no nausea at the present appreciated. PAST MEDICAL HISTORY: Complex as outlined above, I would add also history of [place] disease, diabet es mellitus, history of aortic aneurysm, history of heart failure, history of recent pulmonary emboli sm and UTI. PAST SURGICAL HISTORY: History of mechanical aortic valve prosthesis in 2000, history of permanent p acemaker implantation originally in 2005, history of appendectomy and hernia repair. MEDICATIONS: As an inpatient include: 1. Tylenol 650 mg p.o. q.6 hours p.r.n. 2. Ventolin two puffs p.r.n. 3. Augmentin 500 mg b.i.d. 4. Lipitor 20 mg daily. 5. Zebeta 20 mg daily. 6. Flexeril 10 mg p.o. q.8 hours p.r.n. for muscle spasm. 7. Diltiazem 120 mg q.8 hours. 8. Colace 100 mg p.o. q.12 hours. 9. Lasix 40 mg b.i.d. 10. Insulin adjusted to her blood sugar. 11. Synthroid 112 mcg daily. 12. Magnesium oxide 400 mg twice a day. 13. Zofran 4 mg IV q.6 hours p.r.n. for nausea. 14. Percocet p.r.n. for pain. 15. Coumadin is on hold. ALLERGIES: No known drug allergies. FAMILY HISTORY: No family history of premature coronary artery disease. SOCIAL HISTORY: No history of smoking, no drinking, no history of illicit drug use. REVIEW OF SYSTEMS: Her review of all other systems essentially is negative. PHYSICAL EXAM: On exam, she had a cushingoid appearance. She had no symptoms of chest pain. Vitals : Her blood pressure 104/62, her pulse is 100, she is afebrile at 98.2, respiratory rate is 20. Hea d and Neck Exam: Normocephalic, atraumatic head. Ears, nose, and throat essentially benign. Neck: Supple. JVP is mildly elevated, no carotid bruit, no masses in the neck is appreciated. Chest: Dim inished air entry bilaterally. No rales, wheeze is appreciated. Heart: Normal S1, S2. No added so unds. No gallops, no rubs. A grade 2/6 systolic murmur in the left sternal border. Abdomen: Benig n, obese, soft. Positive bowel sounds. Extremities: +1 edema. No cyanosis, no clubbing. Skin Exam : Normal. Psych: Normal affect and mood. DAIRY HELPER: No focal deficits is appreciated. DIAGNOSTIC STUDIES/LAB DATA: Her EKG showed she is in atrial fibrillation, heart rate 113, her QTc i s up to 500 milliseconds and diffuse nonspecific ST-T changes is appreciated. Her labs showed the following: Sodium 136, potassium 4.6, chloride 103, total CO2 of 27, BUN 22, cre atinine 0.90. Her hemoglobin initially was 9.2 and today is 6.5, it is dropping, hematocrit 20, white blood cells 13.5, platelets 232. Her chest x-ray done on 11/02/17, no acute cardiopulmonary disease. IMPRESSION: The patient is a 72-year-old female patient with very complex medical history and comorb idities with: 1. A presentation with initial gastroenteritis and now with significantly dropping hemoglobin with c oncerns for GI bleed, I would also be concerned for hemolytic anemia in the presence of her mechanica l aortic valve prosthesis. 2. History of mechanical aortic valve prosthesis in 2010 secondary to severe aortic insufficiency wi th the most recent echo done in 10/09/17 showing severe aortic stenosis. 3. Cardiomyopathy with EF 35 to 40%. 4. Atrial fibrillation. 5. Status post permanent pacemaker implantation secondary to high-grade AV block originally in 2005 with generator change in 2012. 6. Diabetes mellitus. 7. Obesity. 8. [place] syndrome. 9. Hyperlipidemia. 10. Systemic arterial hypertension. 11. History of congestive heart failure. 12. Atrial fibrillation with tachycardia. 13. Sbid-pn-fgazwnvl mitral insufficiency. 14. Cictnhns-hp-undzxh tricuspid insufficiency. 15. Mild pulmonary hypertension. 16. Significant anemia and low hemoglobin. PLAN/RECOMMENDATIONS: This is a high risk patient, I am very concerned about her medical condition. It is complex given her cardiomyopathy, rapid atrial fibrillation, subtherapeutic INR which is 1.57 today in light of possible GI bleed, cannot rule out hemolytic anemia and with severe mechanical aort ic valve prosthesis. I have discussed at length with the hospitalist service and it is my recommenda tion that this patient would probably need very close observation at a tertiary center. She has been seen and followed up at [place] very closely with Cardiology as well as with Dr. Renner, cardiot horacic surgeon, she was evaluated by her, which I strongly believe in light of her anemia, very low hemoglobin, comorbidities, subtherapeutic INR, decision for anticoagulation, severe mechanical aortic valve stenosis that she will hopefully benefit and observed there. We will make further recommendat ions accordingly. Meanwhile, she is to stay hydrated. She is to be seen by Gastroenterology, danie hammer guidance of using anticoagulation in her case, benefit, risks between mechanical valve prosthesis t hrombus if anticoagulation not used versus bleeding should be discussed thoroughly. Continue the res t of her cardiomyopathy, blood pressure, diabetes medications as you are already doing. Keep a close eye on her renal function and electrolytes as they are already doing. Her prognosis is guarded at th e present time. Thank you very much for asking us to participate in the care of this patient. TIME SPENT: More than half of at least 65 plus minutes was in education, counseling mode, face to fa ce discussing this with the patient as well as with the hospitalist service. [id number]/[facility] #: [id number]
[2017-11-05 15:33] LABS: ABS Basophils 0 10^3/ul (0-0.2); ABS Eosinophils 0 10^3/ul (0-0.6); ABS Lymphocytes 1.7 10^3/ul (1.0-4.8); ABS Monocytes 1.2 10^3/ul (0-0.8); ABS Neutrophils 11.8 10^3/ul (1.5-7.7); ABS Nucleated RBC 0.2 10^3/ul; Eosinophil % 0.3 % (0-6); Hematocrit 24 % (35-47); Lymphocyte % 11.3 % (25-47); Mean Corpuscular HGB Conc 34 g/dl (31-36); Mean Corpuscular Hemoglobin 31 pg (27-31); Mean Corpuscular Volume 92 fL (80-97); Mean Platelet Volume 7.1 um3 (7.4-10.4); Nucleated Red Blood Cells % 1.4; Platelet Count 247 10^3/ul (150-450); Red Blood Count 2.59 10^6/ul (4.0-5.4); Red Cell Distribution Width 17 % (10.5-15); White Blood Count 14.7 10^3/ul (3.5-10.8)
[2017-11-05] MEDS: Atorvastatin* 20 MG TAB PO SCH (17:07)
[2017-11-05] MEDS: Lactobacillus Acidophilus* 1 TAB PO SCH (17:07)
[2017-11-05 18:24] VITALS: BP 123/67
--- NOTE | 2017-11-05 22:12 | TRS ---
TRANSFER SUMMARY: DATE OF ADMISSION: 11/04/17 DATE OF TRANSFER: 11/05/17 TRANSFER DIAGNOSES: As follows: 1. GI bleed likely secondary to esophagitis and gastritis as well as 2 healing gastric ulcers via EGD done by Dr. Ferguson on 11/03/17. 2. Atrial fibrillation with rapid ventricular response. 3. Sharon's disease. 4. Bilateral pulmonary embolism, recently diagnosed on 10/07/17 in [place]. HISTORY OF PRESENT ILLNESS/HOSPITAL COURSE: The patient is a 72-year-old lady with history of atrial fibrillation, previously on Coumadin prior to this admission, diabetes as well as hypertension who was recently diagnosed with PE and history of leukocytosis of unclear etiology, which was thought to be secondary to Stock[place]'s disease. She presented to the emergency department on 11/02/17 in [facility] and stated that over the last 3 days prior to her admission in our facility, she felt unwell and nauseated. She then subsequently presented with vomiting with red blood in her vomitus. On presentation to [facility], she was found to be anemic with a hemoglobin of 7.0 and some of her anemia was thought to be due to dilutional cause. However, she did have some complaints of bloody vomitus last night and subsequent H and H this morning was found to be 6.5. Her case was discussed with Dr. Garrido given her complicated course including presence of mechanical valve in the setting of GI bleed and more certainly with recently diagnosed bilateral PE. GI service is unfortunately not available in our facility over the weekend and the case has been discussed with Dr. Garrido and the rest of the [facility] hospitalist team. Pt initially agreed to be transferred back to [facility] in [place], [place] since she is being followed up there, however, she subsequently declined and mentioned she wanted to stay around the area. The situation of not having an appropriate GI back-up for a potentially still active intermittent bleed was discussed with patient. [facility] was then informed of the patient wherein I spoke with Dr. Flores who then accepted the patient for transfer for a higher level of care. We appreciate his help and support. REVIEW OF SYSTEMS: The patient denies any recent headache, dizziness, fevers, chills, nausea, vomiting, chest pain, shortness of breath, increased cough, sputum production, abdominal pain, diarrhea, constipation, pain on urination, myalgias, arthralgias, throat pain, or new skin lesions. PHYSICAL EXAMINATION: Reveals the following vital signs of 90/76, heart rate of 92 per minute, 25 per minute respiratory rate, temperature of 97.9 degrees Fahrenheit. General appearance: The patient is awake, ill-appearing lady, obese , otherwise not in acute distress. HEENT: Normocephalic, atraumatic. PERRLA. Extraocular muscles intact. Negative for icterus. Moist oral mucosa. Negative for throat erythema. Heart: S1, S2 with a 4/6 murmur. Irregularly irregular rhythm. No rubs or gallops. Chest is clear to auscultation bilaterally. Good air entry. No wheezes, rales, or rhonchi. Abdomen is soft, nondistended, nontender. Normoactive bowel sounds x4. Extremities: No cyanosis, clubbing with 2+ bilateral lower extremity edema. Psychiatric: No active psychosis, depression. No suicidal or homicidal ideation. DISCHARGE MEDICATIONS: 1. Tylenol. 2. Augmentin. 3. Insulin. 4. Ondansetron. 5. Oxybutynin. 6. Senna. 7. Oxycodone. 8. Cyclobenzaprine. 9. Levothyroxine. 10. Magnesium oxide. 11. Colace. 12. Furosemide. 13. Polyethylene glycol. 14. Atorvastatin. 15. Bisoprolol. 16. Diltiazem. TIME SPENT: The total time spent evaluating the patient, reviewing pertinent data, and appropriate documentation is greater than 30 minutes. [id number]/[facility] #: [id number] [facility]
== END 2017-11-05 18:40 | disposition short-term general hospital (02) | DRG 377 ==
LOC: ED 08:26 → ICU 10:58 → MEDTELE 11-03 16:51
PROVIDERS: ADMIT Internal Medicine; ATTEND Student in an Organized Health Care Education/Training Program
PROC: 0T2BX0Z Change Drainage Device in Bladder, External Approach (ICD-10-PCS; principal; 2017-11-02)
PROC: 0DJ08ZZ Inspection of Upper Intestinal Tract, Via Natural or Artificial Opening Endoscopic (ICD-10-PCS; 2017-11-03)
PROC: 30233N1 Transfusion of Nonautologous Red Blood Cells into Peripheral Vein, Percutaneous Approach (ICD-10-PCS; 2017-11-05)
DX: K29.71 Gastritis, unspecified, with bleeding (principal); I50.43 Acute on chronic combined systolic (congestive) and diastolic (congestive) heart failure; T83.518A Infection and inflammatory reaction due to other urinary catheter, initial encounter; E24.9 Cushing's syndrome, unspecified; N17.9 Acute kidney failure, unspecified; N39.0 Urinary tract infection, site not specified; I42.9 Cardiomyopathy, unspecified; I13.0 Hypertensive heart and chronic kidney disease with heart failure and stage 1 through stage 4 chronic kidney disease, or unspecified chronic kidney disease; T82.857A Stenosis of other cardiac prosthetic devices, implants and grafts, initial encounter; K25.4 Chronic or unspecified gastric ulcer with hemorrhage; E66.9 Obesity, unspecified; R33.9 Retention of urine, unspecified; E03.9 Hypothyroidism, unspecified; E78.5 Hyperlipidemia, unspecified; D72.829 Elevated white blood cell count, unspecified; N18.9 Chronic kidney disease, unspecified; E87.5 Hyperkalemia; Y73.2 Prosthetic and other implants, materials and accessory gastroenterology and urology devices associated with adverse incidents; B95.2 Enterococcus as the cause of diseases classified elsewhere; E11.22 Type 2 diabetes mellitus with diabetic chronic kidney disease; I25.10 Atherosclerotic heart disease of native coronary artery without angina pectoris; I08.3 Combined rheumatic disorders of mitral, aortic and tricuspid valves; Y71.3 Surgical instruments, materials and cardiovascular devices (including sutures) associated with adverse incidents; I27.20 Pulmonary hypertension, unspecified; I44.30 Unspecified atrioventricular block; I48.0 Paroxysmal atrial fibrillation; D64.9 Anemia, unspecified; K22.8 Other specified diseases of esophagus; K20.9 Esophagitis, unspecified; Z82.49 Family history of ischemic heart disease and other diseases of the circulatory system; Z82.3 Family history of stroke; Z95.2 Presence of prosthetic heart valve; Z87.891 Personal history of nicotine dependence; Y92.9 Unspecified place or not applicable; Z87.440 Personal history of urinary (tract) infections; Z95.0 Presence of cardiac pacemaker; Z86.711 Personal history of pulmonary embolism; Z68.37 Body mass index [BMI] 37.0-37.9, adult
CPT/HCPCS: 36415; 71045; 74176; 80048; 80053; 81003; 81015; 82270; 82570; 83605; 83690; 83880; 84300; 85014; 85018; 85025; 85027; 85610; 85730; 86140; 86850; 86900; 86901; 86922; 87040; 87077; 87086; 87186; 87641; 93005; 94760; 99156; 99285; A9270-GY; J1940; J2250; J3010; P9040

== ENCOUNTER 2018-02-22 08:50 | Inpatient (IN) | payer MEDICARE, OTHER ==
[2018-02-22] MEDS ORDERED: Nitroglycerin TAB 0.4 MG* 0.4 MG TAB SL ONE (08:59)
[2018-02-22] MEDS ORDERED: Furosemide IV* 10 MG/ML VIAL (40 MG) IV SLOW PU ONE (08:59)
--- NOTE | 2018-02-22 09:16 | ED ---
Shortness of Breath - HPI Summary HPI Summary: This is scribe eKvin [place] documenting for attending Bobby Li M.D. Patient is a 73 y/o F BIBA w/ c/o SOB over past three days with exacerbation this morning. Per EMS, patient was wheezing bilaterally, diaphoretic, and pale upon arrival. EMS EKG strip indicated ST depression in inferior and lateral leads. SOB onset this morning, chest pain is denied. Bilateral leg swelling is noted, but patient describes this as chronic. She states she has not been urinating recently. Patient sleeps on one pillow a night. Patient lives in assisted living home. Per assisted living home documents, patient received Torsemide and Coumadin at 1500 yesterday as well as Spironolactone and Metolozone (time not reported for last two). Hx of DM, anemia, CHF, a-fib, PE, HTN is claimed. On triage, pain is denied, it is noted sitting upright alleviates Sx, and EMS provided nebulizers [employer]. Home breathing treatments are denied. In room, pulse is 138, 91 O2 sat with breathing mask, BP 131/109. Home medications and allergies are reviewed. I, Dr. Li, personally performed the services described in this documentation as scribed in my presence and it is both accurate and complete. - History of Current Complaint Time Seen by Provider: 02/22/18 08:57 Hx Obtained From: Patient, EMS Onset/Duration: Lasting Hours - SOB onset this morning, Still Present Timing: Constant Current Severity: None - pain is denied Aggrevating Factors: Nothing Alleviating Factors: Upright Position - sitting upright Associated Signs & Symptoms: Diaphoresis - per EMS, Edema - BLE, stated the be chronic - Allergy/Home Medications Allergies/Adverse Reactions: Allergies Allergy/AdvReac Type Severity Reaction Status Date / Time No Known Allergies Allergy Verified 06/08/17 13:15 Home Medications: Home Medications Acetaminophen TAB* [Tylenol TAB*] 650 mg PO Q6HR PRN 02/22/18 [History Confirmed 02/22/18] Albuterol HFA INHALER* [Ventolin HFA Inhaler*] 2 puff INH Q4H PRN 02/22/18 [ History Confirmed 02/22/18] Bisacodyl EC TAB* [Dulcolax EC TAB*] 5 mg PO DAILY PRN 02/22/18 [History Confirmed 02/22/18] Bisoprolol TAB* [Zebeta TAB*] 5 mg PO DAILY 02/22/18 [History Confirmed 02/22/18 ] Cyclosporine 0.05% OPHTH (NF) [Restasis 0.05% OPHTH] 1 drop BOTH EYES BID [History Confirmed 02/22/18] Diltiazem XR EXTEND Releas(NF) [Cartia XR (NF)] 240 mg PO DAILY 02/22/18 [ History Confirmed 02/22/18] Glucosamine/D3/Boswellia Dottie [Osteo Bi-Flex Tablet] 1 tab PO QPM 02/22/18 [ History Confirmed 02/22/18] Insulin LISPRO* [HumaLOG*] 2 - 10 units SUBCUT AC 02/22/18 [History Confirmed ] Melatonin (NF) 3 mg PO DAILY 02/22/18 [History Confirmed 02/22/18] Metolazone TAB* [Zaroxolyn TAB*] 5 mg PO DAILY 02/22/18 [History Confirmed 02/22] Miconazole Nitrate [Micatin] 2 % TOPICAL DAILY 02/22/18 [History Confirmed 02/22] Arnold-3 Fatty Acids (Nf) [Fish Oil (NF)] 1,000 mg PO DAILY 02/22/18 [History Confirmed 02/22/18] Omeprazole CAP* [Prilosec CAP* 20 MG] 20 mg PO BID 02/22/18 [History Confirmed 02/22/18] Ondansetron TAB* [Zofran 4 MG Tab*] 4 mg PO Q6H PRN 02/22/18 [History Confirmed 02/22/18] Potassium Chlor TAB* [Klor Con ER TAB*] 20 meq PO BID 02/22/18 [History Confirmed 02/22/18] Spironolactone TAB* [Aldactone TAB*] 50 mg PO DAILY 02/22/18 [History Confirmed 02/22/18] Torsemide TAB* [Demadex*] 20 mg PO BID 02/22/18 [History Confirmed 02/22/18] Warfarin TAB(*) [Coumadin TAB(*)] 2.5 mg PO SUTUWETHFR 02/22/18 [History Confirmed 02/22/18] PMH/Surg Hx/FS Hx/Imm Hx Endocrine/Hematology History: Reports: Hx Diabetes, Hx Thyroid Disease - hypothyroid Cardiovascular History: Reports: Hx Atrial Fibrillation, Hx Auto Implanted Cardiovert Defib, Hx Congestive Heart Failure, Hx Hypercholesterolemia, Hx Hypertension, Hx Pacemaker/ICD, Other Cardiovascular Problems/Disorders - Artificial valve, A Fib GI History: Reports: Hx Gastrointestinal Bleed History: Reports: Hx Acute Renal Failure, Other Problems/Disorders - renal insufficiency Musculoskeletal History: Reports: Hx Back Problems - L1 fracture, Other Musculoskeletal History - Left ankle osmar Sensory History: Reports: Hx Contacts or Glasses Denies: Hx Hearing Aid Opthamlomology History: Reports: Hx Contacts or Glasses - Surgical History Surgery Procedure, Year, and Place: CARDIAC VALVE REPLACEMENT, PACE MAKER, HERNIA REPAIR , LEFT ANKLE Hx Anesthesia Reactions: No - Family History Known Family History: Positive: Cardiac Disease - with MIs, Other - CVAs Negative: Diabetes - Social History Alcohol Use: None Hx Substance Use: No Substance Use Type: Reports: None Hx Tobacco Use: No Smoking Status (MU): Former Smoker Amount Used/How Often: 1 ppd Length of Time of Smoking/Using Tobacco: 30 years Review of Systems Positive: Skin Diaphoresis - per EMS , Other - pale appearing per EMS. Negative : Fever, Chills Negative: Erythema Negative: Sore Throat Negative: Chest Pain Positive: Shortness Of Breath, Other - bilateral wheezing per EMS . Negative: Cough Negative: Abdominal Pain, Vomiting, Nausea Positive: frequency - patient reports that she has not been urinating recently . Negative: dysuria, hematuria Negative: Myalgia, Edema Negative: Rash Neurological: Other - NEGATIVE: dizziness All Other Systems Reviewed And Are Negative: Yes Physical Exam - Summary Physical Exam Summary: Constitutional: Well-developed, Well-nourished, Alert. (-) Distressed Skin: Warm, Dry HENT: Normocephalic; Atraumatic Eyes: Conjunctiva normal Neck: Musculoskeletal ROM normal neck. (-) JVD, (-) Stridor, (-) Tracheal deviation Cardio: Rhythm regular, rate normal, Heart sounds normal; Intact distal pulses; 2+ bilateral pedal edema. Radial pulses are 2+ and symmetric. (-) Murmur Pulmonary/Chest wall: Effort normal. (+) Mild respiratory distress, (-) Wheezes , (+) Tight lung sounds Abd: Soft, (-) epigastric tenderness, (-) Distension, (-) Guarding, (-) Rebound Musculoskeletal: (-) Edema Lymph: (-) Cervical adenopathy Neuro: Alert, Oriented x3 Psych: Mood and affect Normal Triage Information Reviewed: Yes Vital Signs On Initial Exam: Initial Vitals BP 131/109 02/22/18 08:54 Vital Signs Reviewed: Yes Diagnostics - Laboratory Result Diagrams: 02/22/18 09:11 02/22/18 09:11 Lab Statement: Any lab studies that have been ordered have been reviewed, and results considered in the medical decision making process. - Radiology CXR Xray Interpretation: Positive (See Comments) Radiology Interpretation Completed By: Radiologist - Findings suggestive of congestive heart failure. This report was reviewed by ED physician. - EKG 0915 Cardiac Rate: Other Rate - Rate of 144 BPM EKG Rhythm: Atrial Fibrillation EKG Interpretation: LBBB, ST depression in V5 and V6. No STEMI Re-Evaluation - Re-Evaluation First Eval Re-Evaluation Time: 10:44 Comment: Patient is improved on Bipap, patient was updated on her condition. Patient's questions were answered to her satisfaction. Course/Dx - Course Assessment/Plan: Patient is a 73 y/o F BIBA w/ c/o SOB over past three days with exacerbation this morning. Per EMS, patient was wheezing bilaterally, diaphoretic, and pale upon arrival. EMS EKG strip indicated ST depression in inferior and lateral leads. SOB onset this morning, chest pain is denied. Bilateral leg swelling is noted, but patient describes this as chronic. She states she has not been urinating recently. Patient sleeps on one pillow a night. Per assisted living home documents, patient received Torsemide and Coumadin at 1500 yesterday as well as Spironolactone and Metolozone (time not reported for last two). Hx of DM, anemia, CHF, a-fib, PE, HTN is claimed. EMS provided nebulizers [employer]. Home breathing treatments are denied. Physical exam revealed 2+ bilateral pedal edema, mild respiratory distress, tight lung sounds. During ED course, patient received Nitroglycerin TAB 0.4 MG SL. EVERY % MIN PRN ONE, Furosemide 40 mg IV SLOW PU ED ONCE, Diltiazem 10 mg IV SLOW PU ED ONCE ONE, and was given NIPPV BIPAP. CXR findings were suggestive of congestive heart failure. EKG showed rate of 144 BPM, atrial fibrillation, LBBB, ST depression in V5 and V6, no STEMI. Labs showed sodium 131, potassium 6.6, chloride 97, BUN 45, creatinine 1.47, glucose 247, lactic acid 2.3, AST 41, Alkaline phosphatase 187, trop .06, BNP 1076. ABG pCO2 was 46, ABG pO2 was 210. WBC was 19.0. Patient's case was discussed with Dr. Gordillo at 10:39. Dr. Gordillo agrees to accept patient for admission for further workup. Patient was diagnosed with hyperkalemia, CHF exacerbation, and pulmonary edema. Upon re- eval at 10:44, patient's condition was improved w/ bipap. Informed of decision to admit, patient is agreeable with further workup. Patient's questions were answered to satisfaction. - Diagnoses Provider Diagnoses: Hyperkalemia, Pulmonary edema, CHF exacerbation - Physician Notifications Discussed Care of Patient With: Palomo Gordillo Time Discussed With Above Provider: 10:39 Instructed by Provider To: Other - Dr. Gordillo was consulted on patient's case at 1039. Dr. Gordillo agrees to admit patient to [facility]. - Critical Care Time Critical Care Time: 30-74 min - 45 minutes Discharge - Sign-Out/Discharge Documenting (check all that apply): Patient Departure - admit - Discharge Plan Condition: Stable Disposition: HOME
[2018-02-22 09:24] LABS: Hematocrit 41 % (35-47); Hemoglobin 12.9 g/dl (12.0-16.0); Mean Corpuscular HGB Conc 31 g/dl (31-36); Mean Corpuscular Hemoglobin 26 pg (27-31); Mean Corpuscular Volume 84 fL (80-97); Mean Platelet Volume 7.3 um3 (7.4-10.4); Platelet Count 214 10^3/ul (150-450); Red Blood Count 4.88 10^6/ul (4.00-5.40); Red Cell Distribution Width 18 % (10.5-15)
[2018-02-22 09:40] LABS: EGFR Non-African American 34.7 (>60)
--- NOTE | 2018-02-22 09:47 | RAD ---
INDICATION: Shortness of breath. COMPARISON: Comparison is made with a prior chest x-ray study from November 02, 2017. TECHNIQUE: A portable view of the chest was obtained. FINDINGS: The patient is status post sternotomy. There is a dual-chamber transvenous pacemaker. The heart is mildly enlarged and unchanged on the prior exam. There is mild prominence of the interstitial markings and trace bilateral pleural effusions suggestive of mild congestive heart failure. IMPRESSION: FINDINGS SUGGESTIVE OF CONGESTIVE HEART FAILURE.
[2018-02-22 10:10] LABS: ABS Basophils 0.1 10^3/ul (0-0.2); ABS Eosinophils 0 10^3/ul (0-0.6); ABS Lymphocytes 1.6 10^3/ul (1.0-4.8); ABS Monocytes 1.1 10^3/ul (0-0.8); ABS Neutrophils 16.2 10^3/ul (1.5-7.7)
[2018-02-22 10:13] LABS: ABS Basophils 0 10^3/ul (0-0.2); ABS Neutrophils 15.6 10^3/ul (1.5-7.7); Monocytes % 8 % (0-7)
[2018-02-22] MEDS ORDERED: Dextrose 50% Syringe 50 ML* 25 GM/50 ML SYRINGE IV PUSH PRN (10:30)
[2018-02-22] MEDS ORDERED: Calcium Gluconate INJ* 1 GM in NS 0.9% 100 ML* 100 ML IVPB ONE (10:30)
[2018-02-22] MEDS ORDERED: Insulin REGULAR(*) 1 UNITS UNIT IV PUSH ONE (10:30)
[2018-02-22] MEDS ORDERED: Sodium Polystyrene ORAL.SOL* 15 GM/60 ML BTL PO ONE ×3 (10:30→10:43)
[2018-02-22] MEDS ORDERED: Aspirin 81 mg CHEW TAB* 81 MG TAB.CHEW PO ONE (10:32)
[2018-02-22] MEDS ORDERED: NS 0.9% 100 ML* 100 ML ONE (10:35)
[2018-02-22] MEDS ORDERED: Diltiazem IV* 5 MG/ML 5 ML VIAL (for loading dose/IV Push) (25 MG) IV SLOW PU ONE (10:41)
[2018-02-22 11:04] LABS: INR 1.06 (0.77-1.02)
[2018-02-22] MEDS ORDERED: Diltiazem DRIP* 100 MG/100 ML ADDV.BAG IVPB ONE (12:03)
[2018-02-22] MEDS ORDERED: Cyclobenzaprine TAB* 10 MG PO PRN (12:06)
[2018-02-22] MEDS ORDERED: Ondansetron TAB* 4 MG PO PRN (12:06)
[2018-02-22] MEDS ORDERED: Bisacodyl EC TAB* 5 MG PO PRN (12:06)
[2018-02-22] MEDS ORDERED: Albuterol HFA INHALER* 8 gm MDI INH PRN (12:06)
--- NOTE | 2018-02-22 12:38 | CONSULT ---
Consult Consult: Consultation Note -- Critical Care Requesting Physician: Dr Gordillo Reason for consult: respiratory failure, CHF Limitations in history/physical: respiratory distress Date of consult: 02/22/2018 HPI: 73y F w/pmhx of Severe Chronic LV systolic dysfunction, s/p Mechanical AVR , severe TR/pulm HTN, DM, hypothyroidism, s/p AICD, HLD, Afib on Warfarin, CKD; presents to ER via EMS, brought from assisted living facility for SOB. She presents with 3 days of increasing SOB, increased LE edema. No chest pain. Decreased urine output despite PO diuretics. In ER, she was hypoxic, sats 91% on mask with respiratory distress, rapid Afib 140s, hypertensive 130/100+. She was started on NIV, given IV Cardizem, given calcium/insulin/d50 for hyperkalemia, give IV Lasix. CXR 02/22 Bilateral increased interstitial infiltrates+, consistent with pulm congestion. Some RLL atelectasis +/- infiltrate. ROS: negative except for pertinent positives mentioned above. PMHx: Severe Chronic LV systolic dysfunction, s/p Mechanical AVR, severe TR/ pulm HTN, DM, hypothyroidism, s/p AICD, HLD, Afib on Warfarin, CKD PSHx: AICD, Mechanical AVR Family History: Cardiac disease, CVA Social History: Alcohol-none, Smoking-former smoker 30yrs, Drug use-none Allergies: Allergies Allergy/AdvReac Type Severity Reaction Status Date / Time No Known Allergies Allergy Verified 06/08/17 13:15 Home Medications: Cyclobenzaprine TAB* [Flexeril 10 MG TAB*] 10 mg PO Q8H PRN 09/21/17 [History Confirmed 02/22/18] Atorvastatin* [Lipitor 20 MG*] 20 mg PO QPM 10/07/17 [History Confirmed 02/22/18 ] Docusate CAP* [Colace Cap*] 100 mg PO BID PRN 10/07/17 [History Confirmed ] Levothyroxine TAB* [Synthorid 112 MCG TAB*] 112 mcg PO DAILY 10/07/17 [History Confirmed 02/22/18] Magnesium Oxide TAB* [MagOx 400 TAB*] 400 mg PO BID 10/07/17 [History Confirmed 02/22/18] Insulin GLARGINE(*) [Lantus(*)] 52 units SUBCUT DAILY 11/02/17 [History Confirmed 02/22/18] Acetaminophen TAB* [Tylenol TAB*] 650 mg PO Q6HR PRN 02/22/18 [History Confirmed 02/22/18] Albuterol HFA INHALER* [Ventolin HFA Inhaler*] 2 puff INH Q4H PRN 02/22/18 [ History Confirmed 02/22/18] Bisacodyl EC TAB* [Dulcolax EC TAB*] 5 mg PO DAILY PRN 02/22/18 [History Confirmed 02/22/18] Bisoprolol TAB* [Zebeta TAB*] 5 mg PO DAILY 02/22/18 [History Confirmed 02/22/18 ] Cyclosporine 0.05% OPHTH (NF) [Restasis 0.05% OPHTH] 1 drop BOTH EYES BID [History Confirmed 02/22/18] Diltiazem XR EXTEND Releas(NF) [Cartia XR (NF)] 240 mg PO DAILY 02/22/18 [ History Confirmed 02/22/18] Glucosamine/D3/Boswellia Dottie [Osteo Bi-Flex Tablet] 1 tab PO QPM 02/22/18 [ History Confirmed 02/22/18] Insulin LISPRO* [HumaLOG*] 2 - 10 units SUBCUT AC 02/22/18 [History Confirmed ] Melatonin (NF) 3 mg PO DAILY 02/22/18 [History Confirmed 02/22/18] Metolazone TAB* [Zaroxolyn TAB*] 5 mg PO DAILY 02/22/18 [History Confirmed 02/22] Miconazole Nitrate [Micatin] 2 % TOPICAL DAILY 02/22/18 [History Confirmed 02/22] [place]-3 Fatty Acids (Nf) [Fish Oil (NF)] 1,000 mg PO DAILY 02/22/18 [History Confirmed 02/22/18] Omeprazole CAP* [Prilosec CAP* 20 MG] 20 mg PO BID 02/22/18 [History Confirmed 02/22/18] Ondansetron TAB* [Zofran 4 MG Tab*] 4 mg PO Q6H PRN 02/22/18 [History Confirmed 02/22/18] Potassium Chlor TAB* [Klor Con ER TAB*] 20 meq PO BID 02/22/18 [History Confirmed 02/22/18] Spironolactone TAB* [Aldactone TAB*] 50 mg PO DAILY 02/22/18 [History Confirmed 02/22/18] Torsemide TAB* [Demadex*] 20 mg PO BID 02/22/18 [History Confirmed 02/22/18] Warfarin TAB(*) [Coumadin TAB(*)] 2.5 mg PO SUTUWETHFR 02/22/18 [History Confirmed 02/22/18] Tele: afib, rvr Vitals: Vital Signs Temp 98.3 F 02/22/18 09:06 Pulse 139 02/22/18 10:23 Resp 28 02/22/18 10:23 BP 117/91 02/22/18 09:06 Pulse Ox 96 02/22/18 10:23 Intake & Output 02/21/18 02/22/18 02/22/18 18:59 06:59 18:59 Intake Total 208 Balance 208 Weight 113.398 kg Intake: IV Fluids 104 IVPB 104 Other: Estimated Void Large O2/Vent: NIV Infusions: cardizem gtt Current Medications: Acetaminophen (Tylenol Tab*) 650 mg PO Q6HR PRN PRN Reason: FEVER/PAIN Albuterol (Ventolin Hfa Inhaler*) 2 puff INH Q4H PRN PRN Reason: SHORTNESS OF BREATH Atorvastatin Calcium (Lipitor*) 20 mg PO QPM VANESSA Bisacodyl (Dulcolax Ec Tab*) 5 mg PO DAILY PRN PRN Reason: CONSTIPATION Bisoprolol Fumarate (Zebeta Tab*) 5 mg PO DAILY VANESSA Cyclobenzaprine HCl (Flexeril Tab*) 10 mg PO Q8H PRN PRN Reason: muscle spasms Cyclosporine (Restasis 0.05% Oph) 1 drop BOTH EYES BID [facility]; Protocol Dextrose (D50w Syringe 50 Ml*) 25 gm IV PUSH ONCE PRN PRN Reason: hyperkalemia Last Admin: 02/22/18 10:50 Dose: 25 gm Docusate Sodium (Colace Cap*) 100 mg PO BID PRN PRN Reason: CONSTIPATION Diltiazem HCl (Cardizem Iv Advan*) 100 mg in 100 mls @ 5 mls/hr IVPB ONCE ONE; Protocol Stop: 02/23/18 08:02 Insulin Glargine (Lantus(*)) 52 units SUBCUT DAILY [facility] Insulin Human Lispro (Humalog*) 0 units SUBCUT AC [facility]; Protocol Levothyroxine Sodium (Synthroid Tab*) 112 mcg PO 0600 [facility] Magnesium Oxide (Magox 400 Tab*) 400 mg PO BID [facility] Melatonin (Melatonin) 3 mg PO 2100 [facility] Metolazone (Zaroxolyn Tab*) 5 mg PO DAILY [facility] Miconazole Nitrate (Monistat 2%*) 1 applic TOPICAL DAILY [facility] Omeprazole (Prilosec Cap*) 20 mg PO BID [facility] Ondansetron HCl (Zofran Tab*) 4 mg PO Q6H PRN PRN Reason: NAUSEA Spironolactone (Aldactone Tab*) 50 mg PO DAILY [facility] Torsemide (Demadex*) 20 mg PO BID [facility] Warfarin Sodium (Coumadin Tab(*)) 2.5 mg PO DAILY@1700 [facility]; Protocol Physical Exam: General: awake, alert, no distress, no diaphoresis, obese Head: normocephalic, atraumatic HEENT: no pallor, no icterus, moist mucous membranes Neck: soft, supple, no jvd, no stridor CVS: tachy, irreg, no murmur Resp: bilateral air entry but distant sounds; minimal rhales heard, no wheeze, no rhonchi, no acc muscle use Abdomen: soft, slightly tense but not rigid, bowel sounds present Ext: pulses+, warm, 3+ edema LE B/L Skin: chronic skin changes in LE b/l Neuro: awake, alert, orientedx3, moving all extremities, no gross focal deficit Labs: Laboratory Results - last 24 hr 02/22/18 02/22/18 02/22/18 09:11 09:11 09:11 WBC 19.0 H RBC 4.88 Hgb 12.9 Hct 41 MCV 84 MCH 26 L MCHC 31 RDW 18 H Plt Count 214 MPV 7.3 L Neut % (Auto) Not Reportable Lymph % (Auto) Not Reportable [place] % (Auto) Not Reportable Eos % (Auto) Not Reportable Baso % (Auto) Not Reportable Absolute Neuts (auto) 16.2 H Absolute Lymphs (auto) 1.6 Absolute Monos (auto) 1.1 H Absolute Eos (auto) 0 Absolute Basos (auto) 0.1 Absolute Nucleated RBC Not Reportable Immature Gran % 2 Neutrophils % 82 Lymphocytes % 8 L Monocytes % 8 H Eosinophils % 0 Basophils % 0 Myelocytes % 2 H Nucleated RBC % Not Reportable Abs Neuts (Manual) 15.6 H Abs Lymphs (Manual) 1.5 Abs Monocytes (Manual) 1.5 H Absolute Eos (Manual) 0 Abs Basophils (Manual) 0 Nucleated RBCs/100 WBC 0 Normal RBC Morphology Not Reportable Polychromasia 1+ INR (Anticoag Therapy) APTT Patient Temperature ABG pH ABG pH (Temp Correct) ABG pCO2 ABG pCO2 (Temp Corrct ABG pO2 ABG pO2 (Temp Correct ABG HCO3 ABG O2 Saturation ABG Base Excess Respiration Rate O2 Delivery Device Ventilator Type Vent Mode FiO2 Inspiratory Time PEEP Pressure Support Pressure Control EPAP IPAP BiPAP Sodium 131 L Potassium 6.6 H* Chloride 97 L Carbon Dioxide 26 Anion Gap 8 BUN 45 H Creatinine 1.47 H Est GFR ( Amer) 42.0 Est GFR (Non-Af Amer) 34.7 BUN/Creatinine Ratio 30.6 H Glucose 247 H Lactic Acid 2.3 H* Calcium 9.7 Total Bilirubin 0.30 AST 41 H ALT 46 Alkaline Phosphatase 187 H Troponin I 0.06 H* B-Natriuretic Peptide Total Protein 7.2 Albumin 3.8 Globulin 3.4 Albumin/Globulin Ratio 1.1 02/22/18 02/22/18 02/22/18 09:11 09:11 09:15 WBC RBC Hgb Hct MCV MCH MCHC RDW Plt Count MPV Neut % (Auto) Lymph % (Auto) [place] % (Auto) Eos % (Auto) Baso % (Auto) Absolute Neuts (auto) Absolute Lymphs (auto) Absolute Monos (auto) Absolute Eos (auto) Absolute Basos (auto) Absolute Nucleated RBC Immature Gran % Neutrophils % Lymphocytes % Monocytes % Eosinophils % Basophils % Myelocytes % Nucleated RBC % Abs Neuts (Manual) Abs Lymphs (Manual) Abs Monocytes (Manual) Absolute Eos (Manual) Abs Basophils (Manual) Nucleated RBCs/100 WBC Normal RBC Morphology Polychromasia INR (Anticoag Therapy) 1.06 H APTT 23.3 L Patient Temperature Not Reportable ABG pH 7.36 ABG pH (Temp Correct) Not Reportable ABG pCO2 46 H ABG pCO2 (Temp Corrct Not Reportable ABG pO2 210 H ABG pO2 (Temp Correct Not Reportable ABG HCO3 25.0 ABG O2 Saturation 97.1 ABG Base Excess 0.1 Respiration Rate Not Reportable O2 Delivery Device n/c Ventilator Type Not Reportable Vent Mode Not Reportable FiO2 15 Inspiratory Time Not Reportable PEEP Not Reportable Pressure Support Not Reportable Pressure Control Not Reportable EPAP Not Reportable IPAP Not Reportable BiPAP Not Reportable Sodium Potassium Chloride Carbon Dioxide Anion Gap BUN Creatinine Est GFR ( Amer) Est GFR (Non-Af Amer) BUN/Creatinine Ratio Glucose Lactic Acid Calcium Total Bilirubin AST ALT Alkaline Phosphatase Troponin I B-Natriuretic Peptide 1076 H Total Protein Albumin Globulin Albumin/Globulin Ratio Ekg 02/22 afib, rvr, lateral st depressions in setting of tachycardia, interventricular conduction delay as prior ekgs Imaging: CXR 02/22 Bilateral increased interstitial infiltrates+, consistent with pulm congestion. Some RLL atelectasis +/- infiltrate. Assessment: : 73y F w/pmhx of Severe Chronic LV systolic dysfunction, s/p Mechanical AVR, severe TR/pulm HTN, DM, hypothyroidism, s/p AICD, HLD, Afib on Warfarin, CKD; presents to ER via EMS, brought from assisted living facility for SOB. She presents with 3 days of increasing SOB, increased LE edema. No chest pain. Decreased urine output despite PO diuretics. In ER, she was hypoxic , sats 91% on mask with respiratory distress, rapid Afib 140s, hypertensive 130/ 100+. Admitted for decompensated CHF. -Acute on chronic decompensated LV systolic heart failure -Pulmonary Edema -Acute hypoxic respiratory failure -Afib with RVR -Hyperkalemia -ÁNGEL on CKD -Hyperlactatemia, prob 2/2 to hypoxia/CHF/hypoperfusion -hypervolemic hyponatremia -Mechanical AVR Plan: Neuro- awake, alert. delirium prec. asp prec. CVS- rapid afib, start cardizem, titrate to keep HR <110; may have to start amio infusion if not tolerating. Will start IV heparin for Afib/Mechanical AVR AC. Acute decompen CHF; redose lasix 60mg iv at 4pm, hold metolazone. cont bisoprolol. Insert marie. Check BMP at 3pm, given hyperkalm tx. arrythmias associated with hyperkalemia noted. strict i/o. trend trop q6h x3. cont asa/ statin for mAVR. TTE to eval LV function/mAVR. Resp- on NIV for pulm congestion; seems comfortable on 40%, /. COnt IV diuretics. no wheezing, prn bronchodilators. no steroids. can attempt to wean to hiflow after more diuresis. no clear infitlrate, will hold off Abx. ID- afebrile. wbc 16. no clear pneumonia, no cough/sputum. check urinalysis/ culture. hold abx for now, may be reactive leukocytosis from CHF exacc. GI- NPO on NIV. cont PPI for GERD. asp prec. Renal- ÁNGEL; hyperkalemia k 6.6, s/p tx with insulin/lasix/kayexel/calcium. BMP 3pm. IV lasix 60mg x1. insert marie. IV diuretics. Heme- hg stable. plt okay. cont asa for mAVR. Start IV heparin for mAVR and Afib AC. DVT proph mech/chem. Endo- cont lantus; fingersticks q6h and then achs off NIV. cont synthroid. Musculsk- pressure ulcer prophylaxis. Bedrest. Wounds- none Nutrition- NPO on NIV. DVT prophylaxis: IV heparin, SCDs GI prophylaxis: PPI Central Line: PICC to be placed Arterial Line: no Marie Cathetor: yes Disposition: ICU Code Status: DNR Total Critical Care time is 45 minutes, excluding procedures/teaching Camilo Call MD Billing Collections Specialist (Electronically Signed)
[2018-02-22] MEDS ORDERED: Albuterol 2.5 MG/3 ML NEB.SOL* (0.083%) INH PRN (13:01)
[2018-02-22] MEDS ORDERED: Heparin VIAL(*) 5000 UNITS/ML VIAL (FIVE THOUSAND) IV PRN (13:14)
--- NOTE | 2018-02-22 14:01 | HP ---
CC: Dr. Lim; Dr. Gordillo; Dr. Camilo Call* ADMISSION HISTORY AND PHYSICAL: DATE OF ADMISSION: 02/22/18 ATTENDING FOR THIS ADMISSION: Dr. Vasquez Gordillo* (dictated by Rell Young, ARTIE). PRIMARY CARE PROVIDER: Dr. Dimitrios Lim. CONSULTING ICU METAL FURNITURE ASSEMBLY SUPERVISOR: Dr. Camilo Call. CHIEF COMPLAINT: Shortness of breath x3 days. HISTORY OF PRESENT ILLNESS: This is a 73-year-old female patient, very well known to our service, who has past medical history of pulmonary hypertension, diabetes, aortic and tricuspid valve disease, hyperlipidemia, atrial fibrillation chronic, CKD and severe chronic left ventricular systolic heart failure, also with adrenal insufficiency. The patient states that she had 3 days of increasing shortness of breath and bipedal edema that increased fpc up the shins. When she came to the emergency department, her O2 saturations were in the 80s. She was not doing well on nasal cannula. She had to be placed on BiPAP. She was also noted to be in her chronic AFib, but with a rapid ventricular response. In the emergency department, she received 10 mg of IV Cardizem, she did not break, her rate is still in the one teens to 120s. At that point, she was feeling a little bit better on the BiPAP; however, her chest x-ray shows bilateral infiltrates with pulmonary congestion and some atelectasis and possibility of a right lower lobe consolidation or infiltrate. The patient is going to be admitted to the ICU for hypoxic respiratory failure with acutely decompensated heart failure. Laboratories were also showing an elevated white count of 19,000 and an elevated potassium as well as an elevated lactic acid. BNP was also elevated. Troponin is chronically elevated. PAST MEDICAL HISTORY: As stated above. PAST SURGICAL HISTORY: AICD implanted and also mechanical valve. MEDICATIONS AT HOME: 1. Tylenol 650 mg q.6 hours as needed. 2. Albuterol 2 puffs q.4 hours as needed. 3. Atorvastatin 20 mg q.p.m. 4. Dulcolax 5 mg daily as needed. 5. Zebeta 5 mg daily. 6. Cyclobenzaprine 10 mg q.8 hours as needed. 7. Restasis eye drops 1 drop both eyes 2 times a day. 8. Diltiazem extended release 240 mg daily. 9. Lantus 52 units subcu daily. 10. [place]-3 fatty acids 1000 mg daily. 11. Levothyroxine 112 mcg daily. 12. Metolazone 5 mg daily. 13. Miconazole 2% topical daily. 14. Osteo Bi-Flex 1 tablet daily. 15. Spironolactone 50 mg daily. 16. Coumadin 2.5 mg daily. 17. Mag-Ox 400 mg 2 times a day. 18. Omeprazole 20 mg 2 times a day. 19. K-Reta 20 mEq 2 times a day. 20. Torsemide 20 mg 2 times a day. 21. Lispro 2 to 10 units 3 times daily. 22. Melatonin 3 mg q.p.m. 23. Docusate 100 mg 2 times a day as needed. ALLERGIES: She has no known drug allergies. FAMILY HISTORY: Significant for cardiac disease and stroke on both sides. SOCIAL HISTORY: The patient does not use any drugs. Denies any alcohol use. She does have a remote history of smoking. REVIEW OF SYSTEMS: The patient states malaise and fatigue. Denies any blurry vision. No headache or chills. No acute chest pain. She is very short of breath. Denies any nausea or vomiting. Denies any hematuria or dysuria. No arthralgias or myalgias. She does have some general weakness. Denies any acute bruising or bleeding and no further constitutional complaints. PHYSICAL EXAMINATION GENERAL: The patient is fatigued, appears to have some labored breathing and is ill appearing. VITAL SIGNS: Blood pressure 117/91, temperature 98.3, respiratory rate between 24 and 36, O2 saturation 98% on BiPAP, pulse is variable at 135. HEENT: The patient is atraumatic, normocephalic. PERRLA with nonicteric sclerae. Oral mucosa is dry. Her tongue is midline. NECK: Supple, nontender. No carotid bruit auscultated. LUNGS: Diminished throughout the lung cao, extremely diminished at the right lower base. She does have an expiratory wheeze and scattered rales and rhonchi. CARDIOVASCULAR: She is currently irregular, in atrial fibrillation. No gallops or rubs noted. She does have a systolic murmur grade 3/6. ABDOMEN: Soft, nontender, and nondistended. It is obese. She has positive bowel sounds in all 4 quadrants. : Deferred. MUSCULOSKELETAL: There is no clubbing and no cyanosis. She has bipedal edema + 3 of the lower extremities. She does have faint distal pulses palpable, difficult to palpate secondary to edematous dorsum of bilateral feet. Radial pulses are intact and palpable +2. NEUROLOGIC: She is sleepy, but intact. She is alert and oriented to person, place, and time. PSYCHIATRIC: She is cooperative and appropriate. DIAGNOSTIC STUDIES/LAB DATA: WBCs 19.0, RBCs 4.88, hemoglobin 12.9, hematocrit 41, platelets 214. Sodium 131, potassium 6.6, chloride 97, CO2 26, BUN 45, creatinine 1.47, GFR 34.7, glucose 247, lactic acid 2.3, calcium 9.7. AST 41, ALT 46, alk phos 187. Troponin 0.06, BNP is 1076. Albumin 3.8, globulin 3.4, total protein 7.2. INR is slightly subtherapeutic at 1.06. Blood gas shows a pH of 7.36, pCO2 of 46, pO2 of 210, bicarb of 25, O2 saturation 97.1, base excess of 0.1. Please note that this gas was drawn while the patient was already on BiPAP. Radiologic exam: Chest x-ray as noted above. Official read from radiologist, findings suggestive of congestive heart failure. There is mild prominence of the interstitial markings and trace bilateral pleural effusions suggestive of mild congestive heart failure. The patient is post sternotomy. There is dual- chamber transvenous pacemaker. Heart is mildly enlarged and unchanged from prior exam. IMPRESSION: This is a very 73-year-old female with a very complex medical history that is presented with acute shortness of breath, hypoxic respiratory failure and acutely decompensated heart failure. PLAN: 1. Acute on chronic decompensated heart failure. The patient will be maintained on her home medications. She has also received 40 mg of Lasix IV. We expect to diurese her until she becomes euvolemic. She is currently hypoxic. I think this is a combination of acutely decompensated heart failure, also combined with not interstitial lung disease but possibility of a new infiltrate starting given her elevated white count, she is afebrile; however, we will continue her on BiPAP at this point to try to get her respiratory status under control. 2. For her atrial fibrillation with rapid ventricular response, she has received 10 mg of Cardizem IV. We placed her on 5 mg continuous. We will see if we can get her rhythm to slow down. 3. For her hyperkalemia, she has already received insulin, calcium and Kayexalate. We will recheck her lytes in several hours and see if her potassium has come back down to within normal range. 4. She does have some ÁNGEL on CKD. Her creatinine is essentially at baseline. She is just slightly above. Even though she is fluid overloaded, she does seem intravascularly dry, which is likely contributing to her NÁGEL. We will monitor her renal function closely and continue to monitor her kidney function. 5. For her mechanical valve replacement, she is already on Coumadin. She is slightly subtherapeutic. We will check INRs daily and continue her Coumadin daily. 6. For her hyponatremia, it is probably related to her hypovolemic state; I expect that when her fluid shifts and her respiratory status improves, we will see some improvements in lytes; we will continue to monitor electrolytes on a daily basis and replete as needed. She should have daily weights and strict I' s and O's. Consult has been placed with Dr. Call, the ICU quality assurance analyst, who will also make recommendations on her current plan of care. 7. For her chronic medical conditions, we will continue her medications from home with the exception of her insulin, we will place her on sliding scale as opposed to lispro 3 times a day. 8. For diet, she can have a consistent carb, low-sodium diet. 9. DVT prophylaxis: The patient is already on Coumadin. She is currently on bedrest on BiPAP; however, if she can tolerate being out of bed to chair, we recommend that when she is downgraded from the ICU, she should have Physical Therapy evaluation. 10. Disposition: The patient has been admitted to ICU. TIME SPENT: I have spent an excess of 60 minutes [id number] with the patient , also interfacing with other providers regarding the patient's plan of care. This plan of care has been discussed with Dr. Vasquez Gordillo, who is in agreement with plan. RELL YOUNG, MEDICAL DATA ENTRY CLERK [id number]/[facility] #: [id number] ALISE
[2018-02-22 14:26] LABS: Urine Appearance Clear; Urine Blood 2+ (Negative); Urine Color Straw; Urine Ketones Negative (Negative); Urine Protein Negative (Negative); Urine Red Blood Cell Trace(0-2/hpf) (Absent); Urine Specific Gravity 1.009 (1.010-1.030); Urine Urobilinogen Negative (Negative); Urine White Blood Cell 2+(11-20/hpf) (Absent)
--- NOTE | 2018-02-22 15:00 | RAD ---
HISTORY: PICC Line Placement Confirmation COMPARISONS: February 23, 2018 at 9:23 AM VIEWS: 1: frontal portable view of the chest at 2:38 PM FINDINGS: LINES AND TUBES: A left-sided pacemaker is noted. Right-sided PICC line is noted with the tip overlying the superior vena cava. A prosthetic heart valve is noted. CARDIOMEDIASTINAL SILHOUETTE: The cardiac silhouette is enlarged. The cardiomediastinal silhouette is otherwise normal for portable technique. PLEURA: The costophrenic angles are sharp. No pleural abnormalities are noted. LUNG PARENCHYMA: There is prominence of the central pulmonary vasculature. ABDOMEN: The upper abdomen is clear. There is no subphrenic gas. BONES AND SOFT TISSUES: The patient is status post median sternotomy. IMPRESSION: LINES AND TUBES ABOVE. CARDIOMEGALY. PULMONARY VASCULAR CONGESTION.
[2018-02-22] MEDS: Heparin DRIP 25,000 UNITS(*) 25,000 UNITS/500 ML BAG IV SCH (15:25)
[2018-02-22 15:36] LABS: EGFR Non-African American 34.7 (>60)
[2018-02-22] MEDS ORDERED: Furosemide IV* 10 MG/ML 10 ML VIAL (100 MG) IV ONE ×2 (16:00)
[2018-02-22] MEDS: Insulin LISPRO* 1 UNITS UNIT SUBCUT SCH (17:00)
[2018-02-22] MEDS: Warfarin TAB(*) 2.5 MG PO SCH (18:11)
--- NOTE | 2018-02-22 18:38 | ECHO ---
Patient: LAST LAMBERT [facility] Rec#: [id number] : 1945 Date: 02/22/2018 Age: 73y Height: 157.5 cm / 62.0 in Weight: 113.4 kg / 249.9 lbs Sex: F BSA: 2.1 Room#: ICU 1 Admit Date#: 02/22/2018 Type: Inpatient Referring: Palomo Gordillo MD Reading: Farzana Wynne MD [facility] Practitioner: Nela Estrada RN RDCS CC: Dimitrios Lim MD Transthoracic Echocardiogram Indication: CHF BP: 117/91 HR: 115 Rhythm: A-Fib Findings History: A. fib, tachy-robby syndrome, pacemaker, mechanical AVR, CHF, HTN, HLD, DM, PE, former smoker, obesity Technical Comments: The study quality is fair. The study is technically limited due to patient body habitus. Left Ventricle: The left ventricular chamber size is normal. Mild concentric left ventricular hypertrophy is observed. There is increased basal septal hypertrophy noted without evidence of an increased gradient across the left ventricular outflow tract. Mid septum is echo bright. There are multiple regional wall motion abnormalities. The septum and inferior wall are echo bright and hypokinetic. There is mild to moderately decreased left ventricular systolic function. The estimated ejection fraction is 40-45%. Post surgical hypokinesis of the interventricular septum is observed consistent with valve replacement. There is no consistent Doppler evidence of clinically significant diastolic dysfunction. Left Atrium: The left atrium is mildly dilated. Right Ventricle: The right ventricle wall thickness is mildly increased. The right ventricular cavity size is normal. The right ventricular global systolic function is mildly reduced. A pacemaker wire is visualized in the right ventricle. Right Atrium: The right atrium is mildly dilated. A pacemaker wire is visualized in the right atrium. Aortic Valve: The aortic valve structure is not well visualized. There is trace to mild aortic regurgitation. The mean gradient of the aortic valve is 42.5 mmHg. The peak instantaneous gradient of the aortic valve is 67 mmHg. The aortic valve area, by peak velocities, is calculated at 0.72 cm2. The aortic valve area, by VTI's, is calculated at 0.7 cm2. A mechanical prosthetic aortic valve is present. Mitral Valve: There is mitral annular calcification. The mitral valve leaflets are mildly thickened. There is mild to moderate mitral regurgitation. There is no evidence of mitral stenosis. Tricuspid Valve: The tricuspid valve leaflets are mildly thickened. There is moderate tricuspid regurgitation. The tricuspid regurgitant jet is directed toward the septum. The right ventricular systolic pressure is estimated at 31 mmHg. There is evidence that pulmonary hypertension may be underestimated. There is no tricuspid stenosis. Pulmonic Valve: The pulmonic valve structure is not well visualized. There is a trace pulmonic regurgitation. There is no pulmonic stenosis. Pericardium: There is no significant pericardial effusion. A pericardial fat pad is visualized. Aorta: There is no dilatation of the ascending aorta. The aortic arch is not well visualized. There is no dilation of the aortic root. Pulmonary Artery: The main pulmonary artery is not well visualized. Venous: The inferior vena cava is dilated. There is a greater than 50% respiratory change in the inferior vena cava dimension. Conclusions The patient was in atrial fibrillation and on BiPAP throughout the study. Mild concentric left ventricular hypertrophy is observed. There is increased basal septal hypertrophy noted without evidence of an increased gradient across the left ventricular outflow tract. . The septum and inferior wall are echo bright and hypokinetic. The estimated ejection fraction is 40-45%. The right ventricle has increased wall thickness and global systolic function is mildly reduced. A mechanical prosthetic aortic valve is present. There is trace to mild aortic regurgitation. Increase in measurements across the prosthetic valve: peak AV velocity 4.1 m/s, the mean gradient of the aortic valve is 42.5 mmHg. DI is 0.23, the aortic valve area, by VTI's, is calculated at 0.7 cm2. This could represent prosthetic valve stenosis, however the AoV accel time is normal, 78msec which would be more consistant with valve mismatch or highoutput state leading to increased gradients/peak velocity. There is mild to moderate mitral regurgitation. There is moderate tricuspid regurgitation. The right ventricular systolic pressure is estimated at 31 mmHg with evidence that pulmonary hypertension may be underestimated. Compared with prior echo report of 10/09/17, EF not significantly changed, mean gradient across the prosthetic aortic valve has increased significantly from 23 mm Hg, PERCY previously calculated at 0.75-0.76 cm2. MR and TR not significantly changed, prior PA pressure estimated at 39 mmHg. Measurements Name Value Normal Range RVIDd (AP) 2D 2 cm (0.9 - 2.6) RVDdMajor (2D) 2.9 cm (2.2 - 4.4) RVAW (2D) 0.8 cm (0.2 - 0.5) RAd ISD 4CH 5.3 cm (3.4 - 4.9) RA (A4C)W 3.8 cm (2.9 - 4.6) IVSd (2D) 1.1 cm (0.6 - 1) LVPWd (2D) 1.1 cm (0.6 - 1) LVIDd (2D) 4.6 cm (3.6 - 5.4) Aortic Annulus 1.9 cm (1.4 - 2.6) Ao root diameter (2D) 2.4 cm (2.1 - 3.5) Ascending Ao 2.4 cm (2.1 - 3.4) LA dimension (AP) 2D 4.5 cm (2.3 - 3.8) LAd ISD 4CH 5.5 cm (2.9 - 5.3) LA ISD 4CH W 4.3 cm (2.5 - 4.5) Name Value Normal Range LA ESV SP 4CH (A/L) 63 ml - LA ESV SP 2CH (A/L) 43 ml - LA ESV BP (A/L) 54 ml - LA ESV BP (A/L) index 26 ml/m2 - LA ESV SP 4CH (MOD) 61 ml - LA ESV SP 2CH (MOD) 42 ml - Name Value Normal Range MV E-wave Vmax 0.91 m/sec - MV deceleration time 172 msec - LV septal e' Vmax 0.05 m/sec - LV lateral e' Vmax 0.08 m/sec - LV E:e' septal ratio 18.2 ratio - LV E:e' lateral ratio 11.4 ratio - Name Value Normal Range AV Vmax 4.1 m/sec - AV VTI 71.5 cm - AV peak gradient 67 mmHg - AV mean gradient 42.5 mmHg - LVOT diameter 2 cm - LVOT Vmax 0.93 m/sec - LVOT VTI 15.4 cm - LVOT peak gradient 3.6 mmHg - LVOT mean gradient 2 mmHg - DOI (VTI) 0.23 ratio - DOI (Vmax) 0.22 ratio - PERCY (continuity Vmax) 0.72 cm2 - PERCY (continuity VTI) 0.7 cm2 - Name Value Normal Range TR Vmax 2.4 m/sec - TR peak gradient 23 mmHg - RAP 8 mmHg - RVSP 31 mmHg - IVC diameter 2.2 cm - Name Value Normal Range PV Vmax 0.99 m/sec -
[2018-02-22] MEDS: Atorvastatin* 20 MG TAB PO SCH (18:49)
[2018-02-22] MEDS ORDERED: Diltiazem IV VIAL* 125 MG in NS 0.9% 100 ML* 100 ML IVPB ONE (19:20)
[2018-02-22] MEDS ORDERED: Torsemide TAB* 20 MG PO SCH (21:00)
[2018-02-22] MEDS: Omeprazole CAP* 20 MG PO SCH (22:42)
[2018-02-22] MEDS: Magnesium Oxide TAB* 400 MG PO SCH (22:42)
[2018-02-22] MEDS: Melatonin 3 MG TAB PO SCH (22:42)
[2018-02-22] MEDS: CMCS:Cyclosporine 0.05% OPHTH (NF) 0.4 ML VIAL BOTH EYES SCH (22:59)
[2018-02-23 01:34] LABS: EGFR Non-African American 30.4 (>60)
[2018-02-23] MEDS: Acetaminophen TAB* 325 MG PO PRN ×2 (04:34→22:32)
[2018-02-23] MEDS: Diltiazem IV VIAL* 125 MG in NS 0.9% 100 ML* 100 ML IV SCH (06:16)
[2018-02-23] MEDS: Levothyroxine TAB* 112 MCG TAB PO SCH (06:19)
[2018-02-23 06:32] LABS: Hematocrit 36 % (35-47); Hemoglobin 11.4 g/dl (12.0-16.0); Mean Corpuscular HGB Conc 32 g/dl (31-36); Mean Corpuscular Hemoglobin 27 pg (27-31); Mean Corpuscular Volume 83 fL (80-97); Platelet Count 187 10^3/ul (150-450); Red Blood Count 4.29 10^6/ul (4.00-5.40); Red Cell Distribution Width 18 % (10.5-15)
[2018-02-23 06:45] LABS: INR 1.1 (0.77-1.02)
[2018-02-23 06:47] LABS: EGFR Non-African American 36.5 (>60)
[2018-02-23] MEDS: Omeprazole CAP* 20 MG PO SCH ×2 (08:06→20:25)
[2018-02-23] MEDS: Magnesium Oxide TAB* 400 MG PO SCH ×2 (08:06→20:25)
[2018-02-23] MEDS: Miconazole TOPICAL CREAM 2%* 30 GM TOPICAL SCH (08:06)
[2018-02-23] MEDS: Insulin LISPRO* 1 UNITS UNIT SUBCUT SCH ×3 (08:06→16:50)
[2018-02-23] MEDS: Spironolactone TAB* 25 MG PO SCH (08:06)
[2018-02-23] MEDS ORDERED: Furosemide IV* 10 MG/ML VIAL (40 MG) IV SLOW PU ONE (08:28)
--- NOTE | 2018-02-23 08:37 | RAD ---
Indication: CHF exacerbation. Single frontal view of the chest performed at 0609 hours was reviewed. Comparison is made with previous exam dated February 22, 2018. Cardiomegaly is persistent. Interstitial edema consistent with vascular congestion is noted. Pacemaker leads are in place. When compared to previous exam of February 22, 2018 findings are similar. IMPRESSION: PERSISTENT CHF IS PRESENT. R1
[2018-02-23] MEDS ORDERED: Metolazone TAB* 5 MG PO SCH (09:00)
[2018-02-23] MEDS ORDERED: Bisoprolol TAB* 5 MG PO SCH (09:00)
[2018-02-23] MEDS ORDERED: Insulin GLARGINE(*) 1 UNITS UNIT SUBCUT SCH (09:00)
--- NOTE | 2018-02-23 09:54 | PN ---
Progress Note - Progress Note Date of Service: 02/23/18 Note: Progress Note -- Critical Care 24 hour events: -off NIV yesterday; on NC now, making good urine. states she feels better -she was placed on NIV overnight, but on NC now; no distress -cough+, minimal sputum Tele: afib, rvr Vitals: Vital Signs Temp 97.9 F 02/23/18 08:01 Pulse 97 02/23/18 08:24 Resp 24 02/23/18 08:24 BP 130/84 02/23/18 08:01 Pulse Ox 100 02/23/18 08:24 Intake & Output 02/22/18 02/23/18 02/23/18 18:59 06:59 18:59 Intake Total 694 905 120 Output Total 885 1815 Balance -191 -910 120 Weight 105.3 kg 105.3 kg Intake: IV Fluids 104 IVPB 104 Medicated IV 16 118 GEN - Diltiazem/Cardizem 16 118 Heparin 387 Oral 470 400 120 Output: Urine 900 Marie [phone] Other: Estimated Void Large Date of Last Bowel 02/22/18 02/22/18 Movement # Bowel Movements 1 1 Estimated Stool Amount Medium Medium O2/Vent: NC 3 L Infusions: cardizem 15mg/hr, IV heparin Current Medications: Acetaminophen (Tylenol Tab*) 650 mg PO Q6HR PRN PRN Reason: FEVER/PAIN Last Admin: 02/23/18 04:34 Dose: 650 mg Albuterol (Ventolin 2.5 Mg/3 Ml Neb.Teresita*) 2.5 mg INH Q4H PRN PRN Reason: SOB/WHEEZING Atorvastatin Calcium (Lipitor*) 20 mg PO QPM [facility] Last Admin: 02/22/18 18:49 Dose: 20 mg Bisacodyl (Dulcolax Ec Tab*) 5 mg PO DAILY PRN PRN Reason: CONSTIPATION Bisoprolol Fumarate (Zebeta Tab*) 5 mg PO DAILY [facility] Last Admin: 02/23/18 08:06 Dose: 5 mg Cyclobenzaprine HCl (Flexeril Tab*) 10 mg PO Q8H PRN PRN Reason: muscle spasms Cyclosporine (Restasis 0.05% Oph) 1 drop BOTH EYES BID [facility]; Protocol Last Admin: 02/22/18 22:59 Dose: 1 drop Dextrose (D50w Syringe 50 Ml*) 25 gm IV PUSH ONCE PRN PRN Reason: hyperkalemia Last Admin: 02/22/18 10:50 Dose: 25 gm Diltiazem HCl (Cardizem Cd Cap*) 240 mg PO DAILY [facility] Docusate Sodium (Colace Cap*) 100 mg PO BID PRN PRN Reason: CONSTIPATION Furosemide (Lasix Iv*) 40 mg IV BID [facility] Heparin Sodium (Porcine) (Heparin Vial(*)) 0 units IV .BOLUS PRN PRN Reason: PER HEPARIN DRIP PROTOCOL Heparin Sodium (Porcine) (Heparin Flush Picc/Ml/Cvc(*)) 1 - 3 ml FLUSH 0600, 1800 [facility]; Protocol Last Admin: 02/23/18 08:04 Dose: 1 ml Heparin Sodium/Dextrose (Heparin Drip 25,000 Units(*)) 25,000 units in 500 mls @ 0 mls/hr IV PER RATE [facility]; Protocol Last Admin: 02/22/18 15:25 Dose: 23 mls/hr Diltiazem HCl 125 mg/ Sodium (Chloride) 125 mls @ 5 mls/hr IVPB ONCE ONE; Protocol Stop: 02/23/18 13:02 Last Admin: 02/22/18 20:05 Dose: 15 mls/hr Diltiazem HCl 125 mg/ Sodium (Chloride) 125 mls @ 10 mls/hr IV Q12H [facility]; Protocol Last Admin: 02/23/18 06:16 Dose: 15 mls/hr Insulin Glargine (Lantus(*)) 52 units SUBCUT DAILY [facility] Last Admin: 02/23/18 08:05 Dose: 52 units Insulin Human Lispro (Humalog*) 0 units SUBCUT AC [facility]; Protocol Last Admin: 02/23/18 08:06 Dose: 9 units Levothyroxine Sodium (Synthroid Tab*) 112 mcg PO 0600 [facility] Last Admin: 02/23/18 06:19 Dose: 112 mcg Magnesium Oxide (Magox 400 Tab*) 400 mg PO BID [facility] Last Admin: 02/23/18 08:06 Dose: 400 mg Melatonin (Melatonin) 3 mg PO 2100 [facility] Last Admin: 02/22/18 22:42 Dose: 3 mg Miconazole Nitrate (Monistat 2%*) 1 applic TOPICAL DAILY [facility] Last Admin: 02/23/18 08:06 Dose: 1 dose Omeprazole (Prilosec Cap*) 20 mg PO BID [facility] Last Admin: 02/23/18 08:06 Dose: 20 mg Ondansetron HCl (Zofran Tab*) 4 mg PO Q6H PRN PRN Reason: NAUSEA Spironolactone (Aldactone Tab*) 50 mg PO DAILY [facility] Last Admin: 02/23/18 08:06 Dose: 50 mg Warfarin Sodium (Coumadin Tab(*)) 2.5 mg PO DAILY@1700 [facility]; Protocol Last Admin: 02/22/18 18:11 Dose: Not Given Physical Exam: General: awake, alert, no distress, no diaphoresis, obese Head: normocephalic, atraumatic HEENT: no pallor, no icterus, moist mucous membranes Neck: soft, supple, no jvd, no stridor CVS: tachy, irreg, no murmur Resp: bilateral air entry but distant sounds; minimal rhales heard, no wheeze, no rhonchi, no acc muscle use Abdomen: soft, slightly tense but not rigid, bowel sounds present Ext: pulses+, warm, 3+ edema LE B/L Skin: chronic skin changes in LE b/l Neuro: awake, alert, orientedx3, moving all extremities, no gross focal deficit Labs: Laboratory Results - last 24 hr 02/22/18 02/22/18 02/22/18 09:11 09:11 09:11 WBC 19.0 H RBC 4.88 Hgb 12.9 Hct 41 MCV 84 MCH 26 L MCHC 31 RDW 18 H Plt Count 214 MPV 7.3 L Neut % (Auto) Not Reportable Lymph % (Auto) Not Reportable Lucas % (Auto) Not Reportable Eos % (Auto) Not Reportable Baso % (Auto) Not Reportable Absolute Neuts (auto) 16.2 H Absolute Lymphs (auto) 1.6 Absolute Monos (auto) 1.1 H Absolute Eos (auto) 0 Absolute Basos (auto) 0.1 Absolute Nucleated RBC Not Reportable Immature Gran % 2 Neutrophils % 82 Lymphocytes % 8 L Monocytes % 8 H Eosinophils % 0 Basophils % 0 Myelocytes % 2 H Nucleated RBC % Not Reportable Abs Neuts (Manual) 15.6 H Abs Lymphs (Manual) 1.5 Abs Monocytes (Manual) 1.5 H Absolute Eos (Manual) 0 Abs Basophils (Manual) 0 Nucleated RBCs/100 WBC 0 Normal RBC Morphology Not Reportable Polychromasia 1+ INR (Anticoag Therapy) APTT Sodium Potassium 6.6 H* Chloride Carbon Dioxide Anion Gap 8 BUN Creatinine Est GFR ( Amer) Est GFR (Non-Af Amer) BUN/Creatinine Ratio Glucose POC Glucose (mg/dL) Lactic Acid 2.3 H* Calcium Total Creatine Kinase CK-MB (CK-2) Troponin I 0.06 H* Urine Color Urine Appearance Urine pH Ur Specific Victoria Urine Protein Urine Ketones Urine Blood Urine Nitrate Urine Bilirubin Urine Urobilinogen Ur Leukocyte Esterase Urine WBC (Auto) Urine RBC (Auto) Ur Squamous Epith Cells Urine Bacteria Urine Glucose 02/22/18 02/22/18 02/22/18 09:11 13:18 14:50 WBC RBC Hgb Hct MCV MCH MCHC RDW Plt Count MPV Neut % (Auto) Lymph % (Auto) Lucas % (Auto) Eos % (Auto) Baso % (Auto) Absolute Neuts (auto) Absolute Lymphs (auto) Absolute Monos (auto) Absolute Eos (auto) Absolute Basos (auto) Absolute Nucleated RBC Immature Gran % Neutrophils % Lymphocytes % Monocytes % Eosinophils % Basophils % Myelocytes % Nucleated RBC % Abs Neuts (Manual) Abs Lymphs (Manual) Abs Monocytes (Manual) Absolute Eos (Manual) Abs Basophils (Manual) Nucleated RBCs/100 WBC Normal RBC Morphology Polychromasia INR (Anticoag Therapy) 1.06 H APTT 23.3 L Sodium 133 L Potassium 4.8 D Chloride 95 L Carbon Dioxide 28 Anion Gap 10 BUN 43 H Creatinine 1.47 H Est GFR ( Amer) 42.0 Est GFR (Non-Af Amer) 34.7 BUN/Creatinine Ratio 29.3 H Glucose 235 H POC Glucose (mg/dL) Lactic Acid Calcium 9.7 Total Creatine Kinase 35 CK-MB (CK-2) 3.6 Troponin I 0.07 H* Urine Color Straw Urine Appearance Clear Urine pH 5.0 Ur Specific Victoria 1.009 L Urine Protein Negative Urine Ketones Negative Urine Blood 2+ A Urine Nitrate Positive A Urine Bilirubin Negative Urine Urobilinogen Negative Ur Leukocyte Esterase 1+ A Urine WBC (Auto) 2+(11-20/hpf) A Urine RBC (Auto) Trace(0-2/hpf) Ur Squamous Epith Cells Present A Urine Bacteria Absent Urine Glucose 1+(50 mg/dl) A 02/22/18 02/22/18 02/22/18 14:50 16:46 21:21 WBC RBC Hgb Hct MCV MCH MCHC RDW Plt Count MPV Neut % (Auto) Lymph % (Auto) Lucas % (Auto) Eos % (Auto) Baso % (Auto) Absolute Neuts (auto) Absolute Lymphs (auto) Absolute Monos (auto) Absolute Eos (auto) Absolute Basos (auto) Absolute Nucleated RBC Immature Gran % Neutrophils % Lymphocytes % Monocytes % Eosinophils % Basophils % Myelocytes % Nucleated RBC % Abs Neuts (Manual) Abs Lymphs (Manual) Abs Monocytes (Manual) Absolute Eos (Manual) Abs Basophils (Manual) Nucleated RBCs/100 WBC Normal RBC Morphology Polychromasia INR (Anticoag Therapy) APTT 44.5 H Sodium Potassium Chloride Carbon Dioxide Anion Gap BUN Creatinine Est GFR ( Amer) Est GFR (Non-Af Amer) BUN/Creatinine Ratio Glucose POC Glucose (mg/dL) 236 H Lactic Acid 2.1 H* Calcium Total Creatine Kinase CK-MB (CK-2) Troponin I Urine Color Urine Appearance Urine pH Ur Specific Victoria Urine Protein Urine Ketones Urine Blood Urine Nitrate Urine Bilirubin Urine Urobilinogen Ur Leukocyte Esterase Urine WBC (Auto) Urine RBC (Auto) Ur Squamous Epith Cells Urine Bacteria Urine Glucose 02/22/18 02/23/18 02/23/18 21:21 01:03 05:12 WBC RBC Hgb Hct MCV MCH MCHC RDW Plt Count MPV Neut % (Auto) Lymph % (Auto) Lucas % (Auto) Eos % (Auto) Baso % (Auto) Absolute Neuts (auto) Absolute Lymphs (auto) Absolute Monos (auto) Absolute Eos (auto) Absolute Basos (auto) Absolute Nucleated RBC Immature Gran % Neutrophils % Lymphocytes % Monocytes % Eosinophils % Basophils % Myelocytes % Nucleated RBC % Abs Neuts (Manual) Abs Lymphs (Manual) Abs Monocytes (Manual) Absolute Eos (Manual) Abs Basophils (Manual) Nucleated RBCs/100 WBC Normal RBC Morphology Polychromasia INR (Anticoag Therapy) 1.10 H APTT 78.3 H Sodium 129 L Potassium 4.9 Chloride 90 L Carbon Dioxide 29 Anion Gap 10 BUN 43 H Creatinine 1.65 H Est GFR ( Amer) 36.8 Est GFR (Non-Af Amer) 30.4 BUN/Creatinine Ratio 26.1 H Glucose 363 H POC Glucose (mg/dL) 302 H Lactic Acid Calcium 8.9 Total Creatine Kinase 35 CK-MB (CK-2) 3.4 Troponin I 0.06 H* Urine Color Urine Appearance Urine pH Ur Specific Victoria Urine Protein Urine Ketones Urine Blood Urine Nitrate Urine Bilirubin Urine Urobilinogen Ur Leukocyte Esterase Urine WBC (Auto) Urine RBC (Auto) Ur Squamous Epith Cells Urine Bacteria Urine Glucose 02/23/18 02/23/18 05:12 05:12 WBC 17.0 H RBC 4.29 Hgb 11.4 L Hct 36 MCV 83 MCH 27 MCHC 32 RDW 18 H Plt Count 187 MPV 8.0 Neut % (Auto) Lymph % (Auto) Lucas % (Auto) Eos % (Auto) Baso % (Auto) Absolute Neuts (auto) Absolute Lymphs (auto) Absolute Monos (auto) Absolute Eos (auto) Absolute Basos (auto) Absolute Nucleated RBC Immature Gran % Neutrophils % Lymphocytes % Monocytes % Eosinophils % Basophils % Myelocytes % Nucleated RBC % Abs Neuts (Manual) Abs Lymphs (Manual) Abs Monocytes (Manual) Absolute Eos (Manual) Abs Basophils (Manual) Nucleated RBCs/100 WBC Normal RBC Morphology Polychromasia INR (Anticoag Therapy) APTT Sodium 131 L Potassium 4.0 Chloride 89 L Carbon Dioxide 32 Anion Gap 10 BUN 44 H Creatinine 1.41 H Est GFR ( Amer) 44.1 Est GFR (Non-Af Amer) 36.5 BUN/Creatinine Ratio 31.2 H Glucose 268 H POC Glucose (mg/dL) Lactic Acid Calcium 9.2 Total Creatine Kinase CK-MB (CK-2) Troponin I Urine Color Urine Appearance Urine pH Ur Specific Victoria Urine Protein Urine Ketones Urine Blood Urine Nitrate Urine Bilirubin Urine Urobilinogen Ur Leukocyte Esterase Urine WBC (Auto) Urine RBC (Auto) Ur Squamous Epith Cells Urine Bacteria Urine Glucose Ekg 02/22 afib, rvr, lateral st depressions in setting of tachycardia, interventricular conduction delay as prior ekgs Imaging: CXR 02/22 Bilateral increased interstitial infiltrates+, consistent with pulm congestion. Some RLL atelectasis +/- infiltrate. cxr 02/23 - bilateral congestion+, some improvement from yesterday; RLL infiltrate/atelectasis, left lower lobe effusion/atelectasis ? ECHO 02/23 - LVEF 40-45%, PERCY 0.75, possible prosthetic valve stenosis? Assessment: : 73y F w/pmhx of Severe Chronic LV systolic dysfunction, s/p Mechanical AVR, severe TR/pulm HTN, DM, hypothyroidism, s/p AICD, HLD, Afib on Warfarin, CKD; presents to ER via EMS, brought from assisted living facility for SOB. She presents with 3 days of increasing SOB, increased LE edema. No chest pain. Decreased urine output despite PO diuretics. In ER, she was hypoxic , sats 91% on mask with respiratory distress, rapid Afib 140s, hypertensive 130/ 100+. Admitted for decompensated CHF. -Acute on chronic decompensated LV systolic heart failure -Pulmonary Edema -Acute hypoxic respiratory failure -Afib with RVR -Hyperkalemia -ÁNGEL on CKD -Hyperlactatemia, prob 2/2 to hypoxia/CHF/hypoperfusion -hypervolemic hyponatremia -Mechanical AVR Plan: Neuro- awake, alert. delirium prec. asp prec. CVS- rapid afib, on cardizem infusion 15; start cardizem CD 240mg po daily, wean down infusion. Cont IV heparin for AFib/mAVR. -Acute decompen CHF; good urine output. Lasix 40mg IV BID. cont bisoprolol. strict i/o. -Potassium better now, improved with diuretics. -cont asa/statin for mAVR. Noted TTE findings, will need cardiology eval fo mechanical AVR given increasing gradients and CHF. Resp- hold NIV. cont NC. CXR with congestion+. COnt IV diuretics. No clear pneumonia, afebrile. Sputum culture if able. Holding IV abx. prn bronchodilators. ID- afebrile. wbc 19->17. no clear pneumonia, mild cough+. Urinalysis not impressive of over infection. hold abx for now, may be reactive leukocytosis from CHF exacc. GI- cardiac diet. cont PPI for GERD. asp prec. Renal- ÁNGEL, Cr down. Good urine output, start lasix IV BID 40mg. hyperkalemia improved 4.0 now. marie+. Heme- hg stable. plt okay. cont asa/IV heparin for mAVR and Afib. DVT proph mech /chem. Endo- cont lantus; fingersticks achs. cont synthroid. Musculsk- pressure ulcer prophylaxis. Bedrest, oob to chair as tolerated; left arm infiltration from ER IV line on arriva, increased edema during day but improved now, pulses intact, no erythema, mild tenderness only, seems like subcut edema+ Wounds- none Nutrition- cardiac diet DVT prophylaxis: IV heparin, SCDs GI prophylaxis: PPI Central Line: PICC+ right arm Arterial Line: no Marie Cathetor: yes Disposition: ICU Code Status: DNR Total Critical Care time is 35 minutes, excluding procedures/teaching Camilo Call MD Senior Energy Analyst (Electronically Signed)
[2018-02-23] MEDS: Heparin DRIP 25,000 UNITS(*) 25,000 UNITS/500 ML BAG IV SCH (11:04)
[2018-02-23] MEDS: Diltiazem CD CAP* 240 MG PO SCH (11:05)
[2018-02-23] MEDS: CMCS:Cyclosporine 0.05% OPHTH (NF) 0.4 ML VIAL BOTH EYES SCH ×2 (11:11→20:33)
[2018-02-23] MEDS: Warfarin TAB(*) 2.5 MG PO SCH (16:51)
[2018-02-23] MEDS: Atorvastatin* 20 MG TAB PO SCH (16:56)
[2018-02-23] MEDS: Metoprolol Tartrate TAB* 25 MG PO SCH (18:00)
[2018-02-23] MEDS: Furosemide IV* 10 MG/ML VIAL (40 MG) IV SCH ×3 (20:24→21:25)
[2018-02-23] MEDS: Melatonin 3 MG TAB PO SCH (20:24)
[2018-02-23] MEDS: Docusate CAP* 100 MG PO PRN (20:31)
[2018-02-24] MEDS: HYDROcodone/ACETAMIN 5-325 MG* 1 TAB PO PRN ×2 (00:46→18:03)
[2018-02-24] MEDS: Levothyroxine TAB* 112 MCG TAB PO SCH (04:57)
[2018-02-24 05:22] LABS: Hematocrit 34 % (35-47); Hemoglobin 10.7 g/dl (12.0-16.0); Mean Corpuscular HGB Conc 32 g/dl (31-36); Mean Corpuscular Hemoglobin 26 pg (27-31); Mean Corpuscular Volume 83 fL (80-97); Mean Platelet Volume 7.6 um3 (7.4-10.4); Platelet Count 180 10^3/ul (150-450); Red Blood Count 4.05 10^6/ul (4.00-5.40); Red Cell Distribution Width 18 % (10.5-15); White Blood Count 15.3 10^3/ul (3.5-10.8)
[2018-02-24 05:31] LABS: INR 1.02 (0.77-1.02)
[2018-02-24] MEDS ORDERED: Potassium Chlor TAB* 20 MEQ TAB.ER PO ONE (07:20)
[2018-02-24] MEDS: Heparin DRIP 25,000 UNITS(*) 25,000 UNITS/500 ML BAG IV SCH (07:21)
[2018-02-24] MEDS: Diltiazem IV VIAL* 125 MG in NS 0.9% 100 ML* 100 ML IV SCH (08:58)
[2018-02-24] MEDS: Furosemide IV* 10 MG/ML VIAL (40 MG) IV SCH ×2 (09:29→21:06)
[2018-02-24] MEDS: Insulin GLARGINE(*) 1 UNITS UNIT SUBCUT SCH (09:29)
[2018-02-24] MEDS: Spironolactone TAB* 25 MG PO SCH (09:30)
[2018-02-24] MEDS: Insulin LISPRO* 1 UNITS UNIT SUBCUT SCH ×3 (09:30→18:04)
[2018-02-24] MEDS: Magnesium Oxide TAB* 400 MG PO SCH ×2 (09:30→21:05)
[2018-02-24] MEDS: Diltiazem CD CAP* 240 MG PO SCH (09:30)
[2018-02-24] MEDS: Metoprolol Tartrate TAB* 25 MG PO SCH ×2 (09:31→21:05)
[2018-02-24] MEDS: Miconazole TOPICAL CREAM 2%* 30 GM TOPICAL SCH (09:31)
[2018-02-24] MEDS: Omeprazole CAP* 20 MG PO SCH ×2 (09:31→21:05)
[2018-02-24] MEDS: cefTRIAXone(*) 1 GM in NS 0.9% 50 ML* 50 ML IVPB SCH (09:53)
[2018-02-24] MEDS: CMCS:Cyclosporine 0.05% OPHTH (NF) 0.4 ML VIAL BOTH EYES SCH ×2 (11:12→21:03)
--- NOTE | 2018-02-24 14:45 | PN ---
Subjective Date of Service: 02/24/18 Interval History: Pt 's breathing much improved. Down to 2 L 02. Legs still swollen Objective Active Medications: Acetaminophen (Tylenol Tab*) 650 mg PO Q6HR PRN PRN Reason: FEVER/PAIN Last Admin: 02/23/18 22:32 Dose: 650 mg Hydrocodone Bitart/Acetaminophen ([place] 5-325 Tab*) 1 tab PO Q4H PRN PRN Reason: PAIN Last Admin: 02/24/18 00:46 Dose: 1 tab Albuterol (Ventolin 2.5 Mg/3 Ml Neb.Teresita*) 2.5 mg INH Q4H PRN PRN Reason: SOB/WHEEZING Atorvastatin Calcium (Lipitor*) 20 mg PO QPM [facility] Last Admin: 02/23/18 16:56 Dose: 20 mg Bisacodyl (Dulcolax Ec Tab*) 5 mg PO DAILY PRN PRN Reason: CONSTIPATION Cyclobenzaprine HCl (Flexeril Tab*) 10 mg PO Q8H PRN PRN Reason: muscle spasms Cyclosporine (Restasis 0.05% [facility]) 1 drop BOTH EYES BID [facility]; Protocol Last Admin: 02/24/18 11:12 Dose: Not Given Dextrose (D50w Syringe 50 Ml*) 25 gm IV PUSH ONCE PRN PRN Reason: hyperkalemia Last Admin: 02/22/18 10:50 Dose: 25 gm Diltiazem HCl (Cardizem Cd Cap*) 240 mg PO DAILY [facility] Last Admin: 02/24/18 09:30 Dose: 240 mg Docusate Sodium (Colace Cap*) 100 mg PO BID PRN PRN Reason: CONSTIPATION Last Admin: 02/23/18 20:31 Dose: 100 mg Furosemide (Lasix Iv*) 40 mg IV BID [facility] Last Admin: 02/24/18 09:29 Dose: 40 mg Heparin Sodium (Porcine) (Heparin Vial(*)) 0 units IV .BOLUS PRN PRN Reason: PER HEPARIN DRIP PROTOCOL Heparin Sodium (Porcine) (Heparin Flush Picc/Ml/Cvc(*)) 1 - 3 ml FLUSH 0600, 1800 [facility]; Protocol Last Admin: 02/24/18 07:21 Dose: 2 ml Heparin Sodium/Dextrose (Heparin Drip 25,000 Units(*)) 25,000 units in 500 mls @ 0 mls/hr IV PER RATE [facility]; Protocol Last Admin: 02/24/18 07:21 Dose: 20 mls/hr Ceftriaxone Sodium 1 gm/ (Sodium Chloride) 50 mls @ 200 mls/hr IVPB Q24H [facility] Last Admin: 02/24/18 09:53 Dose: 200 mls/hr Insulin Glargine (Lantus(*)) 65 units SUBCUT DAILY [facility] Last Admin: 02/24/18 09:29 Dose: 65 unit Insulin Human Lispro (Humalog*) 0 units SUBCUT AC [facility]; Protocol Last Admin: 02/24/18 13:02 Dose: 15 units Levothyroxine Sodium (Synthroid Tab*) 112 mcg PO 0600 [facility] Last Admin: 02/24/18 04:57 Dose: 112 mcg Magnesium Oxide (Magox 400 Tab*) 400 mg PO BID [facility] Last Admin: 02/24/18 09:30 Dose: 400 mg Melatonin (Melatonin) 3 mg PO 2100 [facility] Last Admin: 02/23/18 20:24 Dose: 3 mg Metoprolol Tartrate (Lopressor Tab*) 25 mg PO BID [facility] Last Admin: 02/24/18 09:31 Dose: 25 mg Miconazole Nitrate (Monistat 2%*) 1 applic TOPICAL DAILY [facility] Last Admin: 02/24/18 09:31 Dose: 1 dose Omeprazole (Prilosec Cap*) 20 mg PO BID [facility] Last Admin: 02/24/18 09:31 Dose: 20 mg Ondansetron HCl (Zofran Tab*) 4 mg PO Q6H PRN PRN Reason: NAUSEA Spironolactone (Aldactone Tab*) 50 mg PO DAILY [facility] Last Admin: 02/24/18 09:30 Dose: 50 mg Warfarin Sodium (Coumadin Tab(*)) 2.5 mg PO DAILY@1700 [facility]; Protocol Last Admin: 02/23/18 16:51 Dose: 2.5 mg Vital Signs - 8 hr 02/24/18 02/24/18 02/24/18 07:47 08:00 11:17 Temperature 97.9 F 98.0 F Pulse Rate 102 90 Respiratory 20 18 20 Rate Blood Pressure 110/56 122/77 (mmHg) O2 Sat by Pulse 96 98 Oximetry Oxygen Devices in Use Now: Nasal Cannula Appearance: 73 yo F in NAD, aAOx3, full will face noted Eyes: No Scleral Icterus, PERRLA Ears/Nose/Mouth/Throat: NL Teeth, Lips, Gums, Mucous Membranes Moist Neck: NL Appearance and Movements; NL JVP Respiratory: Symmetrical Chest Expansion and Respiratory Effort, - - crackles at b/l lower to mid lungs Cardiovascular: NL Sounds; No Murmurs; No JVD, - - irregular Abdominal: NL Sounds; No Tenderness; No Distention, No Hepatosplenomegaly Lymphatic: No Cervical Adenopathy Extremities: No Clubbing, Cyanosis, - - b/l pitting pedal edema +2 Skin: No Nodules or Sclerosis, - - venous stasis dermatitis b/l LE's no cellulitis Neurological: Alert and Oriented x 3, - - generalized weskness, no focal deficit Result Diagrams: 02/24/18 05:10 02/24/18 05:10 Microbiology and Other Data: Microbiology 02/22/18 09:11 Aerobic Blood Culture - Final Blood Venous Not Reportable Anaerobic Blood Culture - Final Not Reportable Blood Culture - Preliminary No Growth Day 2 02/22/18 13:18 Urine Culture - Final Urine Escherichia Coli Assess/Plan/Problems-Billing Assessment: I 73y F w/pmhx of Severe Chronic LV systolic dysfunction, s/p Mechanical AVR, severe TR/pulm HTN, DM, hypothyroidism, s/p AICD, HLD, Afib on Warfarin, CKD; presents to ER via EMS, brought from assisted living facility for SOB. She presents with 3 days of increasing SOB, increased LE edema. No chest pain. Decreased urine output despite PO diuretics. In ER, she was hypoxic , sats 91% on mask with respiratory distress, rapid Afib 140s, hypertensive 130/ 100+. Admitted for decompensated CHF. In ICU on BIPAP. Transferred to telem floor on 02/23/18 - Patient Problems (1) Acute CHF Comment: on 10/07/17, EF 35-40% acute systolic cont Lasix IV BID daily weights and I/Os (2) Acute hypoxemic respiratory failure Comment: resolving, due to CHF (3) Atrial fibrillation with RVR Comment: fair control with PO cardizem. suspoect pt's HR will improve once she diureses more (4) [place] disease Comment: Had adrenal vein sampling on 10/04/[address]. [address] Velasquez, patient will need a right adrenalectomy , but she is not the best surgical candidate - Continue to follow with Dr. Velasquez outpatient. (5) Diabetes Comment: Continue lantus (increased today due to uncontrolled sugers in the 300's) . Continue SSI coverage (6) H/O mechanical aortic valve replacement Comment: target INR>2.5, cont heparin gtt for now (7) Hyperkalemia Comment: - Resolved (8) Hypothyroid Comment: - Continue current dose of synthroid. (9) UTI (urinary tract infection) Comment: Urine cx positive for E.Coli-marie associated. will exchange Marie (10) ÁNGEL (acute kidney injury) Comment: Improving with Lasix likely due to CHF (11) DVT prophylaxis Comment: INR 1.07, cont heparin gtt till INR therapeutic (12) DNR (do not resuscitate) Comment: Status and Disposition: inpatient
[2018-02-24] MEDS: Atorvastatin* 20 MG TAB PO SCH (18:03)
[2018-02-24] MEDS: Warfarin TAB(*) 5 MG PO SCH (18:03)
[2018-02-24] MEDS: Melatonin 3 MG TAB PO SCH (21:05)
[2018-02-25 04:09] LABS: Hematocrit 34 % (35-47); Mean Corpuscular HGB Conc 32 g/dl (31-36); Mean Corpuscular Hemoglobin 27 pg (27-31); Mean Corpuscular Volume 83 fL (80-97); Mean Platelet Volume 7.5 um3 (7.4-10.4); Platelet Count 216 10^3/ul (150-450); Red Blood Count 4.14 10^6/ul (4.00-5.40); Red Cell Distribution Width 18 % (10.5-15); White Blood Count 15.3 10^3/ul (3.5-10.8)
[2018-02-25 04:15] LABS: INR 1.09 (0.77-1.02)
[2018-02-25 04:25] LABS: EGFR Non-African American 43.9 (>60)
[2018-02-25] MEDS: HYDROcodone/ACETAMIN 5-325 MG* 1 TAB PO PRN ×2 (05:25→22:05)
[2018-02-25] MEDS: Levothyroxine TAB* 112 MCG TAB PO SCH (05:48)
[2018-02-25] MEDS: cefTRIAXone(*) 1 GM in NS 0.9% 50 ML* 50 ML IVPB SCH (08:00)
[2018-02-25] MEDS: Furosemide IV* 10 MG/ML VIAL (40 MG) IV SCH ×2 (08:33→21:55)
[2018-02-25] MEDS: Spironolactone TAB* 25 MG PO SCH (08:34)
[2018-02-25] MEDS: Omeprazole CAP* 20 MG PO SCH ×2 (08:34→21:59)
[2018-02-25] MEDS: Magnesium Oxide TAB* 400 MG PO SCH ×2 (08:34→21:59)
[2018-02-25] MEDS: Metoprolol Tartrate TAB* 25 MG PO SCH ×2 (08:34→22:00)
[2018-02-25] MEDS: Diltiazem CD CAP* 240 MG PO SCH (08:34)
[2018-02-25] MEDS: Insulin LISPRO* 1 UNITS UNIT SUBCUT SCH ×3 (08:35→17:06)
[2018-02-25] MEDS: Insulin GLARGINE(*) 1 UNITS UNIT SUBCUT SCH ×2 (08:36→22:24)
[2018-02-25] MEDS: CMCS:Cyclosporine 0.05% OPHTH (NF) 0.4 ML VIAL BOTH EYES SCH ×2 (08:38→22:14)
[2018-02-25] MEDS: Heparin DRIP 25,000 UNITS(*) 25,000 UNITS/500 ML BAG IV SCH (09:38)
[2018-02-25] MEDS: Miconazole TOPICAL CREAM 2%* 30 GM TOPICAL SCH (09:42)
[2018-02-25] MEDS: Atorvastatin* 20 MG TAB PO SCH (17:06)
[2018-02-25] MEDS: Warfarin TAB(*) 5 MG PO SCH (17:06)
--- NOTE | 2018-02-25 17:07 | PN ---
Subjective Date of Service: 02/25/18 Interval History: Pt with complaint for leg pains. Swelling "no worse than usual". Shortness of breath improved. Objective Active Medications: Acetaminophen (Tylenol Tab*) 650 mg PO Q6HR PRN PRN Reason: FEVER/PAIN Last Admin: 02/23/18 22:32 Dose: 650 mg Hydrocodone Bitart/Acetaminophen ([place] 5-325 Tab*) 1 tab PO Q4H PRN PRN Reason: PAIN Last Admin: 02/25/18 05:25 Dose: 1 tab Albuterol (Ventolin 2.5 Mg/3 Ml Neb.Teresita*) 2.5 mg INH Q4H PRN PRN Reason: SOB/WHEEZING Atorvastatin Calcium (Lipitor*) 20 mg PO QPM [facility] Last Admin: 02/24/18 18:03 Dose: 20 mg Bisacodyl (Dulcolax Ec Tab*) 5 mg PO DAILY PRN PRN Reason: CONSTIPATION Cyclobenzaprine HCl (Flexeril Tab*) 10 mg PO Q8H PRN PRN Reason: muscle spasms Cyclosporine (Restasis 0.05% [facility]) 1 drop BOTH EYES BID [facility]; Protocol Last Admin: 02/25/18 08:38 Dose: 1 drop Dextrose (D50w Syringe 50 Ml*) 25 gm IV PUSH ONCE PRN PRN Reason: hyperkalemia Last Admin: 02/22/18 10:50 Dose: 25 gm Diltiazem HCl (Cardizem Cd Cap*) 240 mg PO DAILY [facility] Last Admin: 02/25/18 08:34 Dose: 240 mg Docusate Sodium (Colace Cap*) 100 mg PO BID PRN PRN Reason: CONSTIPATION Last Admin: 02/23/18 20:31 Dose: 100 mg Furosemide (Lasix Iv*) 60 mg IV BID [facility] Heparin Sodium (Porcine) (Heparin Vial(*)) 0 units IV .BOLUS PRN PRN Reason: PER HEPARIN DRIP PROTOCOL Last Admin: 02/24/18 21:01 Dose: 2,650 units Heparin Sodium (Porcine) (Heparin Flush Picc/Ml/Cvc(*)) 1 - 3 ml FLUSH 0600, 1800 [facility]; Protocol Last Admin: 02/25/18 05:44 Dose: 2 ml Heparin Sodium/Dextrose (Heparin Drip 25,000 Units(*)) 25,000 units in 500 mls @ 0 mls/hr IV PER RATE [facility]; Protocol Last Admin: 02/25/18 09:38 Dose: 23 mls/hr Ceftriaxone Sodium 1 gm/ (Sodium Chloride) 50 mls @ 200 mls/hr IVPB Q24H [facility] Last Admin: 02/25/18 08:00 Dose: 200 mls/hr Insulin Glargine (Lantus(*)) 35 units SUBCUT Q12H [facility] Insulin Human Lispro (Humalog*) 0 units SUBCUT AC [facility]; Protocol Last Admin: 02/25/18 12:15 Dose: 12 units Levothyroxine Sodium (Synthroid Tab*) 112 mcg PO 0600 [facility] Last Admin: 02/25/18 05:48 Dose: 112 mcg Magnesium Oxide (Magox 400 Tab*) 400 mg PO BID [facility] Last Admin: 02/25/18 08:34 Dose: 400 mg Melatonin (Melatonin) 3 mg PO 2100 [facility] Last Admin: 02/24/18 21:05 Dose: 3 mg Metoprolol Tartrate (Lopressor Tab*) 25 mg PO BID [facility] Last Admin: 02/25/18 08:34 Dose: 25 mg Miconazole Nitrate (Monistat 2%*) 1 applic TOPICAL DAILY [facility] Last Admin: 02/25/18 09:42 Dose: 1 dose Omeprazole (Prilosec Cap*) 20 mg PO BID [facility] Last Admin: 02/25/18 08:34 Dose: 20 mg Ondansetron HCl (Zofran Tab*) 4 mg PO Q6H PRN PRN Reason: NAUSEA Spironolactone (Aldactone Tab*) 50 mg PO DAILY [facility] Last Admin: 02/25/18 08:34 Dose: 50 mg Warfarin Sodium (Coumadin Tab(*)) 5 mg PO DAILY@1700 [facility]; Protocol Last Admin: 02/24/18 18:03 Dose: 5 mg Vital Signs - 8 hr 02/25/18 02/25/18 11:41 15:27 Temperature 97.5 F 98.2 F Pulse Rate 111 99 Respiratory 17 24 Rate Blood Pressure 108/76 135/81 (mmHg) O2 Sat by Pulse 95 94 Oximetry Oxygen Devices in Use Now: Nasal Cannula Appearance: chronically ill appearing. Eyes: No Scleral Icterus, PERRLA Neck: NL Appearance and Movements; NL JVP, Trachea Midline Respiratory: Symmetrical Chest Expansion and Respiratory Effort, - - fine rales at bases, no wheezing or rhonchi. Abdominal: NL Sounds; No Tenderness; No Distention, No Hepatosplenomegaly, - - soft, nontender, distendended Extremities: - - 3+ edema b/l LE. slight erythema near b/l ankles. Neurological: Alert and Oriented x 3, NL Sensation Nutrition: Taking PO's Result Diagrams: 02/24/18 05:10 02/25/18 03:55 Additional Lab and Data: Laboratory Results - last 24 hr 02/24/18 02/24/18 02/25/18 17:11 19:55 03:55 WBC RBC Hgb Hct MCV MCH MCHC RDW Plt Count MPV INR (Anticoag Therapy) APTT 46.6 H Sodium Potassium Chloride Carbon Dioxide Anion Gap BUN Creatinine Est GFR ( Amer) Est GFR (Non-Af Amer) BUN/Creatinine Ratio Glucose POC Glucose (mg/dL) 270 H Calcium Magnesium Procalcitonin 0.3 02/25/18 02/25/18 02/25/18 03:55 03:55 03:55 WBC 15.3 H RBC 4.14 Hgb 11.0 L Hct 34 L MCV 83 MCH 27 MCHC 32 RDW 18 H Plt Count 216 MPV 7.5 INR (Anticoag Therapy) 1.09 H APTT 65.3 H Sodium 127 L Potassium 4.2 Chloride 86 L Carbon Dioxide 35 H Anion Gap 6 BUN 39 H Creatinine 1.20 H Est GFR ( Amer) 53.1 Est GFR (Non-Af Amer) 43.9 BUN/Creatinine Ratio 32.5 H Glucose 250 H POC Glucose (mg/dL) Calcium 9.3 Magnesium 2.4 Procalcitonin 02/25/18 02/25/18 02/25/18 07:36 09:52 11:24 WBC RBC Hgb Hct MCV MCH MCHC RDW Plt Count MPV INR (Anticoag Therapy) APTT 60.6 H Sodium Potassium Chloride Carbon Dioxide Anion Gap BUN Creatinine Est GFR ( Amer) Est GFR (Non-Af Amer) BUN/Creatinine Ratio Glucose POC Glucose (mg/dL) 260 H 315 H Calcium Magnesium Procalcitonin 02/25/18 16:33 WBC RBC Hgb Hct MCV MCH MCHC RDW Plt Count MPV INR (Anticoag Therapy) APTT Sodium Potassium Chloride Carbon Dioxide Anion Gap BUN Creatinine Est GFR ( Amer) Est GFR (Non-Af Amer) BUN/Creatinine Ratio Glucose POC Glucose (mg/dL) 349 H Calcium Magnesium Procalcitonin Microbiology and Other Data: Microbiology 02/22/18 09:11 Blood Venous Aerobic Blood Culture - Final Not Reportable 02/22/18 09:11 Blood Venous Anaerobic Blood Culture - Final Not Reportable 02/22/18 09:11 Blood Venous Blood Culture - Preliminary No Growth Day 3 02/22/18 13:18 Urine Urine Culture - Final Escherichia Coli Assess/Plan/Problems-Billing Assessment: 73y F w/pmhx of Severe Chronic LV systolic dysfunction, s/p Mechanical AVR, severe TR/pulm HTN, DM, hypothyroidism, s/p AICD, HLD, Afib on Warfarin, CKD; presents to ER via EMS, brought from assisted living facility for SOB. She presents with 3 days of increasing SOB, increased LE edema. No chest pain. Decreased urine output despite torsemide. In ER, she was hypoxic, sats 91% on mask with respiratory distress, rapid Afib 140s, hypertensive 130/100+. Admitted for decompensated CHF. In ICU on BIPAP. Transferred to telemetry floor on 02/23/18 - Patient Problems (1) Acute CHF Current Visit: Yes Status: Acute Code(s): I50.9 - HEART FAILURE, UNSPECIFIED SNOMED Code(s): 12899034 Comment: on 10/07/17, EF 35-40% acute systolic increase Lasix IV to 60 BID from 40 BID. 1.5L fluid restriction started. daily weights and I/Os (2) Acute hypoxemic respiratory failure Current Visit: Yes Status: Acute Code(s): J96.01 - ACUTE RESPIRATORY FAILURE WITH HYPOXIA SNOMED Code(s): 356444630 Comment: resolving, due to CHF (3) UTI (urinary tract infection) Current Visit: Yes Status: Acute Comment: Urine cx positive for E.Coli- marie associated. will exchange Marie on ceftriaxone. day 2. pansensitive. (4) Atrial fibrillation with RVR Current Visit: No Status: Acute Code(s): I48.91 - UNSPECIFIED ATRIAL FIBRILLATION SNOMED Code(s): 158509567771081 Comment: fair control with PO cardizem 240mg. suspoect pt's HR will improve once she diureses more K>4, Mg>2 (5) [place] disease Current Visit: No Status: Acute Comment: Had adrenal vein sampling on confirming diagnosis. Per Dr. Velasquez, patient will need a right adrenalectomy , but she is not the best surgical candidate - Continue to follow with Dr. Velasquez outpatient. (6) DNR (do not resuscitate) Current Visit: No Status: Acute Comment: confirmed and updated MOLST (7) Diabetes Current Visit: No Status: Chronic Code(s): E11.9 - TYPE 2 DIABETES MELLITUS WITHOUT COMPLICATIONS SNOMED Code(s): 81424443 Comment: Continue lantus (increased to 40U BID from 65U AM due to uncontrolled sugers in the 300's) . Continue SSI coverage (8) Hyperkalemia Current Visit: No Status: Chronic Code(s): E87.5 - HYPERKALEMIA SNOMED Code(s): 46327436 Comment: - Resolved (9) Hypothyroid Current Visit: No Status: Chronic Priority: Medium Code(s): E03.9 - HYPOTHYROIDISM, UNSPECIFIED SNOMED Code(s): 39630815 Comment: - Continue current dose of synthroid. Status and Disposition: inpatient
[2018-02-25] MEDS ORDERED: Insulin GLARGINE(*) 1 UNITS UNIT SUBCUT SCH (20:00)
[2018-02-25] MEDS: Melatonin 3 MG TAB PO SCH (22:00)
[2018-02-26] MEDS: Levothyroxine TAB* 112 MCG TAB PO SCH (05:19)
[2018-02-26 06:03] LABS: INR 1.29 (0.77-1.02)
[2018-02-26 06:05] LABS: EGFR Non-African American 46.6 (>60); Hematocrit 33 % (35-47); Hemoglobin 10.7 g/dl (12.0-16.0); Mean Corpuscular HGB Conc 32 g/dl (31-36); Mean Corpuscular Hemoglobin 27 pg (27-31); Mean Corpuscular Volume 83 fL (80-97); Mean Platelet Volume 7.5 um3 (7.4-10.4); Platelet Count 213 10^3/ul (150-450); Red Blood Count 4.01 10^6/ul (4.00-5.40); Red Cell Distribution Width 18 % (10.5-15)
[2018-02-26] MEDS: Heparin DRIP 25,000 UNITS(*) 25,000 UNITS/500 ML BAG IV SCH (07:06)
[2018-02-26] MEDS: Insulin LISPRO* 1 UNITS UNIT SUBCUT SCH ×4 (08:31→17:46)
[2018-02-26] MEDS: cefTRIAXone(*) 1 GM in NS 0.9% 50 ML* 50 ML IVPB SCH (08:32)
[2018-02-26] MEDS: Insulin GLARGINE(*) 1 UNITS UNIT SUBCUT SCH ×2 (08:32→21:56)
[2018-02-26] MEDS: Diltiazem CD CAP* 240 MG PO SCH (08:32)
[2018-02-26] MEDS: Metoprolol Tartrate TAB* 25 MG PO SCH ×2 (08:32→21:42)
[2018-02-26] MEDS: Magnesium Oxide TAB* 400 MG PO SCH ×2 (08:32→23:39)
[2018-02-26] MEDS: Spironolactone TAB* 25 MG PO SCH (08:32)
[2018-02-26] MEDS: Omeprazole CAP* 20 MG PO SCH ×2 (08:32→23:39)
[2018-02-26] MEDS: Furosemide IV* 10 MG/ML VIAL (40 MG) IV SCH ×2 (09:10→20:57)
[2018-02-26] MEDS: Docusate CAP* 100 MG PO PRN (09:10)
[2018-02-26] MEDS: CMCS:Cyclosporine 0.05% OPHTH (NF) 0.4 ML VIAL BOTH EYES SCH ×2 (09:10→23:38)
[2018-02-26] MEDS: Miconazole TOPICAL CREAM 2%* 30 GM TOPICAL SCH (09:13)
[2018-02-26] MEDS ORDERED: Dextrose 50% Syringe 50 ML* 25 GM/50 ML SYRINGE IV PUSH PRN (12:27)
--- NOTE | 2018-02-26 13:41 | PN ---
Subjective Date of Service: 02/26/18 Interval History: Complaint of right greater than left anterior foot/lower extremity achy pain. more tender to palpation on that side. Breathing is better. Room air currently. No chest pain, abdominal pain. last BM was "4 days ago", documented in chart on 02/23(twice) ie 3 days ago. Original blood culture (pediatric tube) fro 02/22 now with GPC, negative PCR for MRSA or staph aureus. Objective Active Medications: Acetaminophen (Tylenol Tab*) 650 mg PO Q6HR PRN PRN Reason: FEVER/PAIN Last Admin: 02/23/18 22:32 Dose: 650 mg Hydrocodone Bitart/Acetaminophen ([place] 5-325 Tab*) 1 tab PO Q4H PRN PRN Reason: PAIN Last Admin: 02/25/18 22:05 Dose: 1 tab Albuterol (Ventolin 2.5 Mg/3 Ml Neb.Teresita*) 2.5 mg INH Q4H PRN PRN Reason: SOB/WHEEZING Atorvastatin Calcium (Lipitor*) 20 mg PO QPM [facility] Last Admin: 02/25/18 17:06 Dose: 20 mg Bisacodyl (Dulcolax Ec Tab*) 5 mg PO DAILY PRN PRN Reason: CONSTIPATION Last Admin: 02/26/18 09:10 Dose: 5 mg Cyclobenzaprine HCl (Flexeril Tab*) 10 mg PO Q8H PRN PRN Reason: muscle spasms Cyclosporine (Restasis 0.05% [facility]) 1 drop BOTH EYES BID [facility]; Protocol Last Admin: 02/26/18 09:10 Dose: 1 drop Dextrose (D50w Syringe 50 Ml*) 25 gm IV PUSH ONCE PRN PRN Reason: hyperkalemia Last Admin: 02/22/18 10:50 Dose: 25 gm Dextrose (D50w Syringe 50 Ml*) 12.5 gm IV PUSH .FOR FS < 60 - SS PRN PRN Reason: FS < 60 Diltiazem HCl (Cardizem Cd Cap*) 240 mg PO DAILY [facility] Last Admin: 02/26/18 08:32 Dose: 240 mg Docusate Sodium (Colace Cap*) 100 mg PO BID PRN PRN Reason: CONSTIPATION Last Admin: 02/26/18 09:10 Dose: 100 mg Furosemide (Lasix Iv*) 60 mg IV BID [facility] Last Admin: 02/26/18 09:10 Dose: 60 mg Heparin Sodium (Porcine) (Heparin Vial(*)) 0 units IV .BOLUS PRN PRN Reason: PER HEPARIN DRIP PROTOCOL Last Admin: 02/24/18 21:01 Dose: 2,650 units Heparin Sodium (Porcine) (Heparin Flush Picc/Ml/Cvc(*)) 1 - 3 ml FLUSH 0600, 1800 [facility]; Protocol Last Admin: 02/26/18 05:19 Dose: 3 ml Heparin Sodium/Dextrose (Heparin Drip 25,000 Units(*)) 25,000 units in 500 mls @ 0 mls/hr IV PER RATE [facility]; Protocol Last Admin: 02/26/18 07:06 Dose: 23 mls/hr Ceftriaxone Sodium 1 gm/ (Sodium Chloride) 50 mls @ 200 mls/hr IVPB Q24H [facility] Last Admin: 02/26/18 08:32 Dose: 200 mls/hr Insulin Glargine (Lantus(*)) 50 units SUBCUT Q12H [facility] Insulin Human Lispro (Humalog*) 0 units SUBCUT AC [facility]; Protocol Last Admin: 02/26/18 12:36 Dose: 15 units Insulin Human Lispro (Humalog*) 8 units SUBCUT AC [facility] Levothyroxine Sodium (Synthroid Tab*) 112 mcg PO 0600 [facility] Last Admin: 02/26/18 05:19 Dose: 112 mcg Magnesium Oxide (Magox 400 Tab*) 400 mg PO BID [facility] Last Admin: 02/26/18 08:32 Dose: 400 mg Melatonin (Melatonin) 3 mg PO 2100 [facility] Last Admin: 02/25/18 22:00 Dose: 3 mg Metoprolol Tartrate (Lopressor Tab*) 25 mg PO BID [facility] Last Admin: 02/26/18 08:32 Dose: 25 mg Miconazole Nitrate (Monistat 2%*) 1 applic TOPICAL DAILY [facility] Last Admin: 02/26/18 09:13 Dose: 1 dose Omeprazole (Prilosec Cap*) 20 mg PO BID [facility] Last Admin: 02/26/18 08:32 Dose: 20 mg Ondansetron HCl (Zofran Tab*) 4 mg PO Q6H PRN PRN Reason: NAUSEA Spironolactone (Aldactone Tab*) 50 mg PO DAILY [facility] Last Admin: 02/26/18 08:32 Dose: 50 mg Warfarin Sodium (Coumadin Tab(*)) 5 mg PO DAILY@1700 [facility]; Protocol Last Admin: 02/25/18 17:06 Dose: 5 mg Vital Signs - 8 hr 02/26/18 11:13 Temperature 98.8 F Pulse Rate 52 Respiratory 24 Rate Blood Pressure 122/75 (mmHg) O2 Sat by Pulse 91 Oximetry Oxygen Devices in Use Now: Nasal Cannula Appearance: NAD, chronically ill appearing. sitting in chair. Eyes: No Scleral Icterus, PERRLA Ears/Nose/Mouth/Throat: NL Teeth, Lips, Gums Neck: NL Appearance and Movements; NL JVP Respiratory: Symmetrical Chest Expansion and Respiratory Effort, Clear to Auscultation Cardiovascular: NL Sounds; No Murmurs; No JVD, - - irregularly irregular, HR 90s Extremities: - - 2-3+ pitting edema in dependent lower extremities. Skin: - - right dorsal surface and lower anterior gutierrez with area of mild erythema, increased tenderness, no significant warmth. no induration. Neurological: Alert and Oriented x 3, NL Sensation, NL Muscle Strength and Tone Nutrition: Taking PO's Result Diagrams: 02/26/18 05:40 02/26/18 05:40 Additional Lab and Data: Microbiology 02/22/18 09:11 Blood Venous Aerobic Blood Culture - Final Not Reportable 02/22/18 09:11 Blood Venous Anaerobic Blood Culture - Final Not Reportable 02/22/18 09:11 Blood Venous Blood Culture - Preliminary 02/22/18 09:11 Blood Venous Blood MRSA/MSSA (PCR) - Final Mrsa Negative S.aureus Negative 02/22/18 13:18 Urine Urine Culture - Final Escherichia Coli Microbiology and Other Data: Microbiology 02/22/18 09:11 Blood Venous Aerobic Blood Culture - Final Not Reportable 02/22/18 09:11 Blood Venous Anaerobic Blood Culture - Final Not Reportable 02/22/18 09:11 Blood Venous Blood Culture - Preliminary 02/22/18 09:11 Blood Venous Blood MRSA/MSSA (PCR) - Final Mrsa Negative S.aureus Negative 02/22/18 13:18 Urine Urine Culture - Final Escherichia Coli Assess/Plan/Problems-Billing Assessment: 73y F w/pmhx of Severe Chronic LV systolic dysfunction, s/p Mechanical AVR, severe TR/pulm HTN, DM, hypothyroidism, s/p AICD, HLD, Afib on Warfarin, CKD; presents to ER via EMS, brought from assisted living facility for SOB. She presents with 3 days of increasing SOB, increased LE edema. No chest pain. In ER, she was hypoxic, sats 91% on mask with respiratory distress, rapid Afib 140s , hypertensive 130/100+. Admitted for decompensated CHF. Need BIPAP in ICU. Transferred to telemetry floor on 02/23/18 - Patient Problems (1) Acute CHF Current Visit: Yes Status: Acute Code(s): I50.9 - HEART FAILURE, UNSPECIFIED SNOMED Code(s): 95886716 Comment: ECHO 02/22 EF 40-45% (on 10/07/17, EF 35-40%) acute systolic continue Lasix IV to 60 BID for one more day. BNP down to 377 from 1076 1.5L fluid restriction daily weights and I/Os (2) Acute hypoxemic respiratory failure Current Visit: Yes Status: Acute Code(s): J96.01 - ACUTE RESPIRATORY FAILURE WITH HYPOXIA SNOMED Code(s): 890814279 Comment: resolved, due to CHF (3) UTI (urinary tract infection) Current Visit: Yes Status: Acute Comment: Urine cx positive for E.Coli- marie associated. s/p exchanged Marie on ceftriaxone. day 3. pansensitive. (4) Atrial fibrillation with RVR Current Visit: No Status: Acute Code(s): I48.91 - UNSPECIFIED ATRIAL FIBRILLATION SNOMED Code(s): 057687643683225 Comment: improved control continue PO cardizem 240mg K>4, Mg>2 (5) [place] disease Current Visit: No Status: Acute Comment: Had adrenal vein sampling on confirming diagnosis. Per Dr. Velasquez, patient will need a right adrenalectomy , but she is not the best surgical candidate - Continue to follow with Dr. Velasquez outpatient. (6) DNR (do not resuscitate) Current Visit: No Status: Acute Comment: confirmed and updated MOLST (7) Diabetes Current Visit: No Status: Chronic Code(s): E11.9 - TYPE 2 DIABETES MELLITUS WITHOUT COMPLICATIONS SNOMED Code(s): 36520203 Comment: Continue lantus (increased to 50U BID, added before meals. Continue high dose SSI coverage. (8) Hyperkalemia Current Visit: No Status: Chronic Code(s): E87.5 - HYPERKALEMIA SNOMED Code(s): 65242224 Comment: - Resolved (9) Hypothyroid Current Visit: No Status: Chronic Priority: Medium Code(s): E03.9 - HYPOTHYROIDISM, UNSPECIFIED SNOMED Code(s): 64388292 Comment: - Continue current dose of synthroid. (10) Positive blood culture Current Visit: Yes Status: Acute Code(s): R78.81 - BACTEREMIA SNOMED Code( s): 297832958 Comment: 4 days later (in a ?pediatric collection tube, not clear if anaerobic or aerobic) GPC growth, not MRSA or Staph Aureus by PCR. 2 repeat blood culture drawn (1 from PICC). f/u sensitivity, suspect possible CoNS. Bactrim being added for right leg cellulitis not responding to ceftriaxone (and in setting of poorly controlled DM, persistent leukocytosis). (11) Cellulitis and abscess of right lower extremity Current Visit: Yes Status: Acute Code(s): L03.115 - CELLULITIS OF RIGHT LOWER LIMB; L02.415 - CUTANEOUS ABSCESS OF RIGHT LOWER LIMB SNOMED Code(s): 123264633 Comment: mild erythema, this day 3 of ceftriaxone for her UTI. Marked with purple marker. Will add bactrim but need to monitor K closely and will stop spironolactone while on. DM is poorly controlled. Status and Disposition: inpatient
[2018-02-26] MEDS ORDERED: Polyethylene Glycol 3350* 17 GM PACKET PO PRN (14:59)
[2018-02-26] MEDS ORDERED: Senna TAB PO PRN (15:00)
[2018-02-26] MEDS ORDERED: Cephalexin CAP* 500 MG PO SCH (17:00)
[2018-02-26] MEDS: Atorvastatin* 20 MG TAB PO SCH (17:45)
[2018-02-26] MEDS: Warfarin TAB(*) 5 MG PO SCH (17:45)
[2018-02-26] MEDS ORDERED: Nitroglycerin TAB 0.4 MG* 0.4 MG TAB ONE (20:57)
[2018-02-26] MEDS ORDERED: Nitroglycerin TAB 0.4 MG* 0.4 MG TAB SL PRN (21:00)
[2018-02-26] MEDS ORDERED: Aspirin 81 mg CHEW TAB* 81 MG TAB.CHEW ONE (21:04)
[2018-02-26] MEDS ORDERED: Aspirin 81 mg CHEW TAB* 81 MG TAB.CHEW PO ONE (21:30)
[2018-02-26] MEDS ORDERED: Al Hydrox/Mg Hydrox/Simet LIQ* 30 ML UDC PO ONE (21:33)
[2018-02-26] MEDS ORDERED: Lidocaine 2% VISCOUS* 15 ML UDC PO ONE (21:33)
[2018-02-26] MEDS ORDERED: nitroGLYCERIN DRIP* 25,000 MCG/250 ML BTL IV SCH (22:00)
[2018-02-26] MEDS ORDERED: Iodixanol* (CONTRAST) 320 MG/ML 100 ML SDV IV ONE (22:57)
--- NOTE | 2018-02-26 22:59 | PN ---
Progress Note - Progress Note Date of Service: 02/26/18 Note: Called by nursing reporting 7/10 chest pain. ECG requested. Upon arrival, Mrs Adams, a 73YOF obese diabetic HX PE, remote mAVR, HTN, HLD reports onset of sharp L dennys-superior chest pain radiating into the LUE associated with nausea , palpirations, and diaphoresis, but no SOB or light-headedness. She was given 324mg aspirin, is currently on a heparin GTT for subtheraputic warfarin, & 12.5mg PO metoprolol. She was given SL nitro x2 which decreased her pain to a level of 3/10. Pain was reproducible with rather light palpation over the L dennys-superior chest. Lungs were clear, no accessory muscle use. CV TIR/IR. Abdomen SNTND. She agreed that she would accept cardiac catheterization, if indicated. Case was reviewed with Svetlana Britton MD cardiology who advised CTA chest to definitively r/o PE and if negative to notify. Troponin is 0.05, down from previous of 0.06 this admission. CTA negative for PE. 2nd troponin up to 0.4. Chest pain currently at 2/10, no SoB/nausea/diaphoresis. ECG continues with deep dennys-lateral ST depression. Svetlana Britton apprised, advised continue maximum medical therapy & he will arrange cardiology evaluation in AM. Critical Care time: 60minutes with >50% at the bedside obtaining HX & examination, explaining preliminary dDX and treatment with risks/benefits/ reasoning; remainder spent reviewing HX, radiology exams/reports, lab values, discussing with cardiology, & documentation.
[2018-02-26] MEDS: Sulfamethox/Trimethoprim DS 800/160* TAB PO SCH (23:39)
[2018-02-26] MEDS: Melatonin 3 MG TAB PO SCH (23:39)
--- NOTE | 2018-02-27 00:01 | RAD ---
EXAM: CT Angiography Chest With Intravenous Contrast CLINICAL HISTORY: 73 years old, female; Pain; Chest pain; Type not specified; Additional info: Chest pain, R/O pe TECHNIQUE: Axial computed tomographic angiography images of the chest with intravenous contrast using pulmonary embolism protocol. MIP reconstructed images were created and reviewed. Coronal and sagittal reformatted images were created and reviewed. COMPARISON: CTA C/A/P CTA CHEST/ABD/PEL 2017-10-07 13:40 FINDINGS: Pulmonary arteries: No visible acute pulmonary embolism. Aorta: Stable atherosclerotic aortic and coronary artery calcifications. Stable 4.5 cm prominence in the proximal aortic arch with no signs of aneurysm rupture. Lungs: As previously seen, there is significant bibasilar subsegmental atelectasis or parenchymal scarring. There is a new right upper lobe patchy opacity which is suspicious for pneumonitis. Pleural space: Unremarkable. No significant effusion. No pneumothorax. Heart: Again, IV contrast extends from the right atrium into the IVC and hepatic veins consistent with right-sided heart failure. Stable postoperative changes of prior cardiac surgery. Bones/joints: Stable diffuse osteopenia and degenerative changes of the spine. Stable compression fractures of the T8 and T7 vertebral bodies. No dislocation. Soft tissues: Unremarkable. Lymph nodes: Stable mild mediastinal lymphadenopathy. Gallbladder and bile ducts: Stable cholelithiasis. Adrenals: Stable bilateral adrenal nodules, measuring 2 cm on the left and 2.3 cm on the right. Tubes, lines and devices: Stable left chest wall pacemaker device. IMPRESSION: 1. As previously seen, there is significant bibasilar subsegmental atelectasis or parenchymal scarring. There is a new right upper lobe patchy opacity which is suspicious for pneumonitis. 2. No visible acute pulmonary embolism. 3. Again, IV contrast extends from the right atrium into the IVC and hepatic veins consistent with right-sided heart failure. 4. Stable cholelithiasis. R0
[2018-02-27] MEDS ORDERED: Metoprolol Tartrate TAB* 25 MG PO ONE (00:20)
[2018-02-27] MEDS ORDERED: Metoprolol Tartrate TAB* 25 MG ONE (00:22)
[2018-02-27] MEDS ORDERED: Furosemide IV* 10 MG/ML 10 ML VIAL (100 MG) IV ONE (04:00)
[2018-02-27] MEDS ORDERED: Furosemide IV* 10 MG/ML VIAL (40 MG) ONE (04:04)
[2018-02-27] MEDS: Heparin DRIP 25,000 UNITS(*) 25,000 UNITS/500 ML BAG IV SCH (05:45)
[2018-02-27 06:30] LABS: Hematocrit 33 % (35-47); Hemoglobin 10.7 g/dl (12.0-16.0); Mean Corpuscular HGB Conc 33 g/dl (31-36); Mean Corpuscular Hemoglobin 27 pg (27-31); Mean Corpuscular Volume 82 fL (80-97); Mean Platelet Volume 7.6 um3 (7.4-10.4); Platelet Count 202 10^3/ul (150-450); Red Cell Distribution Width 18 % (10.5-15); White Blood Count 15.7 10^3/ul (3.5-10.8)
[2018-02-27 06:39] LABS: INR 1.65 (0.77-1.02)
[2018-02-27 06:55] LABS: EGFR Non-African American 37.1 (>60)
[2018-02-27] MEDS: Levothyroxine TAB* 112 MCG TAB PO SCH (07:31)
[2018-02-27] MEDS: Insulin LISPRO* 1 UNITS UNIT SUBCUT SCH (08:08)
[2018-02-27] MEDS: Diltiazem CD CAP* 240 MG PO SCH (08:15)
[2018-02-27] MEDS: Omeprazole CAP* 20 MG PO SCH (08:15)
[2018-02-27] MEDS: Magnesium Oxide TAB* 400 MG PO SCH (08:15)
[2018-02-27] MEDS: Metoprolol Tartrate TAB* 25 MG PO SCH (08:15)
[2018-02-27] MEDS: Sulfamethox/Trimethoprim DS 800/160* TAB PO SCH (08:15)
[2018-02-27] MEDS: cefTRIAXone(*) 1 GM in NS 0.9% 50 ML* 50 ML IVPB SCH (08:16)
[2018-02-27] MEDS: Furosemide IV* 10 MG/ML VIAL (40 MG) IV SCH (08:16)
[2018-02-27] MEDS: Insulin GLARGINE(*) 1 UNITS UNIT SUBCUT SCH (09:13)
[2018-02-27] MEDS ORDERED: IVPREMIX IV ONE (09:29)
[2018-02-27] MEDS ORDERED: Amiodarone 150 MG IVPREMIX* 150 MG/100 ML BAG IV ONE (09:29)
[2018-02-27] MEDS ORDERED: AMIODARONE 360 MG IV ONE (09:29)
[2018-02-27] MEDS ORDERED: Propofol* 100 ML ONE (09:42)
[2018-02-27] MEDS ORDERED: fentaNYL* 50 MCG/ML 5 ML VIAL (250 MCG VIAL) ONE ×2 (09:45→10:43)
[2018-02-27] MEDS ORDERED: Amiodarone DRIP 150 MG in D5W 100 ML *LOADING DOSE* OVER 10 MIN IV ONE (10:30)
--- NOTE | 2018-02-27 10:39 | RAD ---
HISTORY: intubation COMPARISONS: February 23, 2018, CT dated February 26, 2018 VIEWS: 1: frontal portable view of the chest at 10:05 AM FINDINGS: LINES AND TUBES: An endotracheal tube is noted with the tip overlying the trachea just below the clavicles. A left-sided pacemaker is noted. A right-sided PICC line is noted. The tip is obscured by a transcutaneous pacer pad, but appears to be overlying the superior vena cava.. CARDIOMEDIASTINAL SILHOUETTE: The cardiac silhouette is enlarged. The cardiomediastinal silhouette is otherwise normal for portable technique. PLEURA: The costophrenic angles are sharp. No pleural abnormalities are noted. LUNG PARENCHYMA: The lungs are clear. ABDOMEN: The upper abdomen is clear. There is no subphrenic gas. BONES AND SOFT TISSUES: The patient is status post median sternotomy. There is high attenuation material overlying the lower neck which is presumably artifactual external to the patient. IMPRESSION: 1. LINES AND TUBES ABOVE. 2. CARDIOMEGALY.
[2018-02-27] MEDS ORDERED: Etomidate* 2 MG/ML 20 ML VIAL (40 MG) ONE (10:45)
[2018-02-27] MEDS ORDERED: Propofol* 1000 MG (10 MG/ML 100 ml) @ Per Protocol (in ICU Pyxis) IV SCH (11:00)
--- NOTE | 2018-02-27 13:26 | TRS ---
CC: Dr. Lim; Roly Britton MD; Lorenzo Ring MD; Dr. Kevin* TRANSFER SUMMARY: DATE OF ADMISSION: 02/22/18 DATE OF TRANSFER: 02/27/18 PRIMARY CARE PROVIDER: Dimitrios Lim MD. ATTENDING PHYSICIAN: Vasquez Gordillo MD. MY ATTENDING FOR TODAY: Dr. Kevin* (dictated by Rell Young NP). HOSPITAL COURSE: This 73-year-old female patient who presented to the emergency department for 3 days of increasing shortness of breath and bipedal edema. Of significant note, she was in rapid ventricular response of her chronic AFib and was started on Cardizem drip. The patient was placed on BiPAP initially and placed in the ICU. She was titrated off her BiPAP when she was sent to the floor, however, she then had some chest pains and increasing shortness of breath and was sent back to the ICU on 02/26/18 just before midnight. The patient was having active chest pain, her troponins then ruled in at that point. Her chest pain was described as actually right shoulder pain. Troponins which are usually chronically elevated because of her chronic demand ischemia, the patient went from 0.05 to 0.40 to 9.18 to 26.90 this morning. The patient also has a mildly elevated potassium at 5.5 and hyponatremia with a sodium of 126. Her baseline creatinine is elevated. She is 1.39 today. The patient went into another rhythm this morning and looked to be AFib with aberrant conduction, questionable whether this was V-tach or not. A 12-lead EKG showed V-tach; however, given her history of atrial fibrillation it was unable to be determined if it was truly ventricular tachycardia or not. The rhythm was, however, very regular. The patient was awake during this rhythm change. She did not respond to amiodarone initially or Lopressor. She began to decompensate a little further and wide complex. The patient was diaphoretic and very short of breath. She agreed to trial of intubation. She was intubated by Dr. iRng at the bedside with a 7.5 ET tube that was confirmed by chest x-ray postplacement. Her rhythm went back to AFib with no RVR shortly after intubation, her blood pressure has now remained stable. She is currently on a propofol drip, continued on amiodarone drip, heparin drip, and nitroglycerin drip as well. REVIEW OF SYSTEMS: Unable to obtain as patient is sedated and intubated. PHYSICAL EXAMINATION: Again, the patient is intubated. Vital Signs: Blood pressure 117/92, heart rate 108, respiratory rate is between 24 and 35, she is breathing over the vent slightly. Saturation anywhere from 89% to 99% on mechanical ventilation. HEENT: The patient is atraumatic, normocephalic. She is PERRLA with nonicteric sclera. Neck: Supple. No JVD noted. No carotid bruit auscultated. Cardiovascular: S1, S2 present. Rate and rhythm are irregular, mildly tachycardic. Lungs are clear bilaterally to auscultation with no wheezing, rhonchi are rales. Abdomen is soft, nontender, nondistended. Positive bowel sounds in all 4 quadrants. : Deferred. Musculoskeletal: There is no clubbing and no cyanosis. She does have bipedal edema and some erythema to the dorsal aspect of the right foot and also in the left upper extremity. Neurologic: The patient is sedated to a Moore score of less than 3. Psychiatric: Unable to obtain. PERTINENT LABORATORY DATA: As noted above. DISCHARGE/TRANSFER DIAGNOSES: 1. NSTEMI 2. Afib with RVR and aberrant conduction 3. Hx of DVT/PE 4. COPD 5. Hypoxic Respiratory Failure 6. CHF, chronic 7. CKD 8. HTN 9. Cellulitis right foot DISCHARGE MEDICATIONS: Please see MAR. DISPOSITION: The patient will be transported via [facility] to [facility]. Dr. Mann is accepting, Dr. Vieira is the accepting sumac tanner. The patient will be going to medical ICU upon arrival. RELL YOUNG NP [id number]/CPS #: [id number] ALISE
[2018-02-27 13:44] VITALS: BP 104/79
--- NOTE | 2018-02-27 20:20 | CONS ---
CC: Dr. Garrido; Dr. Huber; Dr. Lim * CARDIOLOGY CONSULTATION AND CRITICAL CARE NOTE: DATE OF CONSULT: 02/27/18 INDICATION FOR CONSULTATION: Non-ST segment elevation myocardial infarction, atrial fibrillation, congestive heart failure. HISTORY OF PRESENT ILLNESS: The patient is a 73-year-old woman with multiple medical problems who was admitted to the hospital with congestive heart failure on 02/22/18. The patient has been in the hospital. She has been undergoing slow diuresis and optimization of medical therapy. Last night, the patient started having chest pain around midnight or so. I was called around 2:00 in the morning. The patient at that time was having significant ST segment depressions and tachycardia. The patient does have a history of pulmonary emboli. She was not on anticoagulation when she came to the hospital on . The decision at that time was to have the patient undergo a CT angiogram to rule out pulmonary embolism. I spoke with Dr. Dukes around 5:00 in the morning and the patient's CT angiogram had shown no evidence of pulmonary embolism at that time. The patient was reporting 1 or 2/10 chest pain. Her breathing was relatively comfortable. On my arrival at 8:00 in the morning, it was noted that her troponin level had gone to 26. I went directly to her room in the ICU. I spoke to the patient about her current cardiac status and her multiple medical problems. The patient was clearly having non-ST segment elevation myocardial infarction. When I came into the intensive care unit, she was reporting 5/10 chest pain. She was on a nitroglycerin drip and heparin. Decision at that time was to consider a cardiac catheterization. I did discuss the case with Dr. Curt Renner, cardiothoracic surgeon, at [facility]. This is the pig caster who did the patient's aortic valve replacement in 2000. 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 At that time, Dr. Curt Renner had noted that the patient had restenosis of her valve back in 2014, but had not followed up since then. I did discuss the case with her and she stated that the patient needed a higher level of care that could be provided at [facility]; however, she was unable to accept the patient and transfer and did not think that any spinning room worker would be available for accepting the patient on transfer. Because of her complex history, I did discuss the case with Dr. Vieira at [facility] who accepted the patient on transfer. The patient does have a history of aortic valve replacement. She has a mechanical valve from 2000. The patient also has chronic atrial flutter. The patient was admitted to the hospital here in October of 2017, both for pulmonary emboli and because of a GI bleed. At that time, an endoscopy showed gastritis and active bleeding in her stomach. At that time, the decision was made to transfer the patient. She was transferred to [facility] in [place]. I do not have the details of that admission. As it was the patient was not anticoagulated at the time of her admission. Her INR was 1. She was not on NOACs. The patient did have an echocardiogram here on 02/22/18, which demonstrated milder reduced LV systolic function, ejection fraction of 40% to 45 % with inferior wall hypokinesis. Her aortic valve showed significant stenosis. She had a mean gradient of 42 mmHg and a peak velocity across aortic valve of 4.1 m/sec. Her mitral valve showed mild to moderate mitral regurgitation. She had moderate tricuspid regurgitation with mild pulmonary hypertension. MEDICATIONS: Outpatient medications: 1. Levothyroxine 112 mcg a day. 2. Magnesium oxide 400 mg b.i.d. 3. Atorvastatin 20 mg a day. 4. Insulin as directed. 5. Zofran 4 mg p.o. q.8 hours p.r.n. 6. Torsemide 20 mg b.i.d. 7. Potassium 20 mEq b.i.d. 8. Omeprazole 20 mg b.i.d. 9. She reports that she was taking Coumadin. 10. Spironolactone 25 mg a day. 11. Metolazone 5 mg a day. 12. Diltiazem 240 mg a day. 13. Bisoprolol 5 mg a day. 14. Insulin as directed. ALLERGIES: No known drug allergies. SOCIAL HISTORY: She lives alone. Her son is involved in her care. She denies tobacco or alcohol use. PHYSICAL EXAM: Height is 5 feet 2 inches, weight 234 pounds. Temperature 95.4 , heart rate is 120, blood pressure 121/105, respiratory rate is 29, oxygen saturation 98% on a 50% facemask. Sclerae anicteric. Oropharynx is pink without erythema. Carotids are difficult to assess. Cardiac Exam: Tachycardic. S1, mechanical S2 with a 3/6 systolic ejection murmur. No diastolic murmur. Lungs have decreased breath sounds throughout. Extremities show no edema. She has 2+ pulses throughout. The patient is awake and alert and oriented. DIAGNOSTIC STUDIES/LAB DATA: White count 15.7, hemoglobin 10, hematocrit 33, platelet count 202. Chemistries: Potassium 5.5, BUN 52, creatinine 1.3. Peak troponin 26.9. AST and ALT are essentially normal. Her EKG demonstrates atrial flutter. She does have ST segment depressions in all of her leads at her EKG at 2:00 in the morning. Now, the patient's EKG does not ST segment depressions. She still has her atrial fibrillation. IMPRESSION: This is a 73-year-old female with multiple medical problems who was admitted to the hospital because of congestive heart failure. The patient started having severe chest pain last night. A CTA ruled out pulmonary embolism and her troponin level today is 26. The patient continues to have chest pain. Again, the patient would likely benefit from a cardiac catheterization. I did talk to the patient in detail about this. The patient would accept cardiac catheterization, despite her DNR status. A decision was made to transfer the patient. Again, I did discuss the case with [facility] and they declined the case. The patient will be transferred to [facility] for further intervention. CRITICAL CARE: I spent approximately an hour of critical care on this patient. About the time she was going to be transferred, the patient went into a rapid tachycardia at 160 beats per minute. It was a wide complex. It was difficult to say whether it was VT or atrial fibrillation, flutter with aberrancy. The patient was awake and alert. She had a reasonably good blood pressure with that. The patient was given amiodarone IV 150 mg twice as well as IV Lopressor. Ultimately, the heart rate started to come down slowly. However, the patient's respiratory status started to deteriorate. At that time, I asked Dr. Lorenzo Ring to consult on the patient and he did an intubation on the patient. After intubation, her heart rate came down to 90 beats per minute , her blood pressure was 90/50. Again, I spent approximately an hour on the patient adjusting medications and coordinating her care. TIME SPENT: I spent approximately 40 minutes on consultation. [id number]/CPS #: [id number] ALISE
--- NOTE | 2018-02-27 21:44 | PRO ---
PROCEDURE NOTE: DATE OF PROCEDURE: 02/27/18 - ROOM #ICU-01 PROCEDURE: Endotracheal intubation. INDICATIONS: The patient is a 73-year-old white female with an acute myocardial infarction (non-STEMI) and rapid atrial fibrillation who required intubation for anticipated cardioversion. DESCRIPTION OF PROCEDURE: Pre-sedation included 200 mg of fentanyl and 20 mg of etomidate. A size 7.5 endotracheal tube was inserted into the trachea under videoscopic control, and tube position was verified by CO2 detection and by chest x-ray. Blood pressure decreased transiently after the tube was inserted, but returned to baseline levels within 5 minutes. There were no other complications. The patient was placed on a propofol infusion and further plans per cardiology service. [id number]/[facility] #: [id number] MTDD
== END 2018-02-27 11:15 | disposition short-term general hospital (02) | DRG 280 ==
LOC: ED 08:50 → MEDTELE 10:46 → OBSVTOIN 10:46 → ICU 12:17 → MEDTELE 02-24 06:17 → ICU 02-26 22:09
PROVIDERS: ADMIT Internal Medicine; ATTEND Internal Medicine
PROC: 5A09457 Assistance with Respiratory Ventilation, 24-96 Consecutive Hours, Continuous Positive Airway Pressure (ICD-10-PCS; principal; 2018-02-22)
PROC: 05H533Z Insertion of Infusion Device into Right Subclavian Vein, Percutaneous Approach (ICD-10-PCS; 2018-02-22)
PROC: 0BH17EZ Insertion of Endotracheal Airway into Trachea, Via Natural or Artificial Opening (ICD-10-PCS; 2018-02-27)
PROC: 5A1935Z Respiratory Ventilation, Less than 24 Consecutive Hours (ICD-10-PCS; 2018-02-27)
DX: I13.0 Hypertensive heart and chronic kidney disease with heart failure and stage 1 through stage 4 chronic kidney disease, or unspecified chronic kidney disease (principal); I50.23 Acute on chronic systolic (congestive) heart failure; I21.4 Non-ST elevation (NSTEMI) myocardial infarction; J96.01 Acute respiratory failure with hypoxia; N17.9 Acute kidney failure, unspecified; I47.2 Ventricular tachycardia; E87.2 Acidosis; L03.115 Cellulitis of right lower limb; L02.415 Cutaneous abscess of right lower limb; E27.40 Unspecified adrenocortical insufficiency; E87.1 Hypo-osmolality and hyponatremia; J98.11 Atelectasis; I24.8 Other forms of acute ischemic heart disease; E24.9 Cushing's syndrome, unspecified; N39.0 Urinary tract infection, site not specified; J44.9 Chronic obstructive pulmonary disease, unspecified; E11.22 Type 2 diabetes mellitus with diabetic chronic kidney disease; I27.20 Pulmonary hypertension, unspecified; E87.5 Hyperkalemia; E86.1 Hypovolemia; I08.2 Rheumatic disorders of both aortic and tricuspid valves; Z66 Do not resuscitate; I48.2 Chronic atrial fibrillation; B95.7 Other staphylococcus as the cause of diseases classified elsewhere; E03.9 Hypothyroidism, unspecified; N18.9 Chronic kidney disease, unspecified; B96.20 Unspecified Escherichia coli [E. coli] as the cause of diseases classified elsewhere; Z95.810 Presence of automatic (implantable) cardiac defibrillator; Z95.2 Presence of prosthetic heart valve; Z79.01 Long term (current) use of anticoagulants; Z79.1 Long term (current) use of non-steroidal anti-inflammatories (NSAID); Z79.4 Long term (current) use of insulin; Z79.899 Other long term (current) drug therapy; Z82.49 Family history of ischemic heart disease and other diseases of the circulatory system; Z82.3 Family history of stroke; Z87.891 Personal history of nicotine dependence; Z79.84 Long term (current) use of oral hypoglycemic drugs
CPT/HCPCS: 36415; 71045; 71275; 80048; 80053; 81003; 81015; 82550; 82553; 82803; 83605; 83735; 83880; 84145; 84484; 85025; 85027; 85610; 85730; 87040; 87077; 87086; 87150; 87186; 87205; 93005; 93306; 94002; 94660; 99285; A9270-GY; C1751; G8978-GP-CL; G8979-GP-CK; J0282; J0610; J0696; J1644; J1940; J2704; J3010; Q9967